=== PATIENT | female | born 1990 | race Caucasian/White ===

== ENCOUNTER 2020-05-10 09:54 | Emergency (ER) | payer SELFPAY ==
[2020-05-10 09:56] VITALS: BP 152/112; PULSE 106; RESP 28; TEMP 36.6; O2SAT 98; BMI 25.0
--- NOTE | 2020-05-10 09:57 | ED.RN ---
hyperventilating in triage. encouraged slow/dep breathing. called for ekg.
[2020-05-10 10:00] VITALS: BP 129/106; PULSE 98; RESP 23; O2SAT 100
--- NOTE | 2020-05-10 10:03 | EKG12_ITS ---
Test Reason : CP Blood Pressure : / mmHG Vent. Rate : 085 BPM Atrial Rate : 085 BPM P-R Int : 122 ms QRS Dur : 088 ms QT Int : 510 ms P-R-T Axes : 047 -25 022 degrees QTc Int : 606 ms Poor data quality, interpretation may be adversely affected Normal sinus rhythm Marked ST abnormality, possible anterior subendocardial injury Prolonged QT Abnormal ECG Confirmed by DARIUSZ TOLEDO, HUGO ([id number]), market editor KIRSTY FOWLER ([id number]) on 05/11/2020 11:16:38 AM Referred By: MR Confirmed By:HUGO ARZOLA MD
--- NOTE | 2020-05-10 10:12 | CT_ITS ---
STUDY: CTA CHEST REASON FOR EXAM: Female, 30 years old. Right sided chest pain today, patient very anxious, hyperventilating and having trouble following breathing directions, best images possible. RADIATION DOSAGE (If Supplied By Facility): CTDIvol = ( 9.62 ) mGy, DLP = ( 351.08 ) mGycm TECHNIQUE: The examination was performed with the intravenous administration of IV 100mL Isovue-370. Post-processing of the angiographic images was performed, with multiplanar reformation and 3D reconstruction. Individualized dose optimization techniques were used for this CT. COMPARISON: None. FINDINGS: Evaluation is nondiagnostic for assessment of pulmonary emboli due to poor contrast bolus timing and motion. There are several hypodensities overlying pulmonary arteries, however these could represent artifact and are indeterminate. Mediastinal structures are within normal limits. The heart and pericardium are unremarkable in appearance. The lungs and pleural spaces are clear. Upper portions of the abdomen visualized are unremarkable in appearance. No aggressive osseous lesions are present. CT/CTA Chest W/WO Contrast IMPRESSION: Nondiagnostic evaluation of the pulmonary arteries due to poor contrast bolus and motion. Pulmonary embolus is not confirmed or excluded. Repeat evaluation is recommended with contrast bolus in the pulmonary arterial phase. Clear lungs. Electronically Signed: Moustapha Tello, at 11:34 EST Tel , Service support ,
--- NOTE | 2020-05-10 10:12 | EKG12_ITS ---
Test Reason : CP Blood Pressure : / mmHG Vent. Rate : 074 BPM Atrial Rate : 074 BPM P-R Int : 102 ms QRS Dur : 094 ms QT Int : 382 ms P-R-T Axes : 046 -08 050 degrees QTc Int : 424 ms Sinus rhythm with short DC Otherwise normal ECG Confirmed by DARIUSZ TOLEDO, HUGO ([id number]), image editor KIRSTY FOWLER ([id number]) on 05/11/2020 11:14:12 AM Referred By: KRISTAL Confirmed By:HUGO ARZOLA MD
--- NOTE | 2020-05-10 10:14 | ED.DCSUM_ITS ---
History of Present Illness Chief Complaint: Chest Pain Narrative: This patient is a 30-year-old female who presents with severe chest pain. This began about 3 or 4 AM today about 6 to 7 hours before presentation. She complains of sharp right-sided chest pain which radiates through to the back between the shoulder blades. She rates it as 8 out of 10. It is pleuritic. No relieving factors. No history of prior similar symptoms. She does complain of shortness of breath. She denies any recent illness otherwise such as fevers cough nausea vomiting diarrhea. No history of DVT or pulmonary embolism. No recent travel or immobilization. No recent hospitalization. No leg swelling. No known coagulopathies. Past Medical History - Allergies and Home Meds Allergies/Adverse Reactions: Allergies No Known Allergies Allergy (Verified 08/03/14 11:30) Primary Care Physician: Care Physician,No Primary [Primary Care Provider] - Past Medical History: - - PCOS Surgical History: no surgical history Smoking Status: Current every day smoker Review of Systems All systems negative except as indicated General: Denies: Fever Eyes: Denies: Visual changes - bilaterally ENT: Denies: Bilateral ear pain Cardiovascular: Reports: Chest pain Respiratory: Reports: Dyspnea. Denies: Cough Gastrointestinal: Denies: Abdominal pain, Nausea, Vomiting, Diarrhea Musculoskeletal: Reports: Back pain. Denies: Myalgias, Arthralgias Skin: Denies: Rash Neurological: Denies: Headache Hematologic: Denies: Easy bruising, Easy bleeding Physical Exam Vital Signs/Narrative: Vital Signs Temp Pulse Resp BP Pulse Ox 05/10/20 10:00 98 23 H 129/106 H 100 05/10/20 09:56 97.9 F 106 H 28 H 152/112 H 98 Inital Vital Signs reviewed: Yes General: Well nourished, Well developed, Acute Distress - Patient appears to be in pain holding her right chest shifting in bed Head: Normocephalic Eyes: EOMI ENT: Moist mucous membranes Neck: Supple Cardiovascular: Regular rhythm, Tachycardia Respiratory: CTA bilaterally, - - Tachypnea but lungs are clear without rales rhonchi or wheezes, there are equal breath sounds bilaterally. Negative for: Rales, Rhonchi, Wheezing Abdomen: Soft, Tender - Patient has mid epigastric abdominal tenderness without guarding without rebound. Negative for: Guarding Extremities: Nontender. Negative for: Edema Skin: Normal color Neurological: Alert Psychological: - - Anxious Diagnostic/Tx/Re-eval Impressions Chest CTA 05/10/20 12:13 IMPRESSION: 1. No evidence of pulmonary embolism or aortic dissection. 2. No infiltrate or pleural effusions are seen. 3. Densities in the kidneys bilaterally which may represent contrast or possibly stones. Electronically Signed: Magdiel Dubon MD at 13:18 EST Tel , Service support , 05/10/20 10:12 CTA Chest W/WO Contrast [CT] Stat 05/10/20 12:13 CTA Chest W/WO Contrast [CT] Stat Laboratory Results 05/10/20 05/10/20 05/10/20 10:07 10:07 10:07 WBC 10.7 RBC 4.85 Hgb 14.4 Hct 44.2 MCV 91.1 MCH 29.7 MCHC 32.6 RDW Std Deviation 44.7 H RDW Coeff of John 13.2 Plt Count 264 MPV 10.5 Immature Gran % (Auto) 0.400 Neut % (Auto) 57.6 Lymph % (Auto) 32.6 [place] % (Auto) 7.1 Eos % (Auto) 1.9 Baso % (Auto) 0.4 Absolute Neuts (auto) 6.2 Absolute Lymphs (auto) 3.47 Nucleated RBC % 0 PT 12.1 INR 0.9 D-Dimer Quant (PE/DVT) Sodium 140 Potassium 3.6 Chloride 112 H Carbon Dioxide 22.0 Anion Gap 6 BUN 13 Creatinine 0.84 Estim Creat Clear Calc 87.32 Est GFR (MDRD) Af Amer 101 Est GFR (MDRD) Non-Af 84 BUN/Creatinine Ratio 15.4 Glucose 94 Calcium 8.9 Total Bilirubin 0.40 Direct Bilirubin 0.15 AST 9 L ALT 20 Alkaline Phosphatase 70 Troponin I < 0.015 Total Protein 7.1 Albumin 3.9 Globulin 3.2 Lipase 138 05/10/20 10:07 WBC RBC Hgb Hct MCV MCH MCHC RDW Std Deviation RDW Coeff of John Plt Count MPV Immature Gran % (Auto) Neut % (Auto) Lymph % (Auto) [place] % (Auto) Eos % (Auto) Baso % (Auto) Absolute Neuts (auto) Absolute Lymphs (auto) Nucleated RBC % PT INR D-Dimer Quant (PE/DVT) <= 0.27 Sodium Potassium Chloride Carbon Dioxide Anion Gap BUN Creatinine Estim Creat Clear Calc Est GFR (MDRD) Af Amer Est GFR (MDRD) Non-Af BUN/Creatinine Ratio Glucose Calcium Total Bilirubin Direct Bilirubin AST ALT Alkaline Phosphatase Troponin I Total Protein Albumin Globulin Lipase - Medical Decision Making Initial EKG shows sinus rhythm at a rate of 85 but is limited due to artifact. A repeat EKG was obtained which shows normal sinus rhythm at a rate of 74 with no acute ischemic changes. Laboratory studies were unremarkable. CT angiogram of the chest was obtained to rule out pulmonary embolism and also aortic dissection was considered given pain radiating through to her back and presenting hypertension. Initial CTA was nondiagnostic due to motion artifact. Patient was given further pain medications and Ativan. She is much more calm and resting comfortably on reevaluation. CT angiogram of the chest is normal. Patient was advised that she does not have any obvious serious or life-th reatening pathology. No pneumothorax, lung infiltrate, aortic dissection, pulmonary embolism, no evidence of myocardial infarction. She was advised on supportive care. She does not have a primary care physician but was given a referral. She was advised to follow-up as an outpatient. She was advised to return for new or worsening symptoms and was instructed on specific signs and symptoms to monitor for. Patient was discharged. ED Disposition - Plan for ED Patient: Disposition: Home or Assisted Living Diagnosis: Chest pain Instructions: ED Chest Pain Atypical Unkn Cause Referrals: Care Physician,No Primary [Primary Care Provider] -
[2020-05-10 10:22] LABS: Absolute Lymphocyte Count 3.47 X10^3/uL (0.83-4.51); Absolute Neutrophil Count 6.2 X10^3/uL (2.0-7.7); Basophil# 0.04 X10^3/uL; Basophil% 0.4 % (0-1); Eosinophils% 1.9 % (0-5); Hematocrit 44.2 % (37-47); Hemoglobin 14.4 g/dL (12.0-15.0); Lymphocyte # 3.47 X10^3/ul (4.0); Lymphocyte % 32.6 % (19-41); Mean Corp Hgb Conc 32.6 g/dL (32-36); Mean Corpuscular Hgb 29.7 pg (27.0-32.0); Mean Corpuscular Volume 91.1 fL (81-99); Mean Platelet Vol. 10.5 fl (6.2-12.0); Monocyte# 0.76 X10^3/uL; Monocyte% 7.1 % (0-10); NRBC Flagged by Analyzer 0 % (0-5); Neutrophil # 6.15 X10^3/uL (2.7-7.7); Neutrophil % 57.6 % (47-70); Platelet Count 264 K/mm3 (150-450); RBC Distribution Width CV 13.2 % (11.6-14.6); RBC Distribution Width SD 44.7 fl (35.1-43.9); Red Blood Count 4.85 M/mm3 (4.2-5.4); White Blood Count 10.7 K/mm3 (4.4-11.0)
[2020-05-10] MEDS: Ondansetron 4 MG/2 ML Vial IV (10:25)
[2020-05-10] MEDS: Morphine 4 MG/ML Syringe IV (10:25)
[2020-05-10 10:28] LABS: International Normalized Ratio 0.9; Prothrombin Time (Protime)PT. 12.1 SECONDS (11.7-14.9)
[2020-05-10 10:29] VITALS: BP 118/82; PULSE 87; RESP 20; O2SAT 100
[2020-05-10 10:40] LABS: AST(SGOT) 9 U/L (15-37); Alanine Aminotransfer ALT/SGPT 20 U/L (13-56); Albumin, Serum 3.9 g/dL (3.2-5.0); Alkaline Phosphatase 70 U/L (45-117); Anion Gap 6 (5-15); BUN 13 mg/dL (7-18); BUN/Creat Ratio 15.4 RATIO (10-20); Bilirubin, Direct 0.15 mg/dL (0.00-0.30); Calcium,Total 8.9 mg/dL (8.5-10.1); Chloride 112 mmol/L (98-107); Creatinine, Serum 0.84 mg/dL (0.55-1.02); EST Glomerular Filtration Rate 84 mL/min (>60); Est Glom Filt Rate - Afr Amer 101 mL/min (>60); Estimated Creatinine Clearance 87.32 ml/min; Globulin 3.2 g/dL (2.2-4.2); Glucose 94 mg/dL (74-106); Lipase 138 U/L (73-393); Potassium 3.6 mmol/L (3.5-5.1); Protein, Total 7.1 g/dL (6.4-8.2); Sodium Level 140 mmol/L (136-145)
[2020-05-10 11:46] VITALS: BP 124/89; PULSE 66; RESP 16; O2SAT 97
--- NOTE | 2020-05-10 12:13 | CT_ITS ---
STUDY: CTA CHEST REASON FOR EXAM: Female, 30 years old. Right sided chest pain and SOB today. Patient has now received Ativan and Dilaudid and is calmer (repeat scan) RADIATION DOSAGE (If Supplied By Facility): CTDIvol = ( 9.96 ) mGy, DLP = ( 401.82 ) mGycm TECHNIQUE: The examination was performed with the intravenous administration of IV 100mL Isovue-370. Post-processing of the angiographic images was performed, with multiplanar reformation and 3D reconstruction. Individualized dose optimization techniques were used for this CT. COMPARISON: None. FINDINGS: Normal enhancement of the main pulmonary artery and right and left pulmonary arteries. Normal enhancement of the bilateral peripheral pulmonary arteries. There is no demonstrated pulmonary embolism. Normal thoracic aorta and visualized great vessels. There is no demonstrated aortic dissection. Normal heart and pericardium. Normal mediastinum. Normal hilar regions. Normal visualized trachea and bronchi. The lungs are well expanded. There are no pulmonary infiltrates. Minimal linear atelectasis or scarring in the right lower lobe. Small bullae in the right middle lobe. There are no pleural effusions. Normal chest wall structures. The visualized portions of the upper abdomen demonstrate densities in the kidneys bilaterally likely presenting contrast. Stones are difficult to exclude. No demonstrated acute osseous changes. CT/CTA Chest W/WO Contrast IMPRESSION: 1. No evidence of pulmonary embolism or aortic dissection. 2. No infiltrate or pleural effusions are seen. 3. Densities in the kidneys bilaterally which may represent contrast or possibly stones. Electronically Signed: Magdiel Dubon MD at 13:18 EST Tel , Service support ,
[2020-05-10] MEDS: LORazepam 2 MG/ML Syringe 1 MG IV (12:17)
[2020-05-10] MEDS: HYDROmorphone 1 MG/ML Syringe IV (12:17)
[2020-05-10] MEDS: 0.9% Normal Saline 1,000 ML 999 ML IV (12:18)
[2020-05-10 12:45] LABS: D-Dimer Quantitative (DVT/PE) <= 0.27 FEU/ug/m (0.27-0.49)
[2020-05-10 13:05] VITALS: BP 133/69; PULSE 87; RESP 15; O2SAT 97
--- NOTE | 2020-05-10 14:01 | ED.RN ---
IV DC'ED, CATHETER INTACT, SMALL GAUZE DRESSING PLACED. DISCHARGE INSTRUCTIONS GIVEN TO AND REVIEWED WITH PATIENT, PATIENT DENIES QUESTIONS OR CONCERNS AND VOICES UNDERSTANDING OF DISCHARGE INSTRUCTIONS. PT AMBULATES OUT OF ROOM WITHOUT DIFFICULTY.
== END 2020-05-10 14:02 | disposition home or self-care (01) ==
PROVIDERS: Emergency Provider Emergency Medicine
DX: R07.9 Chest pain, unspecified (principal); I10 Essential (primary) hypertension; F17.200 Nicotine dependence, unspecified, uncomplicated
CPT/HCPCS: 71275; 80048; 80076; 83690; 84484; 85025; 85379; 85610; 93005; 96361; 96374; 96375; 99283; J7030; Q9967; A4216; J2405

== ENCOUNTER 2020-11-22 06:42 | Emergency (ER) | payer SELFPAY ==
[2020-11-22 06:43] VITALS: BP 125/91; PULSE 74; RESP 17; TEMP 36.6; O2SAT 100; BMI 31.4
--- NOTE | 2020-11-22 07:19 | EKG12_ITS ---
Test Reason : NUMBNESS Blood Pressure : / mmHG Vent. Rate : 076 BPM Atrial Rate : 076 BPM P-R Int : 138 ms QRS Dur : 098 ms QT Int : 400 ms P-R-T Axes : 033 -23 018 degrees QTc Int : 450 ms Normal sinus rhythm Minimal voltage criteria for LVH, may be normal variant Borderline ECG Confirmed by DARIUSZ TOLEDO, HUGO ([id number]), publications editor KIRSTY FOWLER ([id number]) on 11/26/2020 1:48:04 PM Referred By: CALOS/JEFRY Confirmed By:HUGO ARZOLA MD
[2020-11-22] MEDS: 0.9% Normal Saline 1,000 ML 1000 ML IV (07:27)
--- NOTE | 2020-11-22 07:30 | EX.ED.DYSGE1 ---
HPI History of Present Illness Chief Complaint: Numb/Ting Informant: patient Narrative Narrative: Patient is a 30-year-old female denies any past medical history presenting with numbness, tingling and feeling weak. Patient states she woke up feeling weird. She states she had felt better and went to work. Patient then started to feel like her hands were numb and that was radiating up to her shoulders and down to her waist. She states that she was feeling overheated. She states her legs felt shaky. She went to the break room which is in her condition. She sat on the floor and had some of she was in M&Ms thinking her blood sugar might be low. She drank water. She felt she was going to pass out but she did not fall or pass out. Patient was feeling lightheaded and she felt that her cheeks and lips were tingling and her tongue felt swollen. She states she takes an iron in her mouth. She saw some red flashes in her eyes. She then came to emergency room to be evaluated further. She denies any associated chest pain, shortness of breath or swelling of her legs. She has a history of DVT or PE. She has no nausea or vomiting. She denies any diarrhea or constipation. Denies any change in her stools or color. She denies any urinary symptoms. Her last menstrual period was November 15. Patient does smoke cigarettes as well as uses marijuana. She notes she normally drinks 3-4 energy drinks a day but has been cutting back. She is not had 1 today. Finally patient notes that she has been having pain in her bilateral wrist. 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 The pain radiates up to her third and fourth fingers bilaterally. Prior similar symptoms: No PFSH PFSH Home Medications cephalexin 500 mg PO Q12 #6 cap 11/22/20 [Rx Last Taken Unknown] Allergy/AdvReac Type Severity Reaction Status Date / Time No Known Allergies Allergy Verified 11/22/20 06:47 Social History Smoking Status: Current every day smoker tobacco type: cigarettes ROS ROS ED Constitutional Constitutional ED: Reports fatigue and other Details: lightheaded ; Denies chills, fever(s) or malaise Eyes Eyes: Reports seeing flashes; Denies blurry vision or loss of vision ENT ENT ED: Denies rhinorrhea or sore throat Cardiovascular Cardiovascular: Denies chest pain, dizziness or palpitations Respiratory/Chest Respiratory/Chest: Denies cough or dyspnea Gastrointestinal Gastrointestinal: Denies abdominal pain, constipation, diarrhea, nausea or vomiting Genitourinary Genitourinary ED: Reports LMP (females 10-50) Details: Comment: (November 15); Denies dysuria, hematuria or urinary frequency Musculoskeletal Musculoskeletal: Reports other Details: bilateral wrist pain ; Denies arthralgias or myalgias Integumentary Denies rash or wounds Neurologic Neurologic: Denies focal weakness, headache(s) or weakness Psychiatric Psychiatric: Denies anxiety or behavioral changes EXAM Physical Exam Const Vital Signs: 11/22/20 06:43 Temperature 97.8 F Temperature Source Oral Pulse Rate 74 Respiratory Rate 17 Blood Pressure 125/91 H Blood Pressure Mean 102 Pulse Ox 100 Oxygen Delivery Method Room Air Positive well nourished and well developed General Appearance ED: well developed HEENT Reports moist mucous membranes Negative for trauma Eyes PERRL and EOMs intact bilaterally General Eye ED: Negative for pale conjunctiva Neck supple and no JVD Chest Wall inspection of chest normal Resp normal respiratory effort and clear to auscultation bilaterally Cardio regular rate, regular rhythm and no murmurs GI normal to inspection, nondistended, normoactive bowel sounds Back/Spine no CVA tenderness Extremity Extremity Narrative: No deformity. Mild tenderness palpation over the bilateral carpal tunnels with positive Tinel sign General Extremety ED: Negative for edema General Extremity: Negative for edema Neuro oriented x3 Neuro Narrative: No focal deficits Sensorium / Orientation: alert Psych mental status grossly normal Skin no rashes or lesions noted MDM MDM MDM Narrative Medical decision making narrative: Patient evaluated for feeling lightheaded sounds like presyncopal at work as well as having paresthesias throughout her body. She appears nontoxic in no acute distress. She is hemodynamically stable. She does not having acute EKG changes. She is low risk for PE per PE RC criteria and I do not think a D-dimer or CTA is indicated. She does not have a significant electrolyte abnormalities to explain her presentation. Patient is given a liter of IV fluids. She does have a possible physis with UTI with 1+ bacteria 0-5 white blood cells and 25 leukoesterase. Patient notes she has been having some frequency of urination on repeat evaluation as well as urgency so she will be treated with a 3-day course of Keflex. Her wrist symptoms seem to be associated most likely with carpal tunnel. Patient is counseled to follow-up with employee health for further evaluation of this as it seems to be related to her job and repetitive movements. Patient counseled that the exact cause her symptoms not clear today however I think she is safe to follow-up with her PCP. Patient is counseled on signs and symptoms requiring return to the emergency room. Patient verbalizes agreement and understand this plan. Patient discharged home in stable and improved condition. Lab Data Labs: Laboratory Results - last 24 hr 11/22/20 11/22/20 11/22/20 07:20 07:20 08:01 WBC 9.4 RBC 4.76 Hgb 14.4 Hct 43.6 MCV 91.6 MCH 30.3 MCHC 33.0 RDW Std Deviation 45.7 H RDW Coeff of John 13.4 Plt Count 250 MPV 10.5 Immature Gran % (Auto) 0.200 Neut % (Auto) 62.7 Lymph % (Auto) 27.7 [place] % (Auto) 6.6 Eos % (Auto) 2.5 Baso % (Auto) 0.3 Absolute Neuts (auto) 5.9 Absolute Lymphs (auto) 2.59 Nucleated RBC % 0 Sodium 141 Potassium 3.6 Chloride 110 H Carbon Dioxide 26.0 Anion Gap 5 BUN 18 Creatinine 0.78 Estim Creat Clear Calc 97.83 Est GFR (MDRD) Af Amer 110 Est GFR (MDRD) Non-Af 91 BUN/Creatinine Ratio 23.0 H Glucose 112 H Calcium 8.8 Total Bilirubin 0.40 AST 11 L ALT 22 Alkaline Phosphatase 68 Troponin I < 0.015 Total Protein 6.8 Albumin 3.7 Globulin 3.1 Albumin/Globulin Ratio 1.2 Urine Color Yellow Urine Clarity Clear Urine pH 6.0 Ur Specific [place] 1.025 Urine Protein Negative Urine Glucose (UA) Normal Urine Ketones Negative Urine Occult Blood Negative Urine Nitrite Negative Urine Bilirubin Negative Urine Urobilinogen Normal Ur Leukocyte Esterase 25 H Urine RBC 0 SEEN Urine WBC 0-5 SEEN Ur Squamous Epith Cells 0-5 SEEN Urine Bacteria 1+ Urine Mucus 0 SEEN Urine Test Negative Rhythm Strip Rhythm Strip: Sinus Rhythm Rate: 76 Ectopy: None EKG Initial EKG: Interpretation: Sinus Rhythm Comments: Normal sinus rhythm at a rate of 76 VT interval 138 QRS 98 QTc 450 Slight left axis deviation Minimal voltage criteria for LVH Normal ST segments Treatment and Re-Evaluation Comments:: IV fluids Resolution of symptoms on reevaluation. Will be discharged home. Discharge Plan Triage Chief Complaint: Numb/Ting ED Provider: Martita Price Dx/Rx/DC Orders Clinical Impression: UTI (urinary tract infection), Near syncope, Paresthesias, Bilateral carpal tunnel syndrome Instructions: ED Carpal Tunnel Syndrome, ED Near-Fainting, Uncertain Cause, ED Paraesthesias, ED Urinary Tract Infections in Women Prescriptions: New cephalexin 500 mg capsule 500 mg PO Q12 Qty: 6 RF: 0 Primary Care Provider: Care Physician,No Primary Referrals: Karthik Vásquez III, MD [STAFF PHYSICIAN] - Care Physician,No Primary [Primary Care Provider] - Activity Restrictions/Additional Instructions: Drink plenty of fluids. Complete the entire course of antibiotics. If you continue to problems with your wrist, please follow-up with [id number] or your primary care doctor. You have been referred to 1 today if you do not have one. Disposition Disposition: Home, self care
[2020-11-22 07:42] LABS: Absolute Lymphocyte Count 2.59 X10^3/uL (0.83-4.51); Absolute Neutrophil Count 5.9 X10^3/uL (2.0-7.7); Basophil# 0.03 X10^3/uL; Basophil% 0.3 % (0-1); Eosinophil# 0.23 X10^3/uL; Eosinophils% 2.5 % (0-5); Hematocrit 43.6 % (37-47); Hemoglobin 14.4 g/dL (12.0-15.0); Lymphocyte # 2.59 X10^3/ul (0.83-4.51); Lymphocyte % 27.7 % (19-41); Mean Corpuscular Hgb 30.3 pg (27.0-32.0); Mean Corpuscular Volume 91.6 fL (81-99); Mean Platelet Vol. 10.5 fl (6.2-12.0); Monocyte# 0.62 X10^3/uL; Monocyte% 6.6 % (0-10); NRBC Flagged by Analyzer 0 % (0-5); Neutrophil # 5.86 X10^3/uL (2.7-7.7); Neutrophil % 62.7 % (47-70); Platelet Count 250 K/mm3 (150-450); RBC Distribution Width CV 13.4 % (11.6-14.6); RBC Distribution Width SD 45.7 fl (35.1-43.9); Red Blood Count 4.76 M/mm3 (4.2-5.4); White Blood Count 9.4 K/mm3 (4.4-11.0)
[2020-11-22 07:50] LABS: ALB/GLOB Ratio 1.2 RATIO (0.9-2.4); AST(SGOT) 11 U/L (15-37); Alanine Aminotransfer ALT/SGPT 22 U/L (13-56); Albumin, Serum 3.7 g/dL (3.2-5.0); Alkaline Phosphatase 68 U/L (45-117); Anion Gap 5 (5-15); BUN 18 mg/dL (7-18); Calcium,Total 8.8 mg/dL (8.5-10.1); Chloride 110 mmol/L (98-107); Creatinine, Serum 0.78 mg/dL (0.55-1.02); EST Glomerular Filtration Rate 91 mL/min (>60); Est Glom Filt Rate - Afr Amer 110 mL/min (>60); Estimated Creatinine Clearance 97.83 ml/min; Globulin 3.1 g/dL (2.2-4.2); Glucose 112 mg/dL (74-106); Potassium 3.6 mmol/L (3.5-5.1); Protein, Total 6.8 g/dL (6.4-8.2); Sodium Level 141 mmol/L (136-145)
[2020-11-22 08:06] LABS: Mucous, Urine 0 SEEN /hpf (<or=2+); Red Blood Cells-Urine 0 SEEN /hpf (0-5)
[2020-11-22 08:08] LABS: Color, Urine Yellow (Yellow); Glucose, Dipstick Normal (Normal); Ketone-Dipstick Negative (Negative); Leukocyte Esterase-Dipstick 25 /ul (Negative); Nitrite-Dipstick Negative (Negative); Occult Blood-Urine Negative /ul (Negative); Protein-Dipstick Negative (Negative); Specific Gravity, Urine 1.025 (1.002-1.030); Urine Bilirubin Dipstick Negative (Negative); Urine Clarity Clear (Clear); Urine Urobilinogen Normal (Normal)
[2020-11-22 08:18] LABS: Bacteria 1+ /hpf (None Seen); Squamous Epithelial Cells - UA 0-5 SEEN /hpf (5-10); White Blood Cells 0-5 SEEN /hpf (0-5)
[2020-11-22 08:20] LABS: Internal QC Validated? YES +Cl - CLEAR BKGD; Pregnancy, Urine Negative Negative
== END 2020-11-22 09:15 | disposition home or self-care (01) ==
PROVIDERS: Emergency Provider Emergency Medicine
DX: N39.0 Urinary tract infection, site not specified (principal); R55 Syncope and collapse; G56.03 Carpal tunnel syndrome, bilateral upper limbs; F17.210 Nicotine dependence, cigarettes, uncomplicated; Z86.718 Personal history of other venous thrombosis and embolism
CPT/HCPCS: 80053; 81001; 81025; 84484; 85025; 93005; 96360; 99283; J7030; A4216

== ENCOUNTER 2022-01-21 15:57 | Emergency (ER) | payer BC, SELFPAY ==
[2022-01-21 15:57] VITALS: BP 125/82; PULSE 100; RESP 18; TEMP 37.1
[2022-01-21 15:58] VITALS: BP 125/82; PULSE 100; RESP 18; TEMP 37.1; BMI 27.8
--- NOTE | 2022-01-21 17:23 | EX.ED.VIS.HA ---
HPI History of Present Illness Chief Complaint: Headache Narrative Narrative: 32-year-old female presenting with a headache. She has had this since Thursday when she was at [employer]. She states she believes she has a migraine but she has no history of migraines. This was not an acute onset headache. She had no head trauma. Patient does admit to subjective fevers, chills, body aches. She had nausea a couple of times. She is got a mild cough not productive of sputum. No urinary complaints. No chest pain or shortness of breath. No known sick contacts. [facility] Medical History (Updated 01/21/22 @ 17:46 by Hi Gonzales) Anxiety Kidney stones Smoker Substance abuse Home Medications ondansetron 4 mg disintegrating tablet 4 mg PO Q8H PRN nausea and vomiting #14 tabs 01/21/22 [Rx Last Taken Unknown] Allergy/AdvReac Type Severity Reaction Status Date / Time No Known Allergies Allergy Verified 11/22/20 06:47 Social History Smoking Status: Current every day smoker tobacco type: cigarettes EXAM Physical Exam Const Vital Signs: 01/21/22 15:58 01/21/22 15:57 Temperature 98.7 F 98.7 F Temperature Source Temporal Temporal Pulse Rate 100 100 Respiratory Rate 18 18 Blood Pressure 125/82 H 125/82 H Blood Pressure Mean 96 96 Positive well nourished General Appearance ED: NAD; Negative for pallor HEENT Reports normocephalic, TM's clear and moist mucous membranes atraumatic Tympanic Membrane ED: Yes TM's clear Eyes PERRL and EOMs intact bilaterally General Eye ED: Yes pale conjunctiva Resp normal respiratory effort and clear to auscultation bilaterally Auscultation: Negative for rales, rhonchi or wheezes Cardio regular rate and regular rhythm GI non-tender and non-distended Extremity normal to inspection and full ROM General Extremety ED: Negative for edema or tenderness General Extremity: Negative for edema Neuro oriented x3, CN's II-XII intact bilaterally and no sensory deficits noted Sensorium / Orientation: awake and alert Speech: speech normal Gait (Neuro): normal gait Motor Exam: strength 5/5 throughout Psych mental status grossly normal Skin General Skin Exam: Negative for jaundice or pallor MDM MDM MDM Narrative Medical decision making narrative: Patient presenting with headache, viral syndrome. She is treated with IM dose of Toradol 50 mg. She is given Zofran 4 mg. Her physical exam is completely normal. Vital signs are stable and she is afebrile. Patient's COVID testing was positive today. Patient counseled to alternate Tylenol ibuprofen. She is given Zofran for home. She is given a work note. She tested positive today but has been sick since Thursday. I gave her 3-day and was off more. Patient stable for discharge. Impression: 1. headache 2. COVID-19 3. Nausea 4. Vomiting 5. Myalgia Lab Data Attestation: I reviewed the patient's lab results. Discharge Plan Triage Chief Complaint: Headache ED Provider: Kory Goldman Dx/Rx/DC Orders Instructions: Coronavirus Disease 2019 (COVID-19): Caring for Yourself or Others Prescriptions: New ondansetron 4 mg tablet,disintegrating 4 mg PO Q8H PRN (Reason: nausea and vomiting) Qty: 14 0RF Primary Care Provider: Care Physician,No Primary Referrals: [facility] [Outside] - 3-5 Days Care Physician,No Primary [Primary Care Provider] - Disposition Disposition: Home, Self Care
[2022-01-21] MEDS: Ondansetron ODT 4 MG Tablet PO (17:47)
[2022-01-21] MEDS: Ketorolac 15 MG/ML Vial IM (17:48)
[2022-01-21 18:19] VITALS: BP 122/70; PULSE 91; RESP 15; O2SAT 99
== END 2022-01-21 18:20 | disposition home or self-care (01) ==
PROVIDERS: Emergency Provider Student in an Organized Health Care Education/Training Program; Visit Provider Student in an Organized Health Care Education/Training Program
DX: U07.1 COVID-19 (principal); R11.2 Nausea with vomiting, unspecified; M79.10 Myalgia, unspecified site; F17.210 Nicotine dependence, cigarettes, uncomplicated
CPT/HCPCS: 87811; 96372; 99283

== ENCOUNTER 2022-10-02 11:53 | Emergency (ER) | payer BC, SELFPAY ==
[2022-10-02 11:54] VITALS: BP 134/83; PULSE 81; RESP 16; TEMP 36.8; O2SAT 96; BMI 23.5
[2022-10-02] MEDS: Diphth,Pertuss(Acell),Tet Vac 0.5 ML Vial IM (12:20)
[2022-10-02] MEDS: Lidocaine 1% (20 ml mdv) 20 ML Vial INFILT (12:25)
--- NOTE | 2022-10-02 12:52 | EDS_ITS ---
HPI History of Present Illness Chief Complaint: Laceration Informant: patient Narrative Narrative: Patient hit her right elbow on a shelf when she pulled something back. Her elbow hit into the shelf and caused a laceration. She had some tingling in her fingers initially like she hit my funny bone but that has resolved. No other injury. Tetanus is not up-to-date. Patient has no chronic medical conditions or medications. She is not on blood thinners. [facility] Medical History Anxiety Kidney stones Smoker Substance abuse Home Medications ondansetron 4 mg disintegrating tablet 4 mg PO Q8H PRN nausea and vomiting #14 tabs 01/21/22 [Rx Last Taken Unknown] Allergy/AdvReac Type Severity Reaction Status Date / Time No Known Allergies Allergy Verified 10/02/22 11:55 Social History Smoking Status: Current every day smoker tobacco type: cigarettes ROS ROS ED Constitutional Constitutional ED: Denies chills or fever(s) Gastrointestinal Gastrointestinal: Denies nausea or vomiting Musculoskeletal Musculoskeletal: Denies myalgias or neck pain Integumentary Reports other Details: Laceration right elbow Neurologic Neurologic: Reports paresthesias; Denies headache(s) or weakness Psychiatric Psychiatric: Reports anxiety Hematologic/Lymphatic Hematologic/Lymphatic: Denies easy bleeding or easy bruising EXAM Physical Exam Narrative Exam Narrative: Patient awake alert no acute distress laying comfortably in bed. HEENT shows no sign of trauma Cardiorespiratory shows easy breathing unlabored clear. Extremities show a laceration over the right elbow overlying the distal humerus area. Laceration is about 3 cm in length. It is open up about 1 cm. It looks clean. No foreign material seen externally. No active bleeding. Distally she is neurovascularly intact. Although it sounds like she did hit her ulnar nerve she has intact sensation at this time. Const Vital Signs: 10/02/22 11:54 Temperature 98.2 F Temperature Source Temporal Pulse Rate 81 Respiratory Rate 16 Blood Pressure 134/83 H Blood Pressure Mean 100 Pulse Ox 96 Oxygen Delivery Method Room Air PROC Procedures Lacerations Right elbow: Depth: Skin Shape: Linear Prep: Sterile Conditions and Shure-Clens Laceration repair: Irrigated, Lidocaine, Local and Wound explored Irrigated (ml): 100 Number of Sutures/Christin: 5 Suture Information: Ethilon, Simple and 4-0 Comment: The area was anesthetized scrubbed clean. I explored the wound. No sign of foreign material. Wound edges were approximated with good cosmesis hemostasis and patient tolerated the procedure well. MDM MDM MDM Narrative Medical decision making narrative: See procedure note. I do not think the patient needs x-ray. She has excellent range of motion without pain. No indication by exam or history of foreign body. We discussed signs of infection and reasons to return. Sutures out in 10 to 12 days Discharge Plan Triage Chief Complaint: Laceration ED Provider: Lasha Jones Dx/Rx/DC Orders Clinical Impression: Laceration of elbow, right Instructions: ED Laceration Extremity Prescriptions: No Action ondansetron 4 mg tablet,disintegrating 4 mg PO Q8H PRN (Reason: nausea and vomiting) Qty: 14 0RF Primary Care Provider: Care Physician,No Primary Referrals: Markie Pardo MD [Med Staff - Analytical Lab Technician] - 10-14 Days suture removal Care Physician,No Primary [Primary Care Provider] - Activity Restrictions/Additional Instructions: May return here, urgent care, or primary physician for suture removal in 10-14 days. Disposition Disposition: Home, Self Care
--- NOTE | 2022-10-02 12:54 | CM.ED ---
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 Patient was seated on hospital bed and agreeable to speak with SW. SW inquired about patient's insurance and current PCP. Patient verified insurance and reports no current PCP. SW provided patient with a list of local PCPs in network with patient's insurance and accepting new patients. Patient was receptive towards list and voiced no other needs. SW remains available if needs arise. Anyi Blanco MSW, [place]ULIANA
[2022-10-02 12:57] VITALS: RESP 18
== END 2022-10-02 13:00 | disposition home or self-care (01) ==
PROVIDERS: Emergency Provider Emergency Medicine; Visit Provider Emergency Medicine
DX: S51.011A Laceration without foreign body of right elbow, initial encounter (principal); F17.210 Nicotine dependence, cigarettes, uncomplicated; W26.8XXA Contact with other sharp object(s), not elsewhere classified, initial encounter; W22.03XA Walked into furniture, initial encounter
CPT/HCPCS: 12002; 90715; 99283

== ENCOUNTER 2023-09-14 16:32 | Emergency (ER) | payer BC, SELFPAY ==
[2023-09-14 16:34] VITALS: BP 146/83; PULSE 73; RESP 16; TEMP 36.7; O2SAT 100; BMI 20.2
== END 2023-09-14 18:40 | disposition left against medical advice (07) ==
LOC: ED 18:44
DX: M62.838 Other muscle spasm (principal); Z53.21 Procedure and treatment not carried out due to patient leaving prior to being seen by health care provider

== ENCOUNTER 2023-12-27 13:37 | Inpatient (IN) | payer BC, SELFPAY ==
[2023-12-27] VITALS (7 sets, daily range): BP systolic 111–143; BP diastolic 64–99; PULSE 59–87; RESP 10–19; TEMP 36.4–36.8; O2SAT 95–100; BMI 22.1; BMI 20.3
--- NOTE | 2023-12-27 13:51 | CT_ITS ---
EXAM: CT HEAD WITHOUT INTRAVENOUS CONTRAST CLINICAL INDICATION: seizure TECHNIQUE: Multiple axial images were obtained of the head without intravenous contrast. This CT exam was performed using one or more of the following dose reduction techniques: automated exposure control, adjustment of the mA and/or kV according to patient size, and/or use of iterative reconstruction technique. RADIATION DOSE: CTDIvol = 44.99 mGy, DLP = 745.49 mGy-cm COMPARISON: No relevant prior studies available. FINDINGS: BRAIN AND EXTRA-AXIAL SPACES: Unremarkable. No intra- or extra-axial hemorrhage. No evidence of acute infarct. No intracranial mass or mass effect. There is preservation of the mueller/white matter interface. Posterior fossa structures are unremarkable. Ventricles are appropriate for age. No hydrocephalus. Basal cisterns are patent. 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 Consider bruxism. No discrete lytic or blastic abnormalities. SINUSES: Unremarkable as visualized. Clear. MASTOID AIR CELLS: Unremarkable. Clear. ORBITS: Visualized globes, extraocular muscles, optic nerves and retrobulbar fat appear unremarkable. 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 Consider bruxism. No acute intracranial abnormality. Electronically Signed: Bernabe Salomon MD at 14:24 EDT Reading Location ID and State: [facility] / [place] , Service support ,
--- NOTE | 2023-12-27 13:51 | EKG12_ITS ---
Test Reason : Blood Pressure : / mmHG Vent. Rate : 064 BPM Atrial Rate : 064 BPM P-R Int : 144 ms QRS Dur : 094 ms QT Int : 398 ms P-R-T Axes : 047 -07 036 degrees QTc Int : 410 ms Normal sinus rhythm with sinus arrhythmia Normal ECG Confirmed by SHERRY TOLEDO, MICHA ([id number]), television news video editor MAURICE JOHNSON ([id number]) on 12/30/2023 9:47:51 AM Referred By: Confirmed By:RADHA POWELL MD
--- NOTE | 2023-12-27 13:53 | EX.ED.DYSGE1 ---
HPI <LUCILLE Hernandez - Last Filed: 12/27/23 15:52> History of Present Illness Chief Complaint: Seizure Narrative Narrative: Patient is a 33-year-old female with no significant medical history, patient does smoke marijuana daily, who presents to the emergency department for seizure activity, altered mental status. Per the patient spouse, they had a republican at their house last evening, alcohol was consumed, patient also smokes marijuana. She denies any other illicit drugs. Patient then went to bed late at night, woke up at 5 AM then went back to bed. Per the spouse, the patient would wake up, looking confused, making weird sounds with her mouth, moving her hands, and then the patient locked up and had a 30 to 45-second seizure. He then called the ambulance. Patient is still slightly altered however she is alert and oriented. This is never happened to the patient before. She currently does not have any PCP. PFSH <LUCILLE Hernandez - Last Filed: 12/27/23 15:52> [facility], [facility] Medical History Anxiety Kidney stones Smoker Substance abuse Home Medications ?Medication ?Instructions ?Recorded ?Last Taken ?Type NK 12/27/23 Unknown History Allergy/AdvReac Type Severity Reaction Status Date / Time No Known Allergies Allergy Verified 12/27/23 13:38 Social History Smoking Status: Current every day smoker tobacco type: cigarettes ROS <LUCILLE Hernandez - Last Filed: 12/27/23 15:52> ROS ED ROS Narrative Constitutional: Negative for fever, chills, weight loss, weakness Eyes: Negative for vision loss, vision change, double vision ENT: Negative for any sore throat, ear pain, congestion Cardiovascular: Negative for any chest pain, tightness, palpitations Respiratory: Negative for any cough, sputum production, hemoptysis, dyspnea, dyspnea on exertion, orthopnea Gastrointestinal: Negative for any nausea, vomiting, diarrhea, constipation, blood in stool, blood in vomit. Positive for abdominal pain : Negative for any urinary frequency, dysuria, retention, blood in urine Muscle skeletal: Negative for any neck pain, back pain Neurological: Negative for any headache, syncope, dizziness. Positive for seizure-like activity, altered mental status Skin: Negative for any rashes, itching, abrasions, lacerations Psychiatric: Negative for any depression, anxiety, stress, suicidal ideation, homicidal ideation Hematologic: Negative for any excessive bruising, easy bleeding EXAM <LUCILLE Hernandez - Last Filed: 12/27/23 15:52> Physical Exam Narrative Exam Narrative: Vital signs reviewed. Patient is alert and oriented, she is looking around the room, she does answer questions appropriately however when asked to explain, she Cossey looks that her spouse for help. The spouse thinks that she is still not acting 100% herself. HEET: Head normocephalic atraumatic, TMs clear bilaterally. Posterior pharynx is clear, dry mucous membranes. Nares clear bilaterally. Neck: Supple with no lymphadenopathy or tenderness. No signs of meningismus. Cardiac: Regular rate and rhythm no murmurs gallops or rubs, equal peripheral pulses bilaterally. Respiratory: Lungs clear to auscultation bilaterally. No chest tenderness. Abdomen: Soft, nontender, nondistended. No abdominal bruit or pulsatile masses. No hepatosplenomegaly Extremities: No peripheral edema, no signs of gross trauma or deformity. Active full range of motion of all extremities. Neuro: Cranial nerves II through XII intact, no focal neurological deficits. Skin: Clean dry and intact with no rash, purpura, petechiae, vesicles or pustules. Backs/flank: No CVA tenderness, no midline spinal tenderness, no deformity. Psych: Normal mood and affect. No SI, HI or acute psychosis. Const Vital Signs: 12/27/23 13:39 12/27/23 14:37 12/27/23 15:00 Temperature 98 F Temperature Source Oral Pulse Rate 73 59 L 87 Respiratory Rate 16 10 L 19 H Blood Pressure 127/86 H 125/75 H 143/64 H Blood Pressure Mean 99 91 90 Pulse Ox 100 100 95 Oxygen Delivery Method Room Air Room Air Room Air 12/27/23 15:50 Temperature Temperature Source Pulse Rate 80 Respiratory Rate 19 H Blood Pressure 111/80 Blood Pressure Mean 90 Pulse Ox 99 Oxygen Delivery Method Room Air Positive well nourished and well developed General Appearance ED: well developed <Gabino Sanchez MD - Last Filed: 12/27/23 16:03> Physical Exam Const Vital Signs: 12/27/23 13:39 12/27/23 14:37 12/27/23 15:00 Temperature 98 F Temperature Source Oral Pulse Rate 73 59 L 87 Respiratory Rate 16 10 L 19 H Blood Pressure 127/86 H 125/75 H 143/64 H Blood Pressure Mean 99 91 90 Pulse Ox 100 100 95 Oxygen Delivery Method Room Air Room Air Room Air 12/27/23 15:50 Temperature Temperature Source Pulse Rate 80 Respiratory Rate 19 H Blood Pressure 111/80 Blood Pressure Mean 90 Pulse Ox 99 Oxygen Delivery Method Room Air [facility] <LUCILLE Hernandez - Last Filed: 12/27/23 15:52> [facility] Lab Data Labs: Laboratory Results - last 24 hr 12/27/23 12/27/23 12/27/23 13:45 13:46 15:07 WBC 8.6 RBC 4.39 Hgb 13.9 Hct 42.4 MCV 96.6 MCH 31.7 MCHC 32.8 RDW Std Deviation 49.9 H RDW Coeff of John 13.8 Plt Count 235 MPV 9.8 Immature Gran % (Auto) 0.300 Neut % (Auto) 75.1 H Lymph % (Auto) 15.9 L [place] % (Auto) 6.4 Eos % (Auto) 1.7 Baso % (Auto) 0.6 Absolute Neuts (auto) 6.5 Absolute Lymphs (auto) 1.37 Nucleated RBC % 0 Sodium 140 Potassium 4.1 Chloride 110 H Carbon Dioxide 22.0 Anion Gap 8 BUN 18 Creatinine 0.81 Estim Creat Clear Calc 84.51 Est GFR (MDRD) Af Amer 104 Est GFR (MDRD) Non-Af 86 BUN/Creatinine Ratio 22.3 H Glucose 108 H Calcium 8.7 Total Bilirubin 0.40 AST 14 L ALT 22 Alkaline Phosphatase 48 Total Protein 6.4 Albumin 3.5 Globulin 2.9 Albumin/Globulin Ratio 1.2 Lipase 37 Serum , Qual NEGATIVE Urine Color Yellow Urine Clarity Cloudy Urine pH 8.0 Ur Specific [place] 1.015 Urine Protein Negative Urine Glucose (UA) Normal Urine Ketones Negative Urine Occult Blood Negative Urine Nitrite Negative Urine Bilirubin Negative Urine Urobilinogen Normal Ur Leukocyte Esterase Negative Urine RBC 0 SEEN Urine WBC 0 SEEN Ur Squamous Epith Cells 0 SEEN Amorphous Sediment 1+ Urine Bacteria 0 SEEN Urine Mucus 0 SEEN Salicylates 4.0 Acetaminophen < 2.0 L Ur Drug Screen Comment Ethyl Alcohol < 3.0 POC Glucose 112 H Radiography Diagnostic Testing: Clinical Impression(s) from Imaging Studies Brain CT 12/27/23 13:51 IMPRESSION: 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 Consider bruxism. No acute intracranial abnormality. Electronically Signed: Bernabe Salomon MD at 14:24 EDT , Chest X-Ray 12/27/23 14:00 IMPRESSION: No radiographic evidence of acute cardiopulmonary disease. Electronically Signed: Bernabe Salomon MD at 14:20 EDT , EKG Normal sinus rhythm with sinus arrhythmia: Attestation: I personally reviewed and interpreted this EKG as follows: Comments: Normal sinus rhythm, rate 64 bpm, SC interval 144 ms, QRS duration 94 ms, no acute ST elevation, no acute infarct. Treatment and Re-Evaluation :: Differential diagnosis includes however is not limited to: New onset seizures, electrolyte abnormality, illicit drug use, mask effect, Patient appears to be in no obvious respiratory distress vital signs are stable, patient is nontoxic-appearing. Patient is alert however is not back to baseline per the spouse. She does know where she is, what time it is, however she is having difficulty explaining things such as what she does for living. Patient will receive a CT scan of the brain looking for any mass effect, intracranial bleeding. Laboratory values will be completed, as well as urinalysis, urine drug screen. Salicylate and acetaminophen level will be ordered. Chest x-ray will be ordered. IV fluids given, patient will be reevaluated. Chest x-ray showed no radiographic evidence of any acute cardiopulmonary disease. Patient's laboratory values showed a normal CBC, patient's chemistries show chloride of 110, BUN of 22.3, AST of 14, patient is not . Alcohol acetaminophen and salicylate were all negative. Patient CT scan of the brain showed severe degenerative change of the right mandibular condyle, consider bruxism, no acute intracranial abnormality. Currently waiting for urine, urine drug screen. I was called to the room by nursing staff, patient did have another grand mal seizure, this lasted approximately 1 minute to 1 minute 30 seconds. Patient did have a postictal state. Patient was given IV 2 mg Ativan, I will order 1 g IV Keppra. Spoke with [facility] neurology, they do believe the patient can stay here. I reached out to the hospitalist, patient stable for admission. <Gabino Sanchez MD - Last Filed: 12/27/23 16:03> [facility] Narrative Medical decision making narrative: Dr. Sanchez: I have personally performed a face to face assessment of the patient and have reviewed the RANDY Note. I performed a substantive portion of the visit including all aspects of the following. My iverson findings include: History is seizure this morning while lying in bed with boyfriend. No history of seizure. No fever or other symptoms. Admitted to drinking alcohol last night, but rarely drinks according to patient and boyfriend. Seizure only lasted about a minute. Now presents with reported confusion. Exam is afebrile. Vital signs noted. Regular rate and rhythm. Lungs clear to auscultation bilaterally. Abdomen soft nontender with normoactive bowel sounds. Awake, alert. Neurological examination nonfocal and nonlateralizing. Medical Decision Making: Check CT of brain, check urine for drugs of abuse. Check UA. Check test. I reviewed the radiology report of the CT of the brain and is negative for acute process. Urinalysis reviewed and no evidence of infection. Patient afebrile here. During her workup, patient had a seizure, tonic-clonic. She was administered Ativan 2 mg intravenously and loaded with Keppra 1 g intravenously. Patient discussed with the hospitalist, Dr. Urbina, and with neurologist Dr. Middleton with [facility] teleneurology. He recommended no maintenance medications, but EEG and regular workup and can see the patient in consult tomorrow. Disposition is admit in stable condition. Other additions or changes: [None] History & Record Review Discussion w/independent historian: Patient and Significant other Lab Data Attestation: I reviewed the patient's lab results. Labs: Laboratory Results - last 24 hr 12/27/23 12/27/23 12/27/23 13:45 13:46 15:07 WBC 8.6 RBC 4.39 Hgb 13.9 Hct 42.4 MCV 96.6 MCH 31.7 MCHC 32.8 RDW Std Deviation 49.9 H RDW Coeff of John 13.8 Plt Count 235 MPV 9.8 Immature Gran % (Auto) 0.300 Neut % (Auto) 75.1 H Lymph % (Auto) 15.9 L [place] % (Auto) 6.4 Eos % (Auto) 1.7 Baso % (Auto) 0.6 Absolute Neuts (auto) 6.5 Absolute Lymphs (auto) 1.37 Nucleated RBC % 0 Sodium 140 Potassium 4.1 Chloride 110 H Carbon Dioxide 22.0 Anion Gap 8 BUN 18 Creatinine 0.81 Estim Creat Clear Calc 84.51 Est GFR (MDRD) Af Amer 104 Est GFR (MDRD) Non-Af 86 BUN/Creatinine Ratio 22.3 H Glucose 108 H Calcium 8.7 Total Bilirubin 0.40 AST 14 L ALT 22 Alkaline Phosphatase 48 Total Protein 6.4 Albumin 3.5 Globulin 2.9 Albumin/Globulin Ratio 1.2 Lipase 37 Serum , Qual NEGATIVE Urine Color Yellow Urine Clarity Cloudy Urine pH 8.0 Ur Specific [place] 1.015 Urine Protein Negative Urine Glucose (UA) Normal Urine Ketones Negative Urine Occult Blood Negative Urine Nitrite Negative Urine Bilirubin Negative Urine Urobilinogen Normal Ur Leukocyte Esterase Negative Urine RBC 0 SEEN Urine WBC 0 SEEN Ur Squamous Epith Cells 0 SEEN Amorphous Sediment 1+ Urine Bacteria 0 SEEN Urine Mucus 0 SEEN Salicylates 4.0 Acetaminophen < 2.0 L Ur Drug Screen Comment Ethyl Alcohol < 3.0 POC Glucose 112 H Radiography Diagnostic Testing: Clinical Impression(s) from Imaging Studies Brain CT 12/27/23 13:51 IMPRESSION: 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 Consider bruxism. No acute intracranial abnormality. Electronically Signed: Bernabe Salomon MD at 14:24 EDT , Chest X-Ray 12/27/23 14:00 IMPRESSION: No radiographic evidence of acute cardiopulmonary disease. Electronically Signed: Bernabe Salomon MD at 14:20 EDT , Discharge Plan Dx/Rx/DC Orders Clinical Impression: New onset seizure Disposition Disposition: Acute Care Hospital [facility]
[2023-12-27] MEDS: 0.9% Normal Saline (1000mL) 1,000 ML 999 ML IV (13:57)
--- NOTE | 2023-12-27 14:00 | RAD_ITS ---
EXAM: XR CHEST, 1 VIEW CLINICAL INDICATION: cough TECHNIQUE: Frontal view of the chest. COMPARISON: No relevant prior studies available. FINDINGS: LUNGS AND PLEURAL SPACES: Unremarkable. No consolidation or edema. No pneumothorax. No effusion. HEART: Unremarkable. Cardiac silhouette not enlarged. MEDIASTINUM: Central airways and mediastinal contour are unremarkable. BONES/JOINTS: Unremarkable. No acute fracture. SOFT TISSUES: Unremarkable. RAD/Chest 1 View (Portable) IMPRESSION: No radiographic evidence of acute cardiopulmonary disease. Electronically Signed: Bernabe Salomon MD at 14:20 EDT ,
[2023-12-27 14:01] LABS: Absolute Lymphocyte Count 1.37 X10^3/uL (0.83-4.51); Absolute Neutrophil Count 6.5 X10^3/uL (2.0-7.7); Basophil# 0.05 X10^3/uL; Basophil% 0.6 % (0-1); Eosinophil# 0.15 X10^3/uL; Eosinophils% 1.7 % (0-5); Hematocrit 42.4 % (37-47); Hemoglobin 13.9 g/dL (12.0-15.0); Lymphocyte # 1.37 X10^3/ul (0.83-4.51); Lymphocyte % 15.9 % (19-41); Mean Corp Hgb Conc 32.8 g/dL (32-36); Mean Corpuscular Hgb 31.7 pg (27.0-32.0); Mean Corpuscular Volume 96.6 fL (81-99); Mean Platelet Vol. 9.8 fl (6.2-12.0); Monocyte# 0.55 X10^3/uL; Monocyte% 6.4 % (0-10); NRBC Flagged by Analyzer 0 % (0-5); Neutrophil # 6.45 X10^3/uL (2.7-7.7); Neutrophil % 75.1 % (47-70); Platelet Count 235 K/mm3 (150-450); RBC Distribution Width CV 13.8 % (11.6-14.6); RBC Distribution Width SD 49.9 fl (35.1-43.9); Red Blood Count 4.39 M/mm3 (4.2-5.4); White Blood Count 8.6 K/mm3 (4.4-11.0)
[2023-12-27 14:12] LABS: Internal QC Validated? YES +Cl - CLEAR BKGD; Pregnancy, Serum, hCG Quali. NEGATIVE Negative
[2023-12-27 14:15] LABS: Bedside Glucose 112 mg/dL (74-106)
[2023-12-27 14:20] LABS: ALB/GLOB Ratio 1.2 RATIO (0.9-2.4); AST(SGOT) 14 U/L (15-37); Alanine Aminotransfer ALT/SGPT 22 U/L (13-56); Albumin, Serum 3.5 g/dL (3.2-5.0); Alkaline Phosphatase 48 U/L (45-117); Anion Gap 8 (5-15); BUN 18 mg/dL (7-18); BUN/Creat Ratio 22.3 RATIO (10-20); Calcium,Total 8.7 mg/dL (8.5-10.1); Chloride 110 mmol/L (98-107); Creatinine, Serum 0.81 mg/dL (0.55-1.02); EST Glomerular Filtration Rate 86 mL/min (>60); Est Glom Filt Rate - Afr Amer 104 mL/min (>60); Estimated Creatinine Clearance 84.51 ml/min; Globulin 2.9 g/dL (2.2-4.2); Glucose 108 mg/dL (74-106); Lipase 37 U/L (13-75); Potassium 4.1 mmol/L (3.5-5.1); Protein, Total 6.4 g/dL (6.4-8.2); Sodium Level 140 mmol/L (136-145)
[2023-12-27 14:29] LABS: Acetaminophen (Tylenol) Level < 2.0 ug/mL (10.0-30.0)
[2023-12-27 14:30] LABS: Alcohol, Blood (Medical)-Serum < 3.0 mg/dL
[2023-12-27] MEDS: LORazepam 2 MG/ML Syringe IV (14:58)
--- NOTE | 2023-12-27 15:11 | ED.RN ---
AT 1457 THIS RN IN ROOM TO OBTAIN URINE SAMPLE FROM PATIENT. PATIENT GAZE DIVERTED AND NOT RESPONDING. PATIENT STARTS TO CLENCH ARMS AND GRAND MAL SEIZURE ACTIVITY BEGINS. PATIENT ROLLED ON SIDE, SECRETIONS SUCTIONED, DR. MACKENZIE AT BEDSIDE. MEDICATED WITH 2 MG OF ATIVAN. SEIZURE ACTIVITY LASTING FOR APPROX 1 MIN. PATIENT NOW POSTICTAL, RESPONSIVE TO VOICE BUT DISORIENTED. VITALS BP 143/64, BP 87, SPO2 95% ON ROOM AIR, RESP 19.
[2023-12-27 15:19] LABS: Bacteria 0 SEEN /hpf (None Seen); Mucous, Urine 0 SEEN /hpf (<or=2+); Red Blood Cells-Urine 0 SEEN /hpf (0-5); Squamous Epithelial Cells - UA 0 SEEN /hpf (5-10); White Blood Cells 0 SEEN /hpf (0-5)
[2023-12-27] MEDS: levETIRAcetam IV 1,000 MG/100 ML BAG 400 MG IV (15:32)
[2023-12-27 15:39] LABS: Glucose, Dipstick Normal (Normal); Ketone-Dipstick Negative (Negative); Leukocyte Esterase-Dipstick Negative /ul (Negative); Nitrite-Dipstick Negative (Negative); Occult Blood-Urine Negative /ul (Negative); Protein-Dipstick Negative (Negative); Specific Gravity, Urine 1.015 (1.002-1.030); Urine Bilirubin Dipstick Negative (Negative); Urine Urobilinogen Normal (Normal)
--- NOTE | 2023-12-27 15:41 | NURSING ---
CALLED [facility] FOR NEUROLOGY CONSULT
[2023-12-27 15:44] LABS: Color, Urine Yellow (Yellow); Urine Clarity Cloudy (Clear)
[2023-12-27 15:45] LABS: Amorphous Sediment 1+
--- NOTE | 2023-12-27 15:56 | PCM.HP.STD ---
HPI - General General Date of Admission: 12/27/23 Date of Service: 12/27/23 Chief Complaint: Seizure HPI Narrative REBECCA HANNA, is a 33 F who presents with a seizure episode. Patient does not have any significant past medical history. Seizure occurred on the morning of admission. Per patient boyfriend patient was at a green party the night prior with she had marijuana as well as alcohol. She apparently woke up on the morning of her admission confused. She later had clonic tonic seizure. Patient boyfriend did call the squad and patient was brought to the emergency department. Had a second seizure was in the ED did receive Ativan.. [facility] teleneurology was consulted recommended for patient to be admitted for inpatient evaluation [facility] Medical History Substance abuse Anxiety Kidney stones Smoker Home Medications ?Medication ?Instructions ?Recorded ?Last Taken ?Type NK 12/27/23 Unknown History Allergy/AdvReac Type Severity Reaction Status Date / Time No Known Allergies Allergy Verified 12/27/23 13:38 Social History Smoking Status: Current every day smoker tobacco type: cigarettes ROS ROS Narrative Unable to obtain patient significantly lethargic after receiving Ativan Vital Signs Vital Signs Vital Signs: 12/27/23 13:39 12/27/23 14:37 12/27/23 15:00 Temperature 98 F Temperature Source Oral Pulse Rate 73 59 L 87 Respiratory Rate 16 10 L 19 H Blood Pressure 127/86 H 125/75 H 143/64 H Blood Pressure Mean 99 91 90 Pulse Ox 100 100 95 Oxygen Delivery Method Room Air Room Air Room Air 12/27/23 15:50 Temperature Temperature Source Pulse Rate 80 Respiratory Rate 19 H Blood Pressure 111/80 Blood Pressure Mean 90 Pulse Ox 99 Oxygen Delivery Method Room Air Weight Weight: 58.6 kg Body Mass Index (BMI) 22.1 Physical Exam Narrative GENERAL: Significantly lethargic HEENT: Atraumatic; normocephalic EYES; Anicteric, Normal Conjunctiva NECK; supple, normal thyroid, RESPIRATORY: Diminished to auscultation CARDIOVASCULAR: Regular S1 S2, GI: soft, normoactive bowel sounds, : No Renal angle tenderness; EXTREMITIES: No edema, no clubbing, MUSCULOSKELETAL: no muscle wasting NEURO: Lethargic after receiving Ativan but able to move all extremities spontaneously SKIN: Hirsutism Results Lab / Micro Data 12/27/23 13:45 12/27/23 13:45 Labs: Laboratory Results - last 24 hr 12/27/23 13:45: WBC 8.6, RBC 4.39, Hgb 13.9, Hct 42.4, MCV 96.6, MCH 31.7, MCHC 32.8, RDW Std Deviation 49.9 H, RDW Coeff of John 13.8, Plt Count 235, MPV 9.8, Immature Gran % (Auto) 0.300, Neut % (Auto) 75.1 H, Lymph % (Auto) 15.9 L, Woodson % (Auto) 6.4, Eos % (Auto) 1.7, Baso % (Auto) 0.6, Absolute Neuts (auto) 6.5, Absolute Lymphs (auto) 1.37, Nucleated RBC % 0, Sodium 140, Potassium 4.1, Chloride 110 H, Carbon Dioxide 22.0, Anion Gap 8, BUN 18, Creatinine 0.81, Estim Creat Clear Calc 84.51, Est GFR (MDRD) Af Amer 104, Est GFR (MDRD) Non-Af 86, BUN/Creatinine Ratio 22.3 H, Glucose 108 H, Calcium 8.7, Total Bilirubin 0.40, AST 14 L, ALT 22, Alkaline Phosphatase 48, Total Protein 6.4, Albumin 3.5, Globulin 2.9, Albumin/Globulin Ratio 1.2, Lipase 37, Serum , Qual NEGATIVE, Salicylates 4.0, Acetaminophen < 2.0 L, Ethyl Alcohol < 3.0 12/27/23 13:46: POC Glucose 112 H 12/27/23 15:07: Urine Color Yellow, Urine Clarity Cloudy, Urine pH 8.0, Ur Specific [place] 1.015, Urine Protein Negative, Urine Glucose (UA) Normal, Urine Ketones Negative, Urine Occult Blood Negative, Urine Nitrite Negative, Urine Bilirubin Negative, Urine Urobilinogen Normal, Ur Leukocyte Esterase Negative, Urine RBC 0 SEEN, Urine WBC 0 SEEN, Ur Squamous Epith Cells 0 SEEN, Amorphous Sediment 1+, Urine Bacteria 0 SEEN, Urine Mucus 0 SEEN, Ur Drug Screen Comment Imaging Radiology Impression Brain CT 12/27/23 13:51 IMPRESSION: 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 Consider bruxism. No acute intracranial abnormality. Electronically Signed: Bernabe Salomon MD at 14:24 EDT , Chest X-Ray 12/27/23 14:00 IMPRESSION: No radiographic evidence of acute cardiopulmonary disease. Electronically Signed: Bernabe Salomon MD at 14:20 EDT , Assessment & Plan Assessment/Plan (1) New onset seizure: PLAN: Plan Patient is a 33-year-old lady presenting with seizure 1. New onset seizure ? Patient does not have any previous history of seizure disorder. Patient has been admitted to monitored bed seizure precautions initiated. As part of her management ordered EEG MRI of the brain with and without contrast as well as talk screen. Consult was placed to [facility] teleneurology from the ED they recommended against starting any antiseizure medication pending initial investigations 2. Polysubstance dependence ? Patient apparently vapes and uses marijuana plan is to student support counselor on cessation once patient returns to baseline 3. DVT prophylaxis -Low risk Time spent in the patient's overall evaluation,decision-making process, review of diagnostic data, adjustment of management, discussion with other providers, nursing nursing and ancillary staff involved in patient's care documentation, 55 minutes CODE STATUS; full code Charges/Coding Visit Charges Inpatient E&M: 32139 Init Hosp L2
[2023-12-27 16:13] LABS: Amphetamine Urine VISTA NEGATIVE (<1000 ng/mL); Barbiturate Urine VISTA NEGATIVE (< 200 ng/mL); Benzodiazepine Urine VISTA NEGATIVE (< 200 ng/mL); Cocaine Urine VISTA NEGATIVE (< 300 ng/mL); Ecstacy Urine VISTA NEGATIVE (< 500 ng/mL); Methadone Urine VISTA NEGATIVE (< 300 ng/mL); PCP Urine VISTA NEGATIVE (< 25 ng/mL); THC Urine VISTA POSITIVE (< 50 ng/mL); Vista UDS pH Range 7
[2023-12-27] MEDS: Dextrose 5%/0.9% NaCl 1,000 ML 125 ML IV (18:01)
[2023-12-27] MEDS: Ondansetron 4 MG/2 ML Vial IV (18:03)
[2023-12-28] MEDS: Dextrose 5%/0.9% NaCl 1,000 ML 125 ML IV (01:48)
[2023-12-28 04:33] VITALS: BP 109/71; PULSE 55; RESP 12; TEMP 36.2; O2SAT 100
[2023-12-28 06:22] LABS: Absolute Lymphocyte Count 2.24 X10^3/uL (0.83-4.51); Basophil# 0.06 X10^3/uL; Basophil% 0.6 % (0-1); Eosinophil# 0.19 X10^3/uL; Eosinophils% 1.8 % (0-5); Hematocrit 37.4 % (37-47); Hemoglobin 12.3 g/dL (12.0-15.0); Lymphocyte # 2.24 X10^3/ul (0.83-4.51); Lymphocyte % 21.5 % (19-41); Mean Corp Hgb Conc 32.9 g/dL (32-36); Mean Corpuscular Volume 97.4 fL (81-99); Monocyte# 0.85 X10^3/uL; Monocyte% 8.1 % (0-10); NRBC Flagged by Analyzer 0 % (0-5); Neutrophil # 7.04 X10^3/uL (2.7-7.7); Neutrophil % 67.4 % (47-70); Platelet Count 204 K/mm3 (150-450); RBC Distribution Width CV 13.7 % (11.6-14.6); RBC Distribution Width SD 49.8 fl (35.1-43.9); Red Blood Count 3.84 M/mm3 (4.2-5.4); White Blood Count 10.4 K/mm3 (4.4-11.0)
[2023-12-28 07:24] LABS: AST(SGOT) 15 U/L (15-37); Alanine Aminotransfer ALT/SGPT 19 U/L (13-56); Albumin, Serum 2.9 g/dL (3.2-5.0); Alkaline Phosphatase 43 U/L (45-117); Anion Gap 4 (5-15); BUN 13 mg/dL (7-18); BUN/Creat Ratio 19.6 RATIO (10-20); Bilirubin, Direct 0.21 mg/dL (0.00-0.30); Chloride 113 mmol/L (98-107); Creatinine, Serum 0.66 mg/dL (0.55-1.02); EST Glomerular Filtration Rate 108 mL/min (>60); Est Glom Filt Rate - Afr Amer 130 mL/min (>60); Estimated Creatinine Clearance 108.45 ml/min; Globulin 2.3 g/dL (2.2-4.2); Glucose 94 mg/dL (74-106); Magnesium 1.9 mg/dL (1.6-2.6); Phosphorus 3.2 mg/dL (2.5-4.9); Potassium 3.3 mmol/L (3.5-5.1); Protein, Total 5.2 g/dL (6.4-8.2); Sodium Level 140 mmol/L (136-145)
[2023-12-28 08:08] VITALS: O2SAT 100
[2023-12-28] MEDS: Acetaminophen 325 MG Tablet 650 MG PO (08:19)
--- NOTE | 2023-12-28 10:00 | MRI_ITS ---
STUDY: MRI BRAIN WITH AND WITHOUT CONTRAST REASON FOR EXAM: Female, 33 years old. SEIZURE TECHNIQUE: Standardized multiplanar fat and water weighted pulse sequences were obtained. IV 10ml clariscan was administered for the contrast portion of the examination. COMPARISON: Head CT dated December 27, 2023 FINDINGS: Normal size of the ventricles and extra-axial spaces for the patient''s age. Small ovoid demyelinating plaques are present along the margins of the bilateral periventricular white matter extending up into the centrum semiovale, and involving the anterior aspect of the splenium of the corpus callosum. The largest plaque is at the posterior margin of the right corpus callosum splenium/parietal lobe junction measuring 1.13 cm in diameter, see image 14/24 series 6. No midline shift or hydrocephalus is present. No infiltrative or malignant process is seen. No visualized brain abscess. There is no evidence for recent intracranial ischemia or other cause of cytotoxic edema on diffusion weighted imaging (DWI). Normal T2* images of the brain without demonstrated susceptibility artifact. There is no demonstrated hemosiderin stain. Normal bilateral basal ganglia. Normal thalami. There is no extra-axial fluid accumulation. Normal flow voids within the major intracranial circulation suggesting patency by spin echo criteria. Normal venous enhancement. There is no enhancing intra-axial or extra-axial abnormality. Normal sella turcica, pituitary gland, infundibular stalk, optic chiasm and hypothalamus. Normal tectal plate and pineal gland. Normal midbrain, brianna and medulla. Normal cerebellum. Normal basal cisterns. Normal bilateral temporal bones. Normal bilateral internal auditory canals. No demonstrated orbital abnormality, within the constraints of a routine brain study. Normal visualized paranasal sinuses. Normal calvarium and skull base. Normal visualized soft tissue structures. Normal visualized upper cervical spine. MRI/Brain W/WO Contrast IMPRESSION: Findings consistent with mild multiple sclerosis 1. Small ovoid demyelinating plaques are present along the margins of the bilateral periventricular white matter extending up into the centrum semiovale, and involving the anterior aspect of the splenium of the corpus callosum. The largest plaque is at the posterior margin of the right corpus callosum splenium/parietal lobe junction measuring 1.13 cm in diameter, see image 14 series 6. Electronically Signed: Catracho Hsu MD at 12:12 EDT ,
--- NOTE | 2023-12-28 11:03 | CON.PCM.NE_ITS ---
Assessment and Plan: Neuro Assessment/Plan REBECCA FERREIRA is a 33 F with no past medical history who is presenting with first time unprovoked seizure. EEG with no epileptic activity She is pending MRI Discussed the diagnosis and implications of first time seizure with the patient and her boyfriend in depth. No AEDs at this time. Also discussed in depth the precautiosn including no driving, and no heavy machinery at work. Plan: [ ] MRI todd w/wo - Follow up with neurology in 1 month Patient was instructed not to drive, not to use power tools or operate heavy machinery, should not be on ladders and should not swim. The patient should use the shower and not the bath. Likewise, they should refrain from any activity which could result in injury to themselves or others if they had a seizure or lost consciousness. These restrictions should continue for at least 6 months or as instructed by a doctor to do otherwise. The patient was informed that these restrictions would be documented in the medical record. I personally attended this patient and spent a total time of 45 minutes evaluating this patient including clinical assessment, review of chart, medical history imaging, and determining appropriate treatment and workup. HPI Consult Data Date of Consult: 12/28/23 HPI Narrative HPI Narrative: 33 yo woman with no past medical history presenting with first time seizure on 12/26 The night before, she had alcohol and Marijuana, and went to bed late. In the morning, upon waking up she made a weird sound with her mouth, then her whole body locked up and started shaking for about 1 minute. Brought to [facility] and had no Patient has no recollection of the vents Thursday morning, she woke up and ate breakfast, she said she was still tired and went back to sleep. Later on when she woke up she looked confused, she made a weird sound with her mouth, then her whole body locked up and started shaking for about 1 minute. Foaming at the mouth. She remained confused by the time paramedics arrives. She was taken to the ER. At the ER, she had another seizures GTC per description, she was given Ativan and loaded with Keppra 1 gram. In the ER, WBC 8.6 Na 146 CTH with no acute findings No prior episodes concerning for a semiology concerning for seizures. No recent stress out of the ordinary or lack of sleep No fevers chills recent illness No prior history of seizures. 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 [facility] Medical History Substance abuse Anxiety Kidney stones Smoker Home Medications ?Medication ?Instructions ?Recorded ?Last Taken ?Type NK 12/27/23 Unknown History Allergy/AdvReac Type Severity Reaction Status Date / Time No Known Allergies Allergy Verified 12/27/23 13:38 Family History (Updated 12/27/23 @ 17:07 by Mayelin Reis) Mother Diabetes CVA (cerebral vascular accident) Dementia Father Aneurysm Surgical History no surgical history Social History Smoking Status: Unknown if ever smoked Vital Signs Vital Signs Vital Signs: 12/27/23 13:39 12/27/23 14:37 12/27/23 15:00 Temperature 98 F Temperature Source Oral Pulse Rate 73 59 L 87 Respiratory Rate 16 10 L 19 H Blood Pressure 127/86 H 125/75 H 143/64 H Blood Pressure Mean 99 91 90 Blood Pressure Source Blood Pressure Position Blood Pressure Location Pulse Ox 100 100 95 Oxygen Delivery Method Room Air Room Air Room Air 12/27/23 15:50 12/27/23 16:04 12/27/23 16:34 Temperature 97.6 F L 97.6 F L Temperature Source Oral Pulse Rate 80 80 71 Respiratory Rate 19 H 19 H 16 Blood Pressure 111/80 112/80 133/99 H Blood Pressure Mean 90 90 110 Blood Pressure Source Monitor Blood Pressure Position Semi-Fowlers Blood Pressure Location Right Arm Pulse Ox 99 99 98 Oxygen Delivery Method Room Air Room Air 12/27/23 22:29 12/28/23 04:33 12/28/23 08:08 Temperature 98.2 F 97.1 F L Temperature Source Oral Temporal Pulse Rate 81 55 L Respiratory Rate 14 12 Blood Pressure 116/76 109/71 Blood Pressure Mean 89 83 Blood Pressure Source Monitor Monitor Blood Pressure Position Semi-Fowlers Right Lateral Blood Pressure Location Right Arm Left Arm Pulse Ox 99 100 100 Oxygen Delivery Method Room Air Room Air Room Air Weight Weight: 57.2 kg Body Mass Index (BMI) 20.3 EEG Results Procedure Details EEG Procedure Details: SEPTEMBER TANMAY FERREIRA is a 33 year old F with a past medical history of , who presents for evaluation of Electroencephalogram on DATE at TIME Physical Exam Narrative Exam performed with help of the nurse/RANDY present with patient on Tele site NEURO: AAOx3, follows commands, no aphasia/dysarthria. PERRL, EOMI, no gaze preference/nystagmus. Face symmetric, Intact facial sensation. Tongue midline. Head turning intact. Sensation: intact to light touch all over, except reports decreased to? light touch on the R leg (80% feeling compared to L side) Motor: All extremities antigravity Coordination: FTN intact bilaterally Lab / Micro Data 12/28/23 05:49 12/28/23 05:49 Labs: Laboratory Results - last 24 hr 12/27/23 13:45: WBC 8.6, RBC 4.39, Hgb 13.9, Hct 42.4, MCV 96.6, MCH 31.7, MCHC 32.8, RDW Std Deviation 49.9 H, RDW Coeff of John 13.8, Plt Count 235, MPV 9.8, Immature Gran % (Auto) 0.300, Neut % (Auto) 75.1 H, Lymph % (Auto) 15.9 L, Arthur % (Auto) 6.4, Eos % (Auto) 1.7, Baso % (Auto) 0.6, Absolute Neuts (auto) 6.5, Absolute Lymphs (auto) 1.37, Nucleated RBC % 0, Sodium 140, Potassium 4.1, C hloride 110 H, Carbon Dioxide 22.0, Anion Gap 8, BUN 18, Creatinine 0.81, Estim Creat Clear Calc 84.51, Est GFR (MDRD) Af Amer 104, Est GFR (MDRD) Non-Af 86, B UN/Creatinine Ratio 22.3 H, Glucose 108 H, Calcium 8.7, Total Bilirubin 0.40, A ST 14 L, ALT 22, Alkaline Phosphatase 48, Total Protein 6.4, Albumin 3.5, Globulin 2.9, Albumin/Globulin Ratio 1.2, Lipase 37, Serum , Qual NEGATIVE, Salicylates 4.0, Acetaminophen < 2.0 L, Ethyl Alcohol < 3.0 12/27/23 13:46: POC Glucose 112 H 12/27/23 15:07: Urine Color Yellow, Urine Clarity Cloudy, Urine pH 8.0, Ur Specific [place] 1.015, Urine Protein Negative, Urine Glucose (UA) Normal, Urine Ketones Negative, Urine Occult Blood Negative, Urine Nitrite Negative, Urine Bilirubin Negative, Urine Urobilinogen Normal, Ur Leukocyte Esterase Negative, Urine RBC 0 SEEN, Urine WBC 0 SEEN, Ur Squamous Epith Cells 0 SEEN, Amorphous Sediment 1+, Urine Bacteria 0 SEEN, Urine Mucus 0 SEEN, Urine Opiates Screen NEGATIVE, Urine Methadone Screen NEGATIVE, Ur Barbiturates Screen NEGATIVE, Ur Phencyclidine Scrn NEGATIVE, Ur Amphetamines Screen NEGATIVE, MDMA (Ecstasy) Screen NEGATIVE, U Benzodiazepines Scrn NEGATIVE, Urine Cocaine Screen NEGATIVE, U Cannabinoids Screen POSITIVE H, Ur Drug Screen Comment 12/28/23 05:49: WBC 10.4, RBC 3.84 L, Hgb 12.3, Hct 37.4, MCV 97.4, MCH 32.0, MCHC 32.9, RDW Std Deviation 49.8 H, RDW Coeff of John 13.7, Plt Count 204, MPV 10.0, Immature Gran % (Auto) 0.600, Neut % (Auto) 67.4, Lymph % (Auto) 21.5, Arthur % (Auto) 8.1, Eos % (Auto) 1.8, Baso % (Auto) 0.6, Absolute Neuts (auto) 7.0, Absolute Lymphs (auto) 2.24, Nucleated RBC % 0, Sodium 140, Potassium 3.3 L , Chloride 113 H, Carbon Dioxide 23.0, Anion Gap 4 L, BUN 13, Creatinine 0.66, Estim Creat Clear Calc 108.45, Est GFR (MDRD) Af Amer 130, Est GFR (MDRD) Non-Af 108, BUN/Creatinine Ratio 19.6, Glucose 94, Calcium 8.0 L, Phosphorus 3.2, Magnesium 1.9, Total Bilirubin 0.70, Direct Bilirubin 0.21, AST 15, ALT 19, A lkaline Phosphatase 43 L, Total Protein 5.2 L, Albumin 2.9 L, Globulin 2.3 Imaging Radiology Impression Brain CT 12/27/23 13:51 IMPRESSION: 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 Consider bruxism. No acute intracranial abnormality. Electronically Signed: Bernabe Salomon MD at 14:24 EDT Reading Location ID and State: [facility] / [place] , Service support , Chest X-Ray 12/27/23 14:00 IMPRESSION: No radiographic evidence of acute cardiopulmonary disease. Electronically Signed: Bernabe Salomon MD at 14:20 EDT Reading Location ID and State: [facility] / [place] , Service support , Active Medications Active Medications Active Medications: Current Medications Generic Name Dose Route Start Last Admin Trade Name Freq PRN Reason Stop Dose Admin Acetaminophen 650 mg 12/27/23 16:33 12/28/23 08:19 Acetaminophen 325 Mg Tablet PO 650 mg Q6H PRN PRN Administration Pain 1-10 Or Fever>100.7 Al Hydroxide/Mg Hydroxide 30 ml 12/27/23 16:33 Mag Hydrox/Al Hydrox/Simeth 30 Ml Udc PO Q6H PRN PRN Gastric Burning Albuterol Sulfate 2.5 mg 12/27/23 16:33 Albuterol 2.5 Mg/3 Ml Vial.Neb. INHALATION Q2H PRN PRN SOB &/OR WHEEZING Sodium Chloride 250 mls @ 15 mls/hr 12/27/23 17:01 IV .[id number] PRN Additional IVPB Infusion Sodium Chloride 250 mls @ 15 mls/hr 12/27/23 17:01 IV .[id number] PRN Saline Flush Lorazepam 2 mg 12/27/23 16:33 Lorazepam 2 Mg/Ml Syringe IV Q4H PRN PRN SEIZURES Melatonin 3 mg 12/27/23 16:33 Melatonin 3 Mg Tablet PO QHS PRN PRN INSOMNIA Ondansetron HCl 4 mg 12/27/23 16:33 12/27/23 18:03 Ondansetron 4 Mg/2 Ml Vial IV 4 mg Q8H PRN PRN Administration NAUSEA/VOMITING Senna/Docusate Sodium 2 tablet 12/27/23 16:33 Senna/Docusate Sodium 1 Tablet PO BID PRN PRN Constipation Sodium Chloride 10 - 40 ml 12/27/23 17:01 0.9% Saline Lock 10 Ml Syringe IV UD PRN SALINE FLUSH
[2023-12-28 11:58] VITALS: BP 128/81; PULSE 76; RESP 16; TEMP 36.8; O2SAT 99
--- NOTE | 2023-12-28 12:48 | CASEMGMT ---
JEAN CARLOS COOK Assessment Face to Face with patient for initial transition planning/care coordination assessment. JEAN CARLOS COOK introduced self and role at [facility], pt voices understanding. Pt is A&Ox4 and is resting comfortably in bed and is calm. Pt recently returned from MRI. Care providers, pharmacy, and demographics verified. Admitting dx: Seizure PCP: No PCP. Provider list given Specialists: Denies Preferred Pharmacy: [facility] Insurance: ANTHEM Prescription Benefit: Yes LNOK: Yahir Qureshivirgil (SO) Living Arrangements: Pt lives with her SO, SO Son (Age 16), and the pt mother in a 2 story home with two steps to enter ADLs/IADLs: Ind Transportation: Self, SO. Denies concerns DME: Pt states that she wears a CPAP @ HS with no additional oxygen. shower seat if needed HHC/SNF: Denies history or needs ETOH/Illicit Drug use/ Tobacco: Pt states that she rarely drinks ETOH. Pt states that she smokes marijuana every day. Pt states that she vapes nicotine and is trying to quit Pt?s goal: Home Plan: Home no needs. Pt denies the need for HHC or OP therapy. Pt states that she feels safe retuning home with the help and support of her family once she is medically ready. Pt denies any further questions or concerns from CM at this time. Snehal Combs RN, CM
[2023-12-28 15:06] VITALS: BP 121/76; PULSE 77; RESP 16; TEMP 36.8; O2SAT 98
[2023-12-28] MEDS: Potassium Chloride Oral Tablet 20 MEQ PO (15:07)
[2023-12-28] MEDS: 0.9% Saline Lock 10 ML Syringe IV (15:08)
--- NOTE | 2023-12-28 17:09 | PCM.PN.HOSP ---
Reason for Visit Reason for Visit: Diagnoses Unspecified convulsions (12/27/23) Subjective Subjective Patient was seen and examined today, I talked with teleneurology by phone today, they do not recommend the patient be placed on antiseizure medication, her MRI was abnormal showing evidence of plaques in the brain, teleneurologist requested an MRI with contrast of the cervical, thoracic, and lumbar spine. Patient will need a workup for MS-some this workup can be done as an outpatient. Objective Data Objective Data Vital Signs: Vital Signs Temp Pulse Resp BP Pulse Ox O2 Del Method 98.3 F 77 16 121/76 H 98 Room Air 12/28/23 15:06 12/28/23 15:06 12/28/23 15:06 12/28/23 15:06 12/28/23 15:06 12/28/23 15:06 Oxygen Delivery Method Room Air Weight: 57.2 kg Body Mass Index (BMI) 20.3 Intake & Output: Intake and Output for Last 24 Hours 12/26/23 12/27/23 12/28/23 23:59 23:59 23:59 Intake Total 1100 / 1100 2392.92 / 2392.92 Balance 1100 / 1100 2392.92 / 2392.92 Lab / Micro Data 12/28/23 05:49 12/28/23 05:49 Labs: Laboratory Results - last 24 hr 12/28/23 05:49: WBC 10.4, RBC 3.84 L, Hgb 12.3, Hct 37.4, MCV 97.4, MCH 32.0, MCHC 32.9, RDW Std Deviation 49.8 H, RDW Coeff of John 13.7, Plt Count 204, MPV 10.0, Immature Gran % (Auto) 0.600, Neut % (Auto) 67.4, Lymph % (Auto) 21.5, [place] % (Auto) 8.1, Eos % (Auto) 1.8, Baso % (Auto) 0.6, Absolute Neuts (auto) 7.0, Absolute Lymphs (auto) 2.24, Nucleated RBC % 0, Sodium 140, Potassium 3.3 L, Chloride 113 H, Carbon Dioxide 23.0, Anion Gap 4 L, BUN 13, Creatinine 0.66, Estim Creat Clear Calc 108.45, Est GFR (MDRD) Af Amer 130, Est GFR (MDRD) Non-Af 108, BUN/Creatinine Ratio 19.6, Glucose 94, Calcium 8.0 L, Phosphorus 3.2, Magnesium 1.9, Total Bilirubin 0.70, Direct Bilirubin 0.21, AST 15, ALT 19, Alkaline Phosphatase 43 L, Total Protein 5.2 L, Albumin 2.9 L, Globulin 2.3 Radiography Diagnostic Testing: Radiology Impression Brain MRI 12/28/23 10:00 IMPRESSION: Findings consistent with mild multiple sclerosis 1. Small ovoid demyelinating plaques are present along the margins of the bilateral periventricular white matter extending up into the centrum semiovale, and involving the anterior aspect of the splenium of the corpus callosum. The largest plaque is at the posterior margin of the right corpus callosum splenium/parietal lobe junction measuring 1.13 cm in diameter, see image series 6. Electronically Signed: Catracho Hsu MD at 12:12 EDT Reading Location ID and State: [facility] / [place] , Service support , Physical Exam Const alert, oriented x3 and no apparent distress General Appearance: cooperative, well kempt and well developed Orientation / Consciousness: awake, oriented to person, oriented to place and oriented to time HEENT normocephalic, head/scalp atraumatic and moist oral mucous membranes Eyes PERRL, EOMs intact bilaterally and conjunctivae normal Neck supple, no JVD, thyroid normal and no carotid bruits General: trachea midline Resp normal respiratory effort, no retractions, no use of accessory muscles and clear to auscultation bilaterally Auscultation: Negative for rales, rhonchi or wheezes Cardio regular rate, regular rhythm, S1 normal heart sound, S2 normal heart sound, no murmurs, no rub and no gallops GI normal to inspection, nondistended, normoactive bowel sounds, soft to palpation, non-tender and non-distended Extremity no clubbing, cyanosis or edema Skin no rashes or lesions noted General Skin Exam: no breakdown Neuro oriented x3, CN's II-XII intact bilaterally, moves all extremities, no focal motor deficits and no sensory deficits noted Sensorium / Orientation: awake and alert Speech: speech normal Psych affect normal Assessment & Plan Assessment/Plan (1) New onset seizure: PLAN: Plan 1. New onset seizures-again patient will not need to be placed on seizure medication at this time according to teleneurology. #2 abnormal MRI of the brain showing evidence of plaques-suspicious for MS, patient will undergo further imaging studies tomorrow, teleneurology will talk with the patient tomorrow, I discussed the patient's abnormal MRI with her and her today. #3 arm paresthesias-etiology unclear, patient has no evidence of an acute stroke Total clinical time spent by myself addressing the patient's medical issues, reviewing all of her data, and collaborating with patient's care team: 35 minutes Charges/Coding Visit Charges Inpatient E&M: 82594 Subs Hosp L2
[2023-12-28 22:22] VITALS: BP 139/77; PULSE 79; RESP 16; TEMP 36.8; O2SAT 100
--- NOTE | 2023-12-29 | CYSPIN_PTH ---
PATIENT: REBECCA FERREIRA LOC: [facility] U#:[id number] AGE/SX: 33/F ROOM: [facility] RE12/27/[address]: Dr. Garcia Reich DO : 1990 BED: 1 DIS: 12/29/2023 SPEC #: [id number] RECD: 12/29/23 13:33 STATUS: ANGELO REQ #: [id number] KATHY: 12/29/23 00:[address]: Garcia Reich DEPT: CYTOLOGY RECD BY: Mirza Aldrich ENTERED: 12/29/23 13:33 SP TYPE: CYSPIN FL OTHR DR: MD Dr. Juan Cr MD Archana Hinduja, MD Dr. Allison Jordan, DO Dr. Alicia Zha, MD Danielle Becker, MD Dr. Deepak Gulati, MD Dr. David Kittoe, MD Dr. Hera Kamdar, MD Dr. Jan Bittar, MD Dr. James Burke, MD Fam Parks, MS MD Fly Mcnulty MD LEBRON PAIGE, MD Margaret Beigel, MD Dr. Matthew Gusler, MD Dr. Maryam Mian, MD Dr. Mohamed Ridha, MD Dr. Mhd Ezzat Zaghlouleh, MD Nabil Khandker, MD Dr. Peter Robinson, MD Dr. Rami Ibrahim, MD Dr. Sushil Lakhani, MD Sarita Maturu, MD Dr. Vivien Lee, MD Yousef Hannawi, MD No Primary Care Phys Tissues: Cerebrospinal Fluid Procedures: Pap Stain (control) Special Stain Group II Cytospin Fluid Comments: @ Specimen number changed from [id number] to [id number] @ on 12/29/23 at 1346 by DOLLY. HEADER OPERATION: Not noted PRE-OP DIAGNOSIS: Seizure TISSUE SUBMITTED: Cerebrospinal fluid DIAGNOSIS CYTOLOGY Cerebrospinal fluid for cytology (cytospin): Negative for malignant cells. See comment. SJ/mr 12/29/2023 COMMENT The specimen is paucicellular and consists of rare lymphocytes. Correlation with clinical findings and appropriate follow up are necessary. CYTOLOGY STUDY Slides are reviewed. CYTOLOGY GROSS Received is 2.0 ml of clear-colorless fluid labeled with the patient's name and and designated per the requisition as Cerebrospinal fluid. Submitted for cytology preparation including cell block. Mr 12/29/2023 TC:4 CPT: 74528
[2023-12-29 03:41] VITALS: BP 122/83; PULSE 77; RESP 14; TEMP 36.9; O2SAT 100
--- NOTE | 2023-12-29 08:17 | RAD_ITS ---
PROCEDURE: Fluoroscopic guided Lumbar Puncture. DATE: December 29, 2023. CLINICAL INDICATION: Possible multiple sclerosis. PHYSICIAN: Anjel Bolaños M.D. MEDICATIONS: 1% lidocaine administered subcutaneously for local anesthesia. ACCESS SITE: Lower posterior back. NEEDLE: 22-gauge spinal needle. SPECIMEN: Approximately 13 mL clear]CSF fluid. FLUOROSCOPY TIME (if supplied): (0:51) minutes/seconds. 8.9 mGy. COMPLICATIONS: None immediate. The risks, benefits, and alternatives to the procedure were explained to the patient. The specific risks of bleeding, infection, and neurovascular injury were detailed and accepted. Witnessed informed consent was obtained. The patient was placed on the fluoroscopic table in the prone position. The level for needle entry was determined and marked. The overlying skin was cleaned and prepped in the usual sterile fashion. 2% lidocaine was administered subcutaneously for local anesthesia. Under fluoroscopic guidance a 22-gauge spinal needle was advanced. The thecal sac was entered at the L3- L4 vertebral level. The inner stylet was removed. There was spontaneous flow of clear CSF fluid. The patient was placed in a reversed Trendelenburg position. Approximately 13 mL of cerebrospinal fluid was collected using gravity. The specimen was collected and submitted to the laboratory for further evaluation. The needle was withdrawn,. Hemostasis was achieved and a sterile dressing placed. The patient tolerated the procedure well without any immediate complications. The patient was placed supine with head elevated and returned to the floor in stable condition. RAD/Dx Lumbar Puncture w/IMG Guide IMPRESSION: Successful fluoroscopic-guided lumbar puncture. Electronically Signed: Anjel Bolaños MD at 13:22 EDT ,
[2023-12-29 08:52] VITALS: O2SAT 99
[2023-12-29 11:06] VITALS: BP 127/81; PULSE 80; RESP 16; TEMP 36.9; O2SAT 97
[2023-12-29] MEDS: Acetaminophen 325 MG Tablet 650 MG PO (11:11)
--- NOTE | 2023-12-29 11:27 | NEURO.PNOTE ---
Assessment and Plan: Neuro Assessment/Plan REBECCA FERREIRA is a 33 F with no past medical history who is presenting with first time unprovoked seizure. EEG with no epileptic activity She had a MRI brain which showed multiple non-enhancing T2 FLAIR hyperintense lesions in the periventricualr and juxtacortical regions which are concerning for demyelinating disease. I discussed with patient regarding any prior clinical episodes, she denies any. At times she would have transient tinglin in her arms/legs lasting for seconds which she shakes it away, but other gonzalez no episodes concerning for clinical attacks. #First time seizure Discussed the diagnosis and implications of first time seizure with the patient and her boyfriend in depth. No AEDs at this time. Patient with MS do have increased risk for seizure compared to general population, but she doesn't meet the criteria for MS and she has no cortical lesion. I discussed with patient and we decided to hold off on AED for now given first time unprovoked seizure. Also discussed in depth the precautiosn including no driving, and no heavy machinery at work. Patient was instructed not to drive, not to use power tools or operate heavy machinery, should not be on ladders and should not swim. The patient should use the shower and not the bath. Likewise, they should refrain from any activity which could result in injury to themselves or others if they had a seizure or lost consciousness. These restrictions should continue for at least 6 months or as instructed by a doctor to do otherwise. The patient was informed that these restrictions would be documented in the medical record. #RIS (Radiological Isolated Syndrome), Demyelinating disease - Pending MRI spine w/wo - CSF: Cell with diff, biofire, OCB, Cytoloyg, flow, MBP, IgG synthesis rate - Serum NMO/MOG - Serum: CBC with Diff, CMP (with LFT), HBV (Core Ab, Surface Antigen, Surface Ab) HCV screen, VZV IgG, T spot, NASIR virus Antibody with reflex to inhibition assay, B cell phenotyping, Immunoglobulins G, M, A, SHEA. - Send Vitamin D level, and supplement accordingly - Follow up with Dr. Ria Fonseca at [facility] in 3-4 weeks. We will contact the patient to arrange for this appointment. I personally attended this patient and spent a total time of 45 minutes evaluating this patient including clinical assessment, review of chart, medical history imaging, and determining appropriate treatment and workup. Subject: Neurology Subjective No acute events over night. Patient feeling well today EEG Results Procedure Details EEG Procedure Details: REBECCA FERREIRA is a 33 year old F with a past medical history of , who presents for evaluation of Electroencephalogram on DATE at TIME Objective Data Objective Data Vital Signs: Vital Signs Temp Pulse Resp BP Pulse Ox O2 Del Method 98.4 F 80 16 127/81 H 97 Room Air 12/29/23 11:06 12/29/23 11:06 12/29/23 11:06 12/29/23 11:06 12/29/23 11:06 12/29/23 11:06 Oxygen Delivery Method Room Air Weight: 57.2 kg Body Mass Index (BMI) 20.3 Intake & Output: Intake and Output for Last 24 Hours 12/27/23 12/28/23 12/29/23 23:59 23:59 23:59 Intake Total 1100 / 1100 2992.92 / 2992.92 Balance 1100 / 1100 2992.92 / 2992.92 Lab / Micro Data 12/28/23 05:49 12/28/23 05:49 Radiography Diagnostic Testing: Radiology Impression Brain MRI 12/28/23 10:00 IMPRESSION: Findings consistent with mild multiple sclerosis 1. Small ovoid demyelinating plaques are present along the margins of the bilateral periventricular white matter extending up into the centrum semiovale, and involving the anterior aspect of the splenium of the corpus callosum. The largest plaque is at the posterior margin of the right corpus callosum splenium/parietal lobe junction measuring 1.13 cm in diameter, see image series 6. Electronically Signed: Catracho Hsu MD at 12:12 EDT , Physical Exam Narrative Exam stable, resting in bed, following commands, moving all extremities antigravity
[2023-12-29] MEDS: Lidocaine 2% (5ml sdv) 5 ML VIAL.MPF INFILT (12:20)
[2023-12-29 12:51] LABS: Cytology, Body Fluid / CSF SEE PATHOLOGY REPORT
[2023-12-29 13:17] VITALS: BP 129/85; PULSE 62; RESP 16; TEMP 36.7; O2SAT 100
[2023-12-29 13:40] LABS: CSF Color COLORLESS (Colorless); Tested Tube # 1
[2023-12-29 13:41] LABS: Appearance CSF (character) CLEAR (Clear)
--- NOTE | 2023-12-29 13:43 | MRI_ITS ---
STUDY: MRI CERVICAL SPINE WITH AND WITHOUT CONTRAST REASON FOR EXAM: Female, 33 years old. ?MS, F/U TO ABNORMAL BRAIN MRI TECHNIQUE: Standardized fat and water weighted pulse sequences were obtained in the sagittal and axial following administration of IV 5ml clariscan. COMPARISON: None FINDINGS: Normal foramen magnum and brainstem-cervical cord junction. Normal craniovertebral junction. Normal anterior atlantoaxial articulation. Normal odontoid process. There is straightening of the normal cervical lordosis. Normal vertebral bodies and posterior osseous elements. C2-3: Normal endplates. Normal disc height, signal and morphology. Normal central canal and intervertebral neural foramina. C3-4: Normal endplates. Normal disc height, signal and morphology. Normal central canal and intervertebral neural foramina. C4-5: Normal endplates. Normal disc height, signal and morphology. Normal central canal and intervertebral neural foramina. C5-6: Normal endplates. Normal disc height, signal and morphology. Normal central canal and intervertebral neural foramina. C6-7: Moderate bilateral disc osteophyte complex produces moderate spinal stenosis with abutment of the spinal cord and moderate bilateral neural foraminal stenosis. Associated Modic type I endplate changes. C7-T1: Normal endplates. Normal disc height, signal and morphology. Normal central canal and intervertebral neural foramina. Normal cervical cord. There is no demonstrated cervical cord demyelinating process. Normal visualized soft tissue structures. MRI/Spine Cervical W/WO Contrast IMPRESSION: 1. Focal moderate degenerative disc disease at C6-C7 with straightening of the normal lordotic curvature. 2. No MR evidence of demyelinating disease (multiple sclerosis). Electronically Signed: Nick May MD at 11:34 EDT ,
--- NOTE | 2023-12-29 13:43 | MRI_ITS ---
STUDY: MRI THORACIC SPINE WITH AND WITHOUT CONTRAST REASON FOR EXAM: Female, 33 years old. ?MS, F/U TO ABNORMAL BRAIN MRI TECHNIQUE: IV 5ml clariscan was administered for the contrast portion of the examination. COMPARISON: None. FINDINGS: Normal kyphosis of the thoracic spine. There is no substantial scoliosis. T1-2, T2-3, T3-4, T4-5, T5-6, T6-7, T7-8, T8-9, T9-10, T10-11, T11-12: Normal endplates. Normal disc hydration, heights and morphology of the corresponding intervertebral discs. Normal central canal and intervertebral neural foramina at the corresponding levels. Normal visualized thoracic cord. Normal conus medullaris that terminates at the L1.. The soft tissue structures are unremarkable. There is no enhancing abnormality. MRI/Spine Thoracic W/WO Contrast IMPRESSION: Normal unenhanced and enhanced MRI examination of the thoracic spine. Electronically Signed: Nick May MD at 12:03 EDT ,
--- NOTE | 2023-12-29 13:43 | MRI_ITS ---
STUDY: MRI LUMBAR SPINE WITH AND WITHOUT CONTRAST REASON FOR EXAM: Female, 33 years old. ?MS, F/U TO ABNORMAL BRAIN MRI TECHNIQUE: Standardized fat and water weighted pulse sequences were obtained in the sagittal and axial planes. IV 5ml clariscan was administered for the contrast portion of the examination. COMPARISON: None FINDINGS: T12-L1: Normal endplates. Normal disc height, hydration and morphology. Normal bilateral facet joints. Normal central canal and bilateral lateral recesses. Normal bilateral intervertebral neural foramina. Normal lumbar lordosis. There is no substantial scoliosis. Normal conus medullaris that terminates at the L1. L1-2: Normal endplates. Normal disc height, hydration and morphology. Normal bilateral facet joints. Normal central canal and bilateral lateral recesses. Normal bilateral intervertebral neural foramina. L2-3: Normal endplates. Normal disc height, hydration and morphology. Normal bilateral facet joints. Normal central canal and bilateral lateral recesses. Normal bilateral intervertebral neural foramina. L3-4: Normal endplates. Normal disc height, hydration and morphology. Normal bilateral facet joints. Normal central canal and bilateral lateral recesses. Normal bilateral intervertebral neural foramina. L4-5: Normal endplates. Normal disc height, hydration and morphology. Normal bilateral facet joints. Normal central canal and bilateral lateral recesses. Normal bilateral intervertebral neural foramina. L5-S1: Normal endplates. Normal disc height, hydration and morphology. Normal bilateral facet joints. Normal central canal and bilateral lateral recesses. Normal bilateral intervertebral neural foramina. Normal visualized sacral ala. Normal visualized paraspinous soft tissue structures. There is no demonstrated abnormal enhancement. MRI/Spine Lumbar W/WO Contrast IMPRESSION: Normal enhanced and unenhanced MR examination of the lumbar spine. Electronically Signed: Nick May MD at 12:00 EDT ,
[2023-12-29 13:54] LABS: Glucose Spinal Fluid 60 mg/dL (40-75)
[2023-12-29 14:21] LABS: RBC Count, Spinal Fluid 1 /mm-3 (None seen); White Count, CSF 3 /mm-3 (0 - 5)
--- NOTE | 2023-12-29 14:33 | DCINST_ITS ---
Discharge Instructions Diet Discharge Diet: No restrictions Activity Discharge Activity: May Not Drive Weight Bearing Status: Full weight bearing Follow Up Care Test Results: Test results from this visit will be discussed in further detail at your follow- up appointment, if applicable. Discharge Plan Admission Admit Date/Time: 12/27/23 15:48 Primary Reason for Your Visit: seizure Attending Provider: Garcia Reich Primary Care Provider: Care Physician,No Primary Consulting Providers: Yamil Montgomery; Juan Bach; Vanessa Doyle; Ria Fonseca; Mana Chang; Adonay Armstrong; Roselyn Marina; Tomas Myrick; Brayan De Leon; Floyd Shetty; Iqra Christianson; Srinivasan Pearl; Brenda Gastelum; Fina Glynn; Yary Barboza; Lasha Zuleta; Kalpesh Pelaez; Van Brown; Tabitha Crenshaw; Radha Umanzor; Arline Carreon; Fam Parks; Fly Ramirez; TE MONTAÑO; Kin Vargas; Beba Mcgraw; Qasim Gibson Instructions Forms: Work / School Excuse Discharge Orders/Prescriptions Prescriptions: No Action NK Referrals / Follow Up: Ria Fonseca DO [Med Staff - Contracted] - See Referral Note (in 3-4 weeks, office will call to schedule appointment Call them on Thursday of this week if they do not contact you) So Cooper [Non-Staff] - See Referral Note (in two weeks) Care Physician,No Primary [Primary Care Provider] - Disposition Disposition (needs filled in before D/C Order can be placed): Home, Self Care
[2023-12-29 14:40] LABS: Lymphocytes,CSF 50 % (40 - 80); Monocytes,CSF 50 % (15 - 45)
[2023-12-29 14:41] LABS: Body Fluid QC Type(s) BF1Q
--- NOTE | 2023-12-29 14:45 | DS.PCM_ITS ---
Providers Date of Admission: 12/27/23 Date of Discharge: 12/29/23 Primary Care Physician: No Primary Care Phys Consultations 12/27/23 15:19 Teleneurology [Consult: Tele-Neurology] Routine Consulting Provider: [facility] Reason for Consult: new onset seizures EMERGENT Consult: Yes MD Notified: Yes Date Notified: 12/27/23 Time Notified: 15:19 Method of Notification: Verbal Nursing Unit Staff Notify [facility] of Tele-Neurology Consult: Yes 12/27/23 16:33 Tele [Consult: Tele-Neurology] Routine Consulting Provider: [facility] Reason for Consult: SEIZURE EMERGENT Consult: No MD Notified: Yes Date Notified: 12/27/23 Time Notified: 15:51 Method of Notification: ED Physician Initiated Nursing Unit Staff Notify [facility] of Tele-Neurology Consult: Yes Reason For Visit: SEIZURE Diagnosis Discharge Diagnosis (1) New onset seizure: Status: Acute Code(s): R56.9 - Unspecified convulsions Plan 1. New onset seizures-again patient will not need to be placed on seizure medication at this time according to teleneurology. #2 abnormal MRI of the brain showing evidence of plaques-suspicious for MS, patient will undergo further imaging studies tomorrow, teleneurology will talk with the patient tomorrow, I discussed the patient's abnormal MRI with her and her today. 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 Patient had no history of seizures. Workup in the emergency room included brain CT which showed severe degenerative changes of the right mandibular condyle, no acute intracranial abnormality was noted. Lab studies were unremarkable. Patient did have some complaints of altered sensation in her upper arms. Patient was admitted to PCU, she was seen in consultation by teleneurology and underwent an MRI of the brain. MRI of the brain showed evidence of plaques indicative of possible MS, patient then underwent an MRI of the cervical, thoracic, and lumbar spines which showed only degenerative joint disease of the cervical spine. I elected to have the patient undergo a spinal tap to obtain fluid for analysis to rule out MS, teleneurology recommended no antiseizure medications and recommend the patient not drive for 6 months unless released by a neurologist. Arrangements were going to be made for the patient to follow-up with a neurologist in [place] at [facility]-Dr. Ria Fonseca-her office was going to get back with the patient and schedule an appointment. On 12/29/2023, patient was seen and examined: On examination she appeared in good health and spirits, she does not appear to be in any distress. Vital signs as documented. Skin warm and dry and without overt rashes. Neck without JVD, thyroid appears normal, trachea is midline, neck is supple. Lungs clear, normal air movement was noted. Heart exam notable for regular rhythm, normal sounds and absence of murmurs, rubs or gallops. Abdomen unremarkable and without evidence of organomegaly, masses, or abdominal aortic enlargement, bowel sounds are present in all 4 quadrants, no abdominal tenderness was noted. Extremities nonedematous, no cyanosis was noted, no clubbing was noted. Neuro: Cranial nerves II through XII are grossly intact, no focal motor deficits were noted, sensation to light touch and pinprick is intact, motor exam 5/5 throughout. Psych: Patient is alert and oriented x3, she does not appear anxious or depressed, she does not appear agitated. Patient was discharged in stable condition on 12/29/23, she was instructed to follow-up at the [facility] to establish care there with the nurse practitioner or primary care physician. Weight / BMI Weight Weight: 57.2 kg Body Mass Index (BMI) 20.3 ABG / Lab / Microbiology Data 12/28/23 05:49 12/28/23 05:49 Laboratory: Laboratory Results - last 24 hr 12/29/23 12:39: CSF Appearance CLEAR, CSF Color COLORLESS, CSF WBC 3, CSF RBC 1 H, CSF Cell Count Tube # 1, CSF Total Cell Counted TNP, CSF Lymphocytes 50, CSF Monocytes 50 H, CSF Comment May follow, CSF Glucose 60, CSF Total Protein 33.0 Radiography Diagnostic Testing: Radiology Impression Lumbar Puncture Fluoroscopy 12/29/23 08:17 IMPRESSION: Successful fluoroscopic-guided lumbar puncture. Electronically Signed: Anjel Bolaños MD at 13:22 EDT , Cervical Spine MRI 12/29/23 13:43 IMPRESSION: 1. Focal moderate degenerative disc disease at C6-C7 with straightening of the normal lordotic curvature. 2. No MR evidence of demyelinating disease (multiple sclerosis). Electronically Signed: Nick May MD at 11:34 EDT , Lumbar Spine MRI 12/29/23 13:43 IMPRESSION: Normal enhanced and unenhanced MR examination of the lumbar spine. Electronically Signed: Nick May MD at 12:00 EDT , Thoracic Spine MRI 12/29/23 13:43 IMPRESSION: Normal unenhanced and enhanced MRI examination of the thoracic spine. Electronically Signed: Nick May MD at 12:03 EDT , D/C Instructions Discharge Diet: No restrictions Weight Bearing Status: Full weight bearing Meaningful Use Info Meaningful Use Meaningful Use Diagnoses (Choose all that apply): None applicable Ischemic Stroke Statin Dosing Therapy Reference: STATIN DOSE THERAPY REFERENCE: * Patients > 75 years receive moderate or high dose statin therapy. * Patients 75 years or YOUNGER should receive HIGH intensity statin dose unless contraindicated. You will be required to document reason for non-treatment if statin daily dose does not meet guidelines. HIGH DOSE STATIN THERAPY DAILY Atorvastatin > than or = to 40 mg Rosuvastatin > than or = to 20 mg Amlodipine + Atorvastatin > than or = to 2.5/40 mg Ezetimibe + Simvastatin 10/80 mg Simvastatin 80mg Discharge Plan Admission Admit Date/Time: 12/27/23 15:48 Primary Reason for Your Visit: seizure Attending Provider: Garcia Reich Primary Care Provider: Care Physician,No Primary Consulting Providers: Yamil Montgomery; Juan Bach; Vanessa Doyle; Ria Fonseca; Mana Chang; Adonay Armstrong; Roselyn Marina; Tomas Myrick; Brayan De Leon; Floyd Shetty; Iqra Christianson; Srinivasan Pearl; Brenda Gastelum; Fina Glynn; Yary Barboza; Lasha Zuleta; Kalpesh Pelaez; Van Brown; Tabitha Crenshaw; Radha Umanzor; Arline Carreon; Fam Parks; Fly Ramirez; TE MONTAÑO; Kin Vargas; Beba Mcgraw; Qasim Gibson Instructions Forms: Work / School Excuse Discharge Orders/Prescriptions Prescriptions: No Action NK Referrals / Follow Up: Ria Fonseca DO [Med Staff - Contracted] - See Referral Note (in 3-4 weeks, office will call to schedule appointment Call them on Thursday of this week if they do not contact you) So Cooper [Non-Staff] - 01/12/24 2:20 pm () Care Physician,No Primary [Primary Care Provider] - Disposition Disposition (needs filled in before D/C Order can be placed): Home, Self Care Charges/Coding Visit Charges Inpatient E&M: 65555 Disch Hosp >30min
[2023-12-29 15:03] VITALS: BP 131/77; PULSE 65; RESP 16; TEMP 36.8; O2SAT 99
[2023-12-29 15:14] LABS: Hepatitis B Surface Antibody Non-Reactive; Hepatitis B Surface Antigen Non-Reactive (Nonreactive); Hepatitis C Antibody Non-Reactive (Nonreactive); Vitamin D,25 Hydroxy 43.2 ng/mL
--- NOTE | 2023-12-29 15:25 | CASEMGMT ---
Discharge summary noted, RN CM into pt room. Pt denies any home going needs at this time and does not have any questions or concerns.
[2023-12-30 12:52] LABS: Pathologist Review May follow
[2023-12-31 19:07] LABS: Angiotensin Convert Enzyme 46 U/L (14-82); Immunoglobulin A 170 mg/dL (87-352); Immunoglobulin G 645 mg/dL (586-1602); Immunoglobulin M 182 mg/dL (26-217); QNTFERON TB Mitogen Value > 10.00 IU/mL (.); QNTFERON TB Nil Value 0.04 IU/mL (.); QNTFERON TB1+ Ag Value 0.03 IU/mL (.); QNTFERON TB2+ Ag Value 0.04 IU/mL (.); QNTIFERON TB Positive Criteria Negative (Negative)
[2024-01-01 15:09] LABS: Hepatitis B Core Ab Total Negative (Negative)
[2024-01-04 08:07] LABS: Enterovirus By PCR Negative (Negative); HSV 1 By PCR Negative (Negative); HSV 2 By PCR Negative (Negative)
[2024-01-06 15:09] LABS: CSF Albumin 13 mg/dL (7-29); CSF IgG 3.9 mg/dL (0.0-6.7); CSF:Serum Albumin Index 3 (0-8); IgG Serum 630 mg/dL (586-1602); IgG Synthesis Rate, CSF 12.7 mg/day (-9.9 TO +3.3); Myelin Basic Protein, MBP 2.1 ng/mL (0.0-3.7); Serum Albumin 4.2 g/dL (3.9-4.9)
== END 2023-12-29 15:52 | disposition home or self-care (01) | DRG 101 ==
LOC: ED 15:52 → PCU 16:01
PROVIDERS: Nurse Practitioner; Admitting Provider Internal Medicine; Emergency Provider Emergency Medicine; Visit Provider Internal Medicine
DX: R56.9 Unspecified convulsions (principal); G37.9 Demyelinating disease of central nervous system, unspecified; F12.20 Cannabis dependence, uncomplicated; F17.210 Nicotine dependence, cigarettes, uncomplicated; M47.812 Spondylosis without myelopathy or radiculopathy, cervical region; F17.290 Nicotine dependence, other tobacco product, uncomplicated; R20.2 Paresthesia of skin
CPT/HCPCS: 36415; 62328; 70450; 70553; 71045; 72156; 72157; 72158; 80048; 80053; 80076; 80307; 80329; 81001; 82040; 82042; 82077; 82164; 82306; 82784; 82945; 82962; 83690; 83735; 83873; 84100; 84157; 84703; 85025; 86480; 86704; 86706; 86803; 87070; 87205; 87340; 87498; 87529; 87798; 88108; 88313; 89050; 89051; 93005; 95819; 97802; 99285; A9575; J7030; P9612; A4216; G0480; J2405

== ENCOUNTER → 2024-01-12 | Outpatient (CLI) | payer BC, SELFPAY ==
[2024-01-12 17:18] LABS: Anion Gap 5 (5-15); BUN 17 mg/dL (7-18); BUN/Creat Ratio 22.9 RATIO (10-20); Calcium,Total 9.1 mg/dL (8.5-10.1); Chloride 108 mmol/L (98-107); Creatinine, Serum 0.74 mg/dL (0.55-1.02); EST Glomerular Filtration Rate 95 mL/min (>60); Est Glom Filt Rate - Afr Amer 115 mL/min (>60); Glucose 92 mg/dL (74-106); Potassium 4.1 mmol/L (3.5-5.1); Sodium Level 139 mmol/L (136-145)
[2024-01-12 17:22] LABS: Vitamin B12 559 pg/mL (211-911); Vitamin D,25 Hydroxy 35.5 ng/mL
== END | disposition home or self-care (01) ==
LOC: VSLAB 16:08
PROVIDERS: Visit Provider Nurse Practitioner Family
DX: G35 Multiple sclerosis (principal); E56.9 Vitamin deficiency, unspecified
CPT/HCPCS: 36415; 80048; 82306; 82607

== ENCOUNTER 2024-06-03 12:09 | Emergency (ER) | payer BC, SELFPAY ==
[2024-06-03 12:10] VITALS: BP 122/77; PULSE 98; RESP 14; TEMP 36.3; O2SAT 100; BMI 27.5
--- NOTE | 2024-06-03 12:23 | CT_ITS ---
STUDY: CT BRAIN WITHOUT CONTRAST REASON FOR EXAM: Female, 34 years old. Seizure. 25 weeks . The patient was shielded appropriately. RADIATION DOSAGE (If Supplied By Facility): CTDIvol = ( 44.99 ) mGy, DLP = ( 745.49 ) mGycm TECHNIQUE: Transaxial CT imaging of the brain was performed without administration of intravenous contrast material. Individualized dose optimization techniques were used for this CT. COMPARISON: Comparison is made with prior study dated December 27, 2023. FINDINGS: Normal soft tissue structures. Normal calvarium. Normal size ventricles and extra-axial spaces for the patient''s age. Normal white matter tracts of the cerebral hemispheres. Normal basal ganglia and thalami. Normal brainstem. Normal cerebellum. There is no intracranial hemorrhage. There are no findings of an acute ischemic infarction. Normal visualized paranasal sinuses. CT/Brain/Head without Contrast IMPRESSION: Normal unenhanced CT scan of the brain. Electronically Signed: Anjel Bolaños MD at 13:20 [facility] ,
--- NOTE | 2024-06-03 12:23 | EKG12_ITS ---
Test Reason : SEIZURE Blood Pressure : */* mmHG Vent. Rate : 80 BPM Atrial Rate : 80 BPM P-R Int : 152 ms QRS Dur : 84 ms QT Int : 346 ms P-R-T Axes : 37 -2 38 degrees QTcB Int : 399 ms Sinus rhythm with marked sinus arrhythmia Otherwise normal ECG Confirmed by DARIUSZ TOLEDO, HUGO ([id number]), scientific publications editor MAURICE JOHNSON ([id number]) on 06/06/2024 6:36:32 AM Referred By: Confirmed By: HUGO ARZOLA MD
--- NOTE | 2024-06-03 12:40 | EDS_ITS ---
HPI History of Present Illness Chief Complaint: Seizure PFSH PFSH Medical History Multiple sclerosis Substance abuse Anxiety Kidney stones Smoker Home Medications ?Medication ?Instructions ?Recorded ?Last Taken ?Type NK 12/27/23 Unknown History Allergy/AdvReac Type Severity Reaction Status Date / Time No Known Allergies Allergy Verified 06/03/24 12:10 Family History Mother Diabetes CVA (cerebral vascular accident) Dementia Father Aneurysm Social History Smoking Status: Unknown if ever smoked EXAM Physical Exam Const Vital Signs: 06/03/24 12:10 Temperature 97.3 F L Temperature Source Temporal Pulse Rate 98 Respiratory Rate 14 Blood Pressure 122/77 H Blood Pressure Mean 92 Pulse Ox 100 Oxygen Delivery Method Room Air MDM MDM EKG Initial EKG: Attestation: I personally reviewed and interpreted this EKG as follows: Interpretation: Sinus Rhythm (80) and No Acute Injury Pattern Comments: EKG was obtained. On my independent interpretation, it showed a normal sinus rhythm with a rate of 80. [place] interval, QRS interval, and QTc intervals were all normal. [place] was normal. There are no acute ST or T wave changes. Discharge Plan Triage Chief Complaint: Seizure ED Midlevel Provider: Alem Amaya ED Provider: Arron Ivan Dx/Rx/DC Orders Prescriptions: No Action NK Primary Care Provider: Care Physician,No Primary Referrals: Care Physician,No Primary [Primary Care Provider] - Print Language: Upper Sorbian
--- NOTE | 2024-06-03 12:45 | EDS_ITS ---
HPI <PACHECO Dunn - Last Filed: 06/03/24 17:23> History of Present Illness Chief Complaint: Seizure Narrative Narrative: Patient presenting today due to a seizure that occurred around 10 AM this morning. It was witnessed by her mom who reports that she became rigid and had generalized convulsions for about 2 minutes. Patient did have urinary incontinence and did bite the sides of her tongue during this episode. She is currently 25 weeks , she is G1, P0, she follows with [facility] in [place]. She has had a seizure in the past, her last seizure was in December and she was diagnosed with MS at that time, she follows with a neurologist in [place] but is unsure of their name. They were hesitant to start her on antiseizure medication right away and decided to wait to see if she were to have another seizure. She reports that she got the flu shot yesterday. She denies fevers, chills, recent illness, abdominal pain, nausea, and vomiting. She denies any history of preeclampsia. PFSH <PACHECO Dunn - Last Filed: 06/03/24 17:23> PFSH Medical History Multiple sclerosis Substance abuse Anxiety Kidney stones Smoker Home Medications ?Medication ?Instructions ?Recorded ?Last Taken ?Type cyclobenzaprine 10 mg tablet 10 mg PO TID PRN PRN pain 06/03/24 Unknown History folic acid 1 mg tablet 3 mg PO DAILY 06/03/24 Unknown History lurasidone 40 mg tablet 40 mg PO QPM 06/03/24 Unknown History metoprolol succinate 25 mg 25 mg PO DAILY 06/03/24 Unknown History tablet,extended release 24 hr Allergy/AdvReac Type Severity Reaction Status Date / Time No Known Allergies Allergy Verified 06/03/24 12:10 Family History Mother Diabetes CVA (cerebral vascular accident) Dementia Father Aneurysm Social History Smoking Status: Unknown if ever smoked ROS <PACHECO Dunn - Last Filed: 06/03/24 17:23> ROS ED Constitutional Constitutional ED: Denies chills or fever(s) Cardiovascular Cardiovascular: Denies chest pain Respiratory/Chest Respiratory/Chest: Denies cough or dyspnea Gastrointestinal Gastrointestinal: Denies abdominal pain, nausea or vomiting Musculoskeletal Musculoskeletal: Denies arthralgias or myalgias Integumentary Denies rash Neurologic Neurologic: Denies weakness EXAM <PACHECO Dunn - Last Filed: 06/03/24 17:23> Physical Exam Const Vital Signs: 06/03/24 12:10 06/03/24 14:10 Temperature 97.3 F L Temperature Source Temporal Pulse Rate 98 86 Respiratory Rate 14 16 Blood Pressure 122/77 H 120/68 Blood Pressure Mean 92 85 Pulse Ox 100 98 Oxygen Delivery Method Room Air Positive well nourished, well developed and no apparent distress General Appearance ED: well developed HEENT Reports normocephalic and head/scalp atraumatic HEENT Narrative: Superficial lacerations to the right and left side of the tongue with no active bleeding. Mouth ED: Yes moist mucous membranes normal Eyes PERRL and EOMs intact bilaterally Neck full ROM and supple Chest Wall inspection of chest normal Resp normal respiratory effort and clear to auscultation bilaterally Cardio regular rate and regular rhythm GI soft to palpation, non-tender, non-distended and no masses Back/Spine normal ROM and normal to inspection Extremity normal to inspection and full ROM Neuro oriented x3, CN's II-XII intact bilaterally, moves all extremities, no focal motor deficits and no sensory deficits noted Sensorium / Orientation: awake and alert Psych mental status grossly normal and thought process normal Skin no rashes or lesions noted and no wounds <Dr. Arron Ivan, - Last Filed: 06/03/24 22:15> Physical Exam Const Vital Signs: 06/03/24 12:10 06/03/24 14:10 Temperature 97.3 F L Temperature Source Temporal Pulse Rate 98 86 Respiratory Rate 14 16 Blood Pressure 122/77 H 120/68 Blood Pressure Mean 92 85 Pulse Ox 100 98 Oxygen Delivery Method Room Air MDM <PACHECO Dunn - Last Filed: 06/03/24 17:23> [facility] Narrative Medical decision making narrative: Patient presenting today due to a seizure that occurred around 10 AM this morning. She does have a history of a seizure back in December when she was also diagnosed with MS. She is not currently on any antiseizure medication. She has no history of preeclampsia that she is aware of. Her blood pressure here is 122/77. She is back to her baseline. She has superficial lacerations on the right and left side of her tongue with no active bleeding, no laceration that requires repair. Workup will be obtained. I will speak with OB. I spoke with Dr. Carranza who recommended adding on a liver panel and a urine protein to creatinine ratio and as long as this was below 300 there is a low suspicion for eclampsia. She also recommended a obstetrics ultrasound and speaking with the neurologist as patient will require medication to prevent seizures given this is her second seizure in the last 6 months. Ultrasound shows a live intrauterine gestation, the exam could not fully be completed as patient had a seizure while having it.. Head CT negative for any acute findings. I did speak with her neurologist, she sent in a prescription for Keppra twice daily and recommended giving a loading dose here of 1.5 g. She also did recommend that patient have an MRI of the brain without contrast to rule out additional lesions from her MS. Although she does not feel this needs to be done emergently, she did ask if we could obtain it today because it is going to take a few weeks before she will be able to get it as an outpatient. I did speak with MRI, it will be a few hours before they are able to perform the MRI here. I spoke with the patient, she is not wanting to wait here any longer and would rather follow-up as an outpatient to have this done. I recommended she follow-up with her neurologist and OB. She will be discharged home in stable condition. Lab Data Attestation: I reviewed the patient's lab results. Lab results narrative: WBC 13.4, protein/creatinine ratio 155, no transaminitis, UA does appear contaminated with 5-10 squamous cells, she is not having urinary symptoms to indicate UTI. Magnesium 1.9. Labs: Laboratory Results - last 24 hr 06/03/24 06/03/24 06/03/24 12:27 13:25 13:33 WBC 13.4 H RBC 4.00 L Hgb 12.5 Hct 38.2 MCV 95.5 MCH 31.3 MCHC 32.7 RDW Std Deviation 48.1 H RDW Coeff of John 13.6 Plt Count 211 MPV 10.2 Immature Gran % (Auto) 1.300 H Neut % (Auto) 87.2 H Lymph % (Auto) 7.0 L Payne % (Auto) 3.9 Eos % (Auto) 0.4 Baso % (Auto) 0.2 Absolute Neuts (auto) 11.7 H Absolute Lymphs (auto) 0.93 Nucleated RBC % 0 Sodium 137 Potassium 4.0 Chloride 110 H Carbon Dioxide 22.0 Anion Gap 5 BUN 7 Creatinine 0.50 L Estim Creat Clear Calc 159.16 Est GFR (MDRD) Af Amer 180 Est GFR (MDRD) Non-Af 149 BUN/Creatinine Ratio 14.0 Glucose 86 Calcium 8.2 L Magnesium 1.9 Total Bilirubin 0.30 Direct Bilirubin < 0.05 AST 14 L ALT 16 Alkaline Phosphatase 56 Total Protein 6.2 L Albumin 2.7 L Globulin 3.5 Urine Color Yellow Urine Clarity Sl. Cloudy Urine pH 6.0 Ur Specific [place] 1.020 Urine Protein 15 H Urine Glucose (UA) Normal Urine Ketones 50 H Urine Occult Blood Negative Urine Nitrite Negative Urine Bilirubin Negative Urine Urobilinogen Normal Ur Leukocyte Esterase 25 H Urine RBC 0-5 SEEN Urine WBC 0-5 SEEN Ur Squamous Epith Cells 5-10 SEEN Ur Renal Epithelial Cell 0-5 SEEN Urine Bacteria 4+ Urine Mucus 1+ U Random Total Protein 24.3 H Urine Creatinine 157.00 Protein/Creatinin Ratio 155 Radiography Diagnostic Testing: Clinical Impression(s) from Imaging Studies Brain CT 06/03/24 12:23 IMPRESSION: Normal unenhanced CT scan of the brain. Electronically Signed: Anjel Bolaños MD at 13:20 EST , Obstetrics Ultrasound 06/03/24 13:16 IMPRESSION: Live intrauterine gestation. Examination not completed. Patient had a seizure during the study. Electronically Signed: Anjel Bolaños MD at 14:55 EST , EKG Initial EKG: Comments: 80 bpm, sinus rhythm, no ST elevation, interpreted by attending ED physician <Dr. Arron Ivan, DO - Last Filed: 06/03/24 22:15> [facility] Lab Data Labs: Laboratory Results - last 24 hr 06/03/24 06/03/24 06/03/24 12:27 13:25 13:33 WBC 13.4 H RBC 4.00 L Hgb 12.5 Hct 38.2 MCV 95.5 MCH 31.3 MCHC 32.7 RDW Std Deviation 48.1 H RDW Coeff of John 13.6 Plt Count 211 MPV 10.2 Immature Gran % (Auto) 1.300 H Neut % (Auto) 87.2 H Lymph % (Auto) 7.0 L Payne % (Auto) 3.9 Eos % (Auto) 0.4 Baso % (Auto) 0.2 Absolute Neuts (auto) 11.7 H Absolute Lymphs (auto) 0.93 Nucleated RBC % 0 Sodium 137 Potassium 4.0 Chloride 110 H Carbon Dioxide 22.0 Anion Gap 5 BUN 7 Creatinine 0.50 L Estim Creat Clear Calc 159.16 Est GFR (MDRD) Af Amer 180 Est GFR (MDRD) Non-Af 149 BUN/Creatinine Ratio 14.0 Glucose 86 Calcium 8.2 L Magnesium 1.9 Total Bilirubin 0.30 Direct Bilirubin < 0.05 AST 14 L ALT 16 Alkaline Phosphatase 56 Total Protein 6.2 L Albumin 2.7 L Globulin 3.5 Urine Color Yellow Urine Clarity Sl. Cloudy Urine pH 6.0 Ur Specific [place] 1.020 Urine Protein 15 H Urine Glucose (UA) Normal Urine Ketones 50 H Urine Occult Blood Negative Urine Nitrite Negative Urine Bilirubin Negative Urine Urobilinogen Normal Ur Leukocyte Esterase 25 H Urine RBC 0-5 SEEN Urine WBC 0-5 SEEN Ur Squamous Epith Cells 5-10 SEEN Ur Renal Epithelial Cell 0-5 SEEN Urine Bacteria 4+ Urine Mucus 1+ U Random Total Protein 24.3 H Urine Creatinine 157.00 Protein/Creatinin Ratio 155 Radiography Diagnostic Testing: Clinical Impression(s) from Imaging Studies Brain CT 06/03/24 12:23 IMPRESSION: Normal unenhanced CT scan of the brain. Electronically Signed: Anjel Bolaños MD at 13:20 EST , Obstetrics Ultrasound 06/03/24 13:16 IMPRESSION: Live intrauterine gestation. Examination not completed. Patient had a seizure during the study. Electronically Signed: Anjel Bolaños MD at 14:55 EST , Treatment and Re-Evaluation :: I have personally performed a face to face assessment of the patient and have reviewed the RANDY Note. I performed a substantive portion of the visit including all aspects of the following. My iverson findings include: History: Patient presents with a seizure that occurred today. Patient does not remember any of the events around the seizure. Patient states he was sleeping when the seizure occurred. Family reports that patient stiffened up all over and had some mild shaking. Family reports that this only lasted 1 to 2 minutes. Patient admits to some pain across her shoulders bilaterally. Patient states she felt lightheaded when she woke up this morning. Patient admits to some urinary incontinence. Patient also states she bit her tongue. Patient has had 1 prior seizure in December of this year but has not been started on any antiepileptic medication. Patient is approximately 25 weeks . Patient denies any vaginal bleeding or discharge. Patient denies any cramping. Exam: Vital signs are stable. Patient is afebrile. Patient is in no acute distress. Oral mucosa is pink and moist. There is a superficial abrasion over the anterior and right lateral aspect of the tongue. There is no active bleeding noted. Oropharynx is clear. Airway is patent. Neck is supple. Trachea is midline. There is no JVD. Heart was regular rate and rhythm. Lungs are clear and equal bilaterally. Abdomen is soft. Bowel sounds are normal. There is no tenderness. Cranial nerves II through XII are intact. There are no focal motor or sensory deficits noted. Medical Decision Making: Differential diagnosis includes eclampsia, breakthrough seizure, electrolyte abnormality, intracranial bleeding, intracranial mass, hypomagnesemia, and urinary tract infection. CBC will be obtained to assess for leukocytosis and anemia. Basic metabolic profile will be obtained to assess for electrolyte abnormality and renal function. Hepatic profile will be obtained to assess for hepatic function and eclampsia. Urinalysis will be obtained to assess for urinary tract infection and hematuria. Serum magnesium level will be obtained to assess for hypomagnesemia. CT scan of the brain will be obtained to assess for intracranial bleeding. CT scan of the brain was obtained. There is no acute intracranial abnormality. This was interpreted by the radiologist and was also independently reviewed by myself. CBC was reviewed. There is a mild leukocytosis of 13.4. The remainder is within normal limits. Basic metabolic profile was reviewed and was essentially within normal limits. Magnesium was reviewed and was normal at 1.9. Case was discussed with ENVIRONMENTAL MANAGER. She recommended obtaining a hepatic profile, pelvic ultrasound, and urine protein to creatinine ratio. These were ordered. Hepatic profile was reviewed and was essentially within normal limits. Pelvic ultrasound was obtained. There is an intrauterine with a heart rate of 155. Patient had a 30 second seizure while having the ultrasound. Therefore, ultrasound was not completed and patient was brought back to the emergency department. Urine protein to creatinine ratio was reviewed and was normal. Case was discussed with neurology from [facility]. They recommended starting the patient on Keppra. They sent a prescription to her pharmacy. Patient given a dose of Keppra here in the emergency department. Neurology stated they prefer to get an MRI. However, this was unable to be obtained here in the emergency department. Patient was instructed to follow-up to get this scheduled as an outpatient. Patient and family understand and are agreeable with the plan. All questions were answered. Discharge Plan Triage Chief Complaint: Seizure ED Midlevel Provider: Alem Amaya ED Provider: Arron Ivan Dx/Rx/DC Orders Clinical Impression: Seizure disorder, Second trimester Instructions: ED Seizure, Recurrent (Adult) Prescriptions: No Action cyclobenzaprine 10 mg tablet 10 mg PO TID PRN PRN (Reason: pain) folic acid 1 mg tablet 3 mg PO DAILY metoprolol succinate 25 mg tablet extended release 24 hr 25 mg PO DAILY lurasidone 40 mg tablet 40 mg PO QPM Primary Care Provider: Care Physician,No Primary Referrals: Care Physician,No Primary [Primary Care Provider] - Activity Restrictions/Additional Instructions: Take your medication as prescribed, follow-up with your OB and neurologist. Return for any worsening symptoms. Print Language: Citizen Of [place] Disposition Disposition: Home, Self Care Discharge Date/Time: 06/03/24 16:02
[2024-06-03 12:47] LABS: Absolute Lymphocyte Count 0.93 X10^3/uL (0.83-4.51); Absolute Neutrophil Count 11.7 X10^3/uL (2.0-7.7); Basophil# 0.03 X10^3/uL; Basophil% 0.2 % (0-1); Eosinophil# 0.05 X10^3/uL; Eosinophils% 0.4 % (0-5); Hematocrit 38.2 % (37-47); Hemoglobin 12.5 g/dL (12.0-15.0); Lymphocyte # 0.93 X10^3/ul (0.83-4.51); Mean Corp Hgb Conc 32.7 g/dL (32-36); Mean Corpuscular Hgb 31.3 pg (27.0-32.0); Mean Corpuscular Volume 95.5 fL (81-99); Mean Platelet Vol. 10.2 fl (6.2-12.0); Monocyte# 0.52 X10^3/uL; Monocyte% 3.9 % (0-10); NRBC Flagged by Analyzer 0 % (0-5); Neutrophil # 11.67 X10^3/uL (2.7-7.7); Neutrophil % 87.2 % (47-70); Platelet Count 211 K/mm3 (150-450); RBC Distribution Width CV 13.6 % (11.6-14.6); RBC Distribution Width SD 48.1 fl (35.1-43.9); White Blood Count 13.4 K/mm3 (4.4-11.0)
[2024-06-03 12:49] LABS: Anion Gap 5 (5-15); BUN 7 mg/dL (7-18); Calcium,Total 8.2 mg/dL (8.5-10.1); Chloride 110 mmol/L (98-107); EST Glomerular Filtration Rate 149 mL/min (>60); Est Glom Filt Rate - Afr Amer 180 mL/min (>60); Estimated Creatinine Clearance 159.16 ml/min; Glucose 86 mg/dL (74-106); Magnesium 1.9 mg/dL (1.6-2.6); Sodium Level 137 mmol/L (136-145)
--- NOTE | 2024-06-03 13:16 | US_ITS ---
STUDY: SECOND AND THIRD TRIMESTER OBSTETRICAL ULTRASOUND - LIMITED REASON FOR EXAM: Female, 34 years old seizure, LMP: December 11, 2023. PRIOR ULTRASOUND: None. TECHNIQUE: Transabdominal TECHNICAL QUALITY: Adequate. FINDINGS: There is a single intrauterine fetus. The fetus is in a cephalic presentation. There is demonstrated cardiac activity with a heart rate of 155 bpm. There is a normal amniotic fluid volume. The largest amniotic fluid pocket measures 4.5 cm. The amniotic fluid index (BROOK) is within normal limits. The placenta is anterior in location and is not low lying. There are Grade 0 placental changes. BIOMETRY: Age by LMP: 25 weeks, 0 days. JOSE A by LMP: September 16, 2024.. Patient had a seizure during the exam. Gender: US/OB Limited (No Biometrics) IMPRESSION: Live intrauterine gestation. Examination not completed. Patient had a seizure during the study. Electronically Signed: Anjel Bolaños MD at 14:55 EST ,
[2024-06-03 13:45] LABS: AST(SGOT) 14 U/L (15-37); Alanine Aminotransfer ALT/SGPT 16 U/L (13-56); Albumin, Serum 2.7 g/dL (3.2-5.0); Alkaline Phosphatase 56 U/L (45-117); Bilirubin, Direct < 0.05 mg/dL (0.00-0.30); Globulin 3.5 g/dL (2.2-4.2); Protein, Total 6.2 g/dL (6.4-8.2)
[2024-06-03 13:49] LABS: Color, Urine Yellow (Yellow); Glucose, Dipstick Normal (Normal); Ketone-Dipstick 50 mg/dl (Negative); Leukocyte Esterase-Dipstick 25 /ul (Negative); Nitrite-Dipstick Negative (Negative); Occult Blood-Urine Negative /ul (Negative); Protein-Dipstick 15 mg/dl (Negative); Urine Bilirubin Dipstick Negative (Negative); Urine Clarity Sl. Cloudy (Clear); Urine Urobilinogen Normal (Normal)
[2024-06-03 14:04] LABS: Bacteria 4+ /hpf (None Seen); Red Blood Cells-Urine 0-5 SEEN /hpf (0-5); Renal Epithelial Cells 0-5 SEEN /hpf (0-5); White Blood Cells 0-5 SEEN /hpf (0-5)
[2024-06-03 14:05] LABS: Mucous, Urine 1+ /hpf (<or=2+); Squamous Epithelial Cells - UA 5-10 SEEN /hpf (5-10)
[2024-06-03 14:10] VITALS: BP 120/68; PULSE 86; RESP 16; O2SAT 98
[2024-06-03 14:29] LABS: Protein, Urine (Random) 24.3 mg/dL (<11.9); Protein:Creat Ratio 155 mg/g CRE (0-200)
[2024-06-03] MEDS: levETIRAcetam IV 1,500 MG in 0.9% Normal Saline (100mL Bag) 100 ML 460 MG IV (15:33)
== END 2024-06-03 16:02 | disposition home or self-care (01) ==
PROVIDERS: Physician Assistant; Emergency Provider Emergency Medicine; Visit Provider Emergency Medicine
DX: O99.352 Diseases of the nervous system complicating pregnancy, second trimester (principal); G35 Multiple sclerosis; G40.909 Epilepsy, unspecified, not intractable, without status epilepticus; O09.512 Supervision of elderly primigravida, second trimester; Z3A.25 25 weeks gestation of pregnancy
CPT/HCPCS: 70450; 76815; 80048; 80076; 81001; 82570; 83735; 84156; 85025; 93005; 96374; 99282; A4216

== ENCOUNTER 2024-08-25 16:00 | Outpatient (CLI) | payer BC, MEDICAID, SELFPAY ==
[2024-08-25 16:22] VITALS: BMI 30.7
[2024-08-25 16:32] VITALS: BP 130/82; PULSE 80; RESP 16; TEMP 36.7
[2024-08-25 17:12] LABS: ROM Internal Control Test YES-OK TO RESULT pt. (Internal QC); ROM Patient Test Negative (Negative); Record Kit Lot#, ROM+ K2871
--- NOTE | 2024-08-25 17:56 | OB.TRI.NOTE ---
HPI - General General Date of Service: 08/25/24 HPI Narrative REBECCA FERREIRA, is a 34 F who presents for monitoring for non reactive office NST. Maternal Data Information JOSE A Calculator Estimated Delivery Date Method Current WG Current Estimate 09/16/24 Manual 36w 6d PFSH PFS Medical History Multiple sclerosis Substance abuse Anxiety Kidney stones Smoker Home Medications ?Medication ?Instructions ?Recorded ?Last Taken ?Type cyclobenzaprine 10 mg tablet 10 mg PO TID PRN PRN pain 06/03/24 06/15/24 21:00 History 10 mg folic acid 1 mg tablet 3 mg PO DAILY 06/03/24 08/25/24 12:00 History 3 mg lurasidone 40 mg tablet 40 mg PO QPM 06/03/24 08/24/24 21:00 History 40 mg metoprolol succinate 25 mg 25 mg PO DAILY 06/03/24 Unknown History tablet,extended release 24 hr aspirin 81 mg tablet,delayed 81 mg PO DAILY 08/25/24 08/25/24 06:00 History release (Celina Low Dose Aspirin) 81 mg levetiracetam 500 mg tablet 500 mg PO BID 08/25/24 08/25/24 06:00 History (Keppra) 500 mg vit no.95-ferrous 1 tab PO DAILY 08/25/24 08/25/24 06:00 History fumarate 28 mg-folic acid 800 mcg 1 TAB tablet () Allergy/AdvReac Type Severity Reaction Status Date / Time No Known Allergies Allergy Verified 08/25/24 16:24 Family History Mother Diabetes CVA (cerebral vascular accident) Dementia Father Aneurysm Social History Smoking Status: Unknown if ever smoked NST FHR Rate Baby A Baseline: 125 Variability:: Moderate Accelerations:: 15 x 15 Decelerations:: None Uterine Activity:: Irregular Assessment & Plan (1) Non-reactive NST (non-stress test): COMMENT: 36&6 PLAN: Plan Office NST was non reactive but EFM at [facility] reassuring and reactive. ROM + is negative. Patient discharged home.
== END 2024-08-25 17:42 | disposition home or self-care (01) ==
LOC: WPOUT 16:06 → WP 16:07
PROVIDERS: Referring Provider Obstetrics & Gynecology; Visit Provider Obstetrics & Gynecology
DX: O36.8330 Maternal care for abnormalities of the fetal heart rate or rhythm, third trimester, not applicable or unspecified (principal); G35 Multiple sclerosis; O99.353 Diseases of the nervous system complicating pregnancy, third trimester; O09.523 Supervision of elderly multigravida, third trimester; Z3A.36 36 weeks gestation of pregnancy
CPT/HCPCS: 59025; 59050; 84112; 99221; G0378

== ENCOUNTER 2024-09-09 07:09 | Inpatient (IN) | payer BC, MEDICAID, SELFPAY ==
[2024-09-09] VITALS (59 sets, daily range): BP systolic 118–175; BP diastolic 65–102; PULSE 65–95; RESP 15–16; TEMP 36.8–37.4; O2SAT 89–100; BMI 29.9
[2024-09-09] MEDS: Lactated Ringers 1,000 ML 50 ML IV (07:35)
[2024-09-09 08:25] LABS: Absolute Neutrophil Count 9.9 X10^3/uL (2.0-7.7); Basophil# 0.05 X10^3/uL; Basophil% 0.4 % (0-1); Eosinophil# 0.21 X10^3/uL; Eosinophils% 1.6 % (0-5); Hematocrit 34.1 % (37-47); Hemoglobin 11.9 g/dL (12.0-15.0); Lymphocyte % 15.8 % (19-41); Mean Corp Hgb Conc 34.9 g/dL (32-36); Mean Corpuscular Hgb 31.2 pg (27.0-32.0); Mean Corpuscular Volume 89.5 fL (81-99); Mean Platelet Vol. 10.9 fl (6.2-12.0); Monocyte# 0.92 X10^3/uL; Monocyte% 6.9 % (0-10); NRBC Flagged by Analyzer 0 % (0-5); Neutrophil # 9.91 X10^3/uL (2.7-7.7); Neutrophil % 74.3 % (47-70); Platelet Count 247 K/mm3 (150-450); RBC Distribution Width SD 42.9 fl (35.1-43.9); Red Blood Count 3.81 M/mm3 (4.2-5.4); White Blood Count 13.3 K/mm3 (4.4-11.0)
[2024-09-09] MEDS: Oxytocin 15 Units/NS 250ml 15 UNITS/250 ML IV.SOLN 2 UNITS IV (08:35)
--- NOTE | 2024-09-09 08:42 | PCM.HP.OB ---
HPI - General General Date of Admission: 09/09/24 HPI Narrative REBECCA FERREIRA, is a 34 F who presents for elective induction of labor. at 39 weeks. In office for visit and cervix 4cm dilated. Maternal Data Information JOSE A Calculator Estimated Delivery Date Method Current WG Current Estimate 09/16/24 Manual 39w 0d PFSH PFSH Medical History Seizures Cervical incompetence Multiple sclerosis Substance abuse Anxiety Kidney stones Smoker Home Medications ?Medication ?Instructions ?Recorded ?Last Taken ?Type folic acid 1 mg tablet 3 mg PO DAILY 06/03/24 08/25/24 12:00 History 3 mg lurasidone 40 mg tablet 40 mg PO QPM bipolar 06/03/24 08/24/24 21:00 History 40 mg metoprolol succinate 25 mg 25 mg PO DAILY BP 06/03/24 Unknown History tablet,extended release 24 hr Held on 09/09/24. Instructions: Ordered aspirin 81 mg tablet,delayed 81 mg PO DAILY 08/25/24 08/25/24 06:00 History release (Celina Low Dose Aspirin) 81 mg levetiracetam 500 mg tablet 500 mg PO BID seizures 08/25/24 08/25/24 06:00 History (Keppra) 500 mg vit no.95-ferrous 1 tab PO DAILY 08/25/24 08/25/24 06:00 History fumarate 28 mg-folic acid 800 mcg 1 TAB tablet () famotidine 40 mg tablet 40 mg PO BID PRN PRN heartburn 09/09/24 Unknown History Allergy/AdvReac Type Severity Reaction Status Date / Time No Known Allergies Allergy Verified 09/09/24 07:47 Family History Mother Diabetes CVA (cerebral vascular accident) Dementia Father Aneurysm Social History Smoking Status: Light Smoker (<10/day) History Elective abortions Hx Para 0 Spontaneous abortions Hx # Term Pregnancies Ectopic pregnancies Hx # Pregnancies Multiple births # of living children NST FHR Rate Baby A Baseline: 125 Variability:: Moderate Accelerations:: 15 x 15 Decelerations:: None FHR Category:: Category I Uterine Activity:: Irregular ROS Constitutional Constitutional: Reports systems reviewed and no addt'l complaints, except as documented; Denies headache(s) Eyes Eyes: Denies acute decrease in peripheral vision, blurry vision or change in vision ENT HEENT: Reports systems reviewed and no addt'l complaints, except as documented Cardiovascular Cardiovascular: Denies chest pain or dizziness Respiratory/Chest Respiratory/Chest: Denies cough, dyspnea, dyspnea on exertion, shortness of breath at rest or shortness of breath with exertion Gastrointestinal Gastrointestinal: Denies abdominal pain, diarrhea, nausea or vomiting Genitourinary Genitourinary: Denies abdominal discomfort Musculoskeletal Musculoskeletal: Denies limited range of motion Integumentary Integumentary: Reports systems reviewed and no addt'l complaints, except as documented Neurologic Neurologic: Reports systems reviewed and no addt'l complaints, except as documented Psychiatric Psychiatric: Reports systems reviewed and no addt'l complaints, except as documented Endocrine Endocrinology: Reports systems reviewed and no addt'l complaints, except as documented Hematologic/Lymphatic Hematologic/Lymphatic: Reports systems reviewed and no addt'l complaints, except as documented Allergic/Immunologic Allergic/Immunologic: Reports systems reviewed and no addt'l complaints, except as documented Vital Signs Vital Signs Vital Signs: 09/09/24 07:22 09/09/24 07:22 09/09/24 07:22 Temperature Temperature Source Temporal Pulse Rate 80 Respiratory Rate Blood Pressure 130/85 H BP Systolic 130 BP Diastolic 85 09/09/24 07:22 09/09/24 07:22 Temperature 98.2 F Temperature Source Pulse Rate Respiratory Rate 16 Blood Pressure BP Systolic BP Diastolic Weight Weight: 180 lb 1.883 oz Body Mass Index (BMI) 29.9 Physical Exam Const alert and oriented x3 General Appearance: cooperative Orientation / Consciousness: awake, oriented to person, oriented to place and oriented to time Exam Limitations: no limitations HEENT normocephalic Head and Scalp: normal to inspection, normocephalic and atraumatic Face and Sinus: normal facial exam Eyes General Eye: normal appearance of both eyes Neck full ROM Chest Chest: symmetrical chest wall rise Resp normal respiratory effort and normal air movement Auscultation: clear to auscultation bilaterally Cardio regular rate, regular rhythm, S1 normal heart sound, S2 normal heart sound, no murmurs, no rub, no gallops and no clicks GI normal to inspection, nondistended, normoactive bowel sounds and non-tender appearance of the vagina normal Bladder / Kidney Exam: no CVA tenderness Manual OB Exam: estimated gestational size appropriate, presentation cephalic, dilated 4cm, effaced 90, station -1 and other AROM small amount of clear fluid Back/Spine normal ROM Extremity normal to inspection and full ROM Skin no rashes or lesions noted Neuro oriented x3, CN's II-XII intact bilaterally and moves all extremities Sensorium / Orientation: awake, alert and oriented to person Motor Exam: clonus absent Deep Tendon Reflexes: Rt Patellar (L4): 2+ and Lt Patellar (L4): 2+ Labs Labs Labs: Blood Type A POSITIVE Antibody Screen NEGATIVE Hct 34.1 % (37-47) L Hgb 11.9 g/dL (12.0-15.0) L Obstetrics Ultrasound Syphilis Total Ab Nonreactive (Nonreactive) Hep Bs Antigen Non-Reactive (Nonreactive) Hepatitis C Antibody Non-Reactive (Nonreactive) Miscellaneous Test GBS positive RPR negative GC/CT negative Rubella HepC negative HBsAG negative A positive Assessment & Plan (1) Elective induction of labor planned: (2) Anxiety: (3) Smoker: (4) Substance abuse: COMMENT: marijuana (5) Multiple sclerosis: COMMENT: diagnosis in December (6) Seizures: COMMENT: first seizure in December last seizure 06/04/24 (7) Cervical incompetence: COMMENT: cerclage removed on 08/19/24 (8) Current every day nicotine vaping: (9) Bipolar disorder: COMMENT: [place] PLAN: Plan 1) Admit to labor and delivery 2) Routine labs 3) Continuous EFM 4) Pain management upon request 5) collaborative physician and notified of patient status, above assessment, and plan.
[2024-09-09 08:56] LABS: Syphilis Antibodies Nonreactive (Nonreactive)
[2024-09-09] MEDS: Penicillin G Pot 5,000,000 UNITS in 0.9% Normal Saline (100mL MB+) 100 ML 150 UNITS IV (09:03)
[2024-09-09] MEDS: Lactated Ringers 1,000 ML 999 ML IV (09:45)
[2024-09-09] MEDS: fentaNYL-bupivacaine (epidural) 100 ML BAG EPIDURAL (10:19)
[2024-09-09] MEDS: Ondansetron 4 MG/2 ML Vial IV (10:40)
[2024-09-09 10:50] LABS: Amphetamine Urine NEGATIVE (<1000 ng/mL); Barbiturate Urine NEGATIVE (< 200 ng/mL); Benzodiazepine Urine NEGATIVE (< 200 ng/mL); Buprenorphine Urine NEGATIVE (< 200 ng/mL); Cocaine Urine NEGATIVE (< 300 ng/mL); Fentanyl, Urine NEGATIVE; Methadone Urine NEGATIVE (< 300 ng/mL); Opiates Urine NEGATIVE (< 300 ng/mL); Oxycodone, Urine NEGATIVE (< 100 ng/mL); PCP Urine NEGATIVE (< 25 ng/mL); THC Urine PRESUMPTIVE POSITIVE (< 50 ng/mL)
[2024-09-09] MEDS: Lactated Ringers 1,000 ML 200 ML IV (11:36)
[2024-09-09] MEDS: Methylergonovine 0.2 MG/ML Ampul IM (13:15)
--- NOTE | 2024-09-09 13:18 | OB.VAGDELI_ITS ---
Assessment & Plan (1) Vaginal delivery: (2) Second degree perineal laceration: (3) Uterine atony: COMMENT: Methergine given, EBL 600ml Maternal Data Information JOSE A Calculator Estimated Delivery Date Method Current WG Current Estimate 09/16/24 Manual 39w 0d Vaginal Delivery Maternal Presentation Maternal Presentation: Elective Induction Type of Induction: Pitocin and Amniotomy Vaginal Delivery Information Procedure Performed: Spontaneous Vaginal Delivery Surgeon/Practitioner: Leilani Calixto Date of Procedure: 09/09/24 Pre-Procedure Diagnosis: Elective IOL Post-Procedure Diagnosis: , second degree perineal laceration Type of anesthesia: Epidural Estimated Blood Loss: 600ml Time of Delivery: 12:47 Findings Description of procedure: Progressed to complete with urge to push. Epidural for pain management but not effective. of viable female over second degree perineal laceration. APGARS 8,9 respectively. head delivered with body immediately forthcoming. Placed on maternal abdomen, strong cry. Mouth and nares wiped for secretions. Pitocin started for active 3rd stage management. Cord doubly clamped and cut by family after pulsations ceased, delayed cord clamping. Placenta delivered intact via mtz, 3 vessel cord intact. Perineum inspected and revealed second degree perineal laceration. Repaired with 3.0 vicryl rapide and lidocaine/epidural. Fundus firm and hemostasis achieved. Vaginal sweep completed by me, sponge and instrument count correct. Uterus boggy and started slow stream of bleeding, Methergine for uterine atony. EBL 600ml. Mom and baby stable. Family bonding well. Dr. Schmidt notified of delivery. Presentation: Vertex and MIKE Amniotic Membrane Rupture Type: Artificial Amniotic Fluid Description: Clear Placenta Disposition: [facility] Specimen collected: No Cord Vessel Description: 3 Vessels Cord Entanglement: None A Gender: Female (1 minute): 8 (5 minute): 9 Delayed Cord Clamping: Yes Digital Marketing Assistant automatic edger: No Post Vaginal Deli Medications given after delivery: IV Pitocin Episiotomy Description: None Laceration: Perineal Extension/lac and 2nd degree Complication Complications: No
[2024-09-09] MEDS: Oxytocin 15 Units/NS 250ml 15 UNITS/250 ML IV.SOLN 83 UNITS IV (13:21)
[2024-09-09] MEDS: Oxytocin 15 Units/NS 250ml 15 UNITS/250 ML IV.SOLN 334 UNITS IV (13:21)
[2024-09-09] MEDS: Lidocaine 1% (20 ml mdv) 20 ML Vial INFILT (13:47)
[2024-09-09] MEDS: Folic Acid 1 MG Tablet PO (18:28)
[2024-09-09] MEDS: LURASIDONE HCL 40 MG TABLET PO (18:29)
[2024-09-09] MEDS: levETIRAcetam 500 MG Tablet PO (18:29)
[2024-09-09] MEDS: Acetaminophen 500 MG Tablet 1000 MG PO (20:29)
[2024-09-10] VITALS (13 sets, daily range): BP systolic 121–141; BP diastolic 67–86; PULSE 68–96; RESP 16–18; TEMP 36.5–37.1; O2SAT 16–99
--- NOTE | 2024-09-10 04:43 | PN.OBGYN_ITS ---
Subjective Subjective Doing well per patient and nursing staff. Ambulating and taking PO without difficulty. Voiding and passing flatus. Pain controlled. , services for assistance. Denies headache, visual changes, chest pain, shortness of breath, leg pain or increased bleeding. Lochia normal. Objective Data Objective Data Vital Signs: Vital Signs Temp Pulse Resp BP Pulse Ox O2 Del Method 98.4 F 77 16 121/86 H 16 Room Air 09/10/24 00:03 09/10/24 00:03 09/10/24 00:03 09/10/24 00:03 09/10/24 00:03 09/10/24 00:03 Oxygen Delivery Method Room Air Weight: 180 lb 1.883 oz Body Mass Index (BMI) 29.9 Intake & Output: Intake and Output for Last 24 Hours 09/08/24 09/09/24 09/10/24 23:59 23:59 23:59 Intake Total 1874.77 / 1874.77 Output Total 600 / 600 Balance 1274.77 / 1274.77 Lab / Micro Data 09/09/24 07:35 Labs: Laboratory Results - last 24 hr 09/09/24 07:35: WBC 13.3 H, RBC 3.81 L, Hgb 11.9 L, Hct 34.1 L, MCV 89.5, MCH 31.2, MCHC 34.9, RDW Std Deviation 42.9, RDW Coeff of John 13.0, Plt Count 247, MPV 10.9, Immature Gran % (Auto) 1.000 H, Neut % (Auto) 74.3 H, Lymph % (Auto) 15.8 L, [place] % (Auto) 6.9, Eos % (Auto) 1.6, Baso % (Auto) 0.4, Absolute Neuts (auto) 9.9 H, Absolute Lymphs (auto) 2.10, Nucleated RBC % 0, Syphilis Total Ab Nonreactive, Blood Type A POSITIVE, Antibody Screen NEGATIVE 09/09/24 09:00: Urine Opiates Screen Cancelled 09/09/24 09:00: Urine Opiates Screen NEGATIVE, U Buprenorphine Qual NEGATIVE, Ur Oxycodone Screen NEGATIVE, Urine Methadone Screen Cancelled 09/09/24 09:00: Urine Methadone Screen NEGATIVE, Urine Fentanyl Screen NEGATIVE, Ur Barbiturates Screen Cancelled 09/09/24 09:00: Ur Barbiturates Screen NEGATIVE, Ur Phencyclidine Scrn Cancelled 09/09/24 09:00: Ur Phencyclidine Scrn NEGATIVE, Ur Amphetamines Screen Cancelled 09/09/24 09:00: Ur Amphetamines Screen NEGATIVE, MDMA (Ecstasy) Screen Cancelled, U Benzodiazepines Scrn Cancelled 09/09/24 09:00: U Benzodiazepines Scrn NEGATIVE, Urine Cocaine Screen Cancelled 09/09/24 09:00: Urine Cocaine Screen NEGATIVE, U Cannabinoids Screen Cancelled 09/09/24 09:00: U Cannabinoids Screen PRESUMPTIVE POSITIVE, Ur Drug Screen Comment Cancelled ROS Constitutional Constitutional: Reports systems reviewed and no addt'l complaints, except as documented; Denies headache(s) Eyes Eyes: Denies acute decrease in peripheral vision, blurry vision or change in vision ENT HEENT: Reports systems reviewed and no addt'l complaints, except as documented Cardiovascular Cardiovascular: Denies chest pain or dizziness Respiratory/Chest Respiratory/Chest: Denies cough, dyspnea, dyspnea on exertion, shortness of breath at rest or shortness of breath with exertion Gastrointestinal Gastrointestinal: Denies abdominal pain, diarrhea, nausea or vomiting Genitourinary Genitourinary: Denies abdominal discomfort Musculoskeletal Musculoskeletal: Denies limited range of motion Integumentary Integumentary: Reports systems reviewed and no addt'l complaints, except as documented Neurologic Neurologic: Reports systems reviewed and no addt'l complaints, except as documented Psychiatric Psychiatric: Reports systems reviewed and no addt'l complaints, except as documented Endocrine Endocrinology: Reports systems reviewed and no addt'l complaints, except as documented Hematologic/Lymphatic Hematologic/Lymphatic: Reports systems reviewed and no addt'l complaints, except as documented Allergic/Immunologic Allergic/Immunologic: Reports systems reviewed and no addt'l complaints, except as documented Physical Exam Const alert and oriented x3 General Appearance: cooperative Orientation / Consciousness: awake, oriented to person, oriented to place and oriented to time Exam Limitations: no limitations HEENT normocephalic Head and Scalp: normal to inspection, normocephalic and atraumatic Face and Sinus: normal facial exam Eyes General Eye: normal appearance of both eyes Neck full ROM Chest Chest: symmetrical chest wall rise Resp normal respiratory effort and normal air movement Auscultation: clear to auscultation bilaterally Cardio regular rate, regular rhythm, S1 normal heart sound, S2 normal heart sound, no murmurs, no rub, no gallops and no clicks GI normal to inspection, nondistended, normoactive bowel sounds and non-tender GI Narrative: fundus firm 2 below U appearance of the vagina normal Bladder / Kidney Exam: no CVA tenderness Back/Spine normal ROM Extremity normal to inspection and full ROM Skin no rashes or lesions noted Neuro oriented x3, CN's II-XII intact bilaterally and moves all extremities Sensorium / Orientation: awake, alert and oriented to person Motor Exam: clonus absent Deep Tendon Reflexes: Rt Patellar (L4): 2+ and Lt Patellar (L4): 2+ Assessment & Plan (1) Vaginal delivery: (2) Second degree perineal laceration: (3) Bipolar disorder: COMMENT: [place] PLAN: Plan 1) Routine PPD#1 2) Vitals stable 3) I&O 4) Pain management 5) services PRN 6) Planning D/C home tomorrow
[2024-09-10 05:20] LABS: Absolute Lymphocyte Count 2.47 X10^3/uL (0.83-4.51); Absolute Neutrophil Count 12.8 X10^3/uL (2.0-7.7); Basophil# 0.07 X10^3/uL; Basophil% 0.4 % (0-1); Eosinophil# 0.14 X10^3/uL; Eosinophils% 0.8 % (0-5); Hematocrit 29.8 % (37-47); Hemoglobin 10.1 g/dL (12.0-15.0); Lymphocyte # 2.47 X10^3/ul (0.83-4.51); Lymphocyte % 14.5 % (19-41); Mean Corp Hgb Conc 33.9 g/dL (32-36); Mean Corpuscular Hgb 30.7 pg (27.0-32.0); Mean Corpuscular Volume 90.6 fL (81-99); Mean Platelet Vol. 10.9 fl (6.2-12.0); Monocyte% 8.2 % (0-10); NRBC Flagged by Analyzer 0 % (0-5); Neutrophil % 74.9 % (47-70); Platelet Count 257 K/mm3 (150-450); RBC Distribution Width SD 42.5 fl (35.1-43.9); Red Blood Count 3.29 M/mm3 (4.2-5.4); White Blood Count 17.1 K/mm3 (4.4-11.0)
[2024-09-10] MEDS: levETIRAcetam 500 MG Tablet PO ×2 (06:08→18:19)
[2024-09-10] MEDS: Prenatal Vits Tablet 1 TABLET PO (06:09)
[2024-09-10] MEDS: Folic Acid 1 MG Tablet PO ×3 (06:09→18:19)
[2024-09-10] MEDS: Benzocaine/Lanolin/Aloe Vera 85 GM Spray 1 SPRAY TOPICAL (07:53)
[2024-09-10] MEDS: Acetaminophen 500 MG Tablet 1000 MG PO (10:55)
--- NOTE | 2024-09-10 17:13 | NURSING ---
at 1658 pt was moving her arm around during BP. Retook BP due to pt movement and talking during BP
[2024-09-10] MEDS: LURASIDONE HCL 40 MG TABLET PO (18:19)
[2024-09-10] MEDS: MEASLES,MUMPS,RUBELLA VACC/PF 0.5 ML SC (18:20)
[2024-09-11 01:28] VITALS: BP 122/68; PULSE 76
[2024-09-11 01:35] VITALS: BP 122/68; PULSE 83; RESP 15; TEMP 36.8; O2SAT 99
[2024-09-11] MEDS: levETIRAcetam 500 MG Tablet PO (06:00)
[2024-09-11] MEDS: Folic Acid 1 MG Tablet PO (06:00)
[2024-09-11] MEDS: Prenatal Vits Tablet 1 TABLET PO (07:09)
[2024-09-11 07:26] VITALS: BP 124/82; PULSE 72
[2024-09-11 07:36] VITALS: BP 124/82; PULSE 72; RESP 18; TEMP 36.7; O2SAT 100
--- NOTE | 2024-09-11 10:39 | PCM.PN.OB ---
Subjective Subjective Denies complaints Objective Data Objective Data Vital Signs: Vital Signs Temp Pulse Resp BP Pulse Ox O2 Del Method 98.0 F 72 18 124/82 H 100 Room Air 09/11/24 07:36 09/11/24 07:36 09/11/24 07:36 09/11/24 07:36 09/11/24 07:36 09/11/24 07:36 Oxygen Delivery Method Room Air Weight: 180 lb 1.883 oz Body Mass Index (BMI) 29.9 Intake & Output: Intake and Output for Last 24 Hours 09/09/24 09/10/24 09/11/24 23:59 23:59 23:59 Intake Total 1874.77 / 1874.77 Output Total 600 / 600 Balance 1274.77 / 1274.77 Lab / Micro Data 09/10/24 04:50 Physical Exam Const alert, oriented x3 and no apparent distress HEENT normocephalic GI soft to palpation, non-tender and non-distended GI Narrative: fundus firm, mid & below umbilicus Extremity normal to inspection and no calf tenderness Assessment & Plan (1) Vaginal delivery: PLAN: Plan D/c home
--- NOTE | 2024-09-11 10:46 | PCM.DC.SUM ---
Providers Date of Admission: 09/09/24 Primary Care Physician: No Primary Care Phys Reason For Visit: VAGINAL DELIVERY Diagnosis Discharge Diagnosis (1) Vaginal delivery: Status: Acute Code(s): O80 - Encounter for full-term uncomplicated delivery Plan D/c home Medications at Discharge Home Medications folic acid 1 mg tablet 3 mg PO DAILY 06/03/24 lurasidone 40 mg tablet 40 mg PO QPM bipolar 06/03/24 metoprolol succinate 25 mg tablet,extended release 24 hr 25 mg PO DAILY BP 06/03/24 levetiracetam 500 mg tablet (Keppra) 500 mg PO BID seizures 08/25/24 vit no.95-ferrous fumarate 28 mg-folic acid 800 mcg tablet () 1 tab PO DAILY 08/25/24 famotidine 40 mg tablet 40 mg PO BID PRN PRN heartburn 09/09/24 acetaminophen 500 mg tablet 1,000 mg (2 x 500 mg) PO Q6H PRN PRN Pain 1-10 Or Fever #0 tabs 09/11/24 ibuprofen 600 mg tablet 600 mg PO Q6H PRN PRN Pain Score 1-10 #0 tabs 09/11/24 Weight / BMI Weight Weight: 180 lb 1.883 oz Body Mass Index (BMI) 29.9 ABG / Lab / Microbiology Data 09/10/24 04:50 D/C Instructions Discharge Diet: No restrictions Discharge Activity: May Shower May resume sexual activity in: 6 weeks Weight Bearing Status: Weight bearing as tolerated Call your doctor if you observe: Fever of 101 or Higher, Coldness, Increased Pain, Change in Color, Inability to urinate, Inability to have a bowel movement, Using more than 1 pad per hour, Shortness of breath, Dizziness, Fainting spells, Chest pain, Increased palpitations (irregular heartbeat), Calf discomfort and Uncontrolled pain DC O2, CPAP, BIPAP Needs Home O2 Discharge instructions: No Please Follow Up With: Leilani Calixto CNM When: Follow up in 2 and 6 weeks for visits. Meaningful Use Info Meaningful Use Meaningful Use Diagnoses (Choose all that apply): None applicable Ischemic Stroke Statin Dosing Therapy Reference: STATIN DOSE THERAPY REFERENCE: * Patients > 75 years receive moderate or high dose statin therapy. * Patients 75 years or YOUNGER should receive HIGH intensity statin dose unless contraindicated. You will be required to document reason for non-treatment if statin daily dose does not meet guidelines. HIGH DOSE STATIN THERAPY DAILY Atorvastatin > than or = to 40 mg Rosuvastatin > than or = to 20 mg Amlodipine + Atorvastatin > than or = to 2.5/40 mg Ezetimibe + Simvastatin 10/80 mg Simvastatin 80mg Discharge Plan Admission Admit Date/Time: 09/09/24 07:09 Primary Reason for Your Visit: Vaginal delivery Attending Provider: Leilani Calixto Primary Care Provider: Care Physician,Anamaria Primary Discharge Orders/Prescriptions Prescriptions: New acetaminophen 500 mg Tablet 1,000 mg PO Q6H PRN PRN (Reason: Pain 1-10 Or Fever) Qty: 0 0RF ibuprofen 600 mg Tablet 600 mg PO Q6H PRN PRN (Reason: Pain Score 1-10) Qty: 0 0RF Continued folic acid 1 mg tablet 3 mg PO DAILY metoprolol succinate 25 mg tablet extended release 24 hr 25 mg PO DAILY lurasidone 40 mg tablet 40 mg PO QPM levetiracetam [Keppra] 500 mg tablet 500 mg PO BID PNV cmb#95-ferrous fumarate-FA [] 28 mg iron- 800 mcg tablet 1 tab PO DAILY famotidine 40 mg tablet 40 mg PO BID PRN PRN (Reason: heartburn ) Discontinued aspirin [Celina Low Dose Aspirin] 81 mg tablet,delayed release (DR/EC) 81 mg PO DAILY Referrals / Follow Up: Care Physician,No Primary [Primary Care Provider] - Disposition Disposition (needs filled in before D/C Order can be placed): Home, Self Care
--- NOTE | 2024-09-11 11:35 | CASEMGMT ---
Social Work Assessment Labor and Delivery Unit Patient Address: [address] [place] [address] Phone number: [phone] Date of Referral: 09/09/2024 Time of Referral: 08:26 Referred By: Leilani Calixto Date of Intervention: ?09/11/2024 Time of Intervention: 11:36 Reason for Referral: THC and Bipolar History obtained from: Medical records, mother of baby (MOB) and father of baby (FOB).? Household composition: MOB, FOB (Yahir Amezquita, age 37), their daughter Bri Amezquita, born 09/09/24, FOB?s 17 year-old son, Alberto, from a previous relationship and ?s maternal grandmother (MGM), Nay.? The FOB has a 7 year old son, Boogie who lives with his mother however FOB has regular scheduled visitation with Boogie consisting of every other week-end and ?every other day? during the week. Patient's parent/guardian status: MOB and FOB have been together for 6 years and are not . ??Both are actively involved and will be providing care for baby. MOB denied any concerns with domestic violence and described a positive and supportive relationship with the FOB. Medical History: ?: 1, Para, now 1. MOB received PNC through [facility] [place] beginning at 10 weeks and 3 days.? Visits were observed to be regular. Apgars: 8 and 9. Weight: 3060 g. Inspector Final Assembly Electrical: Not yet established.? MOB reported she is going to go through [facility] [place] and will be calling first thing in the morning to get established and appointment scheduled. Educational Status: MOB and FOB denied any issues or concerns with reading or writing. MOB reported she attended 2 years of college and the FOB reported he is a High School graduate. Financial Status: MOB and FOB reported their income is sufficient to meet the needs of their family at this time. MOB is in the process of trying to secure long-term disability and is going to be a [id number] mom (SAHM). FOB is working full-time at a local [employer]. Infant Supplies: MOB and FOB reported they have all the supplies they need for baby at this time including but not limited to: Car Seat, bassinet, pack-n-play, crib, diapers, bottles, breast pump and clothing. Childcare/Caregiver(s):? OLIVER reported she will be the primary caregiver as a SAHM however also stated her mother will be able to help as needed as well as the FOB during times when he is not working. ? Transportation: RASHAUN reported he is a licensed ?tanker driver and has a reliable vehicle to take baby to and from all medical appointments. No transportation issues identified. OLIVER is not able to drive due to history of seizures with the most recent being in May of 2024. Programs/Agencies Involved: Medicaid, [email or web address] and food stamps. Children Services/Legal Issues:? Denied. Behavioral Health Issues: ??Mental Health History: ?MOB has a history of Anxiety and Bi-polar. ??MOB reported symptoms are effectively managed with medication. ?FOB uncertain; stated at one point he was told he was Bipolar.? ??Substance Use History:? OLIVER actively uses marijuana and used marijuana throughout the duration of her with the last reported use being a week prior to delivery. MOB reported she smokes 1-2 times daily which has been cut back a lot since she found out she was . FOB denied any drug or alcohol use and/or abuse. MOB, FOB and MGM all smoke cigarettes.? oyster bed worker provided education regarding smoking around baby as well as verbal and written education about marijuana use while as well as issues related to supervision/childcare if under the influence which MOB and FOB both verbalized they understood. ?Family History: MOB denied any history of mental health issues on her side of the family as well as any drug or alcohol abuse. ?FOSnehal reported his brother has been diagnosed with Bipolar as well as Schizophrenia. FOB reported his brother used to do ?every drug out there? , however has been sober for the past few years. FOB also reported ?s paternal grandmother used to be an alcoholic and ?a crack head? however has been sober for over 20 years. FOB also reported ?s paternal grandfather is an alcoholic however is not expected to be involved because the FOB doesn?t know him that well. ??Drug Screens: MOB: ?presumptive positive for cannabinoids on 09/09/24. [place]: Meconium results: Pending Family/Social Stressors: ?MOB and FOB denied any current family or social stressors. Support Systems: Ample.? MOB identified her biggest supports as the FOB, as well as ?s MGM and PGM. Depression/Shaken Baby/Safe Sleeping: oyster bed worker provided verbal and written education on PPD, Safe Sleeping, marijuana use and and Shaken Baby.? Parents verbalized an understanding. ??? ASSESSMENT:? MOB and FOB provided consent to social work visit. Upon arrival, MOB was in a chair holding and the FOB was close-by on a couch.? MOB and FOB were both very verbally engaged and cooperative. Thread Winder observed positive interaction between the MOB and FOB as well as towards .? MOB appeared to be very attentive to ?s needs, was gentle and appeared to be attached and bonded to . At the end of the assessment high school social science teacher requested to talk with the MOB alone, which both MOB and FOB were agreeable to. MOB reported feeling safe at home, denied any previous or current DV, unmanaged mental health issues and/or additional drug or alcohol abuse issues. Safe Plan of Care for related to substance use: MOB did not express intent to stop smoking marijuana.? oyster bed worker provided verbal and written education about marijuana use and caring for as well as . MOB reported it is not her plan to be under the influence of marijuana while providing direct care and/or supervision of . oyster bed worker to make a report with [facility]. ? PLAN:? Baby to be discharged home when ready.? oyster bed worker also provided written information on depression, depression resources and Help Me Grow as additional resources offered by high school social science teacher which MOB and FOB accepted. No other services requested or indicated. Kenya Mcbride, BROADCAST JOURNALIST, TERRITORY ACCOUNT MANAGER
--- NOTE | 2024-09-11 22:20 | CASEMGMT ---
Social Work: reinforcing steel worker wire mesh made phone contact with [facility] and spoke with Madhavi. reinforcing steel worker wire mesh made referral due to MOB smoking marijuana while . Kenya Mcbride, TEXTILE FINISHER, MANAGER PMO
--- NOTE | 2024-10-01 11:11 | CASEMGMT ---
Social Work: Ramp Boss notified by [facility] that referral was accepted. Kenya Mcbride, FORMULA WEIGHER, RETAIL WAREHOUSE SUPERVISOR
== END 2024-09-11 12:10 | disposition home or self-care (01) | DRG 806 ==
PROVIDERS: Registered Nurse Critical Care Medicine; Admitting Provider Advanced Practice Midwife; Referring Provider Advanced Practice Midwife; Visit Provider Advanced Practice Midwife
DX: O99.344 Other mental disorders complicating childbirth (principal); Z37.0 Single live birth; O99.354 Diseases of the nervous system complicating childbirth; O72.1 Other immediate postpartum hemorrhage; O99.324 Drug use complicating childbirth; F31.9 Bipolar disorder, unspecified; G35 Multiple sclerosis; F41.9 Anxiety disorder, unspecified; F12.10 Cannabis abuse, uncomplicated; F17.290 Nicotine dependence, other tobacco product, uncomplicated; O70.1 Second degree perineal laceration during delivery; O99.334 Smoking (tobacco) complicating childbirth; Z3A.39 39 weeks gestation of pregnancy; Z79.82 Long term (current) use of aspirin; Z79.899 Other long term (current) drug therapy
CPT/HCPCS: 59025; 59050; 80307; 85025; 86780; 86850; 86900; 86901; 99221; G0378; J2405

== ENCOUNTER 2024-10-20 05:43 | Day surgery (SDC) | payer BC, MEDICAID, SELFPAY ==
--- NOTE | 2024-10-14 16:09 | PAT.ANE_ITS ---
Pre-Assessment Diagnosis/Proposed Procedure Planned Operative Procedure(s): Laparoscopic, bilateral Salpingectomy Anesthesia History Anesthesia History - therapeutic massage technician: Anesthesia History - therapeutic massage technician Hx Hospitalization Yes: CHILD 08/2027, 10/14/24 15:21 SEIZURE 12/27/23 AND 06/03/24 Any Problems With Anesthesia No 10/14/24 15:21 Cholinesterase deficiency No 10/14/24 15:21 You/Your Family Experience No 10/14/24 15:21 fever (hyperthermia) with Relationship Recent Exposure to Contagious Disease Does patient have nerve No 10/14/24 15:21 stimulator Patient instructed to have device shut off --Does patient have Pacemaker or ICD? When Was Last Pacemaker Check QUESTION #4 FULL TEXT: You/Your Family Experience fever (hyperthermia) with Anesthesia Last Oral Intake Last Oral intake: Last Oral Intake NPO since Meds taken in AM with sips of water? Meds patient instructed to take am of surgery PONV PONV - therapeutic massage technician: PONV - therapeutic massage technician Female Yes 10/14/24 15:21 HX of Motion Sickness No 10/14/24 15:21 HX of N/V After Surgery No 10/14/24 15:21 Non-Smoker No 10/14/24 15:21 Duration of Surgery greater No 10/14/24 15:21 than 60 minutes Number of Risk Factors 1 10/14/24 15:21 PONV Score Low Risk 10/14/24 15:21 Height & Weight Height & Weight: Anesthesia: Height & Weight Height 5 ft 5 in 09/09/24 07:52 Respiratory Assessment Respiratory Assessment - therapeutic massage technician: Respiratory Tract Infection Hx - therapeutic massage technician Hx Respiratory Tract Infection No 10/14/24 15:21 STOP Sleep Apnea STOP Sleep Apnea - therapeutic massage technician: STOP Sleep Apnea - therapeutic massage technician Hx Hypertension No 10/14/24 15:21 Hx Sleep Apnea No 10/14/24 15:21 CPAP BIPAP Do you snore loudly (louder No 10/14/24 15:21 than talking or can be heard Do you often feel tired/ No 10/14/24 15:21 fatigued/ sleepy during daytime? Has anyone observed you stop No 10/14/24 15:21 breathing during sleep? STOP Results Negative 10/14/24 15:21 QUESTION #5 FULL TEXT : Do you snore loudly (louder than talking or can be heard through closed doors)? 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 Specify any problems Hx of Preganancy in last 3 No 10/14/24 15:21 Months Nurse Filling Out Transfusion [facility] 10/14/24 15:21 & Questions: Date: 10/14/24 10/14/24 15:21 Time: 15:23 10/14/24 15:21 Patient unable to answer at this time (ie. confused, unrespo /Reproduction History /Reproductive History - therapeutic massage technician: /Reproductive Hx- therapeutic massage technician Hx Now No 10/14/24 15:21 Gestational Age (in weeks): EDC: Hx Hx Para Hx Section SAB Yes 10/14/24 15:21 PFSH Medical History Wears glasses Seizures Heartburn Gastric reflux Smoker Leg cramps Bipolar disorder Seizures Cervical incompetence Multiple sclerosis Substance abuse Anxiety Kidney stones Smoker Home Medications ?Medication ?Instructions ?Recorded ?Last Taken ?Type folic acid 1 mg tablet 3 mg PO DAILY 05/1608/25/24 12:00 History 3 mg lurasidone 40 mg tablet 40 mg PO QPM bipolar 4 08/24/24 21:00 History 40 mg metoprolol succinate 25 mg 25 mg PO DAILY BP 06/03/24 Unknown History tablet,extended release 24 hr levetiracetam 500 mg tablet 500 mg PO BID seizures 08/25/24 06:00 History (Keppra) 500 mg vit no.95-ferrous 1 tab PO DAILY 08/25/24 06:00 History fumarate 28 mg-folic acid 800 mcg 1 TA B tablet () famotidine 40 mg tablet 40 mg PO BID PRN PRN heartbu rn 09/09/24 Unknown History acetaminophen 500 mg tablet 1,000 mg (2 x 500 mg) PO Q 6H PRN 09/11/24 Unknown Rx PRN Pain 1-10 Or Fever #0 tabs Allergy/AdvReac Type Severity Reaction Status Date / Time No Known Allergies Allergy Verified 10/14/24 15:19 Family History Mother Diabetes CVA (cerebral vascular accident) Dementia Father Aneurysm Surgical History (Updated 10/14/24 @ 15:29 by Rosalie Griffin) History of cervical cerclage Social History Smoking Status: Light Smoker (<10/day) Audit: Pertinent Findings Pertinent Findings EKG Perinent findings: 06/03/2024. Sinus rhythm with marked sinus arrhythmia. 80 bpm. Additional pertinent findings: 10/12/2024. Follow[facility] from [facility] [place]. For seizure disorder. States cleared to proceed with surgery under general anesthesia. From an epilepsy perspective. Suggestions to avoid Demerol Dilaudid tramadol Benadryl and medications that contain pseudoephedrine or phenylephrine. If possible. Patient also has history of multiple sclerosis. Polycystic ovary syndrome. Recommendation Anesthesia Recommendation Anesthesia recommendation: OPTIMIZED for anesthesia
[2024-10-18 17:40] LABS: Absolute Lymphocyte Count 2.25 X10^3/uL (0.83-4.51); Absolute Neutrophil Count 5.7 X10^3/uL (2.0-7.7); Basophil# 0.04 X10^3/uL; Basophil% 0.4 % (0-1); Eosinophil# 0.35 X10^3/uL; Eosinophils% 3.9 % (0-5); Hematocrit 41.4 % (37-47); Hemoglobin 13.5 g/dL (12.0-15.0); Lymphocyte # 2.25 X10^3/ul (0.83-4.51); Lymphocyte % 25.2 % (19-41); Mean Corp Hgb Conc 32.6 g/dL (32-36); Mean Corpuscular Hgb 29.7 pg (27.0-32.0); Mean Corpuscular Volume 91.2 fL (81-99); Mean Platelet Vol. 10.9 fl (6.2-12.0); Monocyte# 0.58 X10^3/uL; Monocyte% 6.5 % (0-10); NRBC Flagged by Analyzer 0 % (0-5); Neutrophil # 5.66 X10^3/uL (2.7-7.7); Neutrophil % 63.6 % (47-70); Platelet Count 275 K/mm3 (150-450); RBC Distribution Width CV 12.8 % (11.6-14.6); RBC Distribution Width SD 42.3 fl (35.1-43.9); Red Blood Count 4.54 M/mm3 (4.2-5.4); White Blood Count 8.9 K/mm3 (4.4-11.0)
[2024-10-18 17:57] LABS: Anion Gap 11 (5-15); BUN 19 mg/dL (4-19); BUN/Creat Ratio 24.2 RATIO (10-20); Calcium,Total 9.2 mg/dL (7.6-11.0); Carbon Dioxide 23.3 mmol/L (21.0-32.0); Chloride 105 mmol/L (98-108); EST Glomerular Filtration Rate 99 (>60); Glucose 91 mg/dL (70-99); Potassium 4.4 mmol/L (3.3-5.1); Sodium Level 140 mmol/L (133-145)
[2024-10-18 18:21] LABS: Partial Thromboplast Time 25.5 Seconds (24.1-36.2)
[2024-10-20] VITALS (13 sets, daily range): BP systolic 88–119; BP diastolic 54–78; PULSE 57–83; RESP 12–20; TEMP 36.6–36.9; O2SAT 97–100; BMI 25.6
[2024-10-20 06:23] LABS: Internal QC Validated? YES +Cl - CLEAR BKGD; Pregnancy, Urine Negative Negative; Record Kit Lot#,Urine Preg OOOO929381
[2024-10-20] MEDS: Lactated Ringers 1,000 ML 15 ML IV (06:29)
--- NOTE | 2024-10-20 06:39 | PCM.PRE.AN2 ---
ASA Classification* ASA Classification ASA Classification: 2 Assessment & Plan Anesthesia* Anesthesia Assessment Anesthesia Assessment: Discussed sedation and/or anesthesia options, risks, benefits, and alternatives with patient/parents/legal guardian/POA. Questions invited. The patient/parents/legal guardian/POA seems to understand and agrees to proceed with anesthesia plan. Reviewed the physical assessment, medical history, allergy history and patient home medications list prior to surgery/procedure/anesthetic and documented any changes. Performed airway and anesthesia risk assessments. Anesthesia Type Anesthesia Type: General History Source History Obtained from:: Patient and Chart Anesthesia Focused Assessment* Temperature: 97.8 F Pulse Rate: 61 Blood Pressure: 93/54 Respiratory Rate: 20 Pulse Ox: 100 Oxygen Delivery Method: Room Air Airway Assessment Mouth opens: >3 cm Mallampati Score: III Teeth Condition: Missing (Patient has a missing right upper molar. Rest are tight.) Neck Range of motion (ROM): Full ROM (Patient has stiff neck.) Focused Labs Anesthesia Preop lab: CBC WBC 8.9 K/mm3 (4.4-11.0) 10/18/24 16:05 10/18/24 RBC 4.54 M/mm3 (4.2-5.4) 10/18/24 16:05 10/18/24 Hgb 13.5 g/dL (12.0-15.0) 10/18/24 16:05 10/18/24 Hct 41.4 % (37-47) 10/18/24 16:05 10/18/24 Plt Count 275 K/mm3 (150-450) 10/18/24 16:05 10/18/24 CHEMISTRY Potassium 4.4 mmol/L (3.3-5.1) 10/18/24 16:05 10/18/24 Sodium 140 mmol/L (133-145) 10/18/24 16:05 10/18/24 Magnesium 1.9 mg/dL (1.6-2.6) 06/03/24 12:27 06/03/24 Phosphorus 3.2 mg/dL (2.5-4.9) 12/28/23 05:49 12/28/23 BUN 19 mg/dL (4-19) 10/18/24 16:05 10/18/24 Creatinine 0.80 mg/dL (0.70-1.20) 10/18/24 16:05 10/18/24 Glucose 91 mg/dL (70-99) 10/18/24 16:05 10/18/24 POC Glucose 112 mg/dL (74-106) H 12/27/23 13:46 12/27/23 COAG PT 12.1 SECONDS (11.7-14.9) 05/10/20 10:07 05/10/20 Urine Test Negative Negative 10/20/24 06:10 10/20/24 Pre-Assessment Diagnosis/Proposed Procedure Planned Operative Procedure(s): Laparoscopic, bilateral Salpingectomy Anesthesia History Anesthesia History - trench pipe layer: Anesthesia History - trench pipe layer Hx Hospitalization Yes: CHILD 09/09/24, 10/14/24 15:21 SEIZURE 12/27/23 AND 06/03/24 Any Problems With Anesthesia No 10/14/24 15:21 Cholinesterase deficiency No 10/14/24 15:21 You/Your Family Experience No 10/14/24 15:21 fever (hyperthermia) with Relationship Recent Exposure to Contagious No 10/20/24 06:25 Disease Does patient have nerve No 10/14/24 15:21 stimulator Patient instructed to have device shut off --Does patient have Pacemaker No 10/20/24 06:25 or ICD? When Was Last Pacemaker Check QUESTION #4 FULL TEXT: You/Your Family Experience fever (hyperthermia) with Anesthesia Last Oral Intake Last Oral intake: Last Oral Intake NPO since 20:00 10/20/24 06:25 Meds taken in AM with sips of No 10/20/24 06:25 water? Meds patient instructed to take am of surgery Any additional information?: Yes Meds taken in AM with sips of water?: Yes Meds patient instructed to take am of surgery: Keppra, folic acid, Pepcid PONV PONV - trench pipe layer: PONV - trench pipe layer Female Yes 10/14/24 15:21 HX of Motion Sickness No 10/14/24 15:21 HX of N/V After Surgery No 10/14/24 15:21 Non-Smoker No 10/14/24 15:21 Duration of Surgery greater No 10/14/24 15:21 than 60 minutes Number of Risk Factors 1 10/14/24 15:21 PONV Score Low Risk 10/14/24 15:21 Height & Weight Height & Weight: Anesthesia: Height & Weight Height 5 ft 5 in 10/20/24 06:25 Weight: 69.9 kg 10/20/24 06:25 Body Mass Index (BMI) 25.6 10/20/24 06:25 Respiratory Assessment Respiratory Assessment - trench pipe layer: Respiratory Tract Infection Hx - trench pipe layer Hx Respiratory Tract Infection No 10/14/24 15:21 STOP Sleep Apnea STOP Sleep Apnea - trench pipe layer: STOP Sleep Apnea - trench pipe layer Hx Hypertension No 10/14/24 15:21 Hx Sleep Apnea No 10/14/24 15:21 CPAP BIPAP Do you snore loudly (louder No 10/14/24 15:21 than talking or can be heard Do you often feel tired/ No 10/14/24 15:21 fatigued/ sleepy during daytime? Has anyone observed you stop No 10/14/24 15:21 breathing during sleep? STOP Results Negative 10/14/24 15:21 QUESTION #5 FULL TEXT : Do you snore loudly (louder than talking or can be heard through closed doors)? 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 Specify any problems Hx of Preganancy in last 3 No 10/14/24 15:21 Months Nurse Filling Out Transfusion [facility] 10/14/24 15:21 & Questions: Date: 10/14/24 10/14/24 15:21 Time: 10/14/24 15:21 Patient unable to answer at this time (ie. confused, unrespo /Reproduction History /Reproductive History - trench pipe layer: /Reproductive Hx- trench pipe layer Hx Now No 10/14/24 15:21 Gestational Age (in weeks): EDC: Hx Hx Para Hx Section SAB Yes 10/14/24 15:21 Active Medications Active Medications: Current Medications Generic Name Dose Route Start Last Admin Trade Name Freq PRN Reason Stop Dose Admin Lactated Ringer's 1,000 mls @ 15 mls/hr 10/20/24 06:15 IV .Q48H ROLA PFSH Medical History Wears glasses Seizures Heartburn Gastric reflux Smoker Leg cramps Bipolar disorder Seizures Cervical incompetence Multiple sclerosis Substance abuse Anxiety Kidney stones Smoker Home Medications ?Medication ?Instructions ?Recorded ?Last Taken ?Type folic acid 1 mg tablet 3 mg PO DAILY 06/03/24 10/20/24 History lurasidone 40 mg tablet 40 mg PO QPM bipolar 06/03/24 08/24/24 21:00 History 40 mg metoprolol succinate 25 mg 25 mg PO DAILY BP 06/03/24 Unknown History tablet,extended release 24 hr levetiracetam 500 mg tablet 500 mg PO BID seizures 08/25/24 10/20/24 History (Keppra) vit no.95-ferrous 1 tab PO DAILY 08/25/24 08/25/24 06:00 History fumarate 28 mg-folic acid 800 mcg 1 TAB tablet () famotidine 40 mg tablet 40 mg PO BID PRN PRN heartburn 09/09/24 10/20/24 History acetaminophen 500 mg tablet 1,000 mg (2 x 500 mg) PO Q6H PRN 09/11/24 Unknown Rx PRN Pain 1-10 Or Fever #0 tabs Allergy/AdvReac Type Severity Reaction Status Date / Time No Known Allergies Allergy Verified 10/14/24 15:19 Family History Mother Diabetes CVA (cerebral vascular accident) Dementia Father Aneurysm Surgical History History of cervical cerclage Social History Smoking Status: Light Smoker (<10/day) Review of Systems (Anesthesia) ROS Narrative System reviewed and no additional complaints, except as documented.
[2024-10-20] MEDS: Bupivacaine 0.5% PF 10 ML VIAL (07:00)
--- NOTE | 2024-10-20 07:17 | HP.PCM.OB_ITS ---
History and Physical Date of Admission: 10/20/24 H&P??? Signed? Encounter Date:?10/12/2024 Expand All?Collapse AllExpand All by DefaultPre-Op History and Physical?HPI: The patient is a 34 year old female presenting for pre-operative visit.She is luis manuel eduled for laparoscopic Bilateral salpingectomy, for desires sterilization on 10/20/24. Procedure discussed along with risks, benefits and complications. Otheralternatives discussed for management. Consent form signed? Yes. ??PAST MEDICAL HISTORYPAST MEDICAL HISTORYDiagnosisDate?History of seizures??Marijuana use??Multiple sclerosis (HCC)??2023?PCOS (polycystic ovarian syndrome)??Tobacco use disorder? ??PAST SURGICAL HISTORYPAST SURGICAL HISTORY ProcedureLateralityDate?TOOTH EXTRACTION?CURRENT MEDICATIONSCurrent Outpatient MedicationsMedicationSigDispenseRefill?famotidine (PEPCID) 40 mg tabletTake 1 tablet by mouth two times a day as needed.60 tablet0?levETIRAcetam (KEPPRA) 500 mg tabletTake 1 tablet by mouth two times a day.???midazolam (NAYZILAM) 5 mg/spray (0.1 mL) nasal sprayAdminister one spray (5 mg dose) into one nostril for a seizure that lasts for 5 minutes. One additional spray (5 mg dose) into the opposite nostril if the seizure continues for an additional 5 minutes.???lurasidone (LATUDA) 40 mg tablettake 1 tablet by mouth every evening with a full meal (atleast 400 calories)???cyclobenzaprine (FLEXERIL) 10 mg tabletTake 1 tablet by mouth three times a day as needed.10 tablet0?simethicone, chewable (MYLICON) 80 mg chewable tabletTake 1 tablet by mouth four times a day as needed.20 tablet0?folic acid 1 mg tabletTake 3 tablets by mouth once daily.90 tablet4? vit no.124/iron/folic ( VITAMIN ORAL)Take by mouth once daily. 2 Gummies???acetaminophen (TYLENOL EXTRA STRENGTH) 500 mg tabletTake 500 mg by mouth every 8 hours as needed for pain.???No current facility-administered medications for this visit.??ALLERGIES: Patient has no known allergies.?PERSONAL HISTORY: SOCIAL HISTORYSocial History?Tobacco Use?Smoking status:Former??Current packs/day:0.50??Average packs/day:0.5 packs/day for 2.0 years (1.0 ttl pk- yrs)??Types:Cigarettes?Smokeless tobacco:NeverVaping Use?Vaping status:Never UsedSubstance Use Topics?Alcohol use:Not Currently?Drug use:Yes??Frequency:7.0 times per week??Types:Marijuana??Comment: 2-3 times daily ?FAMILY HISTORY: FAMILY HISTORYFAMILY HISTORY ProblemRelationAge of Onset?HeadacheMother?? migraine?DiabetesFather??HypertensionFather??No Known ProblemsBrother??No Known ProblemsBrother??EmphysemaMaternal Grandmother??CancerMaternal Grandfather?? unknown?EmphysemaMaternal Grandfather??CancerPaternal Grandmother?? unknown ?HeartPaternal Grandmother?? [place]?No Known ProblemsPaternal Grandfather??Ischemic Heart DiseasePaternal Aunt?? [place] x 3?DiabetesPaternal Aunt??DiabetesPaternal Aunt??DiabetesPaternal Uncle???REVIEW OF SYMPTOMS:negative except as noted above PHYSICAL EXAMINATION:?VITALS: Blood pressure 112/64, weight 70.8 kg (156 lb), last menstrual period 10/30/2023, currently .?GENERAL: The patient is well nourished, well hydrated in no acute distress. , The patient is oriented to time, place, and person.NECK: Supple. No lynphadenopathy, normal thyroid, no thyromegalyGENITALIA: Normal external genitalia, Urethral meatus normal, Bladder nontender, normal vagina and normal vaginal tone, normal cervix, normal uterus, size and consistency, normal adnexa without masses or tenderness, and perineum WNLWET PREP: Not indicated?IMPRESSION: 34yo desires sterilization ?PLAN: laparoscopic bilateral salpingectomy ?Pt has been counseled on risks/benefits and alternatives of surgery including but not limited to anesthesia, bleeding, infection, injury to pelvic structures including bowel, bladder, ureters and vessels. Pt wishes to proceed with surgery at this time. ?Discussed again with patient needs neuro clearance- takes Keppra- last seizure in May. Takes nothing for MS at current time but seeing them in October for follow up. Pt will have them fax recommendations for pre op/ post op to office ?Pre and post op in structions reviewed?I have reviewed and updated past medical and surgical history, medications and allergies Soraya Carranza MD ?3:10 PM
--- NOTE | 2024-10-20 07:30 | FALS_PTH ---
PATIENT: HANNASEPTEMBER TANMAY [place] [facility] [id number] AGE/SX: 34/F ROOM: RE10/20/[address]: Dr. Soraya Pate, MDDOB: 1990 BED: DIS: 10/20/2024 SPEC #: [id number] RECD: 10/20/24 10:14 STATUS: ANGELO CHLOÉ #: [id number] KATHY: 10/20/24 07:[address]: Soraya Pate DEPT: SURGICAL PATHOLOGY RECD BY: Reece Gates ENTERED: 10/20/24 11:42 SP TYPE: FALL TUBES OTHR DR: No Primary Care Phys Tissues: A - Fallopian tube Procedures: Surgery Specimen Level II HEADER OPERATION: Laparoscopic bilateral salpingectomy PRE-OP DIAGNOSIS: Patient desires sterilization TISSUE SUBMITTED: A- Bilateral fallopian tubes MICROSCOPIC DIAGNOSIS A. Bilateral fallopian tubes, sterilization, salpingectomy: * No specific pathologic change with complete luminal cross-section confirmed x2. MICROSCOPIC DESCRIPTION Slides are reviewed. GROSS DESCRIPTION A. Received in formalin in a container labeled with the patient's name, date of , and bilateral fallopian tubes are 2 unoriented and fimbriated fallopian tube segments each measuring 4.5 cm in length by 0.8 cm in diameter. Each displays pabon-pink, smooth and glistening serosa with unremarkable fimbriated ends. Sectioning of each reveals a pinpoint lumen. Inspector Screen Printing sections:A1. First fallopian tubeA2. Second fallopian tube [facility] 10-20-2024 CPT:94567
--- NOTE | 2024-10-20 08:16 | PCM.DC ---
Discharge Instructions Diet Discharge Diet: No restrictions DC O2, CPAP, BIPAP needs Home O2 Discharge instructions: No Dressing / Incision May resume sexual activity in: 2 weeks Lifting Restrictions: 20-25 lbs Dressing / Incision Call your doctor if your incision/area has: Continuous Slow Oozing, Sudden Increased Bleeding, Increased Pain/ Swelling, Increased Redness, Foul Smelling Discharge and Swelling at the incision site Call your doctor if you observe: Fever of 101 or Higher, Inability to urinate, Inability to have a bowel movement, Using more than 1 pad per hour and Uncontrolled pain Additional Dressing/Incision Instructions:: You have skin glue over your incision sites, do not pick off. You may shower and let the soap and water run over the incision sites and dab dry. Follow Up Care Please Follow Up With: Soraya Pate MD When: if you need an appointment please call [phone]- i will call with your pathology Test Results: Test results from this visit will be discussed in further detail at your follow-up appointment, if applicable. Discharge Plan Admission Attending Provider: Soraya Pate Primary Care Provider: Care PhysicianAnamaria Primary Instructions Print Language: [place] Discharge Orders/Prescriptions Prescriptions: No Action folic acid 1 mg tablet 3 mg PO DAILY metoprolol succinate 25 mg tablet extended release 24 hr 25 mg PO DAILY lurasidone 40 mg tablet 40 mg PO QPM levetiracetam [Keppra] 500 mg tablet 500 mg PO BID PNV cmb#95-ferrous fumarate-FA [] 28 mg iron- 800 mcg tablet 1 tab PO DAILY famotidine 40 mg tablet 40 mg PO BID PRN PRN (Reason: heartburn ) acetaminophen 500 mg Tablet 1,000 mg PO Q6H PRN PRN (Reason: Pain 1-10 Or Fever) Qty: 0 0RF Referrals / Follow Up: Care Physician,No Primary [Primary Care Provider] - Disposition Disposition (needs filled in before D/C Order can be placed): Home, Self Care
--- NOTE | 2024-10-20 08:22 | OP.PCM_ITS ---
Operative Report (Standard) Operative Information Date of Procedure: 10/20/24 Pre-Operative Diagnosis: desires sterilization Post-Operative Diagnosis: same Surgery/Procedure Performed: laparoscopic bilateral salpingectomy central service tech: Yes Privacy Director: michael nicolas MS3 Tasks completed by nurse first aid: Closing, Insert Trochanter and Retracting Type of Anesthesia: General RN Documented Start/Stop Times: Operation Date: 10/20/24 07:30 Case Time Into Pre-Op 10/20/24 06:00 Out of Pre-Op 10/20/24 07:27 Anesthesia Start 10/20/24 07:37 Into Room 10/20/24 07:37 Procedure Start 10/20/24 07:58 Procedure Start Time: 07:58 Procedure Stop Time: 08:16 Select all DRAINS/GRAFTS/IMPLANTS that apply: None Estimated Blood Loss: 25 Fluids Replaced: 900 Specimen collected: Yes Description of specimen(s) removed: bilateral fallopian tubes Description of surgery: After informed consent was obtained patient was taken to the operating room she was placed in supine position she was given anesthesia. She was then placed in the [facility] and she was prepped and draped in normal sterile fashion. Bladder was drained prior to the start of procedure. At this time attention was turned to the vaginal portion where weighted speculum placed at posterior fornix vagina single-tooth tenaculum was used to gently grasp the internal the cervix. uterus was gently sounded to approximately 8cm. Uterine manipulator was placed without difficulty. Legs then placed in parallel with the abdomen the tenaculum and the weighted speculum were removed. 2 towel clamps were placed at level of umbilicus. Marcaine was injected infraumbilical and a small incision was made. The 5 mm trocar was placed under direct v isualization. CO2 gas was used to insufflate the intra-abdominal cavity. Upon inspection no gross abnormalities appreciated- the uterus tubes and ovaries appeared to be normal. At this time then the LLQ and RLQ ports were placed First Marcaine was injected and small incision was made a knife and the 5 mm trocars were placed. At this time then tubes were traced back to the fimbriated ends. Enseal was used to coagulate and ligate along mesosalpinx bilaterally until tubes removed completely. Good hemostasis was appreciated. At this time procedure was deemed complete successful. The gas was desufflated on from the intra-abdominal cavity. The trochars were removed. Skin was closed using 4-0 Monocryl in a subcutaneous fashion. Dermabond glue was placed. Instrument lap and needle counts were correct ?2. The uterine manipulator was removed. Brisk bleeding noted from vagina- this was evaulated and no cervical lesions- No active bleeding from os- noted. Vaginal sweep was performed it was negative. There were no complications anticipated normal postoperative course for this patient. Surgical Findings: normal tubes and ovaries Complications Complications: No Admit VTE Documentation VTE Present on Admission: Yes VTE Mechan Device Prophylaxis: SCD's VTE Pharm Prophylaxis ordered?: No
--- NOTE | 2024-10-20 08:34 | PCM.POST.ANE ---
Anesthesia: Postop Eval I Current Vital Signs Temperature: 98.2 F Pulse Rate: 83 Blood Pressure: 109/66 Respiratory Rate: 16 Pulse Ox: 100 Oxygen Delivery Method: Room Air Assessment Airway patent: Yes Spontaneous unlabored respirations: Yes Mental status: Awake and Calm nausea: No Vomiting: No Anesthesia Complication: No Fluid Hydration Crystalloid volume administer (ml): 900 Total IV fluid infused: 900 Progress Note Anesthesia document: Postop Eval 1 completed: Yes
--- NOTE | 2024-10-20 11:04 | POSTOPAN2_ITS ---
Anesthesia Postop Eval I Sum Postop Eval Completion status Anesthesia document: Postop Eval 1 completed: Yes Anesthesia Postop Eval I Summary Anesthesia Postop Eval I Summary: Anesthesia Postop Eval I: Assessment Summary Airway patent Yes 10/20/24 08:35 [email or web address] [email or web address] Spontaneous unlabored Yes 10/20/24 08:35 [email or web address] [email or web address] respirations Mental status Awake,Calm 10/20/24 08:35 [email or web address] [email or web address] nausea No 10/20/24 08:35 [email or web address] [email or web address] Vomiting No 10/20/24 08:35 [email or web address] [email or web address] Anesthesia Postop Eval I: Fluid Summary Crystalloid volume administer 900 10/20/24 08:35 [email or web address] [email or web address] (ml) Colloids volume administered ( ml) Blood Product volume administered (ml) Total IV fluid infused 900 10/20/24 08:35 [email or web address] [email or web address] Anesthesia Postop Eval I: Summary Notes Anesthesia Complication No 10/20/24 08:35 [email or web address] Anesthesia Complication Comment: Post-operative progress note Anesthesia: Postop Eval II Evaluation Mental status: Awake Pain Level: 2 nausea: No Vomiting: No
--- NOTE | 2024-10-20 11:04 | PCM.POSTANE2 ---
Anesthesia Postop Eval I Sum Postop Eval Completion status Anesthesia document: Postop Eval 1 completed: Yes Anesthesia Postop Eval I Summary Anesthesia Postop Eval I Summary: Anesthesia Postop Eval I: Assessment Summary Airway patent Yes 10/20/24 08:35 CORRECTION [email or web address] Spontaneous unlabored Yes 10/20/24 08:35 CORRECTION [email or web address] respirations Mental status Awake,Calm 10/20/24 08:35 CORRECTION [email or web address] nausea No 10/20/24 08:35 CORRECTION [email or web address] [email or web address] Vomiting No 10/20/24 08:35 CORRECTION [email or web address] Anesthesia Postop Eval I: Fluid Summary Crystalloid volume administer 900 10/20/24 08:35 CORRECTION [email or web address] (ml) Colloids volume administered ( ml) Blood Product volume administered (ml) Total IV fluid infused 900 10/20/24 08:35 CORRECTION [email or web address] Anesthesia Postop Eval I: Summary Notes Anesthesia Complication No 10/20/24 08:35 CORRECTION [email or web address] [email or web address] Anesthesia Complication Comment: Post-operative progress note Anesthesia: Postop Eval II Evaluation Mental status: Awake Pain Level: 2 nausea: No Vomiting: No
== END 2024-10-20 11:02 | disposition home or self-care (01) ==
LOC: SDC 05:44 → AC 05:45
PROVIDERS: Anesthesiology; Referring Provider Obstetrics & Gynecology; Visit Provider Obstetrics & Gynecology
PROC: (CPT 58661; principal; 2024-10-20 07:15)
DX: Z30.2 Encounter for sterilization (principal); G35 Multiple sclerosis; R56.9 Unspecified convulsions; F17.290 Nicotine dependence, other tobacco product, uncomplicated; K21.9 Gastro-esophageal reflux disease without esophagitis; Z79.899 Other long term (current) drug therapy
CPT/HCPCS: 58661; 00840; 36415; 80048; 81025; 85025; 85730; 88302; J2405

== ENCOUNTER → 2025-02-02 | Outpatient (CLI) | payer BC, MEDICAID, SELFPAY ==
--- NOTE | 2025-02-02 06:47 | MRI_ITS ---
PROCEDURE: SPINE THORACIC W/WO CONTRAST 02/02/2025 REASON FOR EXAM: RT SIDE WEAKNESS TECHNIQUE: Thoracic spine MRI without and with intravenous gadolinium-based contrast. Multiplanar and multisequence images were obtained. CONTRAST: Clariscan VOLUME: 15 mLGauge IV COMPARISON: 12-29-2023 FINDINGS: Preserved thoracic curve. No obvious enhancing masses. Stable T5 vertebral body old mild ventral wedging. Stable multilevel subchondral Schmorl's nodes of the examined vertebral end plates The rest of the vertebral body heights and marrow signal are normal with normal alignment. No vertebral dislocation or fractures visualized. No obvious marrow degenerative changes. Modic 0. Preserved height and bright T2 signal of the examined discs. T1-T2: No significant disc herniation, lateral recesses or neural foraminal narrowing. Transiting and exiting nerve roots are unremarkable. Facet joints and ligamentum flavum show normal configuration. T2-T3: No significant disc herniation, lateral recesses or neural foraminal narrowing. Transiting and exiting nerve roots are unremarkable. Facet joints and ligamentum flavum show normal configuration. T3-T4: No significant disc herniation, lateral recesses or neural foraminal narrowing. Transiting and exiting nerve roots are unremarkable. Facet joints and ligamentum flavum show normal configuration. T4-T5: No significant disc herniation, lateral recesses or neural foraminal narrowing. Transiting and exiting nerve roots are unremarkable. Facet joints and ligamentum flavum show normal configuration. T5-T6: No significant disc herniation, lateral recesses or neural foraminal narrowing. Transiting and exiting nerve roots are unremarkable. Facet joints and ligamentum flavum show normal configuration. T6-T7: a 2 cm right paracentral focal posterior disc protrusion indenting the cord. No significant neural foraminal narrowing. T7-T8: No significant disc herniation, lateral recesses or neural foraminal narrowing. Transiting and exiting nerve roots are unremarkable. Facet joints and ligamentum flavum show normal configuration. T8-T9: No significant disc herniation, lateral recesses or neural foraminal narrowing. Transiting and exiting nerve roots are unremarkable. Facet joints and ligamentum flavum show normal configuration. T9-T10: No significant disc herniation, lateral recesses or neural foraminal narrowing. Transiting and exiting nerve roots are unremarkable. Facet joints and ligamentum flavum show normal configuration. T10-11: No significant disc herniation, lateral recesses or neural foraminal narrowing. Transiting and exiting nerve roots are unremarkable. Facet joints and ligamentum flavum show normal configuration. T11-12: No significant disc herniation, lateral recesses or neural foraminal narrowing. Transiting and exiting nerve roots are unremarkable. Facet joints and ligamentum flavum show normal configuration. T12-L1: No significant disc herniation, lateral recesses or neural foraminal narrowing. Transiting and exiting nerve roots are unremarkable. Facet joints and ligamentum flavum show normal configuration. The signal and caliber of the spinal cord is within normal limits. No marrow infiltrative lesions No paraspinal soft tissue abnormalities. MRI/Spine Thoracic W/WO Contrast IMPRESSION: Stable T5 vertebral body old mild ventral wedging. Stable multilevel subchondral Schmorl's nodes of the examined vertebral end marya aleshia T6-T7: a 2 cm right paracentral focal posterior disc protrusion. No significant neural foraminal narrowing. Reading Location: [facility]
--- NOTE | 2025-02-02 06:47 | MRI_ITS ---
PROCEDURE: SPINE CERVICAL W/WO CONTRAST 02/02/2025 REASON FOR EXAM: RT SIDE WEAKNESS TECHNIQUE: SPINE CERVICAL W/WO CONTRAST Multiplanar and multisequence images were obtained with intravenous gadolinium-based contrast administration. CONTRAST: Clariscan VOLUME: 15 mL COMPARISON: 12-29-2023 FINDINGS: Straightening of cervical curve denoting myospasm. No vertebral fracture/acute dislocation noted. The vertebral body heights are normal. The examined vertebral bodies and posterior neural elements appear intact with no fractures. Normal craniometric measures of the craniovertebral junction Multilevel small anterior marginal lipping of the examined vertebral end plates. Regression of the subchondral degenerative marrow edema changes of C6-C7 vertebral end plates and bodies with currently noted related enhacement and more evident marginal lipping and reduced disc height. Variable degrees of reduced bright T2 signal of the intervertebral discs denoting their desiccation. C1-C2: Atlantodens interval is preserved. Odontoid process and atlantoaxial joint appear normal. C2-C3: There is no significant disc pathology. Normal morphology of the ligamentum flava. No arthropathy of the uncovertebral and zygapophyseal joints. No significant spinal canal stenosis noted. C3-C4: There is no significant disc pathology. Normal morphology of the ligamentum flava. No arthropathy of the uncovertebral and zygapophyseal joints. No significant spinal canal stenosis noted. C4-C5: There is no significant disc pathology. Normal morphology of the ligamentum flava. No arthropathy of the uncovertebral and zygapophyseal joints. No significant spinal canal stenosis noted. C5-C6: a 1.3 mm central focal posterior disc protrusion indenting the theca with no neuroforaminal stenosis. C6-C7: a diffuse disc bulge with a 4.6 mm left foraminal protrusion along with bilateral uncovertebral arthropathy seen indenting the cord encroaching upon the related neural exit foramina inducing moderate right and marked left exiting nerve roots compression. C7-T1: There is no significant disc pathology. Normal morphology of the ligamentum flava. No arthropathy of the uncovertebral and zygapophyseal joints. No significant spinal canal stenosis noted. Normal appearance of the examined cervical cord and cranio-cervical junction. No marrow infiltrative lesions. No paraspinal soft tissue masses. MRI/Spine Cervical W/WO Contrast IMPRESSION: Straightening of cervical curve denoting myospasm. No fractures/acute dislocation noted. Regression of the subchondral degenerative marrow edema changes of C6-C7 verteb ral end plates and bodies with currently noted more evident marginal lipping and reduced disc height, possibly Modic I changes rather than inflammatory/spondylodiscitis. Advise clinical correlation. C5-C6: a 1.3 mm central focal posterior disc protrusion with no neuroforaminal stenosis. C6-C7: a diffuse disc bulge with a 4.6 mm left foraminal protrusion along with bilateral uncovertebral arthropathy inducing moderate right and marked left exiting nerve roots compression. Reading [facility]
--- NOTE | 2025-02-02 06:47 | MRI_ITS ---
PROCEDURE: BRAIN W/WO CONTRAST 02/02/2025 REASON FOR EXAM: RT SIDE WEAKNESS TECHNIQUE: BRAIN W/WO CONTRAST Multiplanar and multisequence images were obtained. CONTRAST: Clariscan VOLUME: 15 mL intravenous. COMPARISON: Brain MRI 12/28/2023 FINDINGS: Brain: Again seen are numerous bilateral cerebral white matter lesions, many radially oriented, and again consistent with demyelinating disease. Compared with the study of 12/28/2023, no interval worsening is identified. Following intravenous contrast administration, no apparent postcontrast enhancement is seen. The corpus callosum shows no enhancement. No extra-axial fluid collection is noted. No orbital pathology is noted. Diffusion: Diffusion-weighted images demonstrate no area of restricted diffusion. Ventricles: Normal. Sinuses: Clear. Mastoids: Essentially clear. Other: No new abnormality is noted. MRI/Brain W/WO Contrast IMPRESSION: Bilateral cerebral white matter disease, many with radial orientation, not sign ificantly changed since the prior study of 12/28/2019. No area of significant abnormal postcontrast enhancement is seen. Findings are again consistent with demyelinating disease. Reading Location: [place] [id number]
--- OUTSIDE RECORDS SUMMARY | 2025-02-02 06:59 | XMS RPT_ITS | CCD ---
Author Organization [facility] Care Team Providers Care Radarman Name Role Phone Unavailable Primary Care Provider Unavailabl e Juana, So Cooper Primary Care Provider Unavailable Primary Care Provider Unavailabl e AHMED, AHMED Admitting Unavailable AHMED, AHMED Attending Unavailable DOUG FINCH Admitting Unavailable JUDE RAMIREZ Attending Unavailable Care Physician, No Primary Primary Care Provider Unavailable Dr. Arron Ivan DO Attending Provider Dr. Arron Ivan DO Emergency Provider Gonzalo TOLEDO, Dr. Fierro Attending Provider Dr. Melba Sánchez MD Referring Provider Durga CNM, Leilani Admit Provider [phone] Calixto CNM, Leilani Attending Provider Durga CNM, Leilani Referring Provider Care Physician, No Primary Primary Care Provider Unavailable Herlinda TOLEDO, Dr. Lira Attending Provid er Dr. Soraya Pate MD Referring Provid er MELBA SÁNCHEZ Attending Unavailable MELBA SÁNCHEZ Attending Unavailable SORAYA PRADO Referring Unavail able PLOTGEO, KEARA Attending Unavailable PLOTTS, KEARA Referring Unavailable MELBA SÁNCHEZ Referring Unavailable LEILANI CALIXTO Referring Unavailable ZOEY HINSON Attending Unavailab MELBA López Attending Unavailable PLOTTS, KEARA Referring Unavailable PLOTTS, KEARA Referring Unavailable HOLA DUEÑAS Attending Unavailable PLOTTS, KEARA Referring Unavailable LEILANI CALIXTO Attending Unavailable DURGA LEILANI Referring Unavailable SORAYA PRADO Referring Unavail able MELBA SÁNCHEZ Attending Unavailable SORAYA PRADO Attending Unavail able LEILANI CALIXTO Referring Unavailable NESORAYA BAKER Attending Unavail able WISHOLA JOHNSON Attending Unavailable WISWELL, HOLA Referring Unavailable WISWELL, HOLA Referring Unavailable ALEXANDER GALLOWAY Attending Unavailable WISWELL, HOLA Referring Unavailable MELBA SÁNCHEZ Attending Unavailable PLOTGEO, KEARA Referring Unavailable WISWELL, HOLA Referring Unavailable WISWELL, HOLA Referring Unavailable LAVERNE, ALEXANDER Shahid Attending Unavailable KENYA PHILIP Attending Unavailable PLOTTS, KEARA Referring Unavailable PLOTTS, KEARA Attending Unavailable SELF Referring Unavailable GONZALO, KARMON Referring Unavailable NESORAYA BAKER Attending Unavail able SORAYA PRADO Attending Unavail able [facility], [facility] Primary Care Provider RIA FONSECA Attending Unavailable SELF, SELF Referring Unavailable [facility], [facility] Care Unavaila ble PARTHA OLIVEROS Referring Unavailable RIA FONSECA Attending Unavailable [facility], [facility] Care Unavaila BEBA Bledsoe Attending Unavailable RAYMUNDO, RIA L Referring Unavailable [facility], [facility] Care Unavaila ble SELF, SELF Referring Unavailable RAYMUNDORIA Attending Unavailable [facility]IN[facility], [facility] Primary Care Unavaila ble [facility] Referring Unavail able [facility], [facility] Primary Care Unavaila ble BEBA FOSTER Attending Unavailable RIA FONSECA Attending Unavailable RIA FONSECA L Referring Unavailable CLINIC, [facility] Unavaila ble SELF, SELF Referring Unavailable [facility], [facility] Care Unavaila BEAB Bledsoe Attending Unavailable Ria Fonseca Attending Unavailable Raymundo, Ria Referring Unavailable Leilani Rivera Primary Care Unavailabl e Care Physician, No Primary Primary Care Unava ilable Melba Sánchez Attending Unavailable Melba Sánchez Referring Unavailable Arron Ivan Attending Unavailable Care Physician, No Primary Primary Care Unava ilable Elena-Soraya Novak Attending Unavail able Iva Patere Referring Unavail able Care Physician, No Primary Primary Care Unava ilable Leilani Calixto Admitting Unavailable Leilani Calixto Attending Unavailable Leilani Calixto Referring Unavailable Care Physician, No Primary Primary Care Unava ilable Medications Current Medications Medication Drug Class(es) Dates Sig (Normalized) Sig (Original) acetaminophen 500 mg oral tablet (20 sources) Start: 09-11-2024 take 1-10 tablets by mouth every six hours as needed for pain Acetaminophen 500 mg Tablet Active 1000 mg PO EVERY 6 HOURS NEEDED as needed for Pain 1-10 Or Fever 0 September 11, 2024 12:00am take 1 tablet by jesi th every eight hours as needed acetaminophen (TYLENOL EXTRA STRENGTH) 5 00 mg tablet Take 500 mg by mouth every 8 hours as needed for pain. Active amoxicillin 875 mg oral tablet (1 source) Penicillin-class Antibacterial Start: 02-25-2023 End: 03-04-2023 take 1 tablet by mouth twice daily amoxicillin (AMOXIL) 875 mg tablet Indications: Dental infection Take 1 tablet by mouth twice daily for 7 days. 14 tablet 0 02/25/2023 03/04/2023 Active Comment on above: Take 1 tablet by jesi th twice daily for 7 days. amoxicillin 875 mg / clavulanate 125 mg oral tablet (1 source) Penicillin-class Antibacterial Start: 07-24-2023 End: 08-03-2023 take 1 tablet by mouth twice daily amoxicillin-clavula luke potassium (AUGMENTIN) 875-125 mg per tablet Indications: Dental infection Take 1 tablet by mouth two times a day for 10 days. 20 tablet 0 07/24/2023 08/03/2023 Active Comment on above: Take 1 tablet by jeis th two times a day for 10 days. aspirin 81 mg delayed release oral tablet (20 sources) Platelet Aggregation Inhibitor, Nonsteroidal Anti-inflammatory Drug Start: 02-22-2024 End: 09-14-2024 take 1 tablet by mouth once daily Aspirin [address] tablet Take 1 tablet by mouth daily. 02/22/2024 Active cyclobenzaprine hydrochloride 10 mg oral tablet (20 sources) Muscle Relaxant Start: 05-31-2024 End: 09-09-2024 take 1 tablet by mouth every eight hours as needed cyclobenzaprine (FLEXERIL) 10 mg tablet Take 1 tablet by mouth three times a day as needed. 10 tablet 05/31/2024 Active famotidine 40 mg oral tablet (15 sources) Histamine-2 Receptor Antagonist Start: 08-18-2024 take 1 tablet by mouth every twelve hours as needed famotidine (PEPCID) 40 mg tablet Take 1 tablet by mouth two times a day as needed. 60 tablet 08/18/2024 Active folic acid 1 mg oral tablet (20 sources) Start: 03-21-2024 take 3 tablets by mouth once daily folic acid 1 mg tablet Take 3 tablets by mouth once daily. 90 tablet 4 03/21/2024 Active hydrOXYzine hydrochloride 25 mg oral tablet (1 source) Antihistamine Start: 11-30-2024 take 1 tablet by mouth three times daily as needed for anxiety hydrOXYzine HCl 25 MG tablet Take 1 tablet by mouth 3 times daily as needed for Anxiety. 11/30/2024 Active indomethacin 25 mg oral capsule (1 source) Nonsteroidal Anti-inflammatory Drug Start: 05-03-2024 End: 05-04-2024 take 1 capsule by mouth three times daily at mealtime indomethacin (INDOCIN) 25 mg capsule Take 1 capsule by mouth three times a day with meals for 1 day. 3 capsule 05/03/2024 05/04/2024 Active levETIRAcetam 500 mg oral tablet (20 sources) Start: 11-21-2024 take 1 tablet by mouth twice daily levETIRAcetam (Keppra) 500 MG tablet Indications: Other epilepsy without status epilepticus, not intractable Take 1 tablet by mouth 2 times daily. 60 tablet 11 11/21/2024 Active Start: 06-03-2024 take 1 tablet by jesi th twice daily levETIRAcetam (KEPPRA) 500 mg tablet Take 1 tablet by mouth two times a day. 06/03/2024 Active lurasidone hydrochloride 40 mg oral tablet (20 sources) Atypical Antipsychotic Start: 05-09-2024 take 1 tablet by mouth once daily in the evening lurasidone (LATUDA) 40 mg tablet take 1 tablet by mouth every evening with a full meal (atleast 400 calories) 05/09/2024 Active Start: 03-29-2024 End: 06-02-2024 take 1 tablet by mouth once daily in the evening lurasidone (LATUDA) 20 mg tablet Take 1 tablet by mouth every evening with a full meal (atleast 400 calories) 03/29/2024 06/02/2024 Discontinued (Other) 24 hr metoprolol succinate 25 mg extended release oral tablet (5 sources) beta-Adrenergic Brooke Start: 06-03-2024 take 1 tablet by mouth once daily Metoprolol Succinate 25 mg tablet extended release 24 hr Active 25 mg PO DAILY June 03, 2024 1:00am Start: 05-23-2024 End: 06-30-2024 take 1 tablet by mouth every hour metoprolol succinate ER (TOPROL XL) 25 mg 24 hr tablet Take 1 tablet by mouth every afternoon. 05/23/2024 06/30/2024 Discontinued (Discontinued by Patient) midazolam 50 mg/ml nasal spray (20 sources) Benzodiazepine Start: 06-29-2024 Midazolam (Nay zilam) 5 MG/0.1ML Solution Indications: Local-rel idio epi w seiz of loc onset, ntrct, w/o stat epi Administer one spray (5 mg dose) into one nostril for a seizure that lasts for 5 minutes. One additional spray (5 mg dose) into the opposite nostril if the seizure continues for an additional 5 minutes. 2 Each 08/29/2024 Active Pnv Cmb#95-Ferrous Fumarate-Fa () 28 mg iron- 800 mcg tablet (3 sources) Start: 08-25-2024 Pnv Cmb#95-Randolph elsy Fumarate-Fa () 28 mg iron- 800 mcg tablet Active 1 {tbl} PO DAILY August 25, 2024 12:00am MV-Min-Fe Fum-FA-DHA ( 1 PO) (2 sources) MV-Min- Fe Fum-FA-DHA ( 1 PO) Take by mouth daily. Active vit no.124/iron/folic ( VITAMIN ORAL) (20 sources) vit no.124/iron/folic ( VITAMIN ORAL) Take by mouth once daily. 2 Gummies Suspended vit no. 124/iron/folic ( VITAMIN ORAL) Take by mouth once daily. 2 Gummies Active simethicone 80 mg chewable tablet (20 sources) Start: 05-31-2024 take 1 tablet by mouth every six hours as needed simethicone, chewable (MYLICON) 80 mg chewable tablet Take 1 tablet by mouth four times a day as needed. 20 tablet 05/31/2024 Active Completed/Discontinued Medications Medication Drug Class(es) Dates Sig (Normalized) Sig (Original) Desogestrel / Ethinyl Estradiol (8 sources) Progestin, Estrogen Start: 07-02-2009 End: 03-21-2024 desog-et estra/ethin estra(MIRCETTE 0.15 MG-0.02 MG X21/0.01 MGX5 TAB) Indications: Oligomenorrhea Take one(1) tablet daily. 28 3 07/02/2009 03/21/2024 Discontinued (Course of therapy completed) Start: 07-02-2009 desog-et estra /ethin estra(MIRCETTE 0.15 MG-0.02 MG X21/0.01 MGX5 TAB) Indications: Oligomenorrhea Take one(1) tablet daily. 28 07/02/2009 Active Comment on above: Take one(1) tablet d aily. ibuprofen 600 mg oral tablet (2 sources) Nonsteroidal Anti-inflammatory Drug Start: 09-12-19 End: 10-15-19 take 1 tablet by mouth every six hours as needed for pain Ibuprofen 600 mg Tablet Discontinued 600 mg PO EVERY 6 HOURS NEEDED as needed for Pain Score 1-10 0 September 11, 2024 12:00am October 14, 2024 3:20pm ondansetron 4 mg disintegrating oral tablet (5 sources) Serotonin-3 Receptor Antagonist Start: 01-22-20 End: 12-27-19 take 1 tablet by mouth every eight hours as needed for nausea and vomiting Ondansetron 4 mg tablet,disintegrati ng Discontinued 4 mg PO Q8H as needed for nausea and vomiting January 21, 2022 12:00am December 27, 2023 1:47pm Problems Active Problems Problem Classification Problem Date Documented Date Episodic/Chronic Anxiety disorders (4 sources) Anxiety; Translations: [Anxiety disorder, unspecified] 09-09-2024 Chronic Disorders of teeth and jaw (2 sources) Infection of tooth; Translations: [Periapical abscess without sinus] 02-25-2023 Episodic Epilepsy; convulsions (7 sources) Intractable idiopathic partial epilepsy; Translations: [Localization-related (focal) (partial) idiopathic epilepsy and epileptic syndromes with seizures of localized onset, intractable, without status epilepticus] Onset: 07-14-2024 07-19-2024 Chronic Epilepsy; convulsions (8 sources) Seizure; Translations: [Unspecified convulsions] 01-21-2024 Episodic Comment on above: first seizure in [place] y last seizure 06/04/24 distress and abnormal forces of labor (4 sources) Atony of uterus; Translations: [Other uterine inertia] 09-09-2024 Episodic Comment on above: Methergine given, EB L 600ml Immunizations and screening for infectious disease (11 sources) Patient encounter status; Translations: [Encounter for screening for human papillomavirus (HPV)] 02-22-2024 Episodic Inflammation; infection of eye (except that caused by tuberculosis or sexually transmitteddisease) (1 source) Disorder of optic nerve; 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] 01-21-2024 Chronic Malaise and fatigue (1 source) Right hemiparesis; Translations: [Weakness] 12-21-2024 Episodic Mood disorders (20 sources) Bipolar I disorder; Translations: [Bipolar disorder, unspecified] Onset: 02-22-2024 02-22-2024 Chronic Comment on above: Latuda Multiple sclerosis (20 sources) Multiple sclerosis; Translations: [Multiple sclerosis] Onset: 03-15-2024 01-21-2024 Chronic Comment on above: diagnosis in December Nonspecific chest pain (5 sources) Chest pain; Translations: [Chest pain, unspecified] 05-11-2020 Episodic OB-related trauma to perineum and vulva (4 sources) Second degree perineal laceration; Translations: [Second degree perineal laceration during delivery] 09-09-2024 Episodic Open wounds of extremities (4 sources) Laceration of right elbow; Translations: [Laceration without foreign body of right elbow, initial encounter] 10-10-2022 Episodic Other complications of (7 sources) Elderly primigravida; Translations: [Supervision of elderly primigravida, second trimester] 04-05-2024 Episodic Other complications of (4 sources) Abnormal findings on screening of mother; Translations: [Other abnormal findings on screening of mother] 08-25-2024 Episodic Comment on above: 36&6 Other complications of (2 sources) Supervision of high risk , unspecified, third trimester; Translations: [Supervision of high risk in third trimester] Onset: 08-18-2024 Episodic Other complications of (1 source) Maternal care for cervical incompetence, third trimester; Translations: [Cervical cerclage suture present in third trimester] Onset: 08-18-2024 Episodic Other female genital disorders (4 sources) Cervical incompetence; Translations: [Incompetence of cervix uteri] 09-09-2024 Episodic Comment on above: cerclage removed on 08/19/24 Other nervous system disorders (5 sources) Carpal tunnel syndrome; Translations: [Carpal tunnel syndrome, bilateral upper limbs] 11-22-2020 Chronic Other nervous system disorders (5 sources) Paresthesia; Translations: [Paresthesia of skin] 11-22-2020 Episodic Other and delivery including normal (12 sources) First trimester ; Translations: [Encounter for supervision of normal first , first trimester] Onset: 03-15-2024 02-22-2024 Episodic Other skin disorders (1 source) Facial swelling ; Translations: [Localized swelling, mass and lump, head] 07-24-2023 Episodic Other upper respiratory infections (1 source) Viral sinusitis; Translations: [Chronic sinusitis, unspecified] 07-24-2023 Chronic Paralysis (1 source) Right hemiparesis 12-22-2024 Chronic Residual codes; unclassified (1 source) Altered mental status; Translations: [Altered mental status, unspecified] 09-14-2023 Episodic Residual codes; unclassified (1 source) Gestation period, 10 weeks; Translations: [10 weeks gestation of ] 02-22-2024 Episodic Residual codes; unclassified (1 source) Gestation period, 13 weeks; Translations: [13 weeks gestation of ] 03-15-2024 Episodic Residual codes; unclassified (2 sources) Gestation period, 16 weeks; Translations: [16 weeks gestation of ] 04-06-2024 Episodic Residual codes; unclassified (3 sources) Gestation period, 20 weeks; Translations: [20 weeks gestation of ] 05-02-2024 Episodic Residual codes; unclassified (4 sources) Gestation period, 28 weeks; Translations: [28 weeks gestation of ] 06-30-2024 Episodic Residual codes; unclassified (1 source) Gestation period, 30 weeks; Translations: [30 weeks gestation of ] 07-14-2024 Episodic Residual codes; unclassified (3 sources) Gestation period, 32 weeks; Translations: [32 weeks gestation of ] 07-28-2024 Episodic Residual codes; unclassified (2 sources) Tobacco user 07-28-2024 Episodic Residual codes; unclassified (2 sources) Gestation period, 35 weeks; Translations: [35 weeks gestation of ] 08-18-2024 Episodic Residual codes; unclassified (1 source) Gestation period, 36 weeks; Translations: [36 weeks gestation of ] 08-25-2024 Episodic Residual codes; unclassified (1 source) Gestation period, 37 weeks; Translations: [37 weeks gestation of ] 08-31-2024 Episodic Residual codes; unclassified (1 source) Gestation period, 38 weeks; Translations: [38 weeks gestation of ] 09-08-2024 Episodic Residual codes; unclassified (1 source) 32 weeks gestation of ; Translations: [32 weeks gestation of ] Onset: 08-25-2024 Episodic Residual codes; unclassified (1 source) 35 weeks gestation of ; Translations: [35 weeks gestation of ] Onset: 08-18-2024 Episodic Substance-related disorders (20 sources) Tobacco user; Translations: [Nicotine dependence, unspecified, uncomplicated] Onset: 09-10-2009 09-10-2009 Chronic Comment on above: marijuana Syncope (5 sources) Near syncope; Translations: [Syncope and collapse] 11-22-2020 Episodic Unclassified (1 source) Initial OB Visit Onset: 02-22-2024 Unclassified (2 sources) Establish Care; Translations: [Establish Care] Onset: 06-29-2024 Unclassified (1 source) Other specified diseases and conditions complicating ; Translations: [Other specified diseases and conditions complicating ] Onset: 06-25-2024 Urinary tract infections (5 sources) Urinary tract infectious disease; Translations: [Urinary tract infection, site not specified] 11-22-2020 Episodic Past or Other Problems Problem Classification Problem Date Documented Date Episodic/Chronic Contraceptive and procreative management (3 sources) Sterilization requested; Translations: [Encounter for sterilization] Onset: 10-12-2024 10-12-2024 Episodic Menstrual disorders (20 sources) Irregular periods; Translations: [Irregular menstruation, unspecified] Onset: 09-10-2009 Resolved: 06-02-2024 09-10-2009 Chronic Other complications of (20 sources) High risk ; Translations: [Supervision of high risk , unspecified, first trimester] Onset: 02-22-2024 Resolved: 10-12-2024 02-22-2024 Episodic Other complications of (20 sources) Multiple sclerosis; Translations: [Diseases of the nervous system complicating , unspecified trimester] Onset: 03-15-2024 04-09-2024 Episodic Other complications of (20 sources) Short cervical length in ; Translations: [Cervical shortening, unspecified trimester] Onset: 05-02-2024 Resolved: 10-12-2024 05-02-2024 Episodic Other complications of (19 sources) Multigravida of advanced maternal age; Translations: [Supervision of elderly multigravida, second trimester] Onset: 08-31-2024 Resolved: 10-12-2024 05-02-2024 Episodic Other complications of (20 sources) Abdominal pain in ; Translations: [Other specified related conditions, unspecified trimester] Onset: 06-01-2024 Resolved: 10-12-2024 06-01-2024 Episodic Other complications of (20 sources) Cervical cerclage suture present; Translations: [Maternal care for cervical incompetence, second trimester] Onset: 06-01-2024 Resolved: 10-12-2024 06-01-2024 Episodic Other complications of (2 sources) Cervical shortening, second trimester; Translations: [Short cervix during in second trimester] Onset: 05-02-2024 Episodic Other complications of (2 sources) Supervision of elderly multigravida, third trimester; Translations: [AMA (advanced maternal age) multigravida 35+, third trimester] Onset: 06-30-2024 Episodic Other complications of (1 source) Supervision of high risk , unspecified, second trimester; Translations: [Encounter for supervision of high risk in second trimester, antepartum] Onset: 06-30-2024 Episodic Other complications of (1 source) Cervical shortening, unspecified trimester; Translations: [Short cervix affecting ] Onset: 05-02-2024 Episodic Other complications of (1 source) Supervision of elderly multigravida, second trimester; Translations: [AMA (advanced maternal age) multigravida 35+, second trimester] Onset: 06-30-2024 Episodic Other complications of (1 source) Diseases of the nervous system complicating , unspecified trimester; Translations: [Multiple sclerosis affecting , antepartum (HCC)] Onset: 05-02-2024 Episodic Other complications of (1 source) Supervision of elderly primigravida, second trimester; Translations: [Primigravida of advanced maternal age in second trimester] Onset: 06-02-2024 Episodic Other complications of (1 source) Supervision of high risk , unspecified, first trimester; Translations: [Encounter for supervision of high risk in first trimester, antepartum] Onset: 02-22-2024 Episodic Other complications of (1 source) Supervision of elderly primigravida, third trimester; Translations: [Supervision of elderly primigravida, third trimester] Onset: 09-14-2024 Episodic Other complications of (1 source) Maternal care for abnormalities of the heart rate or rhythm, third trimester, not applicable or unspecified; Translations: [Maternal care for abnormalities of the heart rate or rhythm, third trimester, not applicable or unspecified] Onset: 09-04-2024 Episodic Other nutritional; endocrine; and metabolic disorders (20 sources) Obesity; Translations: [Obesity, unspecified] Onset: 09-10-2009 Resolved: 04-05-2024 09-10-2009 Chronic Other screening for suspected conditions (not mental disorders or infectious disease) (5 sources) Cancer cervix screening status; Translations: [Encounter for screening for malignant neoplasm of cervix] Onset: 04-05-2024 02-22-2024 Episodic Other skin disorders (20 sources) Acanthosis nigricans; Translations: [Acanthosis nigricans] Onset: 09-10-2009 09-10-2009 Episodic Residual codes; unclassified (20 sources) Nicotine-filled electronic cigarette user; Translations: [Tobacco use] Onset: 02-22-2024 Resolved: 10-12-2024 02-22-2024 Episodic Residual codes; unclassified (20 sources) Personal history of other specified conditions; Translations: [Personal history of other specified diseases] Onset: 03-15-2024 03-15-2024 Episodic Residual codes; unclassified (20 sources) Gestation period, 24 weeks; Translations: [24 weeks gestation of ] Onset: 06-01-2024 Resolved: 10-12-2024 05-31-2024 Episodic Residual codes; unclassified (1 source) 28 weeks gestation of ; Translations: [28 weeks gestation of ] Onset: 07-28-2024 Episodic Residual codes; unclassified (1 source) 24 weeks gestation of ; Translations: [24 weeks gestation of ] Onset: 06-01-2024 Episodic Residual codes; unclassified (1 source) 20 weeks gestation of ; Translations: [20 weeks gestation of ] Onset: 05-02-2024 Episodic Residual codes; unclassified (1 source) 16 weeks gestation of ; Translations: [16 weeks gestation of ] Onset: 04-05-2024 Episodic Substance-related disorders (20 sources) Marijuana user; Translations: [Drug use complicating , unspecified trimester] Onset: 02-22-2024 Resolved: 10-12-2024 02-22-2024 Episodic Unclassified (4 sources) Planned procedure 09-09-2024 Results Test Name Value Interpretation Reference Range Facil ity CNCOon 11-01-2024 CNCO Letter Text Normal [facility] CNPNon 10-25-2024 CNPN Telephone (OBGYWM) SARIKA FERREIRA ([id number]) 1990 F Date Time Provider Department 10/25/24 SORAYA PRADO OBGYWM During your visit today, we recorded the following information about you: Soraya Prado MD 10/25/2024 12:11 PM Signed Please notify patient of benign Fallopian tubes on pathology. How is she feeling? If no concerns she does not need a post op. Kenya Reese, JEAN CARLOS 10/25/2024 12:26 PM Signed Left message with the male who answered the phone for patient to call office. JEAN CARLOS Aleman Jennifer, JEAN CARLOS 11/01/2024 12:07 PM Signed Unable to reach patient. Letter mailed to call the office. JEAN CARLOS Aleman Tara, RN 11/11/2024 12:20 PM Signed Pt returned call as she had received letter. States feeling okay-denies pain/Intermittent spotting. Denies questions/concerns. Rodrick Hernandez RN Allergies As of Date: 10/25/2024 (No Known Allergies) Date Reviewed: 10/12/2024 Reviewed by: Kassie Craft MA - Fully Assessed Reason for Visit: Results [95] Prescriptions as of 11/11/2024 - famotidine (PEPCID) 40 mg tablet Take 1 tablet by mouth two times a day as needed. - levETIRAcetam (KEPPRA) 500 mg tablet Take 1 tablet by mouth two times a day. - midazolam (NAYZILAM) 5 mg/spray (0.1 mL) nasal spray Administer one spray (5 mg dose) into one nostril for a seizure that lasts for 5 minutes. One additional spray (5 mg dose) into the opposite nostril if the seizure continues for an additional 5 minutes. - lurasidone (LATUDA) 40 mg tablet take 1 tablet by mouth every evening with a full meal (atleast 400 calories) - cyclobenzaprine (FLEXERIL) 10 mg tablet Take 1 tablet by mouth three times a day as needed. - simethicone, chewable (MYLICON) 80 mg chewable tablet Take 1 tablet by mouth four times a day as needed. - folic acid 1 mg tablet Take 3 tablets by mouth once daily. - vit no.124/iron/folic ( VITAMIN ORAL) Take by mouth once daily. 2 Gummies - acetaminophen (TYLENOL EXTRA STRENGTH) 500 mg tablet Take 500 mg by mouth every 8 hours as needed for pain. Problem List As Of Date 10/25/2024 Noted Resolved Acanthosis Nigricans [L83] 09/10/2009 Obesity [E66.9] 09/10/2009 04/05/2024 Irregular menses [N92.6] 09/10/2009 06/02/2024 Vapes nicotine containing substance [Z72.0] 02/22/2024 10/12/2024 Marijuana use during (HCC) [O99.320, *02/22/2024 10/12/2024 Bipolar 1 disorder (HCC) [F31.9] 02/22/2024 History of seizures [Z87.898] 03/15/2024 Multiple sclerosis affecting , antepar*03/15/2024 Short cervix affecting (HCC) [O26.879]05/02/2024 10/12/2024 Short cervix during in second trimest*05/02/2024 10/12/2024 Abdominal pain affecting (HCC) [O26.8*06/01/2024 10/12/2024 Cervical cerclage suture present in second trim*06/01/2024 10/12/2024 24 weeks gestation of (HCC) [Z3A.24] 06/01/2024 10/12/2024 Advanced maternal age in multigravida, third tr*08/31/2024 10/12/2024 Supervision of high risk in third tri*08/31/2024 10/12/2024 Encounter Status:Closed by KENYA REESE on 11/01/24 [facility] Discharge Instructionon 05-0 Discharge Instruction [facility] Medical Records Department [address] [place] [address] Instructions for Home/Discharge Instructions 10/20/24 0816 MR#: [id number] Acct: [id number] Name: SARIKA FERREIRA Rep #: [id number] : 1990 34 From: Soraya Pate MD PCP: Care Physician,No Primary Status:[facility] Discharge Instructions Diet Discharge Diet: No restrictions DC O2, CPAP, BIPAP needs Home O2 Discharge instructions: No Dressing / Incision May resume sexual activity in: 2 weeks Lifting Restrictions: 20-25 lbs Dressing / Incision Call your doctor if your incision/area has: Continuous Slow Oozing, Sudden Increased Bleeding, Increased Pain/ Swelling, Increased Redness, Foul Smelling Discharge and Swelling at the incision site Call your doctor if you observe: Fever of 101 or Higher, Inability to urinate, Inability to have a bowel movement, Using more than 1 pad per hour and Uncontrolled pain Additional Dressing/Incision Instructions:: You have skin glue over your incision sites, do not pick off. You may shower and let the soap and water run over the incision sites and dab dry. Follow Up Care Please Follow Up With: Iva Pate MD When: if you need an appointment please call [phone]- i will call with your pathology Test Results: Test results from this visit will be discussed in further detail at your follow-up appointment, if applicable. Discharge Plan Admission Attending Provider: Iva Pate Primary Care Provider: Care Physician,No Primary Instructions Print Language: Macedonian Discharge Orders/Prescriptions Prescriptions: No Action folic acid 1 mg tablet 3 mg PO DAILY metoprolol succinate 25 mg tablet extended release 24 hr 25 mg PO DAILY lurasidone 40 mg tablet 40 mg PO QPM levetiracetam [Keppra] 500 mg tablet 500 mg PO BID PNV cmb#95-ferrous fumarate-FA [] 28 mg iron- 800 mcg tablet 1 tab PO DAILY famotidine 40 mg tablet 40 mg PO BID PRN PRN (Reason: heartburn ) acetaminophen 500 mg Tablet 1,000 mg PO Q6H PRN PRN (Reason: Pain 1-10 Or Fever) Qty: 0 0RF Referrals / Follow Up: Care Physician,No Primary [Primary Care Provider] - Disposition Disposition (needs filled in before D/C Order can be placed): Home, Self Care 10/20/24 0817 Soraya Pate MD CC: No Primary Care Physician Signed [facility] H AND P Exam - OB/GYNon 05-0 H&P Exam - MANAGER SOCIAL [facility] Medical Records Department [address] [place] [address] H P Exam - MANAGER SOCIAL 10/20/24 0717 MR#: [id number] Acct: [id number] Name: SARIKA FERREIRA Rep #: [id number] : 1990 34 From: Soraya Pate MD PCP: Care Physician,No Primary Status:REG [facility] Location: [address] History and Physical Date of Admission: 10/20/24 H P? Signed??? Encounter Date:???10/12/2024 Expand All???Collapse AllExpand All by DefaultPre-Op History and Physical???HPI: The patient is a 34 year old female presenting for pre-operative visit.She is scheduled for laparoscopic Bilateral salpingectomy, for desires sterilization on 10/20/24. Procedure discussed along with risks, benefits and complications. Otheralternatives discussed for management. Consent form signed? Yes. ?PAST MEDICAL HISTORYPAST MEDICAL HISTORYDiagnosisDate? ??History of seizures?Marijua na use?Multiple sclerosis (HCC)?2023???PCO S (polycystic ovarian syndrome)?Tobacc o use disorder?PAST SURGICAL HISTORYPAST SURGICAL HISTORYProcedureLater alityDate???TOOTH EXTRACTION?CURRENT MEDICATIONSCurrent Outpatient MedicationsMedication SigDispenseRefill???f amotidine (PEPCID) 40 mg tabletTake 1 tablet by mouth two times a day as needed.60 tablet0???levETIRAcet am (KEPPRA) 500 mg tabletTake 1 tablet by mouth two times a day.?midazola m (NAYZILAM) 5 mg/spray (0.1 mL) nasal sprayAdminister one spray (5 mg dose) into one nostril for a seizure that lasts for 5 minutes. One additional spray (5 mg dose) into the opposite nostril if the seizure continues for an additional 5 minutes.?sage sidone (LATUDA) 40 mg tablettake 1 tablet by mouth every evening with a full meal (atleast 400 calories)?cyc lobenzaprine (FLEXERIL) 10 mg tabletTake 1 tablet by mouth three times a day as needed.10 tablet0???simethicone , chewable (MYLICON) 80 mg chewable tabletTake 1 tablet by mouth four times a day as needed.20 tablet0???folic acid 1 mg tabletTake 3 tablets by mouth once daily.90 tablet4??? vit no.124/iron/folic ( VITAMIN ORAL)Take by mouth once daily. 2 Gummies?aceta minophen (TYLENOL EXTRA STRENGTH) 500 mg tabletTake 500 mg by mouth every 8 hours as needed for pain.?No current facility-administered medications for this visit.?ALLERGIES : Patient has no known allergies.???PERSONAL HISTORY: SOCIAL HISTORYSocial History???Tobacco Use???Smoking status:Former?Cu rrent packs/day:0.50?A verage packs/day:0.5 packs/day for 2.0 years (1.0 ttl pk- yrs)?Types:Cigar ettes???Smokeless tobacco:NeverVaping Use???Vaping status:Never UsedSubstance Use Topics???Alcohol use:Not Currently???Drug use:Yes?Frequenc y:7.0 times per week?Types:Marij uana? Comment: 2-3 times daily ???FAMILY HISTORY: FAMILY HISTORYFAMILY HISTORY ProblemRelationAge of Onset ???HeadacheMother? migraine???DiabetesFa ther?Hypertensio nFather?No Known ProblemsBrother? No Known ProblemsBrother? EmphysemaMaternal Grandmother?Canc erMaternal Grandfather? unknown ???EmphysemaMaternal Grandfather?Canc erPaternal Grandmother? unknown???HeartPatern al Grandmother? [place]???No Known ProblemsPaternal Grandfather?Isch emic Heart DiseasePaternal Aunt? [place] x 3 ???DiabetesPaternal Aunt?DiabetesPat ernal Aunt?DiabetesPat ernal Uncle?REVIEW OF SYMPTOMS:negative except as noted above PHYSICAL EXAMINATION:???VITALS : Blood pressure 112/64, weight 70.8 kg (156 lb), last menstrual period 10/30/2023, currently .???GENE RAL: The patient is well nourished, well hydrated in no acute distress. , The patient is oriented to time, place, and person.NECK: Supple. No lynphadenopathy, normal thyroid, no thyromegalyGENITALIA: Normal external genitalia, Urethral meatus normal, Bladder nontender, normal vagina and normal vaginal tone, normal cervix, normal uterus, size and consistency, normal adnexa without masses or tenderness, and perineum WNLWET PREP: Not indicated???IMPRESSIO N: 34yo desires sterilization ???PLAN: laparoscopic bilateral salpingectomy ???Pt has been counseled on risks/benefits and alternatives of surgery including but not limited to anesthesia, bleeding, infection, injury to pelvic structures including bowel, bladder, ureters and vessels. Pt wishes to proceed with surgery at this time. ???Discussed again with patient needs neuro clearance- takes Keppra- last seizure in May. Takes nothing for MS at current time but seeing them in October for follow up. Pt will have them fax recommendations for pre op/ post op to office ???Pre and post op instructions reviewed???I have reviewed and updated past medical and surgical history, medications and allergies Soraya Novak MD ???3:10 PM 10/20/24 0717 (more content not included)... [facility] MR/POSTOP.ANEon 10-20-2024 MR/POSTOP.[facility] Medical Records Department [address] [place] [address] Anesthesia Postop Eval I 10/20/24 0834 MR#: [id number] Acct: [id number] Name: SARIKA FERREIRA Rep #: [id number] : 1990 34 From: Prabha Munson PCP: Care Physician,No Primary Status:REG [facility] Y Race: C Location: [place] [address]- Anesthesia: Postop Eval I Current Vital Signs Temperature: 98.2 F Pulse Rate: 83 Blood Pressure: 109/66 Respiratory Rate: 16 Pulse Ox: 100 Oxygen Delivery Method: Room Air Assessment Airway patent: Yes Spontaneous unlabored respirations: Yes Mental status: Awake and Calm nausea: No Vomiting: No Anesthesia Complication: No Fluid Hydration Crystalloid volume administer (ml): 900 Total IV fluid infused: 900 Progress Note Anesthesia document: Postop Eval 1 completed: Yes 10/20/2435 Date Prabha Purvisigner Signature: Date CC: Signed [facility] MR/[id number] 10-20-2024 [facility] Medical Records Department [address] [place] [id number] Anesthesia Postop Eval II 10/20/24 1104 MR#: [id number] Acct: [id number] Name: SARIKA FERREIRA Rep #: [id number] : 1990 34 From: Shanika Allan PCP: Care Physician,No Primary Status:[facility] Y Race: C Location: [facility] Anesthesia Postop Eval I Sum Postop Eval Completion status Anesthesia document: Postop Eval 1 completed: Yes Anesthesia Postop Eval I Summary Anesthesia Postop Eval I Summary: Anesthesia Postop Eval I: Assessment Summary Airway patent Yes 10/20/24 08:35 [email or web address]GDOTT Spontaneous unlabored Yes 10/20/24 08:35 [employer] respirations Mental status Awake,Calm 10/20/24 08:35 [employer] nausea No 10/20/24 08:35 [employer] Vomiting No 10/20/24 08:35 [employer] Anesthesia Postop Eval I: Fluid Summary Crystalloid volume administer 900 10/20/24 08:35 [employer]GDOTT (ml) Colloids volume administered ( ml) Blood Product volume administered (ml) Total IV fluid infused 900 10/20/24 08:35 [employer] Anesthesia Postop Eval I: Summary Notes Anesthesia Complication No 10/20/24 08:35 [employer]GDOTT Anesthesia Complication Comment: Post-operative progress note Anesthesia: Postop Eval II Evaluation Mental status: Awake Pain Level: 2 nausea: No Vomiting: No 10/20/24 1104 Date Shanika Mills Signature: Date CC: Signed [facility] Operative Reporton 5 Operative Report [facility] Medical Records Department [address] [place] [address] Operative Report 10/20/24821 MR#: [id number] Acct: [id number] Name: SARIKA FERREIRA Rep #: [id number] : 1990 34 From: Soraya Pate MD PCP: Care Physician,No Primary Status:[facility] Location: [place] [address] Operative Report (Standard) Operative Information Date of Procedure: 10/20/24 Pre-Operative Diagnosis: desires sterilization Post-Operative Diagnosis: same Surgery/Procedure Performed: laparoscopic bilateral salpingectomy tack welder: Yes Director Of Accreditation: michael nicolas MS3 Tasks completed by rn first assist: Closing, Insert Trochanter and Retracting Type of Anesthesia: General RN Documented Start/Stop Times: Operation Date: 10/20/24 07:30 Case Time Into Pre-Op 10/20/24 06:00 Out of Pre-Op 10/20/24 07:27 Anesthesia Start 10/20/24 07:37 Into Room 10/20/24 07:37 Procedure Start 10/20/24 07:58 Procedure Start Time: 07:58 Procedure Stop Time: 08:16 Select all DRAINS/GRAFTS/IMPLANT S that apply: None Estimated Blood Loss: 25 Fluids Replaced: 900 Specimen collected: Yes Description of specimen(s) removed: bilateral fallopian tubes Description of surgery: After informed consent was obtained patient was taken to the operating room she was placed in supine position she was given anesthesia. She was then placed in the [facility] stirrups and she was prepped and draped in normal sterile fashion. Bladder was drained prior to the start of procedure. At this time attention was turned to the vaginal portion where weighted speculum placed at posterior fornix vagina single-tooth tenaculum was used to gently grasp the internal the cervix. uterus was gently sounded to approximately 8cm. Uterine manipulator was placed without difficulty. Legs then placed in parallel with the abdomen the tenaculum and the weighted speculum were removed. 2 towel clamps were placed at level of umbilicus. Marcaine was injected infraumbilical and a small incision was made. The 5 mm trocar was placed under direct visualization. CO2 gas was used to insufflate the intra-abdominal cavity. Upon inspection no gross abnormalities appreciated- the uterus tubes and ovaries appeared to be normal. At this time then the LLQ and RLQ ports were placed First Marcaine was injected and small incision was made a knife and the 5 mm trocars were placed. At this time then tubes were traced back to the fimbriated ends. Enseal was used to coagulate and ligate along mesosalpinx bilaterally until tubes removed completely. Good hemostasis was appreciated. At this time procedure was deemed complete successful. The gas was desufflated on from the intra-abdominal cavity. The trochars were removed. Skin was closed using 4-0 Monocryl in a subcutaneous fashion. Dermabond glue was placed. Instrument lap and needle counts were correct ???2. The uterine manipulator was removed. Brisk bleeding noted from vagina- this was evaulated and no cervical lesions- No active bleeding from os- noted. Vaginal sweep was performed it was negative. There were no complications anticipated normal postoperative course for this patient. Surgical Findings: normal tubes and ovaries Complications Complications: No Admit VTE Documentation VTE Present on Admission: Yes VTE Mechan Device Prophylaxis: SCD's VTE Pharm Prophylaxis ordered?: No 10/20/24 5244 Cosigner Signature (if applicable): CC: Dr Soraya Pate MD; No Primary Care Physician Signed [facility] ,Urineon 10-20-2024 Beta HCG ( test) Ql (U) Negative [facility] Comment on above: Result Comment: Very dilute urine specimens, as indicated by a low specific gravity, may not contain appeals representative levels of hCG. If is still suspected, a first morning urine specimen should be collected 48 hours later and tested. Performed By: #### L 400.7600 #### [facility] [address] [place], [place], [address] Surgery Specimen Level IIon 10-20-2024 Surgery Specimen Level II -------- Patient Age/Sex Location Account Attending Physician -------- SARIKA FERREIRA 34/ [facility] [id number] Dr Soraya Pate, -------- Specimen: [id number] Received: 10/20/24 Status: ANGELO Noyola Num: [id number] Spec Type: FALL TUBES Subm Dr: Dr Soraya Pate MD HEADER OPERATION: Laparoscopic bilateral salpingectomy PRE-OP DIAGNOSIS: Patient desires sterilization TISSUE SUBMITTED: A- Bilateral fallopian tubes -------- MICROSCOPIC DIAGNOSIS A. Bilateral fallopian tubes, sterilization, salpingectomy: * No specific pathologic change with complete luminal cross-section confirmed x2. MICROSCOPIC DESCRIPTION Slides are reviewed. GROSS DESCRIPTION A. Received in formalin in a container labeled with the patient's name, date of , and bilateral fallopian tubes are 2 unoriented and fimbriated fallopian tube segments each measuring 4.5 cm in length by 0.8 cm in diameter. Each displays pabon-pink, smooth and glistening serosa with unremarkable fimbriated ends. Sectioning of each reveals a pinpoint lumen. Electromedical Equipment Repairer sections:A1. First fallopian tubeA2. Second fallopian tube [facility] 10-20-2024 CPT:65490 -------- Patient Age/Sex Location Account Attending Physician -------- SARIKA FERREIRA/ [facility] [id number] Dr Soraya Parker-Dillon, -------- Signed (signature on file) Dr. Kortney Thompson MD 10/24/24 1517 -------- [facility] Comment on above: Performed By: #### L 500.2500, L100.0100, L501.5200, L505.5000 #### [facility] [address] [place], [address] Urine testOrdered By: Soraya Pate on 10-20-2024 HCG ( test) Ql (U) Negative [facility] Comment on above: Very dilute urine sp ecimens, as indicated by a low specificgravity, may not contain appeals representative levels of hCG. If is still suspected, a first morning urinespecimen should be collected 48 hours later and tested. Absolute lymphocyte countOrd ered By: Soraya Pate on 10-18-2024 Lymphocytes Auto (Unsp spec) [#/Vol] 2.25 10*3/uL 0.83-4.51 [facility] Absolute neutrophil countOrd ered By: Soraya Pate on 10-18-2024 Neutrophils (Bld) [#/Vol] 5.7 10*3/uL 2.0-7.7 [facility] Activated partial thrombopla stin time (aPTT) in platelet poor plasma by coagulation aOrdered By: Attila Coats on 10-18-2024 aPTT Coag (PPP) [Time] 25.5 s 24.1-36.2 [facility] Anion gap in Serum or Plasma Ordered By: Soraya Pate on 10-18-2024 Anion gap [Moles/Vol] 11 mmol/L 5-15 [facility] Automated lymphocyte count a s percentage of total leukocytesOrdered By: Soraya Pate on 10-18-2024 Lymphocytes/100 WBC Auto (Unsp spec) 25.2 % - [facility] BUN/creatinine ratioOrdered By: Soraya Pate on 10-18-2024 Urea nitrogen/Creatinine [Mass ratio] 24.2 mg/mg High 04-03 [facility] Basic Metabolic Profile (BMP )on 10-18-2024 BUN/CRE 24.2 RATIO High - [facility] Comment on above: Performed By: #### L 100.0100, L500.2500 #### [facility] [address] [place], [address] Calcium [Mass/Vol] 9.2 mg/dL Normal 7.6-11.0 [facility] Comment on above: Performed By: #### L 100.0100, L500.2500 #### [facility] [address] [place], [address] Chloride [Moles/Vol] 105 mmol/L Normal 98-108 [facility] Comment on above: Performed By: #### L 100.0100, L500.2500 #### [facility] [address] [place], [address] CO2 [Moles/Vol] 23.3 mmol/L Normal 21.0-32.0 [facility] Comment on above: Performed By: #### L 100.0100, L500.2500 #### [facility] [address] [place], [address] Creatinine [Mass/Vol] 0.80 mg/dL Normal 0.70-1.20 [facility] Comment on above: Performed By: #### L 100.0100, L500.2500 #### [facility] [address] [place], [address] GAP 11 Normal -15 [facility] Comment on above: Performed By: #### L 100.0100, L500.2500 #### [facility] [address] [place], [address] GFR/1.73 sq M.predicted among non-blacks MDRD (S/P/Bld) [Vol rate/Area] 99 mL/min/{1.73_m2} Normal >60 [facility] Comment on above: Result Comment: mL/m in/1.73m2 CKD-EPI Creatinine Equation (2020) Performed By: #### L 100.0100, L500.2500 #### [facility] [address] [place], [address] Glucose [Mass/Vol] 91 mg/dL Normal 70-99 [facility] Comment on above: Performed By: #### L 100.0100, L500.2500 #### [facility] [address] [place], [address] Potassium [Moles/Vol] 4.4 mmol/L Normal 3.3-5.1 [facility] Comment on above: Performed By: #### L 100.0100, L500.2500 #### [facility] [address] [place], [address] Sodium [Moles/Vol] 140 mmol/L Normal 133-145 [facility] Comment on above: Performed By: #### L 100.0100, L500.2500 #### [facility] [address] [place], [address] Urea nitrogen [Mass/Vol] 19 mg/dL Normal 4-19 [facility] Comment on above: Performed By: #### L 100.0100, L500.2500 #### [facility] [address] [place], [address] Basophil percentageOrdered B y: Soraya Pate on 10-18-2024 Basophils/100 WBC (Bld) 0.4 % 0-1 [facility] CBC W/Diff, Automatedon 05-0 6-2024 Absolute Lymph 2.25 X10 3/uL Normal 0.83-4.51 [facility] Comment on above: Performed By: #### L 100.0100, L500.2500 #### [facility] [address] [place], [address] Absolute Neut 5.7 X10 3/uL Normal 2.0-7.7 [facility] Comment on above: Performed By: #### L 100.0100, L500.2500 #### [facility] [address] [place], [address] Basophils/100 WBC (Bld) 0.4 % Normal 0-1 [facility] Comment on above: Performed By: #### L 100.0100, L500.2500 #### [facility] [address] [place], [address] Eosinophils/100 WBC (Bld) 3.9 % Normal 0-5 [facility] Comment on above: Performed By: #### L 100.0100, L500.2500 #### [facility] [address] [place], [address] Erythrocyte distribution width (RBC) [Ratio] 12.8 % Normal 11.6-14.6 [facility] Comment on above: Performed By: #### L 100.0100, L500.2500 #### [facility] [address] [place], [address] Hematocrit (Bld) [Volume fraction] 41.4 % Normal 37-47 [facility] Comment on above: Performed By: #### L 100.0100, L500.2500 #### [facility] [address] [place], [address] Hemoglobin (Bld) [Mass/Vol] 13.5 g/dL Normal 12.0-15.0 [facility] Comment on above: Performed By: #### L 100.0100, L500.2500 #### [facility] [address] [place], [address] IG% 0.400 Normal 0.0-0.9 [facility] Comment on above: Result Comment: IG% - Immature Granulocytes (promyelocytes, myelocytes and metamyelocytes) > 1% indicates that a LEFT SHIFT is Present. Performed By: #### L 100.0100, L500.2500 #### [facility] [address] [place], [address] Lymphocytes/100 WBC (Bld) 25.2 % Normal 19-41 [facility] Comment on above: Performed By: #### L 100.0100, L500.2500 #### [facility] [address] [place], [address] MCH (RBC) [Entitic mass] 29.7 pg Normal 27.0-32.0 [facility] Comment on above: Performed By: #### L 100.0100, L500.2500 #### [facility] [address] [place], [address] MCHC (RBC) [Mass/Vol] 32.6 g/dL Normal 32-36 [facility] Comment on above: Performed By: #### L 100.0100, L500.2500 #### [facility] [address] [place], [address] MCV (RBC) [Entitic vol] 91.2 fL Normal 81-99 [facility] Comment on above: Performed By: #### L 100.0100, L500.2500 #### [facility] [address] [place], [address] Monocytes/100 WBC (Bld) 6.5 % Normal 0-10 [facility] Comment on above: Performed By: #### L 100.0100, L500.2500 #### [facility] [address] [place], [address] Neutrophils/100 WBC (Bld) 63.6 % Normal 47-70 [facility] Comment on above: Performed By: #### L 100.0100, L500.2500 #### [facility] [address] [place], [address] Nucleated RBC (Bld) [#/Vol] 0 10*3/uL Normal 0-5 [facility] Comment on above: Performed By: #### L 100.0100, L500.2500 #### [facility] [address] [place], [address] Platelet mean volume (Bld) [Entitic vol] 10.9 fL Normal 6.2-12.0 [facility] Comment on above: Performed By: #### L 100.0100, L500.2500 #### [facility] [address] [place], [address] Platelets (Bld) [#/Vol] 275 10*3/uL Normal 150-450 [facility] Comment on above: Performed By: #### L 100.0100, L500.2500 #### [facility] [address] [place], [address] RBC (Bld) [#/Vol] 4.54 10*6/uL Normal 4.2-5.4 [facility] Comment on above: Performed By: #### L 100.0100, L500.2500 #### [facility] [address] [place], [address] RDW SD 42.3 fl Normal 35.1-43.9 [facility] Comment on above: Performed By: #### L 100.0100, L500.2500 #### [facility] [address] [place], [address] WBC (Bld) [#/Vol] 8.9 10*3/uL Normal 4.4-11.0 [facility] Comment on above: Performed By: #### L 100.0100, L500.2500 #### [facility] [address] [place], [address] Carbon dioxide, total [Moles /volume] in Central venous bloodOrdered By: Soraya Pate on 10-18-2024 CO2 [Moles/Vol] 23.3 mmol/L 21.0-32.0 [facility] Chloride assayOrdered By: Schmidt on 10-18-2024 Chloride [Moles/Vol] 105 mmol/L 98-108 [facility] Eosinophil percentageOrdered By: Soraya Pate on 10-18-2024 Eosinophils/100 WBC (Bld) 3.9 % 0-5 [facility] Erythrocyte distribution wid th ratioOrdered By: Soraya Pate on 10-18-2024 Erythrocyte distribution width (RBC) [Ratio] 12.8 % 11.6-14.6 [facility] Erythrocyte distribution wid th standard deviationOrdered By: Soraya Novak on 10-18-2024 Erythrocyte distribution width (RBC) [Ratio] 42.3 fl 35.1-43.9 [facility] Glomerular filtration rate ( GFR) estimation/1.73 sq m using serum, plasma, or whole bOrdered By: Soraya Pate on 10-18-2024 GFR/1.73 sq M.predicted among non-blacks MDRD (S/P/Bld) [Vol rate/Area] 99 mL/min/{1.73_m2} >60 [facility] Comment on above: mL/min/1.73m2 CKD-EP I Creatinine Equation (2020) Hematocrit Auto (Bld) [Volum e fraction]Ordered By: Soraya Pate on 10-18-2024 Hematocrit (Bld) [Volume fraction] 41.4 % 37-47 [facility] Hemoglobin measurementOrdere d By: Soraya Pate on 10-18-2024 Hemoglobin (Bld) [Mass/Vol] 13.5 g/dL 12.0-15.0 [facility] Immature granulocytes/100 WB C Auto (Bld)Ordered By: Soraya Pate on 10-18-2024 Immature granulocytes/100 WBC (Bld) 0.400 % 0.0-0.9 [facility] Comment on above: IG% - Immature Granu locytes (promyelocytes, myelocytes and metamyelocytes) > 1% indicates that a LEFT SHIFT is Present. MCV (mean corpuscular volume ) determinationOrdered By: Soraya Pate on 10-18-2024 MCV (RBC) [Entitic vol] 91.2 fL 81-99 [facility] Mean corpuscular hemoglobin (MCH) determinationOrdered By: Soraya Novak on 10-18-2024 MCH (RBC) [Entitic mass] 29.7 pg 27.0-32.0 [facility] Mean corpuscular hemoglobin concentration (MCHC) determinationOrdered By: Soraya Pate on 10-18-2024 MCHC (RBC) [Mass/Vol] 32.6 g/dL 32-36 [facility] Mean platelet volume determi nationOrdered By: Soraya Pate on 10-18-2024 Platelet mean volume (Bld) [Entitic vol] 10.9 fL 6.2-12.0 [facility] Monocyte percentageOrdered B y: Soraya Pate on 10-18-2024 Monocytes/100 WBC (Bld) 6.5 % 0-10 [facility] Neutrophil percentageOrdered By: Soraya Pate on 10-18-2024 Neutrophils/100 WBC (Bld) 63.6 % 47-70 [facility] Nucleated red blood cell per centageOrdered By: Soraya Pate on 10-18-2024 Nucleated RBC/100 WBC (Bld) [Ratio] 0 % 0-5 [facility] Partial Thromboplast Timeon 10-18-2024 aPTT Coag (Bld) [Time] 25.5 s Normal 24.1-36.2 [facility] Comment on above: Performed By: #### L 891.7892 #### [facility] [address] [place], [address] Platelet countOrdered By: Schmidt on 10-18-2024 Platelets (Bld) [#/Vol] 275 10*3/uL 150-450 [facility] Potassium measurement (mass/ volume)Ordered By: Soraya Pate on 10-18-2024 Potassium (Unsp spec) [Mass/Vol] 4.4 mmol/L 3.3-5.1 [facility] RBC Auto (Bld) [#/Vol]Ordere d By: Soraya Pate on 10-18-2024 RBC (Bld) [#/Vol] 4.54 10*6/uL 4.2-5.4 [facility] Serum creatinine measurement (mass/volume)Ordered By: Soraya Pate on 10-18-2024 Creatinine [Mass/Vol] 0.80 mg/dL 0.70-1.20 [facility] Serum glucose measurement (m ass/volume)Ordered By: Soraya Pate on 10-18-2024 Glucose [Mass/Vol] 91 mg/dL 70-99 [facility] Serum or plasma calcium alessandra urement (mass/volume)Ordered By: Soraya Novak on 10-18-2024 Calcium [Mass/Vol] 9.2 mg/dL 7.6-11.0 [facility] Serum or plasma urea nitroge n measurement (mass/volume)Ordered By: Soraya Pate on 10-18-2024 Urea nitrogen [Mass/Vol] 19 mg/dL 4-19 [facility] Sodium levelOrdered By: Iva Pate on 10-18-2024 Sodium [Moles/Vol] 140 mmol/L 133-145 [facility] White blood cell (WBC) count Ordered By: Soraya Pate on 10-18-2024 WBC (Bld) [#/Vol] 8.9 10*3/uL 4.4-11.0 [facility] MR/PATFannie 10-14-2024 MR/PAT.EDVIN [facility] Medical Records Department [address] [place] [address] PAT - Anesthesia 10/14/24 1609 MR#: [id number] Acct: [id number] Name: SARIKA FERREIRA Rep #: [id number] : 1990 34 From: Attila Coats MD PCP: Care Physician,No Primary Status:PRE [facility] Y Race: C Location: [facility] Pre-Assessment Diagnosis/Proposed Procedure Planned Operative Procedure(s): Laparoscopic, bilateral Salpingectomy Anesthesia History Anesthesia History - msws: Anesthesia History - msws Hx Hospitalization Yes: CHILD 08/2027, 10/14/24 15:21 SEIZURE 12/27/23 AND 06/03/24 Any Problems With Anesthesia No 10/14/24 15:21 Cholinesterase deficiency No 10/14/24 15:21 You/Your Family Experience No 10/14/24 15:21 fever (hyperthermia) with Relationship Recent Exposure to Contagious Disease Does patient have nerve No 10/14/24 15:21 stimulator Patient instructed to have device shut off --Does patient have Pacemaker or ICD? When Was Last Pacemaker Check QUESTION #4 FULL TEXT: You/Your Family Experience fever (hyperthermia) with Anesthesia Last Oral Intake Last Oral intake: Last Oral Intake NPO since Meds taken in AM with sips of water? Meds patient instructed to take am of surgery PONV PONV - msws: PONV - msws Female Yes 10/14/24 15:21 HX of Motion Sickness No 10/14/24 15:21 HX of N/V After Surgery No 10/14/24 15:21 Non-Smoker No 10/14/24 15:21 Duration of Surgery greater No 10/14/24 15:21 than 60 minutes Number of Risk Factors 1 10/14/24 15:21 PONV Score Low Risk 10/14/24 15:21 Height Weight Height Weight: Anesthesia: Height Weight Height 5 ft 5 in 09/09/24 07:52 Respiratory Assessment Respiratory Assessment - msws: Respiratory Tract Infection Hx - msws Hx Respiratory Tract Infection No 10/14/24 15:21 STOP Sleep Apnea STOP Sleep Apnea - msws: STOP Sleep Apnea - msws Hx Hypertension No 10/14/24 15:21 Hx Sleep Apnea No 10/14/24 15:21 CPAP BIPAP Do you snore loudly (louder No 10/14/24 15:21 than talking or can be heard Do you often feel tired/ No 10/14/24 15:21 fatigued/ sleepy during daytime? Has anyone observed you stop No 10/14/24 15:21 breathing during sleep? STOP Results Negative 10/14/24 15:21 QUESTION #5 FULL TEXT : Do you snore loudly (louder than talking or can be heard through closed doors)? 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 Specify any problems Hx of Preganancy in last 3 No 10/14/24 15:21 Months Nurse Filling Out Transfusion [facility] 10/14/24 15:21 Questions: Date: 10/14/24 10/14/24 15:21 Time: 15:23 10/14/24 15:21 Patient unable to answer at this time (ie. confused, unrespo /Reproductio n History /Reproductiv e History - msws: /Reproductiv e Hx- msws Hx Now No 10/14/24 15:21 Gestational Age (in weeks): EDC: Hx Hx Para Hx Section SAB Yes 10/14/24 15:21 PFSH Medical History Wears glasses Seizures Heartburn Gastric reflux Smoker Leg cramps Bipolar disorder Seizures Cervical incompetence Multiple sclerosis Substance abuse Anxiety Kidney stones Smoker Home Medications ???Medication ???Instructions ???Recorded ???Last Taken ???Type folic acid 1 mg tablet 3 mg PO DAILY 06/03/24 0 08/25/24 12:00 History 3 mg lurasidone 40 mg tablet 40 mg PO QPM bipolar 06/03/2408/13 21:00 History 40 mg metoprolol succinate 25 mg 25 mg PO DAILY BP 06/03/24 Unknown History tablet,extended release 24 hr levetiracetam 500 mg tablet 500 mg PO BID seizures 08/25/24 06:00 History (Keppra) 500 mg vit no.95-ferrous 1 tab PO DAILY 08/25/24 08/25/24 06:00 History fumarate 28 mg-folic acid 800 mcg 1 TAB tablet () famotidine 40 mg tablet 40 mg PO BID PRN [place] (more content not included)... Normal [facility] HISTORY PHYSICALon HISTORY PHYSICAL HNO ID: [id number] Author: SORAYA PRADO MD Service: ? Author Type: Physician Type: H&P Filed: 10/12/2024 15:10 Note Text: Pre-Op History and Physical HPI: The patient is a 34 year old female presenting for pre-operative visit. She is scheduled for laparoscopic Bilateral salpingectomy, for desires sterilization on 10/20/24. Procedure discussed along with risks, benefits and complications. Other alternatives discussed for management. Consent form signed? Yes. PAST MEDICAL HISTORY Diagnosis Date History of seizures Marijuana use Multiple sclerosis (HCC) 2023 PCOS (polycystic ovarian syndrome) Tobacco use disorder PAST SURGICAL HISTORY Procedure Laterality Date TOOTH EXTRACTION Current Outpatient Medications Medication Sig Dispense Refill famotidine (PEPCID) 40 mg tablet Take 1 tablet by mouth two times a day as needed. 60 tablet 0 levETIRAcetam (KEPPRA) 500 mg tablet Take 1 tablet by mouth two times a day. midazolam (NAYZILAM) 5 mg/spray (0.1 mL) nasal spray Administer one spray (5 mg dose) into one nostril for a seizure that lasts for 5 minutes. One additional spray (5 mg dose) into the opposite nostril if the seizure continues for an additional 5 minutes. lurasidone (LATUDA) 40 mg tablet take 1 tablet by mouth every evening with a full meal (atleast 400 calories) cyclobenzaprine (FLEXERIL) 10 mg tablet Take 1 tablet by mouth three times a day as needed. 10 tablet 0 simethicone, chewable (MYLICON) 80 mg chewable tablet Take 1 tablet by mouth four times a day as needed. 20 tablet 0 folic acid 1 mg tablet Take 3 tablets by mouth once daily. 90 tablet 4 vit no.124/iron/folic ( VITAMIN ORAL) Take by mouth once daily. 2 Gummies acetaminophen (TYLENOL EXTRA STRENGTH) 500 mg tablet Take 500 mg by mouth every 8 hours as needed for pain. No current facility-administered medications for this visit. ALLERGIES: Patient has no known allergies. PERSONAL HISTORY: Social History Tobacco Use Smoking status: Former Current packs/day: 0.50 Average packs/day: 0.5 packs/day for 2.0 years (1.0 ttl pk-yrs) Types: Cigarettes Smokeless tobacco: Never Vaping Use Vaping status: Never Used Substance Use Topics Alcohol use: Not Currently Drug use: Yes Frequency: 7.0 times per week Types: Marijuana Comment: 2-3 times daily FAMILY HISTORY: FAMILY HISTORY Problem Relation Age of Onset Headache Mother migraine Diabetes Father Hypertension Father No Known Problems Brother No Known Problems Brother Emphysema Maternal Grandmother Cancer Maternal Grandfather unknown Emphysema Maternal Grandfather Cancer Paternal Grandmother unknown Heart Paternal Grandmother [place] No Known Problems Paternal Grandfather Ischemic Heart Disease Paternal Aunt [place] x 3 Diabetes Paternal Aunt Diabetes Paternal Aunt Diabetes Paternal Uncle REVIEW OF SYMPTOMS: negative except as noted above PHYSICAL EXAMINATION: VITALS: Blood pressure 112/64, weight 70.8 kg (156 lb), last menstrual period 10/30/2023, currently . GENERAL: The patient is well nourished, well hydrated in no acute distress. , The patient is oriented to time, place, and person. NECK: Supple. No lynphadenopathy, normal thyroid, no thyromegaly GENITALIA: Normal external genitalia, Urethral meatus normal, Bladder nontender, normal vagina and normal vaginal tone, normal cervix, normal uterus, size and consistency, normal adnexa without masses or tenderness, and perineum WNL WET PREP: Not indicated IMPRESSION: 34yo desires sterilization PLAN: laparoscopic bilateral salpingectomy Pt has been counseled on risks/benefits and alternatives of surgery including but not limited to anesthesia, bleeding, infection, injury to pelvic structures including bowel, bladder, ureters and vessels. Pt wishes to proceed with surgery at this time. Discussed again with patient needs neuro clearance- takes Keppra- last seizure in May. Takes nothing for MS at current time but seeing them in October for follow up. Pt will have them fax recommendations for pre op/ post op to office Pre and post op instructions reviewed I have reviewed and updated past medical and surgical history, medications and allergies Soraya Novak MD Normal [facility] Absolute lymphocyte countOrd ered By: Leilani Calixto on 09-10-2024 Lymphocytes Auto (Unsp spec) [#/Vol] 2.47 10*3/uL 0.83-4.51 [facility] Absolute neutrophil countOrd ered By: Leilani Calixto on 09-10-2024 Neutrophils (Bld) [#/Vol] 12.8 10*3/uL High 2.0-7.7 [facility] Automated lymphocyte count a s percentage of total leukocytesOrdered By: Leilani Calixto on 09-10-2024 Lymphocytes/100 WBC Auto (Unsp spec) 14.5 % Low 19-41 [facility] Basophil percentageOrdered B y: Leilani Calixto on 09-10-2024 Basophils/100 WBC (Bld) 0.4 % 0-1 [facility] CBC W/Diff, Automatedon 08-14 Absolute Lymph 2.47 X10 3/uL Normal 0.83-4.51 [facility] Comment on above: Order Comment: Comme nts: First day Performed By: #### L 100.0100 #### [facility] [address] [place], [address] Absolute Neut 12.8 X10 3/uL High 2.0-7.7 [facility] Comment on above: Order Comment: Comme nts: First day Performed By: #### L 100.0100 #### [facility] [address] [place], [address] Basophils/100 WBC (Bld) 0.4 % Normal 0-1 [facility] Comment on above: Order Comment: Comme nts: First day Performed By: #### L 100.0100 #### [facility] [address] [place], [address] Eosinophils/100 WBC (Bld) 0.8 % Normal 0-5 [facility] Comment on above: Order Comment: Comme nts: First day Performed By: #### L 100.0100 #### [facility] [address] [place], [address] Erythrocyte distribution width (RBC) [Ratio] 13.0 % Normal 11.6-14.6 [facility] Comment on above: Order Comment: Comme nts: First day Performed By: #### L 100.0100 #### [facility] [address] [place], [address] Hematocrit (Bld) [Volume fraction] 29.8 % Low 37-47 [facility] Comment on above: Order Comment: Comme nts: First day Performed By: #### L 100.0100 #### [facility] [address] [place], [address] Hemoglobin (Bld) [Mass/Vol] 10.1 g/dL Low 12.0-15.0 [facility] Comment on above: Order Comment: Comme nts: First day Performed By: #### L 100.0100 #### [facility] [address] [place], [address] IG% 1.200 High 0.0-0.9 [facility] Comment on above: Order Comment: Comme nts: First day Result Comment: IG% - Immature Granulocytes (promyelocytes, myelocytes and metamyelocytes) > 1% indicates that a LEFT SHIFT is Present. Performed By: #### L 100.0100 #### [facility] [address] [place], [address] Lymphocytes/100 WBC (Bld) 14.5 % Low 19-41 [facility] Comment on above: Order Comment: Comme nts: First day Performed By: #### L 100.0100 #### [facility] [address] [place], [address] MCH (RBC) [Entitic mass] 30.7 pg Normal 27.0-32.0 [facility] Comment on above: Order Comment: Comme nts: First day Performed By: #### L 100.0100 #### [facility] [address] [place], [address] MCHC (RBC) [Mass/Vol] 33.9 g/dL Normal 32-36 [facility] Comment on above: Order Comment: Comme nts: First day Performed By: #### L 100.0100 #### [facility] [address] [place], [address] MCV (RBC) [Entitic vol] 90.6 fL Normal 81-99 [facility] Comment on above: Order Comment: Comme nts: First day Performed By: #### L 100.0100 #### [facility] [address] [place], [address] Monocytes/100 WBC (Bld) 8.2 % Normal 0-10 [facility] Comment on above: Order Comment: Comme nts: First day Performed By: #### L 100.0100 #### [facility] [address] [place], [address] Neutrophils/100 WBC (Bld) 74.9 % High 47-70 [facility] Comment on above: Order Comment: Comme nts: First day Performed By: #### L 100.0100 #### [facility] [address] [place], [address] Nucleated RBC (Bld) [#/Vol] 0 10*3/uL Normal 0-5 [facility] Comment on above: Order Comment: Comme nts: First day Performed By: #### L 100.0100 #### [facility] [address] [place], [address] Platelet mean volume (Bld) [Entitic vol] 10.9 fL Normal 6.2-12.0 [facility] Comment on above: Order Comment: Comme nts: First day Performed By: #### L 100.0100 #### [facility] [address] [place], [address] Platelets (Bld) [#/Vol] 257 10*3/uL Normal 150-450 [facility] Comment on above: Order Comment: Comme nts: First day Performed By: #### L 100.0100 #### [facility] [address] [place], [address] RBC (Bld) [#/Vol] 3.29 10*6/uL Low 4.2-5.4 [facility] Comment on above: Order Comment: Comme nts: First day Performed By: #### L 100.0100 #### [facility] [address] [place], [address] RDW SD 42.5 fl Normal 35.1-43.9 [facility] Comment on above: Order Comment: Comme nts: First day Performed By: #### L 100.0100 #### [facility] [address] [place], [address] WBC (Bld) [#/Vol] 17.1 10*3/uL High 4.4-11.0 [facility] Comment on above: Order Comment: Comme nts: First day Performed By: #### L 100.0100 #### [facility] [address] [place], [address] Eosinophil percentageOrdered By: Leilani Calixto on 09-10-2024 Eosinophils/100 WBC (Bld) 0.8 % 0-5 [facility] Erythrocyte distribution wid th ratioOrdered By: Leilani Calixto on 09-10-2024 Erythrocyte distribution width (RBC) [Ratio] 13.0 % 11.6-14.6 [facility] Erythrocyte distribution wid th standard deviationOrdered By: Leilani Calixto on 09-10-2024 Erythrocyte distribution width (RBC) [Entitic vol] 42.5 fL 35.1-43.9 [facility] Erythrocyte distribution width (RBC) [Ratio] 42.5 fl 35.1-43.9 [facility] Hematocrit Auto (Bld) [Volum e fraction]Ordered By: Leilani Calixto on 09-10-2024 Hematocrit (Bld) [Volume fraction] 29.8 % Low 37-47 [facility] Hemoglobin measurementOrdere d By: Leilani Calixto on 09-10-2024 Hemoglobin (Bld) [Mass/Vol] 10.1 g/dL Low 12.0-15.0 [facility] Immature granulocytes/100 WB C Auto (Bld)Ordered By: Leilani Calixto on 09-10-2024 Immature granulocytes/100 WBC (Bld) 1.200 % High 0.0-0.9 [facility] Comment on above: IG% - Immature Granu locytes (promyelocytes, myelocytes and metamyelocytes) > 1% indicates that a LEFT SHIFT is Present. Lymphocytes Auto (Unsp spec) [#/Vol]Ordered By: Leilani Calixto on 09-10-2024 Lymphocytes (Bld) [#/Vol] 2.47 10*3/uL 0.83-4.51 [facility] Lymphocytes/100 WBC Auto (Un sp spec)Ordered By: Leilani Calixto on 09-10-2024 Lymphocytes/100 WBC (Bld) 14.5 % Low 19-41 [facility] MCV (mean corpuscular volume ) determinationOrdered By: Leilani Calixto on 09-10-2024 MCV (RBC) [Entitic vol] 90.6 fL 81-99 [facility] Mean corpuscular hemoglobin (MCH) determinationOrdered By: Leilani Calixto on 09-10-2024 MCH (RBC) [Entitic mass] 30.7 pg 27.0-32.0 [facility] Mean corpuscular hemoglobin concentration (MCHC) determinationOrdered By: Leilani Calixto on 09-10-2024 MCHC (RBC) [Mass/Vol] 33.9 g/dL 32-36 [facility] Mean platelet volume determi nationOrdered By: Leilani Calixto on 09-10-2024 Platelet mean volume (Bld) [Entitic vol] 10.9 fL 6.2-12.0 [facility] Monocyte percentageOrdered B y: Leilani Calixto on 09-10-2024 Monocytes/100 WBC (Bld) 8.2 % 0-10 [facility] Neutrophil percentageOrdered By: Leilani Calixto on 09-10-2024 Neutrophils/100 WBC (Bld) 74.9 % High 47-70 [facility] Nucleated red blood cell per centageOrdered By: Leilani Calixto on 09-10-2024 Nucleated RBC/100 WBC (Bld) [Ratio] 0 % 0-5 [facility] Platelet countOrdered By: Pee Calixto on 09-10-2024 Platelets (Bld) [#/Vol] 257 10*3/uL 150-450 [facility] RBC Auto (Bld) [#/Vol]Ordere d By: Leilani Calixto on 09-10-2024 RBC (Bld) [#/Vol] 3.29 10*6/uL Low 4.2-5.4 [facility] White blood cell (WBC) count Ordered By: Leilani Calixto on 09-10-2024 WBC (Bld) [#/Vol] 17.1 10*3/uL High 4.4-11.0 [facility] Amphetamine detection with 1 000 ng/mL as cutoffOrdered By: Fernando Spear on 09-09-2024 Amphetamines Screen method >1000 ng/mL Ql (U) Negative < 200 ng/mL [facility] Amphetamines Screen method > 1000 ng/mL Ql (U)Ordered By: Fernando Spear on 09-09-2024 Amphetamines Ql (U) Negative <1000 ng/mL [facility] Urine Barbiturates Screen Negative < 200 ng/mL [facility] CBC W/Diff, Automatedon 08-14 Absolute Lymph 2.10 X10 3/uL Normal 0.83-4.51 [facility] Comment on above: Performed By: #### L 500.2500, L100.0100, L501.5200, L505.5000 #### [facility] [address] [place], [address] Absolute Neut 9.9 X10 3/uL High 2.0-7.7 [facility] Comment on above: Performed By: #### L 500.2500, L100.0100, L501.5200, L505.5000 #### [facility] [address] [place], [address] Basophils/100 WBC (Bld) 0.4 % Normal 0-1 [facility] Comment on above: Performed By: #### L 500.2500, L100.0100, L501.5200, L505.5000 #### [facility] [address] [place], [address] Eosinophils/100 WBC (Bld) 1.6 % Normal 0-5 [facility] Comment on above: Performed By: #### L 500.2500, L100.0100, L501.5200, L505.5000 #### [facility] [address] [place], [address] Erythrocyte distribution width (RBC) [Ratio] 13.0 % Normal 11.6-14.6 [facility] Comment on above: Performed By: #### L 500.2500, L100.0100, L501.5200, L505.5000 #### [facility] [address] [place], [address] Hematocrit (Bld) [Volume fraction] 34.1 % Low 37-47 [facility] Comment on above: Performed By: #### L 500.2500, L100.0100, L501.5200, L505.5000 #### [facility] [address] [place], [address] Hemoglobin (Bld) [Mass/Vol] 11.9 g/dL Low 12.0-15.0 [facility] Comment on above: Performed By: #### L 500.2500, L100.0100, L501.5200, L505.5000 #### [facility] [address] [place], [address] IG% 1.000 High 0.0-0.9 [facility] Comment on above: Result Comment: IG% - Immature Granulocytes (promyelocytes, myelocytes and metamyelocytes) > 1% indicates that a LEFT SHIFT is Present. Performed By: #### L 500.2500, L100.0100, L501.5200, L505.5000 #### [facility] [address] [place], [address] Lymphocytes/100 WBC (Bld) 15.8 % Low 19-41 [facility] Comment on above: Performed By: #### L 500.2500, L100.0100, L501.5200, L505.5000 #### [facility] [address] [place], [address] MCH (RBC) [Entitic mass] 31.2 pg Normal 27.0-32.0 [facility] Comment on above: Performed By: #### L 500.2500, L100.0100, L501.5200, L505.5000 #### [facility] [address] [place], [address] MCHC (RBC) [Mass/Vol] 34.9 g/dL Normal 32-36 [facility] Comment on above: Performed By: #### L 500.2500, L100.0100, L501.5200, L505.5000 #### [facility] [address] [place], [address] MCV (RBC) [Entitic vol] 89.5 fL Normal 81-99 [facility] Comment on above: Performed By: #### L 500.2500, L100.0100, L501.5200, L505.5000 #### [facility] [address] [place], [address] Monocytes/100 WBC (Bld) 6.9 % Normal 0-10 [facility] Comment on above: Performed By: #### L 500.2500, L100.0100, L501.5200, L505.5000 #### [facility] [address] [place], [address] Neutrophils/100 WBC (Bld) 74.3 % High 47-70 [facility] Comment on above: Performed By: #### L 500.2500, L100.0100, L501.5200, L505.5000 #### [facility] [address] [place], [address] Nucleated RBC (Bld) [#/Vol] 0 10*3/uL Normal 0-5 [facility] Comment on above: Performed By: #### L 500.2500, L100.0100, L501.5200, L505.5000 #### [facility] [address] [place], [address] Platelet mean volume (Bld) [Entitic vol] 10.9 fL Normal 6.2-12.0 [facility] Comment on above: Performed By: #### L 500.2500, L100.0100, L501.5200, L505.5000 #### [facility] [address] [place], [address] Platelets (Bld) [#/Vol] 247 10*3/uL Normal 150-450 [facility] Comment on above: Performed By: #### L 500.2500, L100.0100, L501.5200, L505.5000 #### [facility] [address] [place], [address] RBC (Bld) [#/Vol] 3.81 10*6/uL Low 4.2-5.4 [facility] Comment on above: Performed By: #### L 500.2500, L100.0100, L501.5200, L505.5000 #### [facility] [address] [place], [address] RDW SD 42.9 fl Normal 35.1-43.9 [facility] Comment on above: Performed By: #### L 500.2500, L100.0100, L501.5200, L505.5000 #### [facility] [address] [place], [address] WBC (Bld) [#/Vol] 13.3 10*3/uL High 4.4-11.0 [facility] Comment on above: Performed By: #### L 500.2500, L100.0100, L501.5200, L505.5000 #### [facility] [address] [place], [address] H AND P Exam - OB/GYNon 03- H&P Exam - MANAGER SOCIAL [facility] Medical Records Department [address] [place] [address] H P Exam - MANAGER SOCIAL 09/09/24 0842 MR#: [id number] Acct: [id number] Name: SARIKA FERREIRA Rep #: [id number] : 1990 34 From: Leilani Calixto CNM PCP: Care Physician,No Primary Status:ADM IN Location: [id number] HPI - General General Date of Admission: 09/09/24 HPI Narrative SARIKA FERREIRA, is a 34 F who presents for elective induction of labor. at 39 weeks. In office for visit and cervix 4cm dilated. Maternal Data Information JOSE A Calculator Estimated Delivery Date Method Current WG Current Estimate 09/16/24 Manual 39w 0d PFSH PFSH Medical History Seizures Cervical incompetence Multiple sclerosis Substance abuse Anxiety Kidney stones Smoker Home Medications ???Medication ???Instructions ???Recorded ???Last Taken ???Type folic acid 1 mg tablet 3 mg PO DAILY 06/03/24 0 08/25/24 12:00 History 3 mg lurasidone 40 mg tablet 40 mg PO QPM bipolar 06/03/2408/13 21:00 History 40 mg metoprolol succinate 25 mg 25 mg PO DAILY BP 06/03/24 Unknown History tablet,extended release 24 hr Held on 09/09/24. Instructions: MD Ordered aspirin 81 mg tablet,delayed 81 mg PO DAILY 08/25/24 08/25/24 06:00 History release (Celina Low Dose Aspirin) 81 mg levetiracetam 500 mg tablet 500 mg PO BID seizures 08/25/24 06:00 History (Keppra) 500 mg vit no.95-ferrous 1 tab PO DAILY 08/25/24 08/25/24 06:00 History fumarate 28 mg-folic acid 800 mcg 1 TAB tablet () famotidine 40 mg tablet 40 mg PO BID PRN PRN heartburn Unknown History Allergy/AdvReac Type Severity Reaction Status Date / Time No Known Allergies Allergy Verified 09/09/24 07:47 Family History Mother Diabetes CVA (cerebral vascular accident) Dementia Father Aneurysm Social History Smoking Status: Light Smoker (<10/day) History Elective abortions Hx Para 0 Spontaneous abortions Hx # Term Pregnancies Ectopic pregnancies Hx # Pregnancies Multiple births # of living children NST FHR Rate Baby A Baseline: 125 Variability:: Moderate Accelerations:: 15 x 15 Decelerations:: None FHR Category:: Category I Uterine Activity:: Irregular ROS Constitutional Constitutional: Reports systems reviewed and no addt'l complaints, except as documented; Denies headache(s) Eyes Eyes: Denies acute decrease in peripheral vision, blurry vision or change in vision ENT HEENT: Reports systems reviewed and no addt'l complaints, except as documented Cardiovascular Cardiovascular: Denies chest pain or dizziness Respiratory/Chest Respiratory/Chest: Denies cough, dyspnea, dyspnea on exertion, shortness of breath at rest or shortness of breath with exertion Gastrointestinal Gastrointestinal: Denies abdominal pain, diarrhea, nausea or vomiting Genitourinary Genitourinary: Denies abdominal discomfort Musculoskeletal Musculoskeletal: Denies limited range of motion Integumentary Integumentary: Reports systems reviewed and no addt'l complaints, except as documented Neurologic Neurologic: Reports systems reviewed and no addt'l complaints, except as documented Psychiatric Psychiatric: Reports systems reviewed and no addt'l complaints, except as documented Endocrine Endocrinology: Reports systems reviewed and no addt'l complaints, except as documented Hematologic/Lymphatic Hematologic/Lymphatic : Reports systems reviewed and no addt'l complaints, except as documented Allergic/Immunologic Allergic/Immunologic: Reports systems reviewed and no addt'l complaints, except as documented Vital Signs Vital Signs Vital Signs: 09/09/24 07:22 09/09/24 07:22 09/09/24 07:22 Temperature Temperature Source Temporal Pulse Rate 80 Respiratory Rate Blood Pressure 130/85 H BP Systolic 130 BP Diastolic 85 09/09/24 07:22 09/09/24 07:22 Temperature 98.2 F Temperature Source Pulse Rate Respiratory Rate 16 Blood Pressure BP Systolic BP Diastolic Weight Weight: 180 lb 1.883 oz Body Mass Index (BMI) 29.9 Physical Exam Const alert and oriented x3 General Appearance: cooperative Orientation / Consciousness: awake, oriented to person, oriented to place and oriented to time Exam Limitations: no limitations HEENT normocephalic Head and Scalp: normal to inspection, normocephalic and atraumatic Face and Sinus: normal facial exam Eyes General Eye: normal appearance of both eyes Neck full ROM Chest Chest: symmetrical chest wall rise Resp normal respiratory effo (more content not included)... Normal [facility] L509.8002on 09-09-2024 Syphilis Abs Non-Reactive Normal Nonreactive [facility] Comment on above: Performed By: #### L 500.2500, L100.0100, L501.5200, L505.5000 #### [facility] [address] [facility] [place], [address] MR/OB.VAGDELIon 09-09-2024 [facility] Medical Records Department [address] [facility] [place] [address] OB Vaginal Delivery 09/09/24 1318 MR#: [id number] Acct: [id number] Name: SARIKA FERREIRA TANMAY Rep #: [id number] : 1990 34 From: Leilani Calixto CNM PCP: Care Physician,No Primary Status:ADM IN Location: [id number] Assessment Plan (1) Vaginal delivery: (2) Second degree perineal laceration: (3) Uterine atony: COMMENT: Methergine given, EBL 600ml Maternal Data Information JOSE A Calculator Estimated Delivery Date Method Current WG Current Estimate 09/16/24 Manual 39w 0d Vaginal Delivery Maternal Presentation Maternal Presentation: Elective Induction Type of Induction: Pitocin and Amniotomy Vaginal Delivery Information Procedure Performed: Spontaneous Vaginal Delivery Surgeon/Practitioner: Leilani Calixto Date of Procedure: 09/09/24 Pre-Procedure Diagnosis: Elective IOL Post-Procedure Diagnosis: , second degree perineal laceration Type of anesthesia: Epidural Estimated Blood Loss: 600ml Time of Delivery: 12:47 Findings Description of procedure: Progressed to complete with urge to push. Epidural for pain management but not effective. of viable female over second degree perineal laceration. APGARS 8,9 respectively. Infant head delivered with body immediately forthcoming. Placed on maternal abdomen, strong cry. Mouth and nares wiped for secretions. Pitocin started for active 3rd stage management. Cord doubly clamped and cut by family after pulsations ceased, delayed cord clamping. Placenta delivered intact via mtz, 3 vessel cord intact. Perineum inspected and revealed second degree perineal laceration. Repaired with 3.0 vicryl rapide and lidocaine/epidural. Fundus firm and hemostasis achieved. Vaginal sweep completed by me, sponge and instrument count correct. Uterus boggy and started slow stream of bleeding, Methergine for uterine atony. EBL 600ml. Mom and baby stable. Family bonding well. Dr. Sánchez notified of delivery. Presentation: Vertex and MIKE Amniotic Membrane Rupture Type: Artificial Amniotic Fluid Description: Clear Placenta Disposition: [facility] Specimen collected: No Cord Vessel Description: 3 Vessels Cord Entanglement: None Infant A Gender: Female (1 minute): 8 (5 minute): 9 Delayed Cord Clamping: Yes Interior Design Consultant tack welder: No Post Vaginal Deli Medications given after delivery: IV Pitocin Episiotomy Description: None Laceration: Perineal Extension/lac and 2nd degree Complication Complications: No 09/09/24 1323 Cosigner Signature (if applicable): CC: DEWAYNE Calixto; No Primary Care Physician Signed Normal [facility] Methadone, urineOrdered By: Fernando Spear on 09-09-2024 Urine Methadone Screen Negative < 300 ng/mL [facility] No Panel InformationOrdered By: Fernando Spear on 09-09-2024 Urine Buprenorphine Qualitative Negative < 200 ng/mL [facility] Urine Oxycodone Screen Negative < 100 ng/mL [facility] Quantitative urine opiates m easurementOrdered By: Fernando Spear on 09-09-2024 Opiates Ql (U) Negative < 300 ng/mL [facility] Screening urine fentanyl tricia surementOrdered By: Fernando Spear on 09-09-2024 fentaNYL Screen Ql (U) Negative [facility] T. pallidum abOrdered By: Pee Calixto on 09-09-2024 Syphilis Total Antibody Non-Reactive Nonreactiv e [facility] Type AND Screenon 09-09-2024 ABO and Rh group Nom (Bld) Blood group A Rh(D) positive Normal [facility] Comment on above: Order Comment: Labor Performed By: #### L 500.2500, L100.0100, L501.5200, L505.5000 #### [facility] [address] [place], [place], [address] Ur Drg Scn w/Rflx AMPH Confi rmon 09-09-2024 DRUG CONFIRM Normal [facility] Comment on above: Result Comment: [facility] ORDER CONFIRMATORY TESTING FOR ALL POSITIVE URINE DRUG SCREEN RESULTS WILL ONLY BE SENT OUT UPON PHYSICIAN ORDER. VISTA Urine Drug Screen methods provide only preliminary analytical test results. A more specific alternate chemical method must be used in order to obtain a confirmed analytical result. Gas chromatography/mass spectrometery (GC/MS) is the preferred confirmatory method. Clinical consideration and professional judgement should be applied to any drug of abuse test result, particularly when preliminary positive results are used. URINE TCA TESTING MUST BE ORDERED SEPARATELY. USE TEST MNEMONIC: UTCA Performed By: #### L 505.5002 #### [facility] [address] [place], [address] Amphetamines Ql (U) Normal <1000 ng/mL [facility] Comment on above: Result Comment: WRON G ORDER Performed By: #### L 505.5002 #### [facility] [address] [place] [address] BARBITIURATES Normal < 200 ng/mL [facility] Comment on above: Result Comment: WRON G ORDER Performed By: #### L 505.5002 #### [facility] [address] [place] [address] BENZODIAZIPINE Normal < 200 ng/mL [facility] Comment on above: Result Comment: WRON G ORDER Performed By: #### L 505.5002 #### [facility] [address] [place] [address] Cocaine Ql (U) Normal < 300 ng/mL [facility] Comment on above: Result Comment: WRON G ORDER Performed By: #### L 505.5002 #### [facility] [address] [place] [address] ECSTACY Normal < 500 ng/mL [facility] Comment on above: Result Comment: WRON G ORDER Performed By: #### L 505.5002 #### [facility] [address] [place] [address] Methadone Ql (U) Normal < 300 ng/mL [facility] Comment on above: Result Comment: WRON G ORDER Performed By: #### L 505.5002 #### [facility] [address] [place] [address] Opiates Ql (U) Normal < 300 ng/mL [facility] Comment on above: Result Comment: WRON G ORDER Performed By: #### L 505.5002 #### [facility] [address] [place] [address] PCP Normal < 25 ng/mL [facility] Comment on above: Result Comment: WRON G ORDER Performed By: #### L 505.5002 #### [facility] [address] [place], [address] THC Normal < 50 ng/mL [facility] Comment on above: Result Comment: SUPAJORDAN Horvath ORDER Performed By: #### L 505.5002 #### [facility] [address] [place], [address] VISTA UDS PH Normal [facility] Comment on above: Result Comment: SUPAJORDAN G ORDER Performed By: #### L 505.5002 #### [facility] [address] [place], [address] Urine Drug Screen (VISTA)on 09-09-2024 AMPHETAMINES Negative Normal <1000 ng/mL [facility] Comment on above: Performed By: #### L 500.2500, L100.0100, L501.5200, L505.5000 #### [facility] [address] [place], [address] BARBITIURATES Negative Normal < 200 ng/mL [facility] Comment on above: Performed By: #### L 500.2500, L100.0100, L501.5200, L505.5000 #### [facility] [address] [place], [address] BENZODIAZIPINE Negative Normal < 200 ng/mL [facility] Comment on above: Performed By: #### L 500.2500, L100.0100, L501.5200, L505.5000 #### [facility] [address] [place], [address] BUP Ur Drug Scr Negative Normal < 200 ng/mL [facility] Comment on above: Performed By: #### L 500.2500, L100.0100, L501.5200, L505.5000 #### [facility] [address] [place], [address] COCAINE Negative Normal < 300 ng/mL [facility] Comment on above: Performed By: #### L 500.2500, L100.0100, L501.5200, L505.5000 #### [facility] [address] [place], [address] Fentanyl Negative Normal [facility] Comment on above: Performed By: #### L 500.2500, L100.0100, L501.5200, L505.5000 #### [facility] [address] [place], [facility] METHADONE Negative Normal < 300 ng/mL [facility] Comment on above: Performed By: #### L 500.2500, L100.0100, L501.5200, L505.5000 #### [facility] [address] [place], [facility] OPIATES Negative Normal < 300 ng/mL [facility] Comment on above: Performed By: #### L 500.2500, L100.0100, L501.5200, L505.5000 #### [facility] [address] [place], [address] OXYCODONE Negative Normal < 100 ng/mL [facility] Comment on above: Performed By: #### L 500.2500, L100.0100, L501.5200, L505.5000 #### [facility] [address] [place], [facility] PCP Negative Normal < 25 ng/mL [facility] Comment on above: Performed By: #### L 500.2500, L100.0100, L501.5200, L505.5000 #### [facility] [address] [place], [address] THC Positive Normal < 50 ng/mL [facility] Comment on above: Result Comment: If c onfirmation testing is needed, a separate order will be required to send out testing to the reference laboratory. Performed By: #### L 500.2500, L100.0100, L501.5200, L505.5000 #### [facility] [address] [place], [address] Urine benzodiazepine levelOr dered By: Fernando Spear on 09-09-2024 Benzodiazepines Ql (U) Negative < 200 ng/mL [facility] Urine cocaine levelOrdered B y: Fernando Spear on 09-09-2024 Cocaine Ql (U) Negative < 300 ng/mL [facility] Urine vyzab-4-dnzhbfaksbwqml abinol (THC) measurementOrdered By: Fernando Spear on 09-09-2024 Cannabinoids Screen Ql (U) Positive < 50 ng/mL [facility] Comment on above: If confirmation test ing is needed, a separate order will be required to send out testing to the reference laboratory. Urine phencyclidine (PCP) de tectionOrdered By: Fernando Spear on 09-09-2024 Phencyclidine Ql (U) Negative < 25 ng/mL [facility] fentaNYL Screen Ql (U)Ordere d By: Fernando Spear on 09-09-2024 Urine Fentanyl Screen Negative [facility] URINE OB DIP B/Oon 5 Glucose Ql (U) Negative Neg mg/dL [facility] Interpretation and review of laboratory results Normal [facility] Protein.monoclonal (U) [Mass/Vol] Negative Neg mg/dL [facility] URINE OB DIP B/Oon 5 Glucose Ql (U) Negative Neg mg/dL [facility] Interpretation and review of laboratory results Normal [facility] Protein.monoclonal (U) [Mass/Vol] race Neg mg/dL [facility] (ROM) Rupture Of Membraneson 08-25-2024 ROM Negative Normal Negative [facility] Comment on above: Result Comment: Amni otic fluid not present indicates No Rupture of Membranes at time of specimen collection. Performed By: #### L 500.2500, L100.0100, L501.5200, L505.5000 #### [facility] [address] [place], [address] OB Triage Physician Noteon 0 08-25-2024 OB Triage Physician Note [facility] Medical Records Department [address] [place] [address] OB Triage Physician Note 08/25/24 1756 MR#: [id number] Acct: [id number] Name: SARIKA FERREIRA Rep #: [id number] : 1990 34 From: Melba Sánchez MD PCP: Care Physician,No Primary Status:DEP CLI Y Location: [facility] HPI - General General Date of Service: 08/25/24 HPI Narrative SARIKA FERREIRA, is a 34 F who presents for monitoring for non reactive office NST. Maternal Data Information JOSE A Calculator Estimated Delivery Date Method Current WG Current Estimate 09/16/24 Manual 36w 6d PFSH PFSH Medical History Multiple sclerosis Substance abuse Anxiety Kidney stones Smoker Home Medications ???Medication ???Instructions ???Recorded ???Last Taken ???Type cyclobenzaprine 10 mg tablet 10 mg PO TID PRN PRN pain 06/03/24 06/15/24 21:00 History 10 mg folic acid 1 mg tablet 3 mg PO DAILY 06/03/24 08/25/24 12 :00 History 3 mg lurasidone 40 mg tablet 40 mg PO QPM 06/03/24 08/24/24 21: 00 History 40 mg metoprolol succinate 25 mg 25 mg PO DAILY 06/03/24 Unknown Hi story tablet,extended release 24 hr aspirin 81 mg tablet,delayed 81 mg PO DAILY 08/25/24 08/25/24 0 6:00 History release (Celina Low Dose Aspirin) 81 mg levetiracetam 500 mg tablet 500 mg PO BID 08/25/24 08/25/24 06 :00 History (Keppra) 500 mg vit no.95-ferrous 1 tab PO DAILY 08/25/24 08/25/24 0 6:00 History fumarate 28 mg-folic acid 800 mcg 1 TAB tablet () Allergy/AdvReac Type Severity Reaction Status Date / Time No Known Allergies Allergy Verified 08/25/24 16:24 Family History Mother Diabetes CVA (cerebral vascular accident) Dementia Father Aneurysm Social History Smoking Status: Unknown if ever smoked NST FHR Rate Baby A Baseline: 125 Variability:: Moderate Accelerations:: 15 x 15 Decelerations:: None Uterine Activity:: Irregular Assessment Plan (1) Non-reactive NST (non-stress test): COMMENT: 36 6 PLAN: Plan Office NST was non reactive but E[facility] at [facility] reassuring and reactive. ROM + is negative. Patient discharged home. 08/25/241801 Date Melba Sánchez MD Cosigner Signature (if applicable): Date CC: Dr. Melba Sánchez MD; No Primary Care Physician Signed Normal [facility] Testing for ruptured membran esOrdered By: Melba Sánchez on 08-25-2024 Vaginal Amniotic Fluid Detection Negative Negative [facility] Comment on above: Amniotic fluid not p resent indicates No Rupture of FetalMembranes at time of specimen collection. URINE OB DIP B/Oon Glucose Ql (U) Negative Neg mg/dL [facility] Protein.monoclonal (U) [Mass/Vol] 30 mg/dL Neg [facility] CNPNon 08-23-2024 CNPN Telephone (SAVANNAH) HANNASEPTEMBER LAMAR ([id number]) 1990 F Date Time Provider Department 08/23/24 KENYA PHILIP During your visit today, we recorded the following information about you: Rodrick Hernandez, RN 08/23/2024 12:08 PM Signed 36w4d Pt calling because she feels she lost her mucous plug. Pad was brownish/red streaks. Denies vaginal bleeding/Denies LOF. Pt states she has pain 4/10 in upper abdomen intermittently and describes as tightening. Advised to rest and continue to stay hydrated. Pt advised to continue to monitor at this time and to call the office when: Contractions q10 minutes or more , LOF, decreased movement AND advised Pt to go to ER if she develops severe abdominal pain/vaginal bleeding. Pt voiced understanding and denies additional questions/concerns. Next OB appt 08/25/24. Rodrick Hernandez RN Allergies As of Date: 08/23/2024 (No Known Allergies) Date Reviewed: 08/18/2024 Reviewed by: Chad Sanabria MA - Fully Assessed Prescriptions as of 08/30/2024 - famotidine (PEPCID) 40 mg tablet Take 1 tablet by mouth two times a day as needed. - levETIRAcetam (KEPPRA) 500 mg tablet Take 1 tablet by mouth two times a day. - midazolam (NAYZILAM) 5 mg/spray (0.1 mL) nasal spray Administer one spray (5 mg dose) into one nostril for a seizure that lasts for 5 minutes. One additional spray (5 mg dose) into the opposite nostril if the seizure continues for an additional 5 minutes. - lurasidone (LATUDA) 40 mg tablet take 1 tablet by mouth every evening with a full meal (atleast 400 calories) - cyclobenzaprine (FLEXERIL) 10 mg tablet Take 1 tablet by mouth three times a day as needed. - simethicone, chewable (MYLICON) 80 mg chewable tablet Take 1 tablet by mouth four times a day as needed. - folic acid 1 mg tablet Take 3 tablets by mouth once daily. - aspirin, enteric coated (ECOTRIN LOW STRENGTH) 81 mg EC tablet Take 1 tablet by mouth once daily. - vit no.124/iron/folic ( VITAMIN ORAL) Take by mouth once daily. 2 Gummies - acetaminophen (TYLENOL EXTRA STRENGTH) 500 mg tablet Take 500 mg by mouth every 8 hours as needed for pain. Problem List As Of Date 08/23/2024 Noted Resolved Acanthosis Nigricans [L83] 09/10/2009 Obesity [E66.9] 09/10/2009 04/05/2024 Irregular menses [N92.6] 09/10/2009 06/02/2024 Vapes nicotine containing substance [Z72.0] 02/22/2024 Marijuana use during [O99.320, F12.90]02/22/2024 Bipolar 1 disorder (HCC) [F31.9] 02/22/2024 History of seizures [Z87.898] 03/15/2024 Multiple sclerosis affecting , antepar*03/15/2024 Short cervix affecting [O26.879] 05/02/2024 Short cervix during in second trimest*05/02/2024 Abdominal pain affecting [O26.899, R1*06/01/2024 Cervical cerclage suture present in second trim*06/01/2024 24 weeks gestation of [Z3A.24] 06/01/2024 Encounter Status:Closed by RODRICK HERNANDEZ on 08/30/24 Normal [facility] Examination level ultrasound on 08-18-2024 [facility] Radiology Study observation (narrative) [facility] GROUP B STREPTOCOCCUS BY PCR , ROUTINE SCREENINGon 08-18-2024 GROUP B STREPTOCOCCUS BY PCR, ROUTINE SCREENING GROUP B STREP PCR: Positive for Group B Streptococcus by PCR. Abnormal [facility] Comment on above: Performed By: #### G BPCR ####[facility] [id number] [place] [address] [place] URINE OB DIP B/Oon Glucose Ql (U) Negative Neg mg/dL [facility] Interpretation and review of laboratory results Normal [facility] Protein.monoclonal (U) [Mass/Vol] 30 mg/dL Neg [facility] Examination level ultrasound on 07-28-2024 [facility] Radiology Study observation (narrative) [facility] levETIRAcetam SerPl-mCncon 0 07-14-2024 levETIRAcetam [Mass/Vol] 4.8 ug/mL Low 12.0-46.0 [facility] Comment on above: Order Comment: Speci men Type: BLOOD SPECIMEN Ordering Facility: [facility] Address: [address] [place] [address] Result Comment: This test is not suitable for patients receiving treatment with the drug brivaracetam (Briviact). The drug causes an interference that may lead to falsely elevated levetiracetam results. Reference ranges and high/low indicator flags are provided as general guidelines only. The treating physician must determine appropriate target levels/dosing based on the specific clinical situation. This test was developed, and its performance characteristics determined by the [facility] Department of Pathology and Laboratory Medicine. It has not been cleared or approved by the FDA. The [facility] Department of Pathology and Laboratory Medicine is regulated under CLIA as qualified to perform high-complexity testing. This test is used for clinical purposes. It should not be regarded as investigational or for research. Performed By: #### 1 6128-1 #### [facility] [id number] [address] [place] [address] [place] CBC W Auto Differential pane l (Bld)on 06-30-2024 Basophils (Bld) [#/Vol] 0.04 10*3/uL Normal <0.11 [facility] Comment on above: Order Comment: Speci men Type: BLOOD SPECIMEN Ordering Facility: [facility] Address: [address] [place] [address] Performed By: #### 1 6128-1 #### [facility] [id number] [address] [place] [address] [place] Basophils/100 WBC (Bld) 0.3 % Normal [facility] Comment on above: Order Comment: Speci men Type: BLOOD SPECIMEN Ordering Facility: [facility] Address: [address] [place] [address] Performed By: #### 1 6128-1 #### [facility] [id number] [address] [place] [address] [place] Differential cell count method Nom (Bld) Auto Normal [facility] Comment on above: Order Comment: Speci men Type: BLOOD SPECIMEN Ordering Facility: [facility] Address: [address] [place] [address] Performed By: #### 1 6128-1 #### [facility] [id number] [address] [place] [address] [place] Eosinophils (Bld) [#/Vol] 0.16 10*3/uL Normal <0.46 [facility] Comment on above: Order Comment: Speci men Type: BLOOD SPECIMEN Ordering Facility: [facility] Address: [address] [place] [address] Performed By: #### 1 6128-1 #### [facility] [id number] [address] [place] [address] [place] Eosinophils/100 WBC (Bld) 1.3 % Normal [facility] Comment on above: Order Comment: Speci men Type: BLOOD SPECIMEN Ordering Facility: [facility] Address: [address] [place] [address] Performed By: #### 1 6128-1 #### [facility] [id number] [address] [place] [address] [place] Erythrocyte distribution width (RBC) [Ratio] 13.3 % Normal 11.5-15.0 [facility] Comment on above: Order Comment: Speci men Type: BLOOD SPECIMEN Ordering Facility: [facility] Address: [address] [place] [address] Performed By: #### 1 6128-1 #### [facility] [id number] [address] [place] [address] [place] Hematocrit (Bld) [Volume fraction] 33.2 % Low 36.0-46.0 [facility] Comment on above: Order Comment: Speci men Type: BLOOD SPECIMEN Ordering Facility: [facility] Address: [address] [place] [address] Performed By: #### 1 6128-1 #### [facility] [id number] [address] [place] [address] [place] Hemoglobin (Bld) [Mass/Vol] 11.4 g/dL Low 11.5-15.5 [facility] Comment on above: Order Comment: Speci men Type: BLOOD SPECIMEN Ordering Facility: [facility] Address: [address] [place] [address] Performed By: #### 1 6128-1 #### [facility] [id number] [address] [place] [address] [place] Immature granulocytes (Bld) [#/Vol] 0.13 10*3/uL High <0.10 [facility] Comment on above: Order Comment: Speci men Type: BLOOD SPECIMEN Ordering Facility: [facility] Address: [address] [place] [address] Performed By: #### 1 6128-1 #### [facility] [id number] [address] [place] [address] [place] Immature granulocytes/100 WBC (Bld) 1.1 % Normal [facility] Comment on above: Order Comment: Speci men Type: BLOOD SPECIMEN Ordering Facility: [facility] Address: [address] [place] [address] Performed By: #### 1 6128-1 #### [facility] [id number] [address] [place] [address] [place] Lymphocytes (Bld) [#/Vol] 1.73 10*3/uL Normal 1.00-4.00 [facility] Comment on above: Order Comment: Speci men Type: BLOOD SPECIMEN Ordering Facility: [facility] Address: [address] [place] [address] Performed By: #### 1 6128-1 #### [facility] [id number] [address] [place] [address] [place] Lymphocytes/100 WBC (Bld) 14.0 % Normal [facility] Comment on above: Order Comment: Speci men Type: BLOOD SPECIMEN Ordering Facility: [facility] Address: [address] [place] [address] Performed By: #### 1 6128-1 #### [facility] [id number] [address] [place] [address] [place] MCH (RBC) [Entitic mass] 31.9 pg Normal 26.0-34.0 [facility] Comment on above: Order Comment: Speci men Type: BLOOD SPECIMEN Ordering Facility: [facility] Address: [address] [place] [address] Performed By: #### 1 6128-1 #### [facility] [id number] [address] [place] [address] [place] MCHC (RBC) [Mass/Vol] 34.3 g/dL Normal 30.5-36.0 [facility] Comment on above: Order Comment: Speci men Type: BLOOD SPECIMEN Ordering Facility: [facility] Address: [address] [place] [address] Performed By: #### 1 6128-1 #### [facility] [id number] [address] [place] [address] [place] MCV (RBC) [Entitic vol] 93.0 fL Normal 80.0-100.0 [facility] Comment on above: Order Comment: Speci men Type: BLOOD SPECIMEN Ordering Facility: [facility] Address: [address] [place] [address] Performed By: #### 1 6128-1 #### [facility] [id number] [address] [place] [address] [place] Monocytes (Bld) [#/Vol] 0.88 10*3/uL High <0.87 [facility] Comment on above: Order Comment: Speci men Type: BLOOD SPECIMEN Ordering Facility: [facility] Address: [address] [place] [address] Performed By: #### 1 6128-1 #### [facility] [id number] [address] [place] [address] [place] Monocytes/100 WBC (Bld) 7.1 % Normal [facility] Comment on above: Order Comment: Speci men Type: BLOOD SPECIMEN Ordering Facility: [facility] Address: [address] [place] [address] Performed By: #### 1 6128-1 #### [facility] [id number] [address] [place] [address] [place] Neutrophils (Bld) [#/Vol] 9.43 10*3/uL High 1.45-7.50 [facility] Comment on above: Order Comment: Speci men Type: BLOOD SPECIMEN Ordering Facility: [facility] Address: [address] [place] [address] Performed By: #### 1 6128-1 #### [facility] [id number] [address] [place] [address] [place] Neutrophils/100 WBC (Bld) 76.2 % Normal [facility] Comment on above: Order Comment: Speci men Type: BLOOD SPECIMEN Ordering Facility: [facility] Address: [address] [place] [address] Performed By: #### 1 6128-1 #### [facility] [id number] [address] [place] [address] [place] Nucleated RBC (Bld) [#/Vol] 10*3/uL Normal <0.01 [facility] Comment on above: Order Comment: Speci men Type: BLOOD SPECIMEN Ordering Facility: [facility] Address: [address] [place] [address] Performed By: #### 1 6128-1 #### [facility] [id number] [address] [place] [address] [place] Nucleated RBC/100 WBC (Bld) [Ratio] 0.0 /100 WBC Normal [facility] Comment on above: Order Comment: Speci men Type: BLOOD SPECIMEN Ordering Facility: [facility] Address: [address] [place] [address] Performed By: #### 1 6128-1 #### [facility] [id number] [address] [place] [address] [place] Platelet mean volume (Bld) [Entitic vol] 9.8 fL Normal 9.0-12.7 [facility] Comment on above: Order Comment: Speci men Type: BLOOD SPECIMEN Ordering Facility: [facility] Address: [address] [place] [address] Performed By: #### 1 6128-1 #### [facility] [id number] [address] [place] [address] [place] Platelets (Bld) [#/Vol] 195 10*3/uL Normal 150-400 [facility] Comment on above: Order Comment: Speci men Type: BLOOD SPECIMEN Ordering Facility: [facility] Address: [address] [place] [address] Performed By: #### 1 6128-1 #### [facility] [id number] [address] [place] [address] [place] RBC (Bld) [#/Vol] 3.57 10*6/uL Low 3.90-5.20 [facility] Comment on above: Order Comment: Speci men Type: BLOOD SPECIMEN Ordering Facility: [facility] Address: [address] [place] [address] Performed By: #### 1 6128-1 #### [facility]IA [id number] [address] [place], [place] [address] [place] WBC (Bld) [#/Vol] 12.37 10*3/uL High 3.70-11.00 [facility] Comment on above: Order Comment: Speci men Type: BLOOD SPECIMEN Ordering Facility: [facility] Address: [address] [place] [address] Performed By: #### 1 6128-1 #### [facility]IA [id number] [address] [place], [place] [address] [place] [facility] CNPNon 06-30-2024 CNPN Telephone (OBGYWM) SARIKA FERREIRA ([id number]) 1990 F Date Time Provider Department 06/30/24 KEARA BELLE During your visit today, we recorded the following information about you: Mariela Merlos RN 06/30/2024 4:34 PM Signed ----- Message from Keara Belle APRN.CNM sent at 06/30/2024 4:25 PM EST ----- Growth US reviewed. EFW 18%, AC 27%, BROOK 19. Follow up growth in 4 weeks. TRE Brooks Trisha, RN 06/30/2024 4:36 PM Signed Please file order so patient can schedule next u/s appt. JEAN CARLOS Mei Trisha, RN 06/30/2024 4:45 PM Signed u/s scheduled. Mariela Merlos RN Allergies As of Date: 06/30/2024 (No Known Allergies) Date Reviewed: 06/02/2024 Reviewed by: Melba Sánchez MD - Fully Assessed Reason for Visit: Results [95] Primary Visit Diagnosis:Supervision of high risk in third trimester [O09.93] Other Visit Diagnoses:28 weeks gestation of [Z3A.28] Short cervix affecting [O26.879] Cervical cerclage suture present in third trimester [O34.33] Multiple sclerosis (HCC) [G35] AMA (advanced maternal age) multigravida 35+, third trimester [O09.523] Order(s):OBSTETRIC ULTRASOUND [facility] [[id number]] Order #: [id number]: 1 FUTURE Prescriptions as of 06/30/2024 - levETIRAcetam (KEPPRA) 500 mg tablet Take 1 tablet by mouth two times a day. - midazolam (NAYZILAM) 5 mg/spray (0.1 mL) nasal spray Administer one spray (5 mg dose) into one nostril for a seizure that lasts for 5 minutes. One additional spray (5 mg dose) into the opposite nostril if the seizure continues for an additional 5 minutes. - lurasidone (LATUDA) 40 mg tablet take 1 tablet by mouth every evening with a full meal (atleast 400 calories) - cyclobenzaprine (FLEXERIL) 10 mg tablet Take 1 tablet by mouth three times a day as needed. - simethicone, chewable (MYLICON) 80 mg chewable tablet Take 1 tablet by mouth four times a day as needed. - folic acid 1 mg tablet Take 3 tablets by mouth once daily. - aspirin, enteric coated (ECOTRIN LOW STRENGTH) 81 mg EC tablet Take 1 tablet by mouth once daily. - vit no.124/iron/folic ( VITAMIN ORAL) Take by mouth once daily. 2 Gummies - acetaminophen (TYLENOL EXTRA STRENGTH) 500 mg tablet Take 500 mg by mouth every 8 hours as needed for pain. Problem List As Of Date 06/30/2024 Noted Resolved Acanthosis Nigricans [L83] 09/10/2009 Obesity [E66.9] 09/10/2009 04/05/2024 Irregular menses [N92.6] 09/10/2009 06/02/2024 Vapes nicotine containing substance [Z72.0] 02/22/2024 Marijuana use during [O99.320, F12.90]02/22/2024 Bipolar 1 disorder (HCC) [F31.9] 02/22/2024 Encounter for supervision of high risk pregnanc*02/22/2024 History of seizures [Z87.898] 03/15/2024 Multiple sclerosis affecting , antepar*03/15/2024 Short cervix affecting [O26.879] 05/02/2024 Short cervix during in second trimest*05/02/2024 Abdominal pain affecting [O26.899, R1*06/01/2024 Cervical cerclage suture present in second trim*06/01/2024 24 weeks gestation of [Z3A.24] 06/01/2024 Encounter Status:Closed by KEARA BELLE on 06/30/24 Normal [facility] Examination level ultrasound on 06-30-2024 [facility] Radiology Study observation (narrative) [facility] GESTATIONAL GLUCOSE SCREEN, 1-HOUR, 50 GRAM, NON-FASTINGon 06-30-2024 Glucose [Mass/Vol] 121 mg/dL Normal 74-134 [facility] Comment on above: Order Comment: Speci men Type: BLOOD SPECIMEN Ordering Facility: [facility] Address: [address] [place] [address] Result Comment: [facility] Congress of Obstetricians and Gynecologists (Aziza/Nikki) guidelines state a gestational diabetes mellitus positive screen is made, in women not previously diagnosed with overt diabetes, when the 1 hr plasma glucose level is equal to or above 140 mg/dL. The [facility] Space [employer] Officer and [facility] [place] recommends a 135 mg/dL cutoff. Performed By: #### 1 6128-1 #### [facility] [id number] [address] [place] [address] [place] Reagin and Treponema pallidu m IgG and IgM [Interp]on 06-30-2024 T. pallidum IgG+IgM IA Ql (S) Non-Reactive Normal Nonreactive [facility] Comment on above: Order Comment: Speci men Type: BLOOD SPECIMEN Ordering Facility: [facility] Address: [address] [place] [address] Performed By: #### 1 6128-1 #### [facility] CLIA [id number] [address] [place] [address] [place] Reagin+T pallidum IgG+IgM Se rPl-Impon 06-30-2024 Reagin and Treponema pallidum IgG and IgM [Interp] Cannot exclude recent Treponemal infection if specimen collected within 7-10 days after appearance of suspect lesions or 2-3 weeks after an exposure. Clinical correlation is required. Normal [facility] Comment on above: Order Comment: Speci men Type: BLOOD SPECIMEN Ordering Facility: [facility] Address: [address] [place] [address] Performed By: #### 1 6128-1 #### [facility] CLIA [id number] [address] [facility] [address] [address] [place] 12 Lead EKGon 06-03-2024 12 Lead EKG [facility] [address] [place] [address] 12 Lead EKG 06/03/24 1232 MR#: [id number] Acct: [id number] Name: SARIKA FERREIRA Rep #: [id number] : 1990 34 From: Hubert Pereyra MD Attending Dr: Status: DEP ER Ordering Dr: Alem Amaya Date: 06/03/24 Location: ED Sex: F C Admitted: Test Reason : SEIZURE Blood Pressure : */* mmHG Vent. Rate : 80 BPM Atrial Rate : 80 BPM P-R Int : 152 ms QRS Dur : 84 ms QT Int : 346 ms P-R-T Axes : 37 -2 38 degrees QTcB Int : 399 ms Sinus rhythm with marked sinus arrhythmia Otherwise normal ECG Confirmed by DARIUSZ TOLEDO, HUBERT ([id number]), photograph editor MAURICE JOHNSON ([id number]) on 06/06/2024 6:36:32 AM Referred By: Confirmed By: HUBERT PEREYRA MD 06/06/24 0636 Date Hubert Pereyra MD CC: Dr. Arron Ivan, ; PACHECO Dunn; No Primary Care Physician Signed Normal [facility] Absolute neutrophil countOrd ered By: Alem Amaya on 06-03-2024 Neutrophils (Bld) [#/Vol] 11.7 10*3/uL High 2.0-7.7 [facility] Basic Metabolic Profile (BMP )on 06-03-2024 BUN/CRE 14.0 RATIO Normal 04-03 [facility] Comment on above: Performed By: #### L 500.2500, L100.0100, L501.5200, L505.5000 #### [facility] [address] [place], [address] CA,Total 8.2 mg/dL Low 8.5-10.1 [facility] Comment on above: Performed By: #### L 500.2500, L100.0100, L501.5200, L505.5000 #### [facility] [address] [place], [address] Chloride [Moles/Vol] 110 mmol/L High 98-107 [facility] Comment on above: Performed By: #### L 500.2500, L100.0100, L501.5200, L505.5000 #### [facility] [address] [place], [address] CO2 [Moles/Vol] 22.0 mmol/L Normal 21.0-32.0 [facility] Comment on above: Performed By: #### L 500.2500, L100.0100, L501.5200, L505.5000 #### [facility] [address] [place], [address] Creatinine [Mass/Vol] 0.50 mg/dL Low 0.55-1.02 [facility] Comment on above: Result Comment: The validity of the calculated GFR GFRAA in patients over 70 years has not been determined. Clinical correlation is essential. Performed By: #### L 500.2500, L100.0100, L501.5200, L505.5000 #### [facility] [address] [place], [address] ECRCL 159.16 ml/min Normal [facility] Comment on above: Performed By: #### L 500.2500, L100.0100, L501.5200, L505.5000 #### [facility] [address] [place], [address] EST GFR - AA 180 mL/min Normal >60 [facility] Comment on above: Result Comment: Afri can Tristanian GFR Calc Performed By: #### L 500.2500, L100.0100, L501.5200, L505.5000 #### [facility] [address] [place], [address] GAP 5 Normal 5-15 [facility] Comment on above: Performed By: #### L 500.2500, L100.0100, L501.5200, L505.5000 #### [facility] [address] [place], [address] GFR/1.73 sq M.predicted among non-blacks MDRD (S/P/Bld) [Vol rate/Area] 149 mL/min/{1.73_m2} Normal >60 [facility] Comment on above: Result Comment: Non- GFR Calc Performed By: #### L 500.2500, L100.0100, L501.5200, L505.5000 #### [facility] [address] [place], [address] Glucose [Mass/Vol] 86 mg/dL Normal 74-106 [facility] Comment on above: Performed By: #### L 500.2500, L100.0100, L501.5200, L505.5000 #### [facility] [address] [place], [address] Potassium [Moles/Vol] 4.0 mmol/L Normal 3.5-5.1 [facility] Comment on above: Performed By: #### L 500.2500, L100.0100, L501.5200, L505.5000 #### [facility] [address] [place], [address] Sodium [Moles/Vol] 137 mmol/L Normal 136-145 [facility] Comment on above: Performed By: #### L 500.2500, L100.0100, L501.5200, L505.5000 #### [facility] [address] [place], [address] Urea nitrogen [Mass/Vol] 7 mg/dL Normal 7-18 [facility] Comment on above: Performed By: #### L 500.2500, L100.0100, L501.5200, L505.5000 #### [facility] [address] [place], [address] Basophil percentageOrdered B y: Alem Amaya on 06-03-2024 Basophils/100 WBC (Bld) 0.2 % 0-1 [facility] Bilirubin Test strip Ql (U)O rdered By: Alem Amaya on 06-03-2024 Bilirubin Ql (U) Negative Negative [facility] Bilirubin, totalOrdered By: Alem Amaya on 06-03-2024 Bilirubin [Mass/Vol] 0.30 mg/dL 0.20-1.00 [facility] Comment on above: For patients on eltr ombopag therapy, use of Dimension [place] TBIL is not recommended. Bilirubin.direct [Mass/Vol]O rdered By: Alem Amaya on 06-03-2024 Direct Bilirubin < 0.05 mg/dL 0.00-0.30 [facility] Blood urea nitrogen (BUN)/cr eatinine ratioOrdered By: Alem Amaya on 06-03-2024 Urea nitrogen/Creatinine [Mass ratio] 14.0 mg/mg - [facility] Brain/Head without Contrasto n 06-03-2024 Brain/Head without Contrast [facility] Imaging Services [address] [place], [place] [address] Brain/Head without Contrast MR#: [id number] Acct: [id number] Name: SARIKA FERREIRA Rep #: [id number] : 1990 F 34 From: Anjel oneil MD PCP: Care Physician,No Primary Status: REG ER Study: Brain/Head without Contrast Date of Exam: 05/16 Exam# [id number] Ordering Dr: Alem Amaya [id number] STUDY: CT BRAIN WITHOUT CONTRAST REASON FOR EXAM: Female, 34 years old. Seizure. 25 weeks . The patient was shielded appropriately. RADIATION DOSAGE (If Supplied By Facility): CTDIvol = ( 44.99 ) mGy, DLP = ( 745.49 ) mGycm TECHNIQUE: Transaxial CT imaging of the brain was performed without administration of intravenous contrast material. Individualized dose optimization techniques were used for this CT. COMPARISON: Comparison is made with prior study dated December 27, 2023. FINDINGS: Normal soft tissue structures. Normal calvarium. Normal size ventricles and extra-axial spaces for the patient''s age. Normal white matter tracts of the cerebral hemispheres. Normal basal ganglia and thalami. Normal brainstem. Normal cerebellum. There is no intracranial hemorrhage. There are no findings of an acute ischemic infarction. Normal visualized paranasal sinuses. CT/Brain/Head without Contrast IMPRESSION: Normal unenhanced CT scan of the brain. Electronically Signed: Anjel Bolaños MD at 13:20 EST Reading Location ID and State: [address] [place] [address] , Service support , CC: PACHECO Dunn; No Primary Care Physician Hardware Trainer: Signed Normal [facility] CBC W/Diff, Automatedon 12-2 0 Absolute Lymph 0.93 X10 3/uL Normal 0.83-4.51 [facility] Comment on above: Performed By: #### L 500.2500, L100.0100, L501.5200, L505.5000 #### [facility] [address] [place], [place], [address] Absolute Neut 11.7 X10 3/uL High 2.0-7.7 [facility] Comment on above: Performed By: #### L 500.2500, L100.0100, L501.5200, L505.5000 #### [facility] [address] [place], [address] Basophils/100 WBC (Bld) 0.2 % Normal 0-1 [facility] Comment on above: Performed By: #### L 500.2500, L100.0100, L501.5200, L505.5000 #### [facility] [address] [place], [address] Eosinophils/100 WBC (Bld) 0.4 % Normal 0-5 [facility] Comment on above: Performed By: #### L 500.2500, L100.0100, L501.5200, L505.5000 #### [facility] [address] [place], [address] Erythrocyte distribution width (RBC) [Ratio] 13.6 % Normal 11.6-14.6 [facility] Comment on above: Performed By: #### L 500.2500, L100.0100, L501.5200, L505.5000 #### [facility] [address] [place], [address] Hematocrit (Bld) [Volume fraction] 38.2 % Normal 37-47 [facility] Comment on above: Performed By: #### L 500.2500, L100.0100, L501.5200, L505.5000 #### [facility] [address] [place], [address] Hemoglobin (Bld) [Mass/Vol] 12.5 g/dL Normal 12.0-15.0 [facility] Comment on above: Performed By: #### L 500.2500, L100.0100, L501.5200, L505.5000 #### [facility] [address] [place], [address] IG% 1.300 High 0.0-0.9 [facility] Comment on above: Result Comment: IG% - Immature Granulocytes (promyelocytes, myelocytes and metamyelocytes) > 1% indicates that a LEFT SHIFT is Present. Performed By: #### L 500.2500, L100.0100, L501.5200, L505.5000 #### [facility] [address] [place], [address] Lymphocytes/100 WBC (Bld) 7.0 % Low 19-41 [facility] Comment on above: Performed By: #### L 500.2500, L100.0100, L501.5200, L505.5000 #### [facility] [address] [place], [address] MCH (RBC) [Entitic mass] 31.3 pg Normal 27.0-32.0 [facility] Comment on above: Performed By: #### L 500.2500, L100.0100, L501.5200, L505.5000 #### [facility] [address] [place], [address] MCHC (RBC) [Mass/Vol] 32.7 g/dL Normal 32-36 [facility] Comment on above: Performed By: #### L 500.2500, L100.0100, L501.5200, L505.5000 #### [facility] [address] [place], [address] MCV (RBC) [Entitic vol] 95.5 fL Normal 81-99 [facility] Comment on above: Performed By: #### L 500.2500, L100.0100, L501.5200, L505.5000 #### [facility] [address] [place], [address] Monocytes/100 WBC (Bld) 3.9 % Normal 0-10 [facility] Comment on above: Performed By: #### L 500.2500, L100.0100, L501.5200, L505.5000 #### [facility] [address] [place], [address] Neutrophils/100 WBC (Bld) 87.2 % High 47-70 [facility] Comment on above: Performed By: #### L 500.2500, L100.0100, L501.5200, L505.5000 #### [facility] [address] [place], [address] Nucleated RBC (Bld) [#/Vol] 0 10*3/uL Normal 0-5 [facility] Comment on above: Performed By: #### L 500.2500, L100.0100, L501.5200, L505.5000 #### [facility] [address] [place], [address] Platelet mean volume (Bld) [Entitic vol] 10.2 fL Normal 6.2-12.0 [facility] Comment on above: Performed By: #### L 500.2500, L100.0100, L501.5200, L505.5000 #### [facility] [address] [place], [address] Platelets (Bld) [#/Vol] 211 10*3/uL Normal 150-450 [facility] Comment on above: Performed By: #### L 500.2500, L100.0100, L501.5200, L505.5000 #### [facility] [address] [place], [address] RBC (Bld) [#/Vol] 4.00 10*6/uL Low 4.2-5.4 [facility] Comment on above: Performed By: #### L 500.2500, L100.0100, L501.5200, L505.5000 #### [facility] [address] [place], [address] RDW SD 48.1 fl High 35.1-43.9 [facility] Comment on above: Performed By: #### L 500.2500, L100.0100, L501.5200, L505.5000 #### [facility] [address] [place], [address] WBC (Bld) [#/Vol] 13.4 10*3/uL High 4.4-11.0 [facility] Comment on above: Performed By: #### L 500.2500, L100.0100, L501.5200, L505.5000 #### [facility] [address] [place], [address] Carbon dioxide measurementOr dered By: Alem Amaya on 06-03-2024 CO2 [Moles/Vol] 22.0 mmol/L 21.0-32.0 [facility] Chloride measurementOrdered By: Alem Amaya on 06-03-2024 Chloride [Moles/Vol] 110 mmol/L High 98-107 [facility] Emergency Department Summary on 06-03-2024 Emergency Department Summary [facility] Medical Records Department [address] [facility] [place] [address] Emergency Department Summary 06/03/24 MR#: [id number] Acct: [id number] Name: SARIKA FERREIRA Rep #: [id number] : 1990 34 From: Alem BERGMAN PCP: Care Physician,No Primary Status:DEP ER Location: ED HPI History of Present Illness Chief Complaint: Seizure Narrative Narrative: Patient presenting today due to a seizure that occurred around 10 AM this morning. It was witnessed by her mom who reports that she became rigid and had generalized convulsions for about 2 minutes. Patient did have urinary incontinence and did bite the sides of her tongue during this episode. She is currently 25 weeks , she is G1, P0, she follows with [facility] in [place]. She has had a seizure in the past, her last seizure was in December and she was diagnosed with MS at that time, she follows with a neurologist in [place] but is unsure of their name. They were hesitant to start her on antiseizure medication right away and decided to wait to see if she were to have another seizure. She reports that she got the flu shot yesterday. She denies fevers, chills, recent illness, abdominal pain, nausea, and vomiting. She denies any history of preeclampsia. [facility] Medical History Multiple sclerosis Substance abuse Anxiety Kidney stones Smoker Home Medications ???Medication ???Instructions ???Recorded ???Last Taken ???Type cyclobenzaprine 10 mg tablet 10 mg PO TID PRN PRN pain 06/03/24 Unknown History folic acid 1 mg tablet 3 mg PO DAILY 06/03/24 Unknown History lurasidone 40 mg tablet 40 mg PO QPM 06/03/24 Unknown History metoprolol succinate 25 mg 25 mg PO DAILY 06/03/24 Unknown History tablet,extended release 24 hr Allergy/AdvReac Type Severity Reaction Status Date / Time No Known Allergies Allergy Verified 06/03/24 12:10 Family History Mother Diabetes CVA (cerebral vascular accident) Dementia Father Aneurysm Social History Smoking Status: Unknown if ever smoked ROS ROS ED Constitutional Constitutional ED: Denies chills or fever(s) Cardiovascular Cardiovascular: Denies chest pain Respiratory/Chest Respiratory/Chest: Denies cough or dyspnea Gastrointestinal Gastrointestinal: Denies abdominal pain, nausea or vomiting Musculoskeletal Musculoskeletal: Denies arthralgias or myalgias Integumentary Denies rash Neurologic Neurologic: Denies weakness EXAM Physical Exam Const Vital Signs: 06/03/24 12:10 06/03/24 14:10 Temperature 97.3 F L Temperature Source Temporal Pulse Rate 98 86 Respiratory Rate 14 16 Blood Pressure 122/77 H 120/68 Blood Pressure Mean 92 85 Pulse Ox 100 98 Oxygen Delivery Method Room Air Positive well nourished, well developed and no apparent distress General Appearance ED: well developed HEENT Reports normocephalic and head/scalp atraumatic HEENT Narrative: Superficial lacerations to the right and left side of the tongue with no active bleeding. Mouth ED: Yes moist mucous membranes normal Eyes PERRL and EOMs intact bilaterally Neck full ROM and supple Chest Wall inspection of chest normal Resp normal respiratory effort and clear to auscultation bilaterally Cardio regular rate and regular rhythm GI soft to palpation, non-tender, non-distended and no masses Back/Spine normal ROM and normal to inspection Extremity normal to inspection and full ROM Neuro oriented x3, CN's II-XII intact bilaterally, moves all extremities, no focal motor deficits and no sensory deficits noted Sensorium / Orientation: awake and alert Psych mental status grossly normal and thought process normal Skin no rashes or lesions noted and no wounds Physical Exam Const Vital Signs: 06/03/24 12:10 06/03/24 14:10 Temperature 97.3 F L Temperature Source Temporal Pulse Rate 98 86 Respiratory Rate 14 16 Blood Pressure 122/77 H 120/68 Blood Pressure Mean 92 85 Pulse Ox 100 98 Oxygen Delivery Method Room Air MDM MDM MDM Narrative Medical decision making narrative: Patient presenting today due to a seizure that occurred around 10 AM this morning. She does have a history of a seizure back in December when she was also diagnosed with MS. She is not currently on any antiseizure medication. She has no history of preeclampsia that she is aware of. Her blood pressure here is 122/77. She is back to her baseline. She has superficial lacerations on the right and left side of her tongue with no active bleeding, no laceration that requires repair. Workup will be obtained. I will speak with OB. I spoke with Dr. Alcazar (more content not included)... Normal [facility] Eosinophil percentageOrdered By: Alem Amaya on 06-03-2024 Eosinophils/100 WBC (Bld) 0.4 % 0-5 [facility] Epithelial cells.renal LM.HP F (Urine sed) [#/Area]Ordered By: Alem Amaya on 06-03-2024 Urine Renal Epithelial Cells 0-5 SEEN /hpf 0-5 [facility] Epithelial cells.squamous LM Ql (Urine sed)Ordered By: Alem Amaya on 06-03-2024 Epithelial cells.squamous LM.HPF (Urine sed) [#/Area] 5 /[HPF] 5-10 [facility] Erythrocyte distribution wid th ratioOrdered By: Alem Amaya on 06-03-2024 Erythrocyte distribution width (RBC) [Ratio] 13.6 % 11.6-14.6 [facility] Erythrocyte distribution wid th standard deviationOrdered By: Alem Amaya on 06-03-2024 Erythrocyte distribution width (RBC) [Entitic vol] 48.1 fL High 35.1-43.9 [facility] Estimated glomerular filtrat ion rate (GFR) AmericanOrdered By: Alem Amaya on 06-03-2024 Estimated GFR (MDRD) Amer 180 mL/min >60 [facility] Comment on above: GFR Calc Estimation of creatinine aren aranceOrdered By: Alem Amaya on 06-03-2024 Estimated Creatinine Clearance Calc 159.16 ml/min [facility] Glomerular filtration rate ( GFR) estimationOrdered By: Alem Amaya on 06-03-2024 Estimated GFR (MDRD) Non-Af Amer 149 mL/min >60 [facility] Comment on above: Non- GFR Calc Glucose Ql (U)Ordered By: Anuja Amaya on 06-03-2024 Urine Glucose (UA) Normal mg/dl Normal [facility] Glucose measurementOrdered B y: Alem Amaya on 06-03-2024 Glucose [Mass/Vol] 86 mg/dL 74-106 [facility] Hematocrit Auto (Bld) [Volum e fraction]Ordered By: Alem Amaya on 06-03-2024 Hematocrit (Bld) [Volume fraction] 38.2 % 37-47 [facility] Hemoglobin measurementOrdere d By: Alem Amaya on 06-03-2024 Hemoglobin (Bld) [Mass/Vol] 12.5 g/dL 12.0-15.0 [facility] Immature granulocytes/100 WB C Auto (Bld)Ordered By: Alem Amaya on 06-03-2024 Immature granulocytes/100 WBC (Bld) 1.300 % High 0.0-0.9 [facility] Comment on above: IG% - Immature Granu locytes (promyelocytes, myelocytes and metamyelocytes) > 1% indicates that a LEFT SHIFT is Present. Ketones Test strip Ql (U)Ord ered By: Alem Amaya on 06-03-2024 Ketones Ql (U) 50 mg/dl High Negative [facility] - Chemistry and C hemistry - challengeOrdered By: Alem Amaya on 06-03-2024 AST [Catalytic activity/Vol] 14 U/L Low 15-37 [facility] Liver Profileon 06-03-2024 Albumin [Mass/Vol] 2.7 g/dL Low 3.2-5.0 [facility] Comment on above: Performed By: #### L 500.2500, L100.0100, L501.5200, L505.5000 #### [facility] [address] [place], [address] ALK P 56 U/L Normal 45-117 [facility] Comment on above: Performed By: #### L 500.2500, L100.0100, L501.5200, L505.5000 #### [facility] [address] [place], [address] ALT [Catalytic activity/Vol] 16 U/L Normal 13-56 [facility] Comment on above: Performed By: #### L 500.2500, L100.0100, L501.5200, L505.5000 #### [facility] [address] [place], [address] AST [Catalytic activity/Vol] 14 U/L Low 15-37 [facility] Comment on above: Performed By: #### L 500.2500, L100.0100, L501.5200, L505.5000 #### [facility] [address] [place], [address] Bilirubin [Mass/Vol] 0.30 mg/dL Normal 0.20-1.00 [facility] Comment on above: Result Comment: For patients on eltrombopag therapy, use of Dimension [place] TBIL is not recommended. Performed By: #### L 500.2500, L100.0100, L501.5200, L505.5000 #### [facility] [address] [place], [address] D BILI < 0.05 Normal 0.00-0.30 [facility] Comment on above: Performed By: #### L 500.2500, L100.0100, L501.5200, L505.5000 #### [facility] [address] [place], [address] Globulin (S) [Mass/Vol] 3.5 g/dL Normal 2.2-4.2 [facility] Comment on above: Performed By: #### L 500.2500, L100.0100, L501.5200, L505.5000 #### [facility] [address] [place], [address] T PROT 6.2 g/dL Low 6.4-8.2 [facility] Comment on above: Performed By: #### L 500.2500, L100.0100, L501.5200, L505.5000 #### [facility] [address] [place], [address] Lymphocytes Auto (Unsp spec) [#/Vol]Ordered By: Alem Amaya on 06-03-2024 Lymphocytes (Bld) [#/Vol] 0.93 10*3/uL 0.83-4.51 [facility] Lymphocytes/100 WBC Auto (Un sp spec)Ordered By: Alem Amaya on 06-03-2024 Lymphocytes/100 WBC (Bld) 7.0 % Low 19-41 [facility] MCV (mean corpuscular volume ) determinationOrdered By: Alem Amaya on 06-03-2024 MCV (RBC) [Entitic vol] 95.5 fL 81-99 [facility] Magnesiumon 06-03-2024 Magnesium [Mass/Vol] 1.9 mg/dL Normal 1.6-2.6 [facility] Comment on above: Performed By: #### L 500.2500, L100.0100, L501.5200, L505.5000 #### [facility] [address] [place], [address] Magnesium measurementOrdered By: Alem Amaya on 06-03-2024 Magnesium [Mass/Vol] 1.9 mg/dL 1.6-2.6 [facility] Mean corpuscular hemoglobin (MCH) determinationOrdered By: Alem Amaya on 06-03-2024 MCH (RBC) [Entitic mass] 31.3 pg 27.0-32.0 [facility] Mean corpuscular hemoglobin concentration (MCHC) determinationOrdered By: Alem Amaya on 06-03-2024 MCHC (RBC) [Mass/Vol] 32.7 g/dL 32-36 [facility] Mean platelet volume determi nationOrdered By: Alem Amaya on 06-03-2024 Platelet mean volume (Bld) [Entitic vol] 10.2 fL 6.2-12.0 [facility] Microscopic analysis of urin e for red blood cells (RBC)Ordered By: Alem Amaya on 06-03-2024 Urine RBC 0-5 SEEN /hpf 0-5 [facility] Monocyte percentageOrdered B y: Alem Amaya on 06-03-2024 Monocytes/100 WBC (Bld) 3.9 % 0-10 [facility] Mucus LM Ql (Urine sed)Order ed By: Alem Amaya on 06-03-2024 Mucus Ql (Urine sed) 1+ /hpf [facility] Neutrophil percentageOrdered By: Alem Amaya on 06-03-2024 Neutrophils/100 WBC (Bld) 87.2 % High 47-70 [facility] Nitrite Test strip Ql (U)Ord ered By: Alem Amaya on 06-03-2024 Nitrite Ql (U) Negative Negative [facility] Nucleated red blood cell per centageOrdered By: Alem Amaya on 06-03-2024 Nucleated RBC/100 WBC (Bld) [Ratio] 0 % 0-5 [facility] OB Limited (No Biometrics)on 06-03-2024 OB Limited (No Biometrics) [facility] Imaging Services [address] [place] [address] OB Limited (No Biometrics) MR#: [id number] Acct: [id number] Name: SARIKA FERREIRA Rep #: [id number] : 1990 F 34 From: Anjel oneil MD PCP: Care Physician,No Primary Status: REG ER Study: OB Limited (No Biometrics) Date of Exam: 06/03 Exam# [id number] Ordering Dr: Alem Amaya [place] [id number] STUDY: SECOND AND THIRD TRIMESTER OBSTETRICAL ULTRASOUND - LIMITED REASON FOR EXAM: Female, 34 years old seizure, LMP: December 11, 2023. PRIOR ULTRASOUND: None. TECHNIQUE: Transabdominal TECHNICAL QUALITY: Adequate. FINDINGS: There is a single intrauterine fetus. The fetus is in a cephalic presentation. There is demonstrated cardiac activity with a heart rate of 155 bpm. There is a normal amniotic fluid volume. The largest amniotic fluid pocket measures 4.5 cm. The amniotic fluid index (BROOK) is within normal limits. The placenta is anterior in location and is not low lying. There are Grade 0 placental changes. BIOMETRY: Age by LMP: 25 weeks, 0 days. JOSE A by LMP: September 16, 2024.. Patient had a seizure during the exam. Gender: US/OB Limited (No Biometrics) IMPRESSION: Live intrauterine gestation. Examination not completed. Patient had a seizure during the study. Electronically Signed: Anjel Bolaños MD at 14:55 EST , CC: PACHECO Dunn; No Primary Care Physician Hardware Trainer: Signed Normal [facility] Platelet countOrdered By: Anuja Amaya on 06-03-2024 Platelets (Bld) [#/Vol] 211 10*3/uL 150-450 [facility] Potassium measurementOrdered By: Alem Amaya on 06-03-2024 Potassium [Moles/Vol] 4.0 mmol/L 3.5-5.1 [facility] Protein Test strip Ql (U)Ord ered By: Alem Amaya on 06-03-2024 Protein Ql (U) 15 mg/dl High Negative [facility] Protein+Creatinine Ratio,Uri neon 06-03-2024 PROT:CRE RATIO 155 mg/g CRE Normal 0-200 [facility] Comment on above: Performed By: #### L 500.2500, L100.0100, L501.5200, L505.5000 #### [facility] [address] [place], [address] Protein (U) [Mass/Vol] 24.3 mg/dL High <11.9 [facility] Comment on above: Performed By: #### L 500.2500, L100.0100, L501.5200, L505.5000 #### [facility] [address] [place], [address] UR CREAT 157.00 mg/dL Normal NO RANGE EST. [facility] Comment on above: Performed By: #### L 500.2500, L100.0100, L501.5200, L505.5000 #### [facility] [address] [place], [address] Protein/Creatinine (U) [Mass ratio]Ordered By: Alem Amaya on 06-03-2024 Urine Protein/Creatinine Ratio 155 mg/g CRE 0-200 [facility] RBC Auto (Bld) [#/Vol]Ordere d By: Alem Amaya on 06-03-2024 RBC (Bld) [#/Vol] 4.00 10*6/uL Low 4.2-5.4 [facility] Random urine protein measure mentOrdered By: Alem Amaya on 06-03-2024 Protein (U) [Mass/Vol] 24.3 mg/dL High 0.0-11.8 [facility] Serum anion gap measurementO rdered By: Alem Amaya on 06-03-2024 Anion gap [Moles/Vol] 5 mmol/L 5-15 [facility] Serum globulin measurementOr dered By: Alem Amaya on 06-03-2024 Globulin (S) [Mass/Vol] 3.5 g/dL 2.2-4.2 [facility] Serum or plasma alanine marques otransferase (ALT) measurementOrdered By: Alem Amaya on 06-03-2024 ALT [Catalytic activity/Vol] 16 U/L 13-56 [facility] Serum or plasma albumin alessandra urement (mass/volume)Ordered By: Alem Amaya on 06-03-2024 Albumin [Mass/Vol] 2.7 g/dL Low 3.2-5.0 [facility] Serum or plasma alkaline steven sphatase measurementOrdered By: Alem Amaya on 06-03-2024 ALP [Catalytic activity/Vol] 56 U/L 45-117 [facility] Serum or plasma calcium alessandra urement (mass/volume)Ordered By: Alem Amaya on 06-03-2024 Calcium [Mass/Vol] 8.2 mg/dL Low 8.5-10.1 [facility] Serum or plasma creatinine m easurement (mass/volume)Ordered By: Alem Amaya on 06-03-2024 Creatinine [Mass/Vol] 0.50 mg/dL Low 0.55-1.02 [facility] Comment on above: The validity of the calculated GFR & GFRAA in patients over 70 years has not been determined. Clinical correlation is essential. Serum or plasma urea nitroge n measurement (mass/volume)Ordered By: Alem Amaya on 06-03-2024 Urea nitrogen [Mass/Vol] 7 mg/dL 7-18 [facility] Sodium levelOrdered By: Alberto Amaya on 06-03-2024 Sodium [Moles/Vol] 137 mmol/L 136-145 [facility] Total proteinOrdered By: Reggie Amaya on 06-03-2024 Protein [Mass/Vol] 6.2 g/dL Low 6.4-8.2 [facility] Urinalysis, Completeon 06-03 EPI,SQUAMOUS 5-10 SEEN Normal 5-10 [facility] Comment on above: Order Comment: COLLE CTOR TO SPECIFY Performed By: #### L 500.2500, L100.0100, L501.5200, L505.5000 #### [facility] [address] [place], [address] Mucus Ql (Urine sed) 1+ /hpf Normal [facility] Comment on above: Order Comment: COLLE CTOR TO SPECIFY Performed By: #### L 500.2500, L100.0100, L501.5200, L505.5000 #### [facility] [address] [place], [address] BACTERIA 4+ /hpf Normal None Seen [facility] Comment on above: Order Comment: COLLE CTOR TO SPECIFY Performed By: #### L 500.2500, L100.0100, L501.5200, L505.5000 #### [facility] [address] [place], [address] EPI,RENAL 0-5 SEEN Normal 0-5 [facility] Comment on above: Order Comment: [facility] CTOR TO SPECIFY Performed By: #### L 500.2500, L100.0100, L501.5200, L505.5000 #### [facility] [address] [place], [address] RBC 0-5 SEEN Normal 0-5 [facility] Comment on above: Order Comment: [facility] CTOR TO SPECIFY Performed By: #### L 500.2500, L100.0100, L501.5200, L505.5000 #### [facility] [address] [place], [address] WBC 0-5 SEEN Normal 0-5 [facility] Comment on above: Order Comment: [facility] CTOR TO SPECIFY Performed By: #### L 500.2500, L100.0100, L501.5200, L505.5000 #### [facility] [address] [place], [address] Urine Drug Screen (VISTA)on 06-03-2024 AMPHETAMINES Normal <1000 ng/mL [facility] Comment on above: Result Comment: Will bailey via OM: Ordered Performed By: #### L 500.2500, L100.0100, L501.5200, L505.5000 #### [facility] [address] [place], [address] BARBITIURATES Normal < 200 ng/mL [facility] Comment on above: Result Comment: Canc elled via OM: MD Ordered Performed By: #### L 500.2500, L100.0100, L501.5200, L505.5000 #### [facility] [address] [place], [address] BENZODIAZIPINE Normal < 200 ng/mL [facility] Comment on above: Result Comment: Canc elled via OM: MD Ordered Performed By: #### L 500.2500, L100.0100, L501.5200, L505.5000 #### [facility] [address] [place], [address] COCAINE Normal < 300 ng/mL [facility] Comment on above: Result Comment: Canc elled via OM: MD Ordered Performed By: #### L 500.2500, L100.0100, L501.5200, L505.5000 #### [facility] [address] [place], [address] DRUG CONFIRM Normal [facility] Comment on above: Result Comment: Canc elled via OM: MD Ordered Performed By: #### L 500.2500, L100.0100, L501.5200, L505.5000 #### [facility] [address] [place], [address] ECSTACY Normal < 500 ng/mL [facility] Comment on above: Result Comment: Canc elled via OM: MD Ordered Performed By: #### L 500.2500, L100.0100, L501.5200, L505.5000 #### [facility] [address] [place], [address] METHADONE Normal < 300 ng/mL [facility] Comment on above: Result Comment: Canc elled via OM: MD Ordered Performed By: #### L 500.2500, L100.0100, L501.5200, L505.5000 #### [facility] [address] [place], [address] OPIATES Normal < 300 ng/mL [facility] Comment on above: Result Comment: Canc elled via OM: MD Ordered Performed By: #### L 500.2500, L100.0100, L501.5200, L505.5000 #### [facility] [address] [place], [address] PCP Normal < 25 ng/mL [facility] Comment on above: Result Comment: Canc elled via OM: MD Ordered Performed By: #### L 500.2500, L100.0100, L501.5200, L505.5000 #### [facility] [address] [place], [address] THC Normal < 50 ng/mL [facility] Comment on above: Result Comment: Canc elled via OM: MD Ordered Performed By: #### L 500.2500, L100.0100, L501.5200, L505.5000 #### [facility] [address] [place], [address] VISTA UDS PH Normal [facility] Comment on above: Result Comment: Canc elled via OM: MD Ordered Performed By: #### L 500.2500, L100.0100, L501.5200, L505.5000 #### [facility] [address] [place], [address] Urine blood detectionOrdered By: Alem Amaya on 06-03-2024 Urine Occult Blood Negative Negative [facility] Urine clarityOrdered By: Reggie Amaya on 06-03-2024 Clarity (U) Sl. Cloudy Clear [facility] Urine color determinationOrd ered By: Alem Amaya on 06-03-2024 Color (U) Yellow Yellow [facility] Urine creatinine measurement (mass/volume)Ordered By: Alem Amaya on 06-03-2024 Creatinine (U) [Mass/Vol] 157.00 mg/dL NO RANGE EST. [facility] Urine leukocyte esterase det ection by dipstickOrdered By: Alem Amaya on 06-03-2024 Leukocyte esterase Test strip Ql (U) 25 /ul High Negative [facility] Urine pHOrdered By: Jg Amaya on 06-03-2024 pH (U) 6.0 [pH] 5.0 - 8.0 [facility] Urine sediment bacteria coun t by microscopy (number/high power field)Ordered By: Alem Amaay on 06-03-2024 Bacteria LM.HPF (Urine sed) [#/Area] 4 /[HPF] None Seen [facility] Urine specific gravity measu rementOrdered By: Alem Amaya on 06-03-2024 Specific gravity (U) [Rel density] 1.020 1.002-1.030 [facility] Urobilinogen Ql (U)Ordered B y: Alem Amaya on 06-03-2024 Urine Urobilinogen Normal mg/dl Normal [facility] White blood cell (WBC) count Ordered By: Alem Amaya on 06-03-2024 WBC (Bld) [#/Vol] 13.4 10*3/uL High 4.4-11.0 [facility] White blood cell countOrdere d By: Alem Amaya on 06-03-2024 Urine WBC 0-5 SEEN /hpf 0-5 [facility] Examination level ultrasound on 06-02-2024 [facility] Radiology [facility]narrative[facility] HNO ID: [id number] Author: LYUDMILA MENDEZ RDMS Service: Radiology Author Type: Milanese Knitting Machine Operator Type: Allied Health Filed: 05/31/2024 21:47 Note Text: Radiology Service Progress Note PATIENT NAME: Sarika Ferreira DATE OF SERVICE: May 31, 2024 TIME: 9:46 PM PATIENT IDENTITY VERIFICATION COMPLETED USING TWO (2) IDENTIFIERS: Name and Date of confirmed by patient verbally and Name and Date of confirmed by identification band. FALL SCREENING: Has the patient had 2 falls in the last year or 1 fall with injury or currently using an Ambulatory Assistive Device (Walker, Cane, Wheelchair, Crutches, etc.)? Inpatient: Screened on floor PATIENT GENDER DATA: Female. status: : Yes. Urinalysis hCG results are as follows: Positive status: N/A PATIENT RELEVANT IMPLANT DATA REVIEWED: Not Applicable PATIENT PRESENTS WITH AN IMPLANTABLE OR ATTACHED SENIOR PHP SOFTWARE DEVELOPER: No RADIOLOGY DEPARTMENT: Ultrasound PERIPHERAL IV DATA: Not applicable SIGNED BY: Lyudmila Mendez RDMS May 31, 2024 9:46 PM Normal [facility] Amylase SerPl-cCncon 024 Amylase [Catalytic activity/Vol] 63 U/L Normal 30-104 [facility] Comment on above: Order Comment: Speci men Type: BLOOD SPECIMENOrdering Facility: [facility] Address: [address] [place] [address] Performed By: #### 1 798-8, 93329-5, 3040-3 ####[facility]ORATORYCLIA [id number] [place] [address] [place] BACTERIAL VAGINOSIS NAATon 1 08-01-2023 Lactobacillus crispatus+gasseri+jense alessandra + Gardnerella vaginalis + Atopobium vaginae rRNA OJ+probe Ql (Vag fld) Not detected Normal Not detected [facility] Comment on above: Order Comment: Speci men Type: SWABOrdering Facility: [facility] Address: [address] [place] [address] Performed By: #### B VAMP, CVTV ####[facility] [id number] [place] [address] [place] HAYES/TRICHOMONAS NAATon 1 08-01-2023 C. glabrata RNA JO+probe Ql (Vag fld) Not detected Normal Not detected [facility] Comment on above: Order Comment: Speci men Type: SWABOrdering Facility: [facility] Address: [address] [place] [address] Performed By: #### B VAMP, CVTV ####[facility]CL[facility] [id number] [place] [address] [place] Hayes sp DNA JO+probe Ql (Vag fld) Not detected Normal Not detected [facility] Comment on above: Order Comment: Speci men Type: SWABOrdering Facility: [facility] Address: [address] [place] [address] Result Comment: The Hayes species group target includes C. albicans, C. tropicalis, C. parapsilosis, and C. dubliniensis. Performed By: #### B VAMP, CVTV ####[facility] [id number] [address] T. vaginalis DNA JO+probe Ql (Unsp spec) Not detected Normal Not detected [facility] Comment on above: Order Comment: Speci men Type: SWABOrdering Facility: [facility] Address: [address] [place] [address] Performed By: #### B VAMP, CVTV ####[facility] [id number] [address] [place] CBC panel Auto (Bld)on 05-31 Erythrocyte distribution width (RBC) [Ratio] 13.6 % Normal 11.5-15.0 [facility] Comment on above: Order Comment: Speci men Type: BLOOD SPECIMENOrdering Facility: [facility] Address: [address] [place] [address] Performed By: #### 5 8410-2 ####[facility]ORATORYCLIA [id number] [place] [address] [place] Hematocrit (Bld) [Volume fraction] 34.1 % Low 36.0-46.0 [facility] Comment on above: Order Comment: Speci men Type: BLOOD SPECIMENOrdering Facility: [facility] Address: [address] [place] [address] Performed By: #### 5 8410-2 ####[facility] LABORATORYCLIA [id number] [place] [address] [place] Hemoglobin (Bld) [Mass/Vol] 11.1 g/dL Low 11.5-15.5 [facility] Comment on above: Order Comment: Speci men Type: BLOOD SPECIMENOrdering Facility: [facility] Address: [address] [place] [address] Performed By: #### 5 8410-2 ####[facility] LABORATORYCLIA [id number] [address] STATES [facility] MCH (RBC) [Entitic mass] 31.3 pg Normal 26.0-34.0 [facility] Comment on above: Order Comment: Speci men Type: BLOOD SPECIMENOrdering Facility: [facility] Address: [address] [place] [address] Performed By: #### 5 8410-2 ####[facility]ORATORYCLIA [id number] [address] [place] MCHC (RBC) [Mass/Vol] 32.6 g/dL Normal 30.5-36.0 [facility] Comment on above: Order Comment: Speci men Type: BLOOD SPECIMENOrdering Facility: [facility] Address: [address] [place] [address] Performed By: #### 5 8410-2 ####[facility]ORATORYCLIA [id number] [address] [place] MCV (RBC) [Entitic vol] 96.1 fL Normal 80.0-100.0 [facility] Comment on above: Order Comment: Speci men Type: BLOOD SPECIMENOrdering Facility: [facility] Address: [address] [place] [address] Performed By: #### 5 8410-2 ####[facility]ORATORYCLIA [id number] [address] [place] Nucleated RBC (Bld) [#/Vol] 10*3/uL Normal <0.01 [facility] Comment on above: Order Comment: Speci men Type: BLOOD SPECIMENOrdering Facility: [facility] Address: [address] [place] [address] Performed By: #### 5 8410-2 ####[facility] LABORATORYCLIA [id number] [place] [address] [place] Platelet mean volume (Bld) [Entitic vol] 10.3 fL Normal 9.0-12.7 [facility] Comment on above: Order Comment: Speci men Type: BLOOD SPECIMENOrdering Facility: [facility] Address: [address] [place] [address] Performed By: #### 5 8410-2 ####[facility]ORATORYCLIA [id number] [place] [id number] [place] Platelets (Bld) [#/Vol] 217 10*3/uL Normal 150-400 [facility] Comment on above: Order Comment: Speci men Type: BLOOD SPECIMENOrdering Facility: [facility] Address: [address] [place] [address] Performed By: #### 5 8410-2 ####[facility]ORATORYCLIA [id number] [place] [address] [place] RBC (Bld) [#/Vol] 3.55 10*6/uL Low 3.90-5.20 [facility] Comment on above: Order Comment: Speci men Type: BLOOD SPECIMENOrdering Facility: [facility] Address: [address] [place] [address] Performed By: #### 5 8410-2 ####[facility]ORATORYCLIA [id number] [place] [id number] [place] WBC (Bld) [#/Vol] 11.52 10*3/uL High 3.70-11.00 [facility] Comment on above: Order Comment: Speci men Type: BLOOD SPECIMENOrdering Facility: [facility] Address: [address] [place] [address] Performed By: #### 5 8410-2 ####[facility]ORATORYCLIA [id number] [place] [id number] [place] Comprehensive metabolic 2000 panelon 05-31-2024 Albumin [Mass/Vol] 3.3 g/dL Low 3.9-4.9 [facility] Comment on above: Order Comment: Speci men Type: BLOOD SPECIMENOrdering Facility: [facility] Address: [address] [place] [address] Performed By: #### 1 798-8, 23029-2, 3040-3 ####[facility] LABORATORYCLIA [id number] [place] [id number] [place] ALP [Catalytic activity/Vol] 53 U/L Normal 34-123 [facility] Comment on above: Order Comment: Speci men Type: BLOOD SPECIMENOrdering Facility: [facility] Address: [address] [place] [address] Performed By: #### 1 798-8, 79958-2, 0-3 ####[facility] LABORATORYCLIA [id number] [place] [id number] [place] ALT [Catalytic activity/Vol] 10 U/L Normal 7-38 [facility] Comment on above: Order Comment: Speci men Type: BLOOD SPECIMENOrdering Facility: [facility] Address: [address] [place] [address] Performed By: #### 1 798-8, 08802-1, 0-3 ####[facility] LABORATORYCLIA [id number] [place] [id number] [place] Anion gap [Moles/Vol] 11 mmol/L Normal 8-15 [facility] Comment on above: Order Comment: Speci men Type: BLOOD SPECIMENOrdering Facility: [facility] Address: [address] [place] [address] Performed By: #### 1 798-8, 75789-3, 3040-3 ####[facility] LABORATORYCLIA [id number] [place] [id number] [place] AST [Catalytic activity/Vol] 14 U/L Normal 13-35 [facility] Comment on above: Order Comment: Speci men Type: BLOOD SPECIMENOrdering Facility: [facility] Address: [address] [place] [address] Performed By: #### 1 798-8, 89838-3, 3040-3 ####[facility] LABORATORYCLIA [id number] [place] [id number] [place] Bilirubin [Mass/Vol] mg/dL Low 0.2-1.3 [facility] Comment on above: Order Comment: Speci men Type: BLOOD SPECIMENOrdering Facility: [facility] Address: [address] [facility] [place] [address] Performed By: #### 1 798-8, 96761-1, 3040-3 ####[facility] LABORATORYCLIA [id number] [place] [address] [place] Calcium [Mass/Vol] 8.7 mg/dL Normal 8.5-10.2 [facility] Comment on above: Order Comment: Speci men Type: BLOOD SPECIMENOrdering Facility: [facility] Address: [address] [place] [address] Performed By: #### 1 798-8, 10563-6, 0-3 ####[facility] LABORATORYCLIA [id number] [place] [address] [place] Chloride [Moles/Vol] 105 mmol/L Normal 98-107 [facility] Comment on above: Order Comment: Speci men Type: BLOOD SPECIMENOrdering Facility: [facility] Address: [address] [place] [address] Performed By: #### 1 798-8, 76005-4, 0-3 ####[facility] LABORATORYCLIA [id number] [place] [id number] [place] CO2 [Moles/Vol] 21 mmol/L Low 22-30 [facility] Comment on above: Order Comment: Speci men Type: BLOOD SPECIMENOrdering Facility: [facility] Address: [address] [place] [address] Performed By: #### 1 798-8, 67134-4, 3040-3 ####[facility] LABORATORYCLIA [id number] [place] [id number] [place] Creatinine [Mass/Vol] 0.53 mg/dL Low 0.58-0.96 [facility] Comment on above: Order Comment: Speci men Type: BLOOD SPECIMENOrdering Facility: [facility] Address: [address] [place] [address] Performed By: #### 1 798-8, 77260-2, 3040-3 ####[facility]ORATORYCLIA [id number] [place] [id number] [place] Creatinine and Glomerular filtration rate.predicted panel (S/P/Bld) 124 mL/min/1.73m??? Normal >=60 [facility] Comment on above: Order Comment: Crista rosario Type: BLOOD SPECIMENOrdering Facility: [facility] Address: [address] [place] [address] Result Comment: Neli mated Glomerular Filtration Rate (eGFR) is calculated using the 2020 CKD-EPI creatinine equation. This equation utilizes serum creatinine, sex, and age as parameters. The creatinine assay has traceable calibration to isotope dilution-mass spectrometry. Refer to KDIGO guidelines for clinical interpretation. In patients with unstable renal function, e.g. those with acute kidney injury, the eGFR may not accurately reflect actual GFR. Performed By: #### 1 798-8, 85824-8, 3040-3 ####[facility]ORATORYCLIA [id number] [place] [id number] [place] Glucose [Mass/Vol] 101 mg/dL High 74-99 [facility] Comment on above: Order Comment: Crista rosario Type: BLOOD SPECIMENOrdering Facility: [facility] Address: [address] [place] [address] Result Comment: The [place] Diabetes Association (ADA) provides guidance for cutoff values for fasting glucose and random glucose. The ADA defines fasting as no caloric intake for at least 8 hours. Fasting plasma glucose results between 100 to 125 mg/dL indicate increased risk for diabetes (prediabetes). Fasting plasma glucose results greater than or equal to 126 mg/dL meet the criteria for diagnosis of diabetes. In the absence of unequivocal hyperglycemia, results should be confirmed by repeat testing. In a patient with classic symptoms of hyperglycemia or hyperglycemic crisis, random plasma glucose results greater than or equal to 200 mg/dL meet the criteria for diagnosis of diabetes. Reference: Standards of Medical Care in Diabetes 2016, [place] Diabetes Association. Diabetes Care. 2016.39(Suppl 1). Performed By: #### 1 798-8, 66368-4, 3040-3 ####[facility]ORATORYCLIA [id number] [place] [id number] [place] Potassium [Moles/Vol] 3.7 mmol/L Normal 3.7-5.1 [facility] Comment on above: Order Comment: Speci men Type: BLOOD SPECIMENOrdering Facility: [facility] Address: [address] [place] [address] Performed By: #### 1 798-8, 70812-6, 3040-3 ####[facility]ORATORYCLIA [id number] [place] [id number] [place] Protein [Mass/Vol] 5.5 g/dL Low 6.3-8.0 [facility] Comment on above: Order Comment: Speci men Type: BLOOD SPECIMENOrdering Facility: [facility] Address: [address] [place] [address] Performed By: #### 1 798-8, 56067-2, 3040-3 ####[facility]ORATORYCLIA [id number] [place] [id number] [place] Sodium [Moles/Vol] 137 mmol/L Normal 136-144 [facility] Comment on above: Order Comment: Speci men Type: BLOOD SPECIMENOrdering Facility: [facility] Address: [address] [place] [address] Performed By: #### 1 798-8, 57011-4, 3040-3 ####[facility]ORATORYCLIA [id number] [place] [id number] [place] Urea nitrogen [Mass/Vol] 11 mg/dL Normal 7-21 [facility] Comment on above: Order Comment: Speci men Type: BLOOD SPECIMENOrdering Facility: [facility] Address: [address] [place] [address] Performed By: #### 1 798-8, 33403-6, 3040-3 ####[facility]ORATORYCLIA [id number] [place] [id number] [place] HISTORY PHYSICALon 4 HISTORY PHYSICAL HNO ID: [id number] Author: RUFINA ROMERO MD Service: Obstetrics Author Type: Physician Type: H&P Filed: 06/01/2024 04:48 Note Text: OBSTETRICS HISTORY AND PHYSICAL SERVICE DATE: May 31, 2024 SERVICE TIME: 10:06 PM Subjective Patient's stated reason for arrival: abd pain CHIEF COMPLAINT: abdominal pain HISTORY OF THE PRESENT ILLNESS: The patient is a 34 year old female, , who is at 24w4d with an JOSE A of 09/16/2024, by Ultrasound dating method. Patient is here reporting left sided abdominal pain., States pain started this morning, is colicky and worsens with movement. Denies fevers, chills, nausea, vomiting, diarrhea, constipation. Last BM yesterday. Reports good PO intake and appetite. Denies dysuria, urgency frequency. Good movement. Denies vaginal bleeding., Denies contractions., Denies leaking of fluid. POST DELIVERY CONTRACEPTION: Discussed post-delivery contraception options. Patient received written information about post-delivery contraception options. Post delivery contraception not applicable for this patient. HISTORY REVIEW PAST MEDICAL HISTORY Diagnosis Date Marijuana use Multiple sclerosis (HCC) 2023 PCOS (polycystic ovarian syndrome) Tobacco use disorder PAST SURGICAL HISTORY Procedure Laterality Date TOOTH EXTRACTION FAMILY HISTORY Problem Relation Age of Onset Headache Mother migraine Diabetes Father Hypertension Father No Known Problems Brother No Known Problems Brother Emphysema Maternal Grandmother Cancer Maternal Grandfather unknown Emphysema Maternal Grandfather Cancer Paternal Grandmother unknown Heart Paternal Grandmother [place] No Known Problems Paternal Grandfather Ischemic Heart Disease Paternal Aunt [place] x 3 Diabetes Paternal Aunt Diabetes Paternal Aunt Diabetes Paternal Uncle Social History Tobacco Use Smoking status: Former Current packs/day: 0.50 Average packs/day: 0.5 packs/day for 2.0 years (1.0 ttl pk-yrs) Types: Cigarettes Smokeless tobacco: Never Vaping Use Vaping status: Never Used Substance Use Topics Alcohol use: Not Currently Drug use: Yes Frequency: 7.0 times per week Types: Marijuana Comment: 2-3 times daily Obstetric History T0 L0 SAB0 IAB0 Ectopic0 Multiple0 Live Births0 Name of Baby 1: Not recorded Date: Not recorded GA: Not recorded Type: Not recorded Apgar1: Not recorded Apgar5: Not recorded Living: Not recorded Active Non-Hospital Problems Diagnosis Date Noted Short cervix affecting 05/02/2024 Overview Note: 05/02/24 Pt to [facility] for possible cerclage per M. SW Short cervix during in second trimester 05/02/2024 History of seizures 03/15/2024 Overview Note: History of first seizure 01/05. Seeing Roopa Fonseca with neurology at [facility]. Appointment in July. Leilani Calixto APRN.CNM Multiple sclerosis affecting , antepartum (HCC) 03/15/2024 Vapes nicotine containing substance 02/22/2024 Overview Note: 02/22/24- Cessation encouraged. Patient decreasing nicotine levels. Keara Belle APRN.CNM Marijuana use during 02/22/2024 Overview Note: 02/22/24- Daily use. Cessation encouraged. Keara Belle APRN.CNM Bipolar 1 disorder ([facility]) 02/22/2024 Overview Note: 02/22/24- Patient starting counseling at [facility]. Initially was supposed to start taking mood stabilizer but declines medications at this time because of . She reports mood as stable today. No history of SI/HI or hospitalizations. Keara Belle APRN.CNM Encounter for supervision of high risk in first trimester, antepartum 02/22/2024 Overview Note: Care Checklist Vaccines: [] Flu vaccine [] declined [] RSV vaccine 32 0/7 - 36 6/7 (Feb - Jul) [] declined [] COVID vaccine [] declined [] TDaP 27-36 [] declined First trimester: [] Dating US [] 1st tri labs [] Pap smear [] Carrier screening [] declined [] NIPT screening [] declined [] First trimester anatomy scan [] declined [] universal ASA ordered (start 12w-16w) [] declined [] M Power Consult [] not indicated [] declined Second trimester: [] AFP [] declined [] Anatomy scan [] Mode of Delivery - [] Feeding - [] Pump ordered [] Diabetes screen [] CBC, RPR Third trimester (28-30 weeks): [] Consent [] Contraception - [] Transportation Manager Third trimester (36-40 weeks): [] GBS [] Presentation - [] Scheduled [] yes - Hibiclens, pre-op instructions, CBC, TANDS ordered [] no [] HANDP Acanthosis nigricans 09/10/2009 Irregular menses 09/10/2009 ALLERGIES No Known Allergies Prior to Admission Medications Prescriptions Last Dose Informant Patient Reported? Taking? acetaminophen (TYLENOL EXTRA STRENGTH) 500 mg tablet 05/31/2024 at 1600 Yes Yes Sig: Take 500 mg by mouth every 8 hours as needed for pain. aspirin, enteric coated (ECOTRIN LOW STRENGTH) 81 mg EC tablet (more content not included)... Normal [facility] Lipase SerPl-cCncon 05-31-20 24 Lipase [Catalytic activity/Vol] 31 U/L Normal 16-61 [facility] Comment on above: Order Comment: Speci men Type: BLOOD SPECIMENOrdering Facility: [facility] Address: [address] [place] [address] Performed By: #### 1 798-8, 42693-0, 3040-3 ####[facility] LABORATORYCLIA [id number] [address] [place] URINALYSIS, REFLEX MICROSCOP ICon 05-31-2024 Bilirubin Ql (U) Negative Normal Negative [facility] Comment on above: Order Comment: Speci men Type: URINE SPECIMENOrdering Facility: [facility] Address: [address] [place] [address] Performed By: #### L [id number] ####[facility]ORATORYCLIA [id number] [address] [place] Clarity (Unsp spec) Clear Normal Clear [facility] Comment on above: Order Comment: Speci men Type: URINE SPECIMENOrdering Facility: [facility] Address: [address] [place] [address] Performed By: #### L [id number] ####[facility]ORATORYCLIA [id number] [address] [place] Color (U) Light Yellow Normal Yellow [facility] Comment on above: Order Comment: Speci men Type: URINE SPECIMENOrdering Facility: [facility] Address: [address] [place] [address] Performed By: #### L [id number] ####[facility]ORATORYCLIA [id number] [address] [place] Epithelial cells LM.HPF (Urine sed) [#/Area] Few Normal [facility] Comment on above: Order Comment: Speci men Type: URINE SPECIMENOrdering Facility: [facility] Address: [address] [place] [address] Performed By: #### L [id number] ####[facility] LABORATORYCLIA [id number] [address] [place] Glucose Test strip (U) [Mass/Vol] Negative Normal Trace, Negative [facility] Comment on above: Order Comment: Speci men Type: URINE SPECIMENOrdering Facility: [facility] Address: [address] [place] [address] Performed By: #### L [id number] ####[facility] LABORATORYCLIA [id number] [place] [address] [place] Hemoglobin Ql (U) Negative Normal Negative, Trace [facility] Comment on above: Order Comment: Speci men Type: URINE SPECIMENOrdering Facility: [facility] Address: [address] [place] [address] Performed By: #### L [id number] ####[facility] LABORATORYCLIA [id number] [place] [address] [place] Ketones Ql (U) Negative Normal Negative, Trace [facility] Comment on above: Order Comment: Speci men Type: URINE SPECIMENOrdering Facility: [facility] Address: [address] [place] [address] Performed By: #### L [id number] ####[facility] LABORATORYCLIA [id number] [place] [address] [place] Leukocyte esterase Test strip Ql (U) Negative Normal Negative, 25 Eliezer/uL [facility] Comment on above: Order Comment: Speci men Type: URINE SPECIMENOrdering Facility: [facility] Address: [address] [place] [address] Performed By: #### L [id number] ####[facility]ORATORYCLIA [id number] [place] [address] [place] Nitrite Ql (U) Negative Normal Negative [facility] Comment on above: Order Comment: Speci men Type: URINE SPECIMENOrdering Facility: [facility] Address: [address] [place] [address] Performed By: #### L [id number] ####[facility]ORATORYCLIA [id number] [place] [id number] [place] pH (U) 6.0 [pH] Normal 5.0-8.0 [facility] Comment on above: Order Comment: Speci men Type: URINE SPECIMENOrdering Facility: [facility] Address: [address] [place] [address] Performed By: #### L [id number] ####[facility]ORATORYCLIA [id number] [place] [address] [place] Protein (U) [Mass/Vol] Trace Normal Trace, Negati ve [facility] Comment on above: Order Comment: Speci men Type: URINE SPECIMENOrdering Facility: [facility] Address: [address] [place] [address] Performed By: #### L [id number] ####[facility] CAMBRIDGECLIA [id number] [place] [address] [place] RBC LM.HPF (Urine sed) [#/Area] 0-3 /HPF Normal 0-3 /HPF [facility] Comment on above: Order Comment: Speci men Type: URINE SPECIMENOrdering Facility: [facility] Address: [address] [place] [address] Performed By: #### L [id number] ####[facility] HOSPITALIA [id number] [place] [id number] [place] Specific gravity (U) [Rel density] 1.026 Normal 1.005-1.030 [facility] Comment on above: Order Comment: Speci men Type: URINE SPECIMENOrdering Facility: [facility] Address: [address] [place] [address] Performed By: #### L [id number] ####[facility]ORY[facility]IA [id number] [place] [id number] [place] Urobilinogen Ql (U) Normal Normal Normal [facility] Comment on above: Order Comment: Speci men Type: URINE SPECIMENOrdering Facility: [facility] Address: [address] [place] [address] Performed By: #### L [id number] ####[facility]ATORYCLIA [id number] [address] WBC LM.HPF (Urine sed) [#/Area] 0-5 /HPF Normal 0-5 /HPF [facility] Comment on above: Order Comment: Speci men Type: URINE SPECIMENOrdering Facility: [facility] Address: [address] [place] [address] Performed By: #### L [id number] ####[facility]ATORYCLIA [id number] [place] [id number] [facility] US ABD APPENDIXon 05-31-2024 US ABD APPENDIX * * *Final Report* * * DATE OF EXAM: May 31 2024 9:59PM [facility] 1038 - US ABD APPENDIX / PROCEDURE REASON: Abdominal pain, acute * * * * Physician Interpretation * * * * EXAMINATION: US ABD APPENDIX CLINICAL HISTORY: Abdominal pain, acute Technique: US ABD APPENDIX Comparison: None. RESULT: The appendix is not visualized. Appendicitis cannot be excluded sonographically. Both ovaries are visualized and within normal limits. IMPRESSION: See result. Hardware Trainer: PSCSnehal Transcribe Date/Time: Jun 01 2024 12:06A Dictated by : CORI ROBLEDO MD This examination was interpreted and the report reviewed and electronically signed by: CORI ROBLEDO MD on Jun 01 2024 12:11AM EST [id number] Normal [facility] ANES POSTPROC EVALon 024 ANES POSTPROC EVAL HNO ID: [id number] Author: SCOTTY VILLANUEVA MD Service: Anesthesiology Author Type: Anesthesiologist Type: Anesthesia Postprocedure Evaluation Filed: 05/03/2024 15:02 Note Text: POST ANESTHESIA EVALUATION NOTE : 1990 Procedure Summary Date: 05/03/24 Room / Location: OR17 / OB Anesthesia Start: 1040 Anesthesia Stop: 1134 Procedure: CERCLAGE CERVIX DURING VAGINAL (Pelvis) Diagnosis: Cervical insufficiency during in second trimester, antepartum (Cervical insufficiency during in second trimester, antepartum [O34.32]) Surgeons: Jude Ramirez MD Responsible Provider: Scotty Villanueva MD Anesthesia Type: epidural ASA Status: 3 Anesthesia Type: epidural Last Vitals Vitals Value Taken Time BP 123/66 05/03/24 1335 Temp 36.6 ?C (97.9 ?F) 05/03/24 1330 Pulse 74 05/03/24 1335 Resp 18 05/03/24 1330 SpO2 100 % 05/03/24 1330 Vitals shown include unfiled device data. Post Anesthesia Patient Status Patient Evaluation: PACU. PACU/ICU Patient Condition: stable. Neurological Status: aware and responsive. Pulmonary Status: breathing comfortably on room air Airway Control: returned to baseline unsupported. Cardiovascular Status: stable. Pain Management: clinically adequate Postoperative Hydration: acceptable. Intraoperative Events: no significant anesthesia events Post Operative Nausea/Vomiting Status: no significant post operative nausea or vomiting Recommendation: continue current plan of care. Anesthesia Observations No Documentation SIGNATURE: Scotty Villanueva MD PATIENT NAME: Sarika Ferreira DATE: May 03, 2024 TIME: 3:02 PM CSN: [id number] [facility] ANES PRE-OPon 05-03-2024 ANES PRE-OP HNO ID: [id number] Author: DALLIN STARR DO Service: Anesthesiology Author Type: Resident Type: Anesthesia Preprocedure Evaluation Filed: 05/03/2024 10:04 Note Text: OB ANESTHESIA PRE-PROCEDURE ASSESSMENT PATIENT NAME: Sarika Ferreira : 1990 [facility] ANES MANAGER SOCIAL: Previous OB anesthetic: none no hypertensive disorder of no HELLP syndrome no blood thinner use no thrombocytopenia GERD: GERD well controlled with no positional symptoms Relevant Problems NEURO-PSYCH (+) History of seizures -Patient agreeable with plan of epidural after discussion regarding RIS diagnosis. -Does report some nausea since being NPO I - PHYSICAL EVALUATION AIRWAY Patient intubated: No. Tracheostomy tube not present Mallampati: I. TM distance: >3 FB. Neck ROM: full ROM without neurological symptoms. Mouth opening: adequate. Short neck: no. Thick neck: no DENTAL Dental findings: teeth intact. II - ANESTHESIA PLAN ASA Score: 3 Anesthetic Plan: epidural The patient is a current smoker. NPO Status: adequate Beta Brooke Monitoring Plan Monitoring plan: standard ASA. Post Procedure Analgesic Plan Postoperative analgesic plan: epidural. Informed Consent Anesthetic risks, benefits, alternatives, personnel and consent discussed: yes. Patient / Responsible Green Party agrees to proceed: yes Patient / Surrogate agrees to blood products: Yes [facility] CHART REVIEW: ACTIVE PROBLEM LIST Acanthosis Nigricans Irregular Menses Vapes Nicotine Containing Substance Marijuana Use During Bipolar 1 Disorder (Hcc) Encounter for Supervision of High Risk in First Trimester, Antepartum History of Seizures Multiple Sclerosis Affecting , Antepartum (Hcc) Short Cervix Affecting Short Cervix During in Second Trimester PAST MEDICAL HISTORY Diagnosis Date Marijuana use Multiple sclerosis (HCC) 2023 PCOS (polycystic ovarian syndrome) Tobacco use disorder PAST SURGICAL HISTORY Procedure Laterality Date TOOTH EXTRACTION FAMILY HISTORY Problem Relation Age of Onset Headache Mother migraine Diabetes Father Hypertension Father No Known Problems Brother No Known Problems Brother Emphysema Maternal Grandmother Cancer Maternal Grandfather unknown Emphysema Maternal Grandfather Cancer Paternal Grandmother unknown Heart Paternal Grandmother [place] No Known Problems Paternal Grandfather Ischemic Heart Disease Paternal Aunt OH x 3 Diabetes Paternal Aunt Diabetes Paternal Aunt Diabetes Paternal Uncle Social History Tobacco Use Smoking status: Former Current packs/day: 0.50 Average packs/day: 0.5 packs/day for 2.0 years (1.0 ttl pk-yrs) Types: Cigarettes Smokeless tobacco: Never Vaping Use Vaping status: Never Used Substance Use Topics Alcohol use: Not Currently Drug use: Yes Frequency: 7.0 times per week Types: Marijuana Comment: 2-3 times daily folic acid 1 mg tablet, Take 3 tablets by mouth once daily., Disp: 90 tablet, Rfl: 4, 05/02/2024 at 1100 aspirin, enteric coated (ECOTRIN LOW STRENGTH) 81 mg EC tablet, Take 1 tablet by mouth once daily., Disp: 90 tablet, Rfl: 3, 05/02/2024 at 0600 vit no.124/iron/folic ( VITAMIN ORAL), Take by mouth once daily. 2 Gummies, Disp: , Rfl: , 05/01/2024 at 0600 lurasidone (LATUDA) 20 mg tablet, Take 1 tablet by mouth every evening with a full meal (atleast 400 calories), Disp: , Rfl: , 04/29/2024 acetaminophen (TYLENOL EXTRA STRENGTH) 500 mg tablet, Take 500 mg by mouth every 8 hours as needed for pain., Disp: , Rfl: , Unknown Inpatient medications reviewed in EPIC I have interviewed and examined the patient. I have reviewed the medical record and/or the pre-anesthesia evaluation, pertinent labs, and test results. This contains updated information obtained within 48 hours of Surgery/Procedure. SIGNATURE: Dallin Starr DO PATIENT NAME: Sarika Ferreira DATE: May 03, 2024 TIME: 10:01 AM : 1990 [facility] CONSULTon 05-03-2024 CONSULT HNO ID: [id number] Author: JUDE RAMIREZ MD Service: Obstetrics Author Type: Resident Type: Consults Filed: 05/03/2024 09:39 Note Text: Attestation with edits by Jude Ramirez MD at 05/03/2024 9:39 AM MFM Attending Addendum: I have seen, evaluated and counseled the above patient with Dr. Valles and the antepartum team. I reviewed the documentation and agree with the clinical assessment and medical decision making as noted above with the following addendum/modification s: 34 year old at 20w4d admitted to antepartum for further evaluation and management of CI. At anatomic survey yesterday, the TVCL was noted to have funneling with functional cervical length of 3-4 mm; otherwise no malformations were visualized. On admission her cervix was visually closed and she did not have e/o PTL. Her course has otherwise been uncomplicated with risk-reducing NIPS. Her medical history of recently diagnosed MS (radiographic isolated syndrome/pre-MS state) for which she is s/p consult at [facility], and she is not on disease modifying therapy. Her medical history is also notable for nicotine use, bipolar disorder (stable on latuda), and history of seizure (off AED therapy). Patient recently had outpatient MFM consult and note from Dr. Hinson reviewed. Remainder of history as per EPIC/admission notes. At time of rounds this morning she reported feeling FM. Denied LOF, VB, vaginal discharge, abdominal pain, or contractions, and ROS otherwise negative. BP 113/63 Pulse 76 Temp 37 ?C (98.6 ?F) (Oral) Resp 16 Ht 162.6 cm (5' 4) Wt 70.8 kg (156 lb) LMP 10/30/2023 (Within Weeks) SpO2 99% BMI 26.78 kg/m? Systolic (24hrs), Av , Min:92 , Max:113 Diastolic (24hrs), Av, Min:52, Max:66 Mucous membranes moist, sclerae anicteric. Abdomen soft, non-distended, uterus/abdomen non-tender, no rebound. Extremities non-tender, no edema. Admission data/labs - reviewed in EMR - CBC without leukocytosis and Hgb stable - GC/CT/cervicitis evaluation negative Impression: Sparks gestation at 20w4d CI - for cerclage Radiographic diagnosis of MS - stable off therapy Bipolar disorder - stable on latuda Plan: and maternal status stable without clinical e/o PTL, PPROM, intrauterine infection or abruption. We reviewed that her clinical/sonographic findings are consistent with a diagnosis of cervical insufficiency. The natural history of CI was reviewed and I recommended proceeding with cervical cerclage placement. The procedure was reviewed in detail along with surgical risks including risks of bleeding, infection, injury to adjacent organs, transfusion as well as PPROM leading to loss of . The potential for pre- or periviable delivery was discussed along with an overview of the gestational age related risks of prematurity. We reviewed that cerclage improves the likelihood of, but does not guarantee, a successful outcome. After discussion, she would like to proceed with cerclage placement, which we are coordianting for this morning. Maintain NPO status. Discussed that I would anticipate discharge home later today after cerclage placement, with short-interval follow-up locally in [place] with her primary OB provider. Lastly, we also reviewed that cerclage placement at 13-14 weeks would be indicated in future pregnancies. Postoperative instructions/precauti ons were reviewed. OB precautions and PTB precautions were reviewed. To OR when anesthesia/nursing teams and OR available. The plan of care was reviewed and discussed with the patient and the provider/nursing teams. All questions answered. Ms. Ferreira expressed understanding and agreement with the plan of care. Jude Ramirez MD OBSTETRICS ANTEPARTUM / MFM CONSULT NOTE SERVICE DATE: 05/03/2024 SERVICE TIME: 6:11 AM 34 year old EGA:20w3d sent in from office with cervical shortening and funneling, admitted for possible cerclage. Assessment AND Plan Short cervix during in second trimester - Cervix 3-4 mm with funneling on US 05/02 - SSE: cervix visually closed, no e/o ROM on exam - GCCT, vaginitis swabs collected - FWB: doppled to 149 bpm, plan daily dopplers while admitted - patient not c/o ctx, will place on toco overnight - MFM consult for consideration of cerclage - NPO @ NM for possible cerclage Vapes nicotine containing substance - patient working on decreasing use - offered nicotine patch, patient declined Marijuana use during - reports current use, urine tox deferred Bipolar 1 disorder (HCC) - home latuda ordered History of seizures - First seizure 12/2023 - Follows with neurology at [facility], next appointment in July - no antiepileptics - recomm (more content not included)... Normal [facility] OPERATIVE NOon 05-03-2024 OPERATIVE NO HNO ID: [id number] Author: JUDE RAMIREZ MD Service: Obstetrics Author Type: Resident Type: Operative Report Filed: 05/03/2024 14:57 Note Text: Attestation with edits by Jude Ramirez MD at 05/03/2024 2:57 PM I was present, scrubbed, and operating throughout this uncomplicated cervical cerclage placement as detailed above. To recovery in stable condition. The operative findings/course were reviewed with the patient and all questions were addressed. Jude Ramirez MD OB OPERATIVE/PROCEDURE REPORT LOG ID: [id number] Surgery/Procedure Date: 05/03/2024 Incision/Procedure Start Time: 11:10 AM Incision Close/Procedure End Time: 11:17 AM Surgeon(s)/Procedural ist(s) and Fish Icer(s): Surgeons and Role: * Jude Ramirez MD - Primary * Carl Crenshaw DO - Resident - Assisting No Additional Staff Informed Consent: Informed Consent obtained and on the chart Procedure: Cervical cerclage Pre-Op/Pre-Procedure Diagnosis: Intrauterine sparks gestation at 20w4d Cervical insufficiency Post-Op/Post-Procedur e Diagnosis: Same as pre-op diagnosis Antibiotic: 2g ancef Procedure Details: Patient was taken to the operating room where the sign-in and time out were completed. Spinal anesthesia was induced and found to be adequate. She was placed in the dorsal lithotomy position with Yellowfin stirrups with careful attention not to hyperflex or hyperextend the knees or hips. SCDs were placed and turned on for DVT prophylaxis. Perioperative antibiotic prophylaxis was administered. The patient was prepped and draped in the normal sterile manner for this procedure. Hand held retractors were used to visualize the cervix, which was noted to be closed/2cm/high. The cervix was grasped with Ring forceps at the anterior and posterior lips. A cervical cerclage was placed using a #2 proline suture and Saavedra technique beginning at the 12:00 position and proceeding counter clockwise in 4 bites. The ring forceps were removed from the cervix. The cervical canal was palpated and no suture material was present. The cerclage suture was then tensioned and tied at the 12:00 position. Exam after the procedure was closed/2cm/high. Hemostasis was confirmed. All instruments were removed from the cervix and vagina. Sign-out was completed. The patient tolerated the procedure well. Sponge, lap, and needle counts were correct x 2. The patient was transported to recovery in stable condition. Dr. Ramirez was present, scrubbed, and operating throughout. IV Fluids: 1200 mL Urine Output: none Estimated Blood Loss: < 10 mL A digital sweep of the vaginal canal was performed by the Resident and it was ascertained that no instruments or other foreign bodies are retained within the cavity. Sponge, lap, and needle counts were correct times two and the patient was taken to the recovery room with stable vital signs after tolerating the procedure well. Plan of care discussed with: Provider, RN, Patient. The attending was present for critical and iverson portions of the procedure or immediately available to provide assistance. SIGNATURE: Carl Crenshaw DO PATIENT NAME: Sarika Lamar Ferreira DATE: May 03, 2024 TIME: 11:58 AM Normal [facility] BACTERIAL VAGINOSIS NAATon 1 07-02-2023 Lactobacillus crispatus+gasseri+jense alessandra + Gardnerella vaginalis + Atopobium vaginae rRNA JO+probe Ql (Vag fld) Negative Normal Negative for bacterial vaginosis [facility] Comment on above: Order Comment: Speci men Type: SWABOrdering Facility: [facility] Address: [address] [place] [address] Performed By: #### B VAMP, [id number] ####[facility] [id number] [place] [address] [place] C. trachomatis+N. gonorrhoea e DNA JO+probe Ql (Unsp spec)on 05-02-2024 C. trachomatis rRNA JO+probe Ql (Unsp spec) Negative Normal Negative for Chlamydia trachomatis by amplificaton [facility] Comment on above: Order Comment: Speci men Type: SWABOrdering Facility: [facility] Address: [address] [place] [address] Performed By: #### B VAMP, [id number] ####[facility] [id number] [place] [address] [place] N. gonorrhoeae rRNA JO+probe Ql (Unsp spec) Negative Normal Negative for Neisseria gonorrhoeae by amplification [facility] Comment on above: Order Comment: Speci men Type: SWABOrdering Facility: [facility] Address: [address] [place] [address] Performed By: #### B VAMP, [id number] ####[facility] [id number] [place] [address] [place] HAYES/TRICHOMONAS NAATon 1 07-02-2023 C. glabrata RNA JO+probe Ql (Vag fld) Negative Normal Negative for Hayes glabrata [facility] Comment on above: Order Comment: Speci men Type: SWABOrdering Facility: [facility] Address: [address] [place] [address] Performed By: #### C VTV ####[facility] [id number] [place] [address] [place] Hayes sp DNA JO+probe Ql (Vag fld) Negative Normal Negative for Hayes species [facility] Comment on above: Order Comment: Speci men Type: SWABOrdering Facility: [facility] Address: [address] [place] [address] Performed By: #### C VTV ####[facility] [id number] [place] [address] [place] T. vaginalis DNA JO+probe Ql (Unsp spec) Negative Normal Negative for Trichomonas vaginalis by amplification [facility] Comment on above: Order Comment: Speci men Type: SWABOrdering Facility: [facility] Address: [address] [place] [address] Performed By: #### C VTV ####[facility] [id number] [place] [address] [place] CBC panel Auto (Bld)on 05-02 Erythrocyte distribution width (RBC) [Ratio] 13.2 % Normal 11.5-15.0 [facility] Comment on above: Order Comment: Speci men Type: BLOOD SPECIMENOrdering Facility: [facility] Address: [address] [place] [address] Performed By: #### 5 8410-2 ####[facility]ORATORYCLIA [id number] [address] Hematocrit (Bld) [Volume fraction] 35.0 % Low 36.0-46.0 [facility] Comment on above: Order Comment: Speci men Type: BLOOD SPECIMENOrdering Facility: [facility] Address: [address] [place] [address] Performed By: #### 5 8410-2 ####[facility]ATORYCLIA [id number] [address] [place] Hemoglobin (Bld) [Mass/Vol] 11.9 g/dL Normal 11.5-15.5 [facility] Comment on above: Order Comment: Speci men Type: BLOOD SPECIMENOrdering Facility: [facility] Address: [address] [place] [address] Performed By: #### 5 8410-2 ####[facility]ATORYCLIA [id number] [address] [place] MCH (RBC) [Entitic mass] 31.6 pg Normal 26.0-34.0 [facility] Comment on above: Order Comment: Speci men Type: BLOOD SPECIMENOrdering Facility: [facility] Address: [address] [place] [address] Performed By: #### 5 8410-2 ####[facility]ORYCLIA [id number] [address] [place] MCHC (RBC) [Mass/Vol] 34.0 g/dL Normal 30.5-36.0 [facility] Comment on above: Order Comment: Speci men Type: BLOOD SPECIMENOrdering Facility: [facility] Address: [address] [place] [address] Performed By: #### 5 8410-2 ####[facility] LABORATORYCLIA [id number] [address] [place] MCV (RBC) [Entitic vol] 93.1 fL Normal 80.0-100.0 [facility] Comment on above: Order Comment: Speci men Type: BLOOD SPECIMENOrdering Facility: [facility] Address: [address] [place] [address] Performed By: #### 5 8410-2 ####[facility] LABORATORYCLIA [id number] [place] [id number] [place] Nucleated RBC (Bld) [#/Vol] 10*3/uL Normal <0.01 [facility] Comment on above: Order Comment: Speci men Type: BLOOD SPECIMENOrdering Facility: [facility] Address: [address] [place] [address] Performed By: #### 5 8410-2 ####[facility] LABORATORYCLIA [id number] [place] [address] [place] Platelet mean volume (Bld) [Entitic vol] 10.3 fL Normal 9.0-12.7 [facility] Comment on above: Order Comment: Speci men Type: BLOOD SPECIMENOrdering Facility: [facility] Address: [address] [place] [address] Performed By: #### 5 8410-2 ####[facility] LABORATORYCLIA [id number] [place] [address] [place] Platelets (Bld) [#/Vol] 212 10*3/uL Normal 150-400 [facility] Comment on above: Order Comment: Speci men Type: BLOOD SPECIMENOrdering Facility: [facility] Address: [address] [place] [address] Performed By: #### 5 8410-2 ####[facility] LABORATORYCLIA [id number] [place] [id number] [place] RBC (Bld) [#/Vol] 3.76 10*6/uL Low 3.90-5.20 [facility] Comment on above: Order Comment: Speci men Type: BLOOD SPECIMENOrdering Facility: [facility] Address: [address] [place] [address] Performed By: #### 5 8410-2 ####[facility]ORYCLIA [id number] [place] [address] [place] WBC (Bld) [#/Vol] 10.84 10*3/uL Normal 3.70-11.00 [facility] Comment on above: Order Comment: Speci men Type: BLOOD SPECIMENOrdering Facility: [facility] Address: [facility] [place] [place] [address] Performed By: #### 5 8410-2 ####[facility]ORYCLIA [id number] [place] [id number] [facility] Examination level ultrasound on 05-02-2024 Indication Detailed anatomic survey Advanced maternal age, h/o multiple sclerosis Impression REMOTE READ The patient is referred for a detailed anatomic survey. - Single, live, intrauterine . - biometry is consistent with the established gestational age. - No malformations were visualized on a complete detailed anatomic survey. - The amniotic fluid volume is normal amount. - The placenta is anterior, fundal. - The Transvaginal cervical length is shortened at 3.9 mm with funnel. - Not all structural malformations can be detected by ultrasound examination. Recommendations Results discussed with patient, will present to [facility] for evaluation Maternal Assessment Height 163 cm Height (ft) 5 ft Height (in) 4 in Physical Exam Initial weight (lb) 138 lb Initial BMI 23.69 kg/m Maternal assessment other: 1 Para 0 Method Transabdominal and transvaginal ultrasound examination. View: Adequate visualization Sparks . Number of fetuses: 1 Dating GA by prior assessment 20 w + 3 d JOSE A by prior assessment: 09/16/2024 Ultrasound examination on: 05/02/2024 GA by U/S based upon: AC, BPD, Femur, HC GA by U/S 20 w + 4 d JOSE A by U/S: 09/15/2024 Assigned: based on stated JOSE A, selected on 04/05/2024 Assigned GA 20 w + 3 d Assigned JOSE A: 09/16/2024 General Evaluation Cardiac activity present. FHR 147 bpm. movements: present. Presentation: cephalic Placenta: Placental site: anterior, fundal Umbilical cord: Cord vessels: 3 vessel cord Amniotic fluid: Amount of AF: normal amount. MVP 4.6 cm Growth Overview Exam date GA BPD (mm) HC (mm) AC (mm) FL (mm) HL (mm) EFW (g) 04/05/2024 16w 4d 35.8 68% 133.6 52% 112 66% 20.9 39% 21.9 61% 163 45% 05/02/2024 20w 3d 49.2 68% 184.3 61% 150.5 39% 32.8 57% 30.7 40% 347 39% Biometry Standard BPD 49.2 mm 20w 6d 68% Hadlock OFD 64.9 mm 20w 4d 81% Nicolaides HC 184.3 mm 20w 5d 61% Anum Cerebellum tr 21.6 mm 20w 3d 69% Hill Nuchal fold 3.6 mm AC 150.5 mm 20w 2d 39% Hadlock Femur 32.8 mm 20w 3d 57% Anum Humerus 30.7 mm 20w 1d 40% Anum EFW 347 g 20w 2d 39% Hadlock EFW (lb) 0 lb EFW (oz) 12 oz EFW by: Hadlock (HC-AC-FL) Extended Mold Burner 8.9 mm CM 5.5 mm 62% Nicolaides Extremities / Bony Struc FL / HC 0.18 19% Hadlock Other Structures FHR 147 bpm Anatomy Cranium: normal Lateral ventricles: normal Choroid plexus: normal Midline falx: normal Cavum septi pellucidi: normal Cerebellum: normal Cisterna magna: normal Head / Neck Vermis: normal Neck: normal Nuchal fold: normal Lips: normal Profile: normal Nose: normal Face Maxilla: normal Mandible: normal Orbits: normal Lens: normal 4-chamber view: normal RVOT view: normal LVOT view: normal 3-vessel view: normal 3-ylkuyu-xtulyap view: normal Heart / Thorax Situs: situs solitus (normal) Aortic arch view: normal SVC: normal IVC: normal Cardiac axis: normal Rt lung: normal Lt lung: normal Diaphragm: normal Cord insertion: normal Stomach: normal Kidneys: normal Bladder: normal Genitals: normal Abdomen Abdom. wall: normal Cervical spine: normal Thoracic spine: normal Lumbar spine: normal Sacral spine: normal Arms: normal Legs: normal Rt upper arm: normal Rt forearm: normal Rt hand: normal Rt fingers: normal Lt upper arm: normal Lt forearm: normal Lt hand: normal Lt fingers: normal Rt upper leg: normal Rt lower leg: normal Rt foot: normal Lt upper leg: normal Lt lower leg: normal Lt foot: normal sex: female Wants to know sex: yes Maternal Structures Uterus / Cervix Uterus: Visualized Cervix: Visualized Approach: Transvaginal Cervical length 3.9 mm Funneling: Funneling present Ovaries / Tubes / Adnexa Rt ovary: Visualized Lt ovary: Not visualized Performed By: Hillary Sinha, NERY, RVT Read By: Trish Brooks M.D. MATERNAL MEDICINE [facility] Radiology Study observation (narrative) Orlin herman [facility] HISTORY PHYSICALon HISTORY PHYSICAL HNO ID: [id number] Author: DOUG FINCH MD Service: Obstetrics Author Type: Physician Type: H&P Filed: 05/03/2024 01:19 Note Text: OBSTETRICS HISTORY AND PHYSICAL SERVICE DATE: May 02, 2024 SERVICE TIME: 8:42 PM Subjective Patient's stated reason for arrival: Um, cause the doctor said I need to get stitches for my cervix. CHIEF COMPLAINT: Sent from office for short cervix on US HISTORY OF THE PRESENT ILLNESS: The patient is a 34 year old female, , who is at 20w3d with an JOSE A of 09/16/2024, by Ultrasound dating method. Patient is here sent from office for short cervix (3-4mm) with funneling identified on anatomy ultrasound today. Good movement. Denies vaginal bleeding., Denies contractions., Denies leaking of fluid. . POST DELIVERY CONTRACEPTION: Discussed post-delivery contraception options. Patient received written information about post-delivery contraception options. Post delivery contraception not applicable for this patient. HISTORY REVIEW PAST MEDICAL HISTORY Diagnosis Date Marijuana use Multiple sclerosis (HCC) 2023 PCOS (polycystic ovarian syndrome) Tobacco use disorder PAST SURGICAL HISTORY Procedure Laterality Date TOOTH EXTRACTION FAMILY HISTORY Problem Relation Age of Onset Headache Mother migraine Diabetes Father Hypertension Father No Known Problems Brother No Known Problems Brother Emphysema Maternal Grandmother Cancer Maternal Grandfather unknown Emphysema Maternal Grandfather Cancer Paternal Grandmother unknown Heart Paternal Grandmother OH No Known Problems Paternal Grandfather Ischemic Heart Disease Paternal Aunt OH x 3 Diabetes Paternal Aunt Diabetes Paternal Aunt Diabetes Paternal Uncle Social History Tobacco Use Smoking status: Former Current packs/day: 0.50 Average packs/day: 0.5 packs/day for 2.0 years (1.0 ttl pk-yrs) Types: Cigarettes Smokeless tobacco: Never Vaping Use Vaping status: Never Used Substance Use Topics Alcohol use: Not Currently Drug use: Yes Frequency: 7.0 times per week Types: Marijuana Comment: 2-3 times daily Obstetric History T0 L0 SAB0 IAB0 Ectopic0 Multiple0 Live Births0 Name of Baby 1: Not recorded Date: Not recorded GA: Not recorded Type: Not recorded Apgar1: Not recorded Apgar5: Not recorded Living: Not recorded Active Non-Hospital Problems Diagnosis Date Noted Short cervix affecting 05/02/2024 Overview Note: 05/02/24 Pt to [place] for possible cerclage per [facility]. History of seizures 03/15/2024 Overview Note: History of first seizure 01/05. Seeing Roopa Fonseca with neurology at [facility]. Appointment in July. Leilani Calixto APRN.CNM Multiple sclerosis affecting , antepartum ([facility]) 03/15/2024 Vapes nicotine containing substance 02/22/2024 Overview Note: 02/22/24- Cessation encouraged. Patient decreasing nicotine levels. Keara Belle APRN.CNM Marijuana use during 02/22/2024 Overview Note: 02/22/24- Daily use. Cessation encouraged. Keara Belle APRN.CNM Bipolar 1 disorder ([facility]) 02/22/2024 Overview Note: 02/22/24- Patient starting counseling at [facility]. Initially was supposed to start taking mood stabilizer but declines medications at this time because of . She reports mood as stable today. No history of SI/HI or hospitalizations. Keara Belle APRN.CNM Encounter for supervision of high risk in first trimester, antepartum 02/22/2024 Overview Note: Care Checklist Vaccines: [] Flu vaccine [] declined [] RSV vaccine 32 0/7 - 36 6/7 (Feb - Jul) [] declined [] COVID vaccine [] declined [] TDaP 27-36 [] declined First trimester: [] Dating US [] 1st tri labs [] Pap smear [] Carrier screening [] declined [] NIPT screening [] declined [] First trimester anatomy scan [] declined [] universal ASA ordered (start 12w-16w) [] declined [] M Power Consult [] not indicated [] declined Second trimester: [] AFP [] declined [] Anatomy scan [] Mode of Delivery - [] Feeding - [] Pump ordered [] Diabetes screen [] CBC, RPR Third trimester (28-30 weeks): [] Consent [] Contraception - [] Transportation Manager Third trimester (36-40 weeks): [] GBS [] Presentation - [] Scheduled [] yes - Hibiclens, pre-op instructions, CBC, TANDS ordered [] no [] HANDP Acanthosis nigricans 09/10/2009 Irregular menses 09/10/2009 Tobacco use disorder 09/10/2009 ALLERGIES No Known Allergies Prior to Admission Medications Prescriptions Last Dose Informant Patient Reported? Taking? acetaminophen (TYLENOL EXTRA STRENGTH) 500 mg tablet Unknown Yes No Sig: Take 500 mg by mouth every 8 hours as needed for pain. aspirin, enteric coated (ECOTRIN LOW STRENGTH) 81 mg EC tablet 05/02/2024 at 0600 No Yes Sig: Take 1 tablet by mouth once daily. folic acid 1 mg tablet 05/01/2024 at 1100 No Yes Sig: Paco (more content not included)... Normal [facility] TYPE + SCREEN PRENATALon ABO A [facility] Comment on above: Order Comment: Speci men Type: BLOOD SPECIMENOrdering Facility: [facility] Address: [address] [place] [address] Performed By: #### T SPN ####[facility] [id number] [place] [address] [place] Rh Nom (Bld) Positive [facility] Comment on above: Order Comment: Speci men Type: BLOOD SPECIMENOrdering Facility: [facility] Address: [address] [place] [address] Performed By: #### T SPN ####[facility] [id number] [place] [address] [place] TYPE AND SCREEN EXPIRATION 05/05/2024 23:59 [facility] Comment on above: Order Comment: Speci men Type: BLOOD SPECIMENOrdering Facility: [facility] Address: [address] [place] [address] Performed By: #### T SPN ####[facility] [id number] [address] STATES OF [facility] Examination level ultrasound on 04-06-2024 Indication Early anatomic survey Advanced maternal age, h/o multiple sclerosis Impression 34 yo at 16w4d presenting for early anatomy scan. notable for recent diagnosis of MS which was made in the setting of new seizures. Low risk cfDNA. MSAFP in process. - Single, live, intrauterine . - biometry is consistent with the established gestational age. - No malformations were visualized on an early anatomic assessment, although some anatomical structures were suboptimally seen as detailed below. - The amniotic fluid volume is normal amount. - The placenta is anterior. - Not all structural malformations can be detected by ultrasound examination. Recommendations - A detailed exam at 20 weeks. - Additional follow up as clinically indicated. Recommend growth scans at approximately 28 and 34 weeks. Maternal Assessment Height 163 cm Height (ft) 5 ft Height (in) 4 in Physical Exam Initial weight (lb) 138 lb Initial BMI 23.69 kg/m Maternal assessment other: 1 Para 0 Method Transabdominal ultrasound examination. View: Suboptimal view: limited by early gestational age Sparks . Number of fetuses: 1 Dating GA by prior assessment 16 w + 4 d JOSE A by prior assessment: 09/16/2024 Ultrasound examination on: 04/05/2024 GA by U/S based upon: AC, BPD, Femur, HC GA by U/S 16 w + 5 d JOSE A by U/S: 09/15/2024 Assigned: based on stated JOSE A, selected on 04/05/2024 Assigned GA 16 w + 4 d Assigned JOSE A: 09/16/2024 General Evaluation Cardiac activity present. FHR 135 bpm. movements: present. Presentation: transverse head left Placenta: Placental site: anterior Umbilical cord: Cord vessels: 3 vessel cord Amniotic fluid: Amount of AF: normal amount Biometry Standard BPD 35.8 mm 17w 0d 68% Hadlock OFD 47.6 mm 16w 3d 69% Nicolaides HC 133.6 mm 16w 4d 52% Anum AC 112.0 mm 17w 0d 66% Hadlock Femur 20.9 mm 16w 2d 39% Anum Humerus 21.9 mm 16w 5d 61% Anum EFW 163 g 16w 3d 45% Hadlock EFW (lb) 0 lb EFW (oz) 6 oz EFW by: Hadlock (HC-AC-FL) Extremities / Bony Struc FL / HC 0.16 25% Hadlock Other Structures FHR 135 bpm Anatomy Cranium: normal Lateral ventricles: suboptimal Choroid plexus: normal Midline falx: suboptimal Cerebellum: suboptimal Cisterna magna: suboptimal Lips: normal Profile: normal Nose: normal 4-chamber view: suboptimal RVOT view: suboptimal LVOT view: normal 3-vessel view: suboptimal 0-nvfnpj-lnnlavt view: suboptimal Heart / Thorax Diaphragm: normal Cord insertion: normal Stomach: normal Kidneys: suboptimal Bladder: suboptimal Cervical spine: normal Thoracic spine: normal Lumbar spine: normal Sacral spine: normal Arms: normal Legs: normal Rt upper arm: normal Rt forearm: normal Rt hand: normal Lt upper arm: normal Lt forearm: normal Lt hand: normal Rt upper leg: normal Rt lower leg: normal Rt foot: normal Lt upper leg: normal Lt lower leg: normal Lt foot: normal sex: female Wants to know sex: yes Maternal Structures Uterus / Cervix Uterus: Visualized Cervical length 30.3 mm Performed By: Hillary Sinha RDMS, RVT Read By: Zoey Hinson MD. MATERNAL MEDICINE [facility] ALPHA FETOPRO MATERNALon AFP, MATERNAL 0.88 MoM Normal [facility] Comment on above: Order Comment: Speci men Type: BLOOD SPECIMENOrdering Facility: [facility] Address: [address] [place] [address] Result Comment: 31.1 2 ng/mL Performed By: #### A FPMAT ####[facility] [id number] [place] DATE OF COLLECTION #1 04/05/24 Normal [facility] Comment on above: Order Comment: Speci men Type: BLOOD SPECIMENOrdering Facility: [facility] Address: [address] [place] [address] Performed By: #### A FPMAT ####[facility] [id number] OF [place] DATE RECEIVED 04/06/24 [facility] Comment on above: Order Comment: Speci men Type: BLOOD SPECIMENOrdering Facility: [facility] Address: [address] [place] [address] Performed By: #### A FPMAT ####[facility] [id number] [place] [address] [place] JOSE A 09/16/24 Normal [facility] Comment on above: Order Comment: Speci men Type: BLOOD SPECIMENOrdering Facility: [facility] Address: [address] [place] [address] Performed By: #### A FPMAT ####[facility] [id number] [place] [address] [place] GESTATION AT DATE OF SAMPLE 16 weeks 4 days (by scan) Normal [facility] Comment on above: Order Comment: Speci men Type: BLOOD SPECIMENOrdering Facility: [facility] Address: [address] [place] [address] Performed By: #### A FPMAT ####[facility] [id number] [place] [address] [place] INSULIN DEPENDENT DIABETES None Normal [facility] Comment on above: Order Comment: Speci men Type: BLOOD SPECIMENOrdering Facility: [facility] Address: [address] [place] [address] Performed By: #### A FPMAT ####[facility] [id number] [place] [address] [place] IVF No Normal [facility] Comment on above: Order Comment: Speci men Type: BLOOD SPECIMENOrdering Facility: [facility] Address: [address] [place] [address] Performed By: #### A FPMAT ####[facility] [id number] [place] [address] [place] MATERNAL AFP COMMENT See comments below Normal [facility] Comment on above: Order Comment: Speci men Type: BLOOD SPECIMENOrdering Facility: [facility] Address: [address] [place] [address] Result Comment: INTE RPRETATION Screening result : Screen negative Risk of NTD : 1 in 7,000 Comment : The interpretation is for NTD only A screen negative result does not exclude the possibility of a neural tube defect, because screening does not detect all affected pregnancies Performed By: #### A FPMAT ####[facility] [id number] [place] [address] [place] MATERNAL AGE AT JOSE A 34 years Normal [facility] Comment on above: Order Comment: Crista rosario Type: BLOOD SPECIMENOrdering Facility: [facility] Address: [address] [place] [address] Performed By: #### A FPMAT ####[facility] [id number] [place] [address] [place] PATIENT'S WEIGHT DAY OF COLLECTION 156 lb. Normal [facility] Comment on above: Order Comment: Crista rosario Type: BLOOD SPECIMENOrdering Facility: [facility] Address: [address] [place] [address] Performed By: #### A FPMAT ####[facility] [id number] [place] [address] [place] INTERP-MATERNAL AFP Negative Normal Screen Negative [facility] Comment on above: Order Comment: Crista rosario Type: BLOOD SPECIMENOrdering Facility: [facility] Address: [address] [place] [address] Performed By: #### A FPMAT ####[facility] [id number] [address] [place] PREVIOUS NTD None Normal [facility] Comment on above: Order Comment: Speci men Type: BLOOD SPECIMENOrdering Facility: [facility] Address: [address] [place] [address] Performed By: #### A FPMAT ####[facility] [id number] [address] [place] RISK OF NTD ;1:7000 Normal [facility] Comment on above: Order Comment: Speci men Type: BLOOD SPECIMENOrdering Facility: [facility] Address: [address] [place] [address] Performed By: #### A FPMAT ####[facility] [id number] [address] [place] SAMPLE #1 [id number] Normal [facility] Comment on above: Order Comment: Speci men Type: BLOOD SPECIMENOrdering Facility: [facility] Address: [address] [place] [address] Performed By: #### A FPMAT ####[facility] [id number] OF [place] STAFF REVIEW (MATERNAL SCREENS) Reviewed by Wilbert Berger MD, Ph.D ([id number]) Normal [facility] Comment on above: Order Comment: Speci men Type: BLOOD SPECIMENOrdering Facility: [facility] Address: [address] [place] [address] Performed By: #### A FPMAT ####[facility] [id number] [address] [place] Examination level ultrasound on 04-05-2024 [facility]iology [facility]24 [place] Telephone (OBGYWM) SARIKA FERREIRA ([id number]) 1990 F Date Time Provider Department 03/21/24 LEILANI CALIXTO During your visit today, we recorded the following information about you: Leilani Calixto APRN.CNM 03/21/2024 3:34 PM Signed Consulted MFM, patient stated she does not have neurology appointment till July. Please notify patient would like sooner appointment due to the fact that she is and plan of care if seizures. Can see MFM after appointment if indicated.Thank you, Leilani Calixto APRN.Rodrick Del Rosario RN 03/21/2024 4:22 PM Signed Pt notified and voiced understanding. States will call neurology office for sooner appt and let us know when that is. Rodrick Hernandez RN Allergies As of Date: 03/21/2024 (No Known Allergies) Date Reviewed: 03/15/2024 Reviewed by: Reece Pittman MA - Fully Assessed Prescriptions as of 03/21/2024 - folic acid 1 mg tablet Take 3 tablets by mouth once daily. - aspirin, enteric coated (ECOTRIN LOW STRENGTH) 81 mg EC tablet Take 1 tablet by mouth once daily. - vit no.124/iron/folic ( VITAMIN ORAL) Take by mouth once daily. 2 Gummies - acetaminophen (TYLENOL EXTRA STRENGTH) 500 mg tablet Take 500 mg by mouth every 8 hours as needed for pain. Problem List As Of Date 03/21/2024 Noted Resolved Acanthosis Nigricans [L83] 09/10/2009 Obesity [E66.9] 09/10/2009 Irregular Menses [N92.6] 09/10/2009 Tobacco Use Disorder [F17.200] 09/10/2009 Vapes nicotine containing substance [Z72.0] 02/22/2024 Marijuana use during [O99.320, F12.90]02/22/2024 Bipolar 1 disorder (HCC) [F31.9] 02/22/2024 Encounter for supervision of high risk pregnanc*02/22/2024 History of seizures [Z87.898] 03/15/2024 Multiple sclerosis (HCC) [G35] 03/15/2024 Encounter Status:Closed by RODRICK HERNANDEZ on 03/21/24 Normal [facility] Chr 21 trisomy Cytogenetics Ql (Bld/Tiss)on 03-19-2024 Cell-free DNA./Cell-free DNA.total Dosage of chromosome-specific cfDNA (cfDNA) [Molar fraction] 23% [facility] Chr 13+18+21+X+Y aneuploidy Dosage of chromosome-specific cfDNA Ql (cfDNA) Negative [facility] Chr 21 trisomy Dosage of chromosome-specific cfDNA Ql (cfDNA) Negative [facility] Chr X and Y aneuploidy risk Sequencing Ql (cfDNA) [Interp] Not detected [facility] Citation Ceferino (Reference lab test) Comment [facility] Comment on above: 1. santino Giron. Marian Med. 2012;14(3):296-305. 2. Ann HERBERT, et al. Prenat Diag. 2013;33(6):591-597. 3. Rafa Mercado, et al. Clin Chem. 2015 Apr;61(4):608-616. 4. Rakesh GRAJEDA, et al. Marian Med. 2011;13(11):913-920. 5. ACOG/SMFM Practice Bulletin No. 226, Mar 2020. Gestational age Estimated from conception date Sparks [facility] GESTATIONALAGE>=[address]W [address] [facility] Laboratory comment Ceferino (Report) Comment [facility] Comment on above: The MaterniT(R) 21 P MALOU laboratory-developed test (LDT) analyzes circulating cell-free DNA from a maternal blood sample. This test is used for screening purposes and not diagnostic. Clinical correlation is recommended. Validation data on twin pregnancies is limited and the ability of this test to detect aneuploidy in higher multiple gestations has not yet been validated. director group sales name Nom (Provider) Comment [facility] Comment on above: This specimen showed an expected representation of chromosome 21, 18 and 13 material. Clinical correlation is suggested. Damion Toth MD , PhD, Director, weendy Limitations of the Test Comment [facility] Comment on above: While the results of these tests are highly reliable, discordant results, including inaccurate sex prediction, may occur due to placental, maternal, or mosaicism or neoplasm; vanishing twin; prior maternal organ transplant; or other causes. These tests are screening tests and not diagnostic; they do not replace the accuracy and precision of diagnosis with CVS or amniocentesis. A patient with a positive test result should be referred for genetic counseling and offered invasive diagnosis for confirmation of test results.[5] The results of this testing, including the benefits and limitations, should be discussed with a qualified healthcare provider. management decisions, including termination of the , should not be based on the results of these tests alone. The healthcare provider is responsible for the use of this information in the management of their patient. Sex chromosomal aneuploidies are not reportable for known multiple gestations. A negative result does not ensure an unaffected nor does it exclude the possibility of other chromosomal abnormalities or defects which are not a part of these tests. An uninformative result may be reported, the causes of which may include, but are not limited to, insufficient sequencing coverage, noise or artifacts in the region, amplification or sequencing bias, or insufficient fraction. These tests are not intended to identify pregnancies at risk for neural tube defects or ventral wall defects. Testing for whole chromosome abnormalities (including sex chromosomes) and for subchromosomal abnormalities could lead to the potential discovery of both and maternal genomic abnormalities that could have major, minor, or no, clinical significance. Evaluating the significance of a positive or a non-reportable result may involve both invasive testing and additional studies on the mother. Such investigations may lead to a diagnosis of maternal chromosomal or subchromosomal abnormalities, which on occasion may be associated with benign or malignant maternal neoplasms. These tests may not accurately identify triploidy, balanced rearrangements, or the precise location of subchromosomal duplications or deletions; these may be detected by diagnosis with CVS or amniocentesis. The ability to report results may be impacted by maternal BMI, maternal weight, maternal systemic lupus erythematosus (SLE) and/or by certain pharmaceutical agents such as low molecular weight heparin (for example: Lovenox(R), Xaparin(R), Clexane(R) and Fragmin(R)). Monosomy X risk Dosage of chromosome-specific cfDNA Ql (Plasma cell-free+WBC DNA) [Interp] Not detected [facility] NEGATIVE PREDICTIVE VALUE Note [facility] Comment on above: The Negative Predict kyrie Value (NPV) for trisomy 21, 18, and 13 is greater than 99%. The NPV for SCA and ESS cannot be calculated as SCA and ESS are only reported when an abnormality is detected. Note Comment [facility] Comment on above: See Notes [place] [employer] is a subsidiary of [employer], using the brand [employer]. This test was developed and its performance characteristics determined by [employer]. It has not been cleared or approved by the Food and Drug Administration. This laboratory is certified under the Clinical Laboratory Improvement Amendments (CLIA) as qualified to perform high complexity clinical laboratory testing and accredited by the [employer] (CAP). If there is future clinical need for adding MaterniT GENOME testing, this specimen will be available until term. [facility] samples will not be retained beyond 60 days. [facility] patients will have to send a new sample for re-sequencing ([facility] Test Code: 938417). PERFORMANCE CHARACTERISTICS Note [facility] Comment on above: ! Sex ! Accuracy: 99.4% ! ! ! ! Region (associated syndrome) ! Est. Sens# ! Est. Spec ! ! ! ! Trisomy 21 (Down Syndrome) ! 99.1% ! 99.9% ! ! ! ! Trisomy 18 (Cruz Syndrome) ! >99.9% ! 99.6% ! ! ! ! Trisomy 13 (Patau Syndrome) ! 91.7% ! 99.7% ! ! ! ! Sex Chromosome Aneuploidies## ! 96.2% ! 99.7% ! ! ! * As reported in [facility] database nstd37 [https://www.ncbi.nlm.nih.gov/dbvar/studies/nstd37/ ] # Estimated Sensitivity. Sensitivity estimated across the observed size distribution of each syndrome [per [employer] database nstd37] and across the range of fractions observed in routine clinical NIPT. Actual sensitivity can also be influenced by other factors such as the size of the event, total sequence counts, amplification bias, or sequence bias. ## Sparks gestation only. Positive Predictive Value N/A [facility] Reference Lab Test Method Comment [facility] Comment on above: See Notes Circulating cell-free DNA was purified from the plasma component of maternal blood. The extracted DNA was then converted into a genomic DNA library for aneuploidy analysis of chromosomes 21, 18, and 13 via next generation sequencing.[1] Optional findings based on the test order include sex chromosome aneuploidy (SCA)[2], and enhanced sequencing series (ESS)[3], which will only be reported on as an additional finding when an abnormality is detected. SCA testing includes information on X and Y representation, while ESS testing includes deletions in selected regions (22q, 15q, 11q, 8q, 5p, 4p, 1p) and trisomy of chromosomes 16 and 22. Sex Dosage of chromosome-specific cfDNA Nom (cfDNA) Comment [facility] Comment on above: Consistent with Fema le Test performance information Ceferino (Unsp spec) Comment [facility] Comment on above: The performance luis acteristics of the MaterniT(R) 21 PLUS laboratory-developed test (LDT) have been determined in a clinical validation study with women at increased risk for chromosomal aneuploidy.[1-4] Trisomy 13 risk Dosage of chromosome-specific cfDNA Ql (cfDNA) [Interp] Negative [facility] Trisomy 18 risk Dosage of chromosome-specific cfDNA Ql (Plasma cell-free+WBC DNA) [Interp] Negative [facility] Performed at: [facility] [address], [place] [id number] Set Up Operator: Damion Edouard, Phone: [phone] [facility] CBC Pnl Bld Autoon MCH (RBC) [Entitic mass] 31.3 pg Normal 26.0-34.0 [facility] Comment on above: Order Comment: Speci men Type: BLOOD SPECIMENOrdering Facility: [facility] Address: [address] [place] [address] Performed By: #### 5 8410-2 ####[facility] [id number] [place] [address] [place] Performed By: #### L [id number] ####[facility] [id number] [place] [address] [place] CBC panel Auto (Bld)on 03-15 Erythrocyte distribution width (RBC) [Ratio] 13.0 % Normal 11.5-15.0 [facility] Comment on above: Order Comment: Speci men Type: BLOOD SPECIMENOrdering Facility: [facility] Address: [address] [place] [address] Performed By: #### 5 8410-2 ####[facility] [id number] [place] [address] [place] Hematocrit (Bld) [Volume fraction] 39.0 % Normal 36.0-46.0 [facility] Comment on above: Order Comment: Speci men Type: BLOOD SPECIMENOrdering Facility: [facility] Address: [address] [place] [address] Performed By: #### 5 8410-2 ####[facility] [id number] [place] [address] [place] Hemoglobin (Bld) [Mass/Vol] 12.8 g/dL Normal 11.5-15.5 [facility] Comment on above: Order Comment: Speci men Type: BLOOD SPECIMENOrdering Facility: [facility] Address: [address] [place] [address] Performed By: #### 5 8410-2 ####[facility] [id number] [place] [address] [place] MCHC (RBC) [Mass/Vol] 32.8 g/dL Normal 30.5-36.0 [facility] Comment on above: Order Comment: Speci men Type: BLOOD SPECIMENOrdering Facility: [facility] Address: [address] [place] [address] Performed By: #### 5 8410-2 ####[facility] [id number] [place] [address] [place] MCV (RBC) [Entitic vol] 95.4 fL Normal 80.0-100.0 [facility] Comment on above: Order Comment: Speci men Type: BLOOD SPECIMENOrdering Facility: [facility] Address: [address] [place] [address] Performed By: #### 5 8410-2 ####[facility] [id number] [place] [address] [place] Nucleated RBC (Bld) [#/Vol] 10*3/uL Normal <0.01 [facility] Comment on above: Order Comment: Speci men Type: BLOOD SPECIMENOrdering Facility: [facility] Address: [address] [place] [address] Performed By: #### 5 8410-2 ####[facility] [id number] [place] [address] [place] Platelet mean volume (Bld) [Entitic vol] 11.0 fL Normal 9.0-12.7 [facility] Comment on above: Order Comment: Speci men Type: BLOOD SPECIMENOrdering Facility: [facility] Address: [address] [place] [address] Performed By: #### 5 8410-2 ####[facility] [id number] [place] [address] [place] Platelets (Bld) [#/Vol] 224 10*3/uL Normal 150-400 [facility] Comment on above: Order Comment: Speci men Type: BLOOD SPECIMENOrdering Facility: [facility] Address: [address] [place] [address] Performed By: #### 5 8410-2 ####[facility] [id number] [place] [address] [place] RBC (Bld) [#/Vol] 4.09 10*6/uL Normal 3.90-5.20 [facility] Comment on above: Order Comment: Speci men Type: BLOOD SPECIMENOrdering Facility: [facility] Address: [address] [place] [address] Performed By: #### 5 8410-2 ####[facility] [id number] [place] [address] [place] WBC (Bld) [#/Vol] 10.63 10*3/uL Normal 3.70-11.00 [facility] Comment on above: Order Comment: Speci men Type: BLOOD SPECIMENOrdering Facility: [facility] Address: [address] [place] [address] Performed By: #### 5 8410-2 ####[facility] [id number] [place] [id number] [place] nuchal translucency me asured by USon 03-15-2024 Indication First trimester anatomic survey Advanced maternal age Impression REMOTE READ The patient is referred for a first trimester anatomy scan including nuchal translucency measurement as clinically indicated. - Single, live, intrauterine . - [place] rump length measurement is consistent with the established gestational age. - A qualitative screen of the nuchal translucency and other anatomic structures was unremarkable on a complete first trimester anatomic assessment. - Not all structural malformations can be detected by ultrasound examination. Recommendations - A standard anatomic survey at 16 weeks can be offered and a detailed exam at 20 weeks is recommended for increased risk. Maternal Assessment Height 163 cm Height (ft) 5 ft Height (in) 4 in Maternal assessment other: 1 Para 0 Method Transabdominal ultrasound examination [place] . Number of fetuses: 1 Dating GA by prior assessment 13 w + 4 d JOSE A by prior assessment: 09/16/2024 Ultrasound examination on: 03/15/2024 GA by U/S based upon: CRL GA by U/S 14 w + 0 d JOSE A by U/S: 09/13/2024 Assigned: based on stated JOSE A, selected on 03/15/2024 Assigned GA 13 w + 4 d Assigned JOSE A: 09/16/2024 General Evaluation Cardiac activity present Placenta: anterior Cord vessels: 3 vessel cord Amniotic fluid: normal amount Biometry Standard FHR 159 bpm CRL 80.2 mm 14w 0d 75% [place] First Trimester Anatomy Calvarium: normal Falx cerebri: normal Choroid plexus: normal Profile: normal Nasal bone: normal Retronasal triangle: normal Maxilla: normal Mandible: normal Nuchal translucency: Unremarkable Situs: normal Cardiac position: normal Cardiac axis: normal 4-chamber view: normal 4-chamber view with color: normal [id number]-wotecmh view: normal Abdominal cord insertion: normal Stomach: normal Kidneys: normal Bladder: normal Color doppler of perivesical umbilical arteries: normal Vertebral alignment: normal Arms: normal Hands: normal Legs: normal Feet: normal Maternal Structures Uterus / Cervix Uterus: Visualized Uterus length 161 mm Uterus width 101 mm Uterus height 77 mm Uterus Vol 651.9 cm Ovaries / Tubes / Adnexa Rt ovary: Not visualized Lt ovary: Not visualized Performed By: Hillary Sinha RDMS, RVT Read By: Trish Brooks M.D. MATERNAL MEDICINE [facility] Radiology Study observation (narrative) [facility] HBV surface Ag Ser Qlon HBV surface Ag Ql (S) Negative Normal Negative [facility] Comment on above: Order Comment: Speci abraham Type: BLOOD SPECIMENOrdering Facility: [facility] Address: [address] [place] [address] Performed By: #### 5 195-3, 32635-2, 62355-7 ####[facility] [id number] [place] [address] [place] HCV Ab Ser Qlon 03-15-2024 HCV Ab Ql (S) Negative Normal Negative [facility] Comment on above: Order Comment: Speci abraham Type: BLOOD SPECIMEN [facility] Address: [address] [place] [address] Result Comment: The result suggests no evidence of active infection with Hepatitis C virus. Should recent infection be suspected, repeat testing may be considered 4-6 weeks after this draw. Performed By: #### 1 6128-1 #### [facility] [id number] [address] [place] [address] [place] HGB ELECTROPHORESIS FOR EVAL (LAB ORDER)on 03-15-2024 Hemoglobin A (Bld) [Mass fraction] 97.3 % Normal 96.2-98.0 [facility] Comment on above: Order Comment: Speci men Type: BLOOD SPECIMEN [facility] Address: [address] [place] [address] Performed By: #### H GBELEV #### [facility] [id number] [address] [place] [address] [place] Hemoglobin A2 (Bld) [Mass fraction] 2.7 % Normal 2.0-3.1 [facility] Comment on above: Order Comment: Abdifatahi abraham Type: BLOOD SPECIMEN [facility] Address: [address] [place] [address] Performed By: #### H GBELEV #### [facility] [id number] [address] [place] [address] [place] Hemoglobin Unsp Elph (Bld) [Mass fraction] No abnormal hemoglobin identified. Normal No abnormal hemoglobin identified. [facility] Comment on above: Order Comment: Speci men Type: BLOOD SPECIMEN [facility] Address: [address] [place] [address] Performed By: #### H GBELEV #### [facility] [id number] [address] [place] [address] [place] HIV 1+2 Ab IA Qlon 4 HIV 1 and 2 Ab IA.rapid Nom (S/P/Bld) Normal [facility] Comment on above: Order Comment: Speci men Type: BLOOD SPECIMENOrdering Facility: [facility] Address: [address] [place] [address] Result Comment: Test not indicated. Performed By: #### 5 195-3, 00246-9, 70794-7 ####[facility] [id number] [place] [address] [place] HIV 1+2 Ab+HIV1 p24 Ag IA Ql Non-Reactive Normal Nonreactive [facility] Comment on above: Order Comment: Speci men Type: BLOOD SPECIMENOrdering Facility: [facility] Address: [address] [place] [address] Performed By: #### 5 195-3, 39030-4, 89405-0 ####[facility] [id number] [place] [address] [place] HIV immunoassay testing algorithm interpretation (S/P/Bld) [Interp] Normal [facility] Comment on above: Order Comment: Speci men Type: BLOOD SPECIMENOrdering Facility: [facility] Address: [address] [place] [address] Result Comment: No e vidence of HIV-1 or HIV-2 infection. Should recent infection be suspected, repeat testing may be considered 2-3 weeks after this draw. [place] Rev. Code 3701.243(E): This information has been disclosed to you from confidential records protected from disclosure by state law. ???You shall make no further disclosure of this information without the specific, written, and informed release of the individual to whom it pertains or as otherwise permitted by state law. A general authorization for the release of medical or other information is not sufficient for the purpose of the release of HIV test results or diagnoses. Performed By: #### 5 195-3, 40796-5, 97092-6 ####[facility] [id number] [address] [place] HbA1c (Bld)on 03-15-2024 Average glucose Estimated from glycated hemoglobin (Bld) [Mass/Vol] 91 mg/dL Normal [facility] Comment on above: Order Comment: Speci men Type: BLOOD SPECIMEN [facility] Address: [address] [place] [address] Result Comment: eAG: (Estimated average glucose) is a calculated value from HgbA1c and is appeals representative of the average blood glucose level in the last 2-3 month period. Performed By: #### 1 6128-1 #### [facility] [id number] [address] [place] [address] OF [facility] HbA1c (Bld) [Mass fraction] 4.8 % Normal 4.3-5.6 [facility] Comment on above: Order Comment: Crista rosario Type: BLOOD SPECIMEN [facility] Address: [address] [place] [address] Result Comment: Amer ican Diabetes Association guidelines indicate that patients with HgbA1c in the range 5.7-6.4% are at increased risk for development of diabetes, and intervention by lifestyle modification may be beneficial. HgbA1c greater or equal to 6.5% is considered diagnostic of diabetes. Performed By: #### 1 6128-1 #### [facility] [id number] [address] [place] [address] [place] [id number] PLUSon 03-15-2024 Cell-free DNA./Cell-free DNA.total Dosage of chromosome-specific cfDNA (cfDNA) [Molar fraction] 23% Normal [facility] Comment on above: Order Comment: Speci men Type: BLOOD SPECIMEN [facility] Address: [address] [place] [address] Performed By: #### 1 6128-1 #### [facility] [id number] [address] [place] [address] [place] Chr 13+18+21+X+Y aneuploidy Dosage of chromosome-specific cfDNA Ql (cfDNA) Negative Normal [facility] Comment on above: Order Comment: Speci men Type: BLOOD SPECIMEN [facility] Address: [address] [place] [address] Performed By: #### 1 6128-1 #### [facility] [id number] [address] [place] [address] [place] Chr 21 trisomy Dosage of chromosome-specific cfDNA Ql (cfDNA) Negative Normal [facility] Comment on above: Order Comment: Speci men Type: BLOOD SPECIMEN [facility] Address: [address] [place] [address] Performed By: #### 1 6128-1 #### [facility] [id number] [address] [place] [address] [place] Chr X and Y aneuploidy risk Sequencing Ql (cfDNA) [Interp] Not detected Normal [facility] Comment on above: Order Comment: Speci men Type: BLOOD SPECIMEN [facility] Address: [address] [place] [address] Result Comment: Not Detected Not Detected Performed By: #### 1 6128-1 #### [facility] [id number] [address] [place] [address] [place] Citation Ceferino (Reference lab test) Comment Normal [facility] Comment on above: Order Comment: Speci men Type: BLOOD SPECIMEN [facility] Address: [address] [place] [address] Result Comment: 1. P odell GRAJEDA, et al. Marian Med. 2012;14(3):296-305. 2. Ann HERBERT et al. Prenat Diag. 2013;33(6):591-597. 3. Rafa C, et al. Clin Chem. 2015 Apr;61(4):608-616. 4. Rakesh GRAJEDA et al. Marian Med. 2011;13(11):913-920. 5. ACOG/SMFM Practice Bulletin No. 226, Mar 2020. Performed By: #### 1 6128-1 #### [facility] [id number] [address] [place] [address] [place] Gestational age Estimated from conception date [place] Normal [facility] Comment on above: Order Comment: Crista rosario Type: BLOOD SPECIMEN [facility] Address: [address] [place] [address] Performed By: #### 1 6128-1 #### [facility] [id number] [address] [place] [address] [place] GESTATIONALAGE AGE > OR = 9W Yes Normal [facility] Comment on above: Order Comment: Crista rosario Type: BLOOD SPECIMEN [facility] Address: [address] [place] [address] Performed By: #### 1 6128-1 #### [facility] [id number] [address] [place] [address] [place] Laboratory comment Ceferino (Report) Comment Normal [facility] Comment on above: Order Comment: Crista rosario Type: BLOOD SPECIMEN [facility] Address: [address] [place] [address] Result Comment: The MaterniT(R) 21 PLUS laboratory-developed test (LDT) analyzes circulating cell-free DNA from a maternal blood sample. This test is used for screening purposes and not diagnostic. Clinical correlation is recommended. Validation data on twin pregnancies is limited and the ability of this test to detect aneuploidy in higher multiple gestations has not yet been validated. Performed By: #### 1 6128-1 #### [facility] [id number] [address] [place] [address] [place] director group sales name Nom (Provider) Comment Normal [facility] Comment on above: Order Comment: Speci men Type: BLOOD SPECIMEN [facility] Address: [address] [place] [address] Result Comment: This specimen showed an expected representation of chromosome 21, 18 and 13 material. Clinical correlation is suggested. Comment Damion Toth MD, PhD, Director, [facility] Performed By: #### 1 6128-1 #### [facility] [id number] [address] [place] [address] [place] LIMITATIONS OF THE TEST Comment Normal [facility] Comment on above: Order Comment: Speci men Type: BLOOD SPECIMEN [facility] Address: [address] [place] [address] Result Comment: Whryne ace the results of these tests are highly reliable, discordant results, including inaccurate sex prediction, may occur due to placental, maternal, or mosaicism or neoplasm; vanishing twin; prior maternal organ transplant; or other causes. These tests are screening tests and not diagnostic; they do not replace the accuracy and precision of diagnosis with CVS or amniocentesis. A patient with a positive test result should be referred for genetic counseling and offered invasive diagnosis for confirmation of test results.[5] The results of this testing, including the benefits and limitations, should be discussed with a qualified healthcare provider. management decisions, including termination of the , should not be based on the results of these tests alone. The healthcare provider is responsible for the use of this information in the management of their patient. Sex chromosomal aneuploidies are not reportable for known multiple gestations. A negative result does not ensure an unaffected nor does it exclude the possibility of other chromosomal abnormalities or defects which are not a part of these tests. An uninformative result may be reported, the causes of which may include, but are not limited to, insufficient sequencing coverage, noise or artifacts in the region, amplification or sequencing bias, or insufficient fraction. These tests are not intended to identify pregnancies at risk for neural tube defects or ventral wall defects. Testing for whole chromosome abnormalities (including sex chromosomes) and for subchromosomal abnormalities could lead to the potential discovery of both and maternal genomic abnormalities that could have major, minor, or no, clinical significance. Evaluating the significance of a positive or a non-reportable result may involve both invasive testing and additional studies on the mother. Such investigations may lead to a diagnosis of maternal chromosomal or subchromosomal abnormalities, which on occasion may be associated with benign or malignant maternal neoplasms. These tests may not accurately identify triploidy, balanced rearrangements, or the precise location of subchromosomal duplications or deletions; these may be detected by diagnosis with CVS or amniocentesis. The ability to report results may be impacted by maternal BMI, maternal weight, maternal systemic lupus erythematosus (SLE) and/or by certain pharmaceutical agents such as low molecular weight heparin (for example: Lovenox(R), Xaparin(R), Clexane(R) and Fragmin(R)). Performed By: #### 1 6128-1 #### [facility] [id number] [address] [place] [address] [place] Monosomy X risk Dosage of chromosome-specific cfDNA Ql (Plasma cell-free+WBC DNA) [Interp] Not detected Normal [facility] Comment on above: Order Comment: Crista rosario Type: BLOOD SPECIMEN [facility] Address: [address] [place] [address] Performed By: #### 1 6128-1 #### [facility] [id number] [address] [place] [address] [place] NEGATIVE PREDICTIVE VALUE Note Normal [facility] Comment on above: Order Comment: Crista rosario Type: BLOOD SPECIMEN [facility] Address: [address] [place] [address] Result Comment: The Negative Predictive Value (NPV) for trisomy 21, 18, and 13 is greater than 99%. The NPV for SCA and ESS cannot be calculated as SCA and ESS are only reported when an abnormality is detected. Performed By: #### 1 6128-1 #### [facility] [id number] [address] [place] [address] NOTE Comment Normal [facility] Comment on above: Order Comment: Crista men Type: BLOOD SPECIMEN [facility] Address: [address] [place] [address] Result Comment: See Notes [place] [employer] is a subsidiary of [employer], using the brand [employer]. This test was developed and its performance characteristics determined by [employer]. It has not been cleared or approved by the Food and Drug Administration. This laboratory is certified under the Clinical Laboratory Improvement Amendments (CLIA) as qualified to perform high complexity clinical laboratory testing and accredited by the [employer] (CAP). If there is future clinical need for adding MaterniT GENOME testing, this specimen will be available until term. [facility] samples will not be retained beyond 60 days. [facility] patients will have to send a new sample for re-sequencing ([facility] Test Code: [id number]). Performed By: #### 1 6128-1 #### [facility] [id number] [address] [place] [address] PERFORMANCE CHARACTERISTICS Note Normal [facility] Comment on above: Order Comment: Crista rosario Type: BLOOD SPECIMEN [facility] Address: [address] [place] [address] Result Comment: ! Sex ! Accuracy: 99.4% ! ! ! ! Region (associated syndrome) ! Est. Sens# ! Est. Spec ! ! ! ! Trisomy 21 (Down Syndrome) ! 99.1% ! 99.9% ! ! ! ! Trisomy 18 (Cruz Syndrome) ! >99.9% ! 99.6% ! ! ! ! Trisomy 13 ([place] Syndrome) ! 91.7% ! 99.7% ! ! ! ! Sex Chromosome Aneuploidies## ! 96.2% ! 99.7% ! ! ! * As reported in ISCA database nstd37 [https://www.ncbi.nlm.nih.gov/dbvar/studies/nstd37/ ] # Estimated Sensitivity. Sensitivity estimated across the observed size distribution of each syndrome [per ISCA database nstd37] and across the range of fractions observed in routine clinical NIPT. Actual sensitivity can also be influenced by other factors such as the size of the event, total sequence counts, amplification bias, or sequence bias. ## Sparks gestation only. Performed By: #### 1 6128-1 #### [facility] [id number] [address] [place] [address] [place] POSITIVE PREDICTIVE VALUE N/A Normal [facility] Comment on above: Order Comment: Speci men Type: BLOOD SPECIMEN [facility] Address: [address] [place] [address] Performed By: #### 1 6128-1 #### [facility] [id number] [address] [place] [address] [place] Reference Lab Test Method Comment Normal [facility] Comment on above: Order Comment: Speci men Type: BLOOD SPECIMEN [facility] Address: [address] [place] [address] Result Comment: See Notes Circulating cell-free DNA was purified from the plasma component of maternal blood. The extracted DNA was then converted into a genomic DNA library for aneuploidy analysis of chromosomes 21, 18, and 13 via next generation sequencing.[1] Optional findings based on the test order include sex chromosome aneuploidy (SCA)[2], and enhanced sequencing series (ESS)[3], which will only be reported on as an additional finding when an abnormality is detected. SCA testing includes information on X and Y representation, while ESS testing includes deletions in selected regions (22q, 15q, 11q, 8q, 5p, 4p, 1p) and trisomy of chromosomes 16 and 22. Performed By: #### 1 6128-1 #### [facility] CLIA [id number] [address] [place] [address] [place] Sex Dosage of chromosome-specific cfDNA Nom (cfDNA) Comment Normal [facility] Comment on above: Order Comment: Speci men Type: BLOOD SPECIMEN Ordering Facility: [facility] Address: [address] [place] [address] Result Comment: Cons istent with Female Performed By: #### 1 6128-1 #### [facility] CLIA [id number] [address] [place] [address] [place] Test performance information Ceferino (Unsp spec) Comment Normal [facility] Comment on above: Order Comment: Crista rosario Type: BLOOD SPECIMEN Ordering Facility: [facility] Address: [address] [place] [address] Result Comment: The performance characteristics of the MaterniT(R) 21 PLUS laboratory-developed test (LDT) have been determined in a clinical validation study with women at increased risk for chromosomal aneuploidy.[1-4] Performed By: #### 1 6128-1 #### [facility] CLIA [id number] [address] [place] [address] [place] Trisomy 13 risk Dosage of chromosome-specific cfDNA Ql (cfDNA) [Interp] Negative Normal [facility] Comment on above: Order Comment: Crista rosario Type: BLOOD SPECIMEN Ordering Facility: [facility] Address: [address] [place] [address] Performed By: #### 1 6128-1 #### [facility] CLIA [id number] [address] [place] [address] [place] Trisomy 18 risk Dosage of chromosome-specific cfDNA Ql (Plasma cell-free+WBC DNA) [Interp] Negative Normal [facility] Comment on above: Order Comment: Crista rosario Type: BLOOD SPECIMEN Ordering Facility: [facility] Address: [address] [place] [address] Performed By: #### 1 6128-1 #### [facility] CLIA [id number] [address] [place] [address] [place] RBC PARAMETERS FOR HB IDon 1 Erythrocyte distribution width (RBC) [Ratio] 13.1 % Normal 11.5-15.0 [facility] Comment on above: Order Comment: Crista rosario Type: BLOOD SPECIMENOrdering Facility: [facility] Address: [address] [place] [address] Performed By: #### L [id number] ####[facility] [id number] [place] [address] [place] Hematocrit (Bld) [Volume fraction] 38.4 % Normal 36.0-46.0 [facility] Comment on above: Order Comment: Speci men Type: BLOOD SPECIMENOrdering Facility: [facility] Address: [address] [place] [address] Performed By: #### L [id number] ####[facility] [id number] [place] [address] [place] Hemoglobin (Bld) [Mass/Vol] 12.7 g/dL Normal 11.5-15.5 [facility] Comment on above: Order Comment: Speci men Type: BLOOD SPECIMENOrdering Facility: [facility] Address: [address] [place] [address] Performed By: #### L [id number] ####[facility] [id number] [place] [address] [place] MCHC (RBC) [Mass/Vol] 33.1 g/dL Normal 30.5-36.0 [facility] Comment on above: Order Comment: Speci men Type: BLOOD SPECIMENOrdering Facility: [facility] Address: [address] [place] [address] Performed By: #### L [id number] ####[facility] [id number] [place] [address] [place] MCV (RBC) [Entitic vol] 94.6 fL Normal 80.0-100.0 [facility] Comment on above: Order Comment: Speci men Type: BLOOD SPECIMENOrdering Facility: [facility] Address: [address] [place] [address] Performed By: #### L [id number] ####[facility] [id number] [place] [address] [place] RBC (Bld) [#/Vol] 4.06 10*6/uL Normal 3.90-5.20 [facility] Comment on above: Order Comment: Speci men Type: BLOOD SPECIMENOrdering Facility: [facility] Address: [address] [place] [address] Performed By: #### L [id number] ####[facility] [id number] [place] [address] [place] RUBELLA IGG ANTIBODYon 03-15 RUBELLA IGG AB, QUAL Negative Abnormal Positive [facility] Comment on above: Order Comment: Speci abraham Type: BLOOD SPECIMEN Ordering Facility: [facility] Address: [address] [place] [address] Result Comment: The result suggests no history of Rubella vaccination or exposure to Rubella virus, however, some individuals with past history of Rubella vaccination may test negative using this test as immunity to Rubella virus wanes over time after vaccination. Please correlate with vaccination history if applicable. Performed By: #### 1 6128-1 #### [facility] CLIA [id number] [address] [place] [address] [place] Reagin and Treponema pallidu m IgG and IgM [Interp]on 03-15-2024 T. pallidum IgG+IgM IA Ql (S) Non-Reactive Normal Nonreactive [facility] Comment on above: Order Comment: Crista rosario Type: BLOOD SPECIMENOrdering Facility: [facility] Address: [address] [place] [address] Performed By: #### 5 195-3, 74667-1, 10105-7 ####[facility] [id number] [place] [address] [place] Reagin+T pallidum IgG+IgM Se rPl-Impon 03-15-2024 Reagin and Treponema pallidum IgG and IgM [Interp] Cannot exclude recent Treponemal infection if specimen collected within 7-10 days after appearance of suspect lesions or 2-3 weeks after an exposure. Clinical correlation is required. Normal [facility] Comment on above: Order Comment: Crista rosario Type: BLOOD SPECIMENOrdering Facility: [facility] Address: [address] [place] [address] Performed By: #### 5 195-3, 24716-8, 32371-7 ####[facility] [id number] [place] [address] [place] TYPE + SCREEN PRENATALon ABO A Normal [facility] Comment on above: Order Comment: Speci men Type: BLOOD SPECIMENOrdering Facility: [facility] Address: [address] [place] [address] Performed By: #### T SPN ####[facility] B[facility] BANKCLIA [id number] [place] [address] [place] Rh Nom (Bld) Positive Normal [facility] Comment on above: Order Comment: Speci men Type: BLOOD SPECIMENOrdering Facility: [facility] Address: [address] [place] [address] Performed By: #### T SPN ####[facility] BLOOD BANKIA [id number] [place] [address] [place] TYPE AND SCREEN EXPIRATION 03/18/2024 23:59 Normal [facility] Comment on above: Order Comment: Speci men Type: BLOOD SPECIMENOrdering Facility: [facility] Address: [address] [place] [address] Performed By: #### T SPN ####[facility] BLOOD BANKCLIA [id number] [place] [address] [place] Bacteria Ur Culton Bacteria identified Cx Nom (U) CULTURE, URINE: No growth (<1,000 CFU/ml) Normal [facility] Comment on above: Performed By: #### 6 30-4 ####[facility] [id number] [place] [address] [place] C. trachomatis+N. gonorrhoea e DNA JO+probe Ql (Unsp spec)on 02-22-2024 C. trachomatis rRNA JO+probe Ql (Unsp spec) Negative Normal Negative for Chlamydia trachomatis by amplificaton [facility] Comment on above: Order Comment: Speci men Type: BLOOD SPECIMEN Order[facility] Address: [address] [place] [address] Performed By: #### 1 6128-1 #### [facility] CLIA [id number] [address] [place] [address] [place] N. gonorrhoeae rRNA JO+probe Ql (Unsp spec) Negative Normal Negative for Neisseria gonorrhoeae by amplification [facility] Comment on above: Order Comment: Speci men Type: BLOOD SPECIMEN Ordering Facility: [facility] Address: [address] [place] [address] Performed By: #### 1 6128-1 #### [facility] CLIA [id number] [address] [place] [address] [place] HIGH RISK HUMAN PAPILLOMA SOO (HPV), PCR FOR DETECTION AND GENOTYPINGon 02-22-2024 HPV 16 Ag Ql (Unsp spec) Not detected Normal Not detected [facility] Comment on above: Order Comment: Speci men Type: FLUID SPECIMENOrdering Facility: [facility] Address: [address] [place] [address] Performed By: #### L [id number], HPVHRT ####[facility] [id number] [place] [address] [place] HPV 18 Ag Ql (Unsp spec) Not detected Normal Not detected [facility] Comment on above: Order Comment: Speci men Type: FLUID SPECIMENOrdering Facility: [facility] Address: [address] [place] [address] Performed By: #### L [id number], HPVHRT ####[facility] [id number] [place] [address] [place] HPV 31+33+35+39+45+51+52+56 +58+59+66+68 DNA JO+probe Ql (Cvx) Not detected Normal Not detected [facility] Comment on above: Order Comment: Speci men Type: FLUID SPECIMENOrdering Facility: [facility] Address: [address] [place] [address] Result Comment: High Risk HPV Other Type includes HPV types 31, 33, 35, 39, 45, 51, 52, 56, 58, 59, 66 and 68. Performed By: #### L [id number], HPVHRT ####[facility] [id number] [place] [address] [place] PAP TESTon 02-22-2024 ADEQUACY Satisfactory for interpretation. Normal [facility] Comment on above: Order Comment: Speci men Type: FLUID SPECIMENOrdering Facility: [facility] Address: [address] [place] [address] Performed By: #### L [id number], HPVHRT ####[facility] [id number] [place] [address] [place] CASE REPORT Normal [facility] Comment on above: Order Comment: Speci men Type: FLUID SPECIMENOrdering Facility: [facility] Address: [address] [place] [address] Result Comment: Gyne cologic Cytology Report Case: [id number] Authorizing Provider: Keara Belle APRN.CNM Collected: 02/22/2024 09:36 AM Ordering Location: OB/Gynecology Received: 02/22/2024 11:44 AM First Screen: Rebolledo, Sasha, CT, ASCP Specimen: Pap Test, ThinPrep, Cervix Performed By: #### L [id number], HPVHRT ####[facility] [id number] [place] [address] [place] CLINICAL HISTORY, CYTOLOGY, TOBACCO SWEEPER (Indicate Weeks) Normal [facility] Comment on above: Order Comment: Speci men Type: FLUID SPECIMENOrdering Facility: [facility] Address: [address] [place] [address] Performed By: #### L [id number], HPVHRT ####[facility] [id number] [place] [address] [place] FINAL PERFORMING LAB Normal [facility] Comment on above: Order Comment: Speci men Type: FLUID SPECIMENOrdering Facility: [facility] Address: [address] [place] [address] Result Comment: Tech nical component, cotton tipper screening performed at [facility], [facility] [address] CLIA# [id number] Diagnostic interpretation performed at [facility], [address] [facility] [address] CLIA# [id number] Catalogue Maker: Charles Hidalgo M.D. Performed By: #### L [id number], HPVHRT ####[facility] [id number] [place] [address] [place] HPV REFLEX Yes HPV Normal [facility] Comment on above: Order Comment: Speci men Type: FLUID SPECIMENOrdering Facility: [facility] Address: [address] [place] [address] Performed By: #### L [id number], HPVHRT ####[facility] [id number] [place] [address] [place] INTERPRETATION, CYTOLOGY, TOBACCO SWEEPER Normal [facility] Comment on above: Order Comment: Speci men Type: FLUID SPECIMENOrdering Facility: [facility] Address: [address] [place] [address] Result Comment: Nega tive for intraepithelial lesion or malignancy. Performed By: #### L [id number], HPVHRT ####[facility] [id number] [place] [address] [place] LMP 10/30/2023 Normal [facility] Comment on above: Order Comment: Speci men Type: FLUID SPECIMENOrdering Facility: [facility] Address: [address] [place] [address] Performed By: #### L [id number], HPVHRT ####[facility] [id number] [address] PAP DISCLAIMER COMMENT The Pap Smear is a screening test for cervical cancer. False negative results occur with all screening tests, emphasizing the need for rescreening at recommended intervals, and clinical correlation. Normal [facility] Comment on above: Order Comment: Speci men Type: FLUID SPECIMENOrdering Facility: [facility] Address: [address] [place] [address] Performed By: #### L [id number], HPVHRT ####[facility] [id number] [address] [place] PAP EQUIPMENT VALIDATION ENGINEER COMMENT This specimen has been analyzed by the ThinPrep Imaging System, an automated imaging and review system, which assists the laboratory in evaluating cells on ThinPrep Pap tests. Following automated imaging, selected marie from every slide are reviewed by a cotton tipper. Normal [facility] Comment on above: Order Comment: Speci men Type: FLUID SPECIMENOrdering Facility: [facility] Address: [address] [place] [address] Performed By: #### L [id number], HPVHRT ####[facility] [id number] [address] [place] Ap 02-19-2024 RODDYN Telephone (SAVANNAH) SARIKA FERREIRA ([id number]) 1990 F Date Time Provider Department 02/19/24 KEARA BELLE During your visit today, we recorded the following information about you: Awa Alexander LPN 02/19/2024 10:37 AM Signed Called patient- not available. Left message to call clinic. Called to do new OB intake questions. LEDA Epperson Trisha, RN 02/19/2024 2:14 PM Signed Patient called back while you were on the phone. She will have her phone on the rest of the afternoon if you're able to call her back. Mariela Merlos RN Allergies As of Date: 02/19/2024 (No Known Allergies) Date Reviewed: 02/19/2024 Reviewed by: Awa Alexander LPN - Fully Assessed Reason for Visit: Appointment [186] Prescriptions as of 02/19/2024 - vit no.124/iron/folic ( VITAMIN ORAL) Take by mouth once daily. 2 Gummies - acetaminophen (TYLENOL EXTRA STRENGTH) 500 mg tablet Take 500 mg by mouth every 8 hours as needed for pain. - desog-et estra/ethin estra(MIRCETTE 0.15 MG-0.02 MG X21/0.01 MGX5 TAB) Take one(1) tablet daily. 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 rapid Ql (Resp) SARS-CoV-2 Antigen (Rapid) SARS-CoV-2 (COVID 19) [facility] Work Phone: Vital Signs Date Time Vital Sign Value Performing Clinician Facility 12-21-2024 13:40-0400 Body height 165.1 cm Ria Fonseca DO Work Phone: [facility] 12-21-2024 13:40-0400 Body mass index (BMI) [Ratio] 28.29 kg/m2 Ria Fonseca DO Work Phone: [facility] 12-21-2024 13:40-0400 Body temperature 98.6 [degF] Ria Fonseca DO Work Phone: [facility] 12-21-2024 13:40-0400 Body weight 77.11 kg Riaerlinda Fonseca DO Work Phone: [facility] 12-21-2024 13:40-0400 Diastolic blood pressure 63 mm[Hg] Riaerlinda Fonseca DO Work Phone: [facility] 12-21-2024 13:40-0400 Heart rate 68 /min Riaerlinda Fonseca DO Work Phone: [facility] 12-21-2024 13:40-0400 Respiratory rate 16 /min Riaerlinda Fonseca DO Work Phone: [facility] 12-21-2024 13:40-0400 SaO2% (BldA) [Mass fraction] 98 % Ria Fonseca DO Work Phone: [facility] 12-21-2024 13:40-0400 Systolic blood pressure 107 mm[Hg] Ria Fonseca DO Work Phone: [facility] 10-20-2024 10:18-0400 Body temperature 98.5 [degF] No Primary Care Physician [facility] 10-20-2024 10:18-0400 Diastolic blood pressure 78 mm[Hg] No Primary Care Physician [facility] 10-20-2024 10:18-0400 Heart rate 69 /min No Primary Care Physician [facility] 10-20-2024 10:18-0400 Respiratory rate 18 /min No Primary Care Physician [facility] 10-20-2024 10:18-0400 SaO2% (BldA) [Mass fraction] 99 % No Primary Care Physician [facility] 10-20-2024 10:18-0400 Systolic blood pressure 89 mm[Hg] No Primary Care Physician [facility] 10-20-2024 06:25-0400 Body height 165.1 cm No Primary Care Physician [facility] 10-20-2024 06:25-0400 Body mass index (BMI) [Ratio] 25.6 kg/m2 No Primary Care Physician [facility] 10-20-2024 06:25-0400 Body weight 69.9 kg No Primary Care Physician [facility] 10-12-2024 14:25-0400 Body mass index (BMI) [Ratio] 26.78 kg/m2 Soraya Novak MD Work Phone: [facility] 10-12-2024 14:25-0400 Body weight 70.76 kg Soraya Novak MD Work Phone: [facility] 10-12-2024 14:25-0400 Diastolic blood pressure 64 mm[Hg] Soraya Novak MD Work Phone: [facility] 10-12-2024 14:25-0400 Systolic blood pressure 112 mm[Hg] Soraya Novak MD Work Phone: [facility] 09-14-2024 13:48-0400 Body mass index (BMI) [Ratio] 29.01 kg/m2 Soraya Novak MD Work Phone: [facility] 09-14-2024 13:48-0400 Body weight 76.66 kg Soraya Novak MD Work Phone: [facility] 09-14-2024 13:48-0400 Diastolic blood pressure 72 mm[Hg] Soraya Novak MD Work Phone: [facility] 09-14-2024 13:48-0400 Systolic blood pressure 132 mm[Hg] Soraya Noavk MD Work Phone: [facility] 09-11-2024 07:36-0400 Body temperature 98 [degF] No Primary Care Physician [facility] 09-11-2024 07:36-0400 Diastolic blood pressure 82 mm[Hg] No Primary Care Physician [facility] 09-11-2024 07:36-0400 Heart rate 72 /min No Primary Care Physician [facility] 09-11-2024 07:36-0400 Respiratory rate 18 /min No Primary Care Physician [facility] 09-11-2024 07:36-0400 SaO2% (BldA) [Mass fraction] 100 % No Primary Care Physician [facility] 09-11-2024 07:36-0400 Systolic blood pressure 124 mm[Hg] No Primary Care Physician [facility] 09-09-2024 07:52-0400 Body height 165.1 cm No Primary Care Physician [facility] 09-09-2024 07:52-0400 Body mass index (BMI) [Ratio] 29.9 kg/m2 No Primary Care Physician [facility] 09-09-2024 07:52-0400 Body weight 81.7 kg No Primary Care Physician [facility] 09-08-2024 14:35-0400 Body mass index (BMI) [Ratio] 30.97 kg/m2 Kenya Philip MD Work Phone: [facility] 09-08-2024 14:35-0400 Body weight 81.83 kg Kenya Philip MD Work Phone: [facility] 09-08-2024 14:35-0400 Diastolic blood pressure 64 mm[Hg] Kenya Philip MD Work Phone: [facility] 09-08-2024 14:35-0400 Systolic blood pressure 110 mm[Hg] Kenya Philip MD Work Phone: [facility] 08-31-2024 15:01-0400 Body mass index (BMI) [Ratio] 30.43 kg/m2 Alexander Galloway MD Work Phone: [facility] 08-31-2024 15:01-0400 Body weight 80.42 kg Alexander Galloway MD Work Phone: [facility] 08-31-2024 15:01-0400 Diastolic blood pressure 73 mm[Hg] Alexander Galloway MD Work Phone: [facility] 08-31-2024 15:01-0400 Systolic blood pressure 133 mm[Hg] Alexander Galloway MD Work Phone: [facility] 08-25-2024 16:32-0400 Body temperature 98.1 [degF] No Primary Care Physician [facility] 08-25-2024 16:32-0400 Diastolic blood pressure 82 mm[Hg] No Primary Care Physician [facility] 08-25-2024 16:32-0400 Heart rate 80 /min No Primary Care Physician [facility] 08-25-2024 16:32-0400 Respiratory rate 16 /min No Primary Care Physician [facility] 08-25-2024 16:32-0400 Systolic blood pressure 130 mm[Hg] No Primary Care Physician [facility] 08-25-2024 16:22-0400 Body height 162.56 cm No Primary Care Physician [facility] 08-25-2024 16:22-0400 Body mass index (BMI) [Ratio] 30.7 kg/m2 No Primary Care Physician [facility] 08-25-2024 16:22-0400 Body weight 81.1 kg No Primary Care Physician [facility] 08-25-2024 14:30-0400 Body mass index (BMI) [Ratio] 30.73 kg/m2 Hola Dueñas MD Work Phone: [facility] 08-25-2024 14:30-0400 Body weight 81.19 kg Hola Dueñas MD Work Phone: [facility] 08-25-2024 14:30-0400 Diastolic blood pressure 76 mm[Hg] Hola Dueñas MD Work Phone: [facility] 08-25-2024 14:30-0400 Systolic blood pressure 127 mm[Hg] Hola Dueñas MD Work Phone: [facility] 08-18-2024 16:18-0500 Body mass index (BMI) [Ratio] 30.38 kg/m2 Alexander Galloway MD Work Phone: [facility] 08-18-2024 16:18-0500 Body weight 80.29 kg Alexander Galloway MD Work Phone: [facility] 08-18-2024 16:18-0500 Diastolic blood pressure 76 mm[Hg] Alexander Galloway MD Work Phone: [facility] 08-18-2024 16:18-0500 Systolic blood pressure 132 mm[Hg] Alexander Galloway MD Work Phone: [facility] 07-28-2024 15:35-0500 Body mass index (BMI) [Ratio] 30 kg/m2 Hola Dueñas MD Work Phone: [facility] 07-28-2024 15:35-0500 Body weight 79.29 kg Hola Dueñas MD Work Phone: [facility] 07-28-2024 15:35-0500 Diastolic blood pressure 60 mm[Hg] Hola Dueñas MD Work Phone: [facility] 07-28-2024 15:35-0500 Systolic blood pressure 112 mm[Hg] Hola Dueñas MD Work Phone: [facility] 07-14-2024 14:38-0500 Body mass index (BMI) [Ratio] 28.84 kg/m2 Melba Sánchez MD Work Phone: [facility] 07-14-2024 14:38-0500 Body weight 76.2 kg Melba Sánchez MD Work Phone: [facility] 07-14-2024 14:38-0500 Diastolic blood pressure 62 mm[Hg] Melba Sánchez MD Work Phone: [facility] 07-14-2024 14:38-0500 Systolic blood pressure 106 mm[Hg] Melba Sánchez MD Work Phone: [facility] 07-08-2024 12:59-0500 Body mass index (BMI) [Ratio] 27.46 kg/m2 Ria Raymundo DO Work Phone: [facility] 07-08-2024 12:59-0500 Body temperature 97.5 [degF] Ria Raymundo DO Work Phone: [facility] 07-08-2024 12:59-0500 Body weight 74.84 kg Ria Raymundo DO Work Phone: [facility] 07-08-2024 12:59-0500 Diastolic blood pressure 64 mm[Hg] Ria Raymundo DO Work Phone: [facility] 07-08-2024 12:59-0500 Heart rate 80 /min Ria Fonseca DO Work Phone: [facility] 07-08-2024 12:59-0500 Systolic blood pressure 115 mm[Hg] Ria Fonseca DO Work Phone: [facility] 06-30-2024 15:12-0500 Body mass index (BMI) [Ratio] 28.84 kg/m2 Keara Alanizts SKILLED LABORER.CNM Work Phone: [facility] 06-30-2024 15:12-0500 Body weight 76.2 kg Keara Belle SKILLED LABORER.CNM Work Phone: [facility] 06-30-2024 15:12-0500 Diastolic blood pressure 62 mm[Hg] Keara Alanizts SKILLED LABORER.CNM Work Phone: [facility] 06-30-2024 15:12-0500 Systolic blood pressure 118 mm[Hg] Keara Belle SKILLED LABORER.CNM Work Phone: [facility] 06-03-2024 14:10-0500 Diastolic blood pressure 68 mm[Hg] No Primary Care Physician [facility] 06-03-2024 14:10-0500 Heart rate 86 /min No Primary Care Physician [facility] 06-03-2024 14:10-0500 Respiratory rate 16 /min No Primary Care Physician [facility] 06-03-2024 14:10-0500 SaO2% (BldA) [Mass fraction] 98 % No Primary Care Physician [facility] 06-03-2024 14:10-0500 Systolic blood pressure 120 mm[Hg] No Primary Care Physician [facility] 06-03-2024 12:10-0500 Body mass index (BMI) [Ratio] 27.5 kg/m2 No Primary Care Physician [facility] 06-03-2024 12:10-0500 Body temperature 97.3 [degF] No Primary Care Physician [facility] 06-03-2024 12:10-0500 Body weight 75 kg No Primary Care Physician [facility] 06-02-2024 10:03-0500 Body mass index (BMI) [Ratio] 28.15 kg/m2 Melba Sánchez MD Work Phone: [facility] 06-02-2024 10:03-0500 Body weight 74.39 kg Melba Sánchez MD Work Phone: [facility] 06-02-2024 10:03-0500 Diastolic blood pressure 56 mm[Hg] Melba Sánchez MD Work Phone: [facility] 06-02-2024 10:03-0500 Systolic blood pressure 98 mm[Hg] Melba Sánchez MD Work Phone: [facility] 05-31-2024 14:31-0500 Body mass index (BMI) [Ratio] 28.49 kg/m2 Melba Sánchez MD Work Phone: [facility] 05-31-2024 14:31-0500 Body weight 75.3 kg Melba Sánchez MD Work Phone: [facility] 05-31-2024 14:31-0500 Diastolic blood pressure 64 mm[Hg] Melba Sánchez MD Work Phone: [facility] 05-31-2024 14:31-0500 Systolic blood pressure 122 mm[Hg] Melba Sánchez MD Work Phone: [facility] 05-04-2024 15:02-0500 Body mass index (BMI) [Ratio] 26.95 kg/m2 Soraya Novak MD Work Phone: [facility] 05-04-2024 15:02-0500 Body weight 71.22 kg Soraya Novak MD Work Phone: [facility] 05-04-2024 15:02-0500 Diastolic blood pressure 56 mm[Hg] Soraya Novak MD Work Phone: [facility] 05-04-2024 15:02-0500 Systolic blood pressure 100 mm[Hg] Soraya Novak MD Work Phone: [facility] 05-02-2024 15:47-0500 Body mass index (BMI) [Ratio] 26.57 kg/m2 Hola Dueñas MD Work Phone: [facility] 05-02-2024 15:47-0500 Body weight 70.22 kg Hola Dueñas MD Work Phone: [facility] 05-02-2024 15:47-0500 Diastolic blood pressure 52 mm[Hg] Hola Dueñas MD Work Phone: [facility] 05-02-2024 15:47-0500 Systolic blood pressure 92 mm[Hg] Hola Dueñas MD Work Phone: [facility] 04-05-2024 15:01-0400 Body mass index (BMI) [Ratio] 26.43 kg/m2 Melba Sánchez MD Work Phone: [facility] 04-05-2024 15:01-0400 Body weight 69.85 kg Melba Sánchez MD Work Phone: [facility] 04-05-2024 15:01-0400 Diastolic blood pressure 60 mm[Hg] Melba Sánchez MD Work Phone: [facility] 04-05-2024 15:01-0400 Systolic blood pressure 98 mm[Hg] Melba Sánchez MD Work Phone: [facility] 04-05-2024 14:01-0400 Body mass index (BMI) [Ratio] 26.71 kg/m2 Zoey Hinson MD Work Phone: [facility] 04-05-2024 14:01-0400 Body weight 70.58 kg Zoey Hinson MD Work Phone: [facility] 04-05-2024 14:01-0400 Diastolic blood pressure 58 mm[Hg] Zoey Hinson MD Work Phone: [facility] 04-05-2024 14:01-0400 Systolic blood pressure 98 mm[Hg] Zoey Hinson MD Work Phone: [facility] 03-15-2024 15:38-0400 Body mass index (BMI) [Ratio] 25.23 kg/m2 Leilani Calixto SKILLED LABORER.CNM Work Phone: [facility] 03-15-2024 15:38-0400 Body weight 66.68 kg Leilani Calixto SKILLED LABORER.CNM Work Phone: [facility] 03-15-2024 15:38-0400 Diastolic blood pressure 66 mm[Hg] Leilani Calixto SKILLED LABORER.CNM Work Phone: [facility] 03-15-2024 15:38-0400 Systolic blood pressure 98 mm[Hg] Leilani Calixto SKILLED LABORER.CNM Work Phone: [facility] 02-22-2024 08:50-0400 Body height 162.6 cm Keara Alanizts SKILLED LABORER.CNM Work Phone: [facility] 02-22-2024 08:50-0400 Body mass index (BMI) [Ratio] 23.69 kg/m2 Keara Plotts SKILLED LABORER.CNM Work Phone: [facility] 02-22-2024 08:50-0400 Body weight 62.6 kg Keara Plotts SKILLED LABORER.CNM Work Phone: [facility] 02-22-2024 08:50-0400 Diastolic blood pressure 50 mm[Hg] Keara Plotts SKILLED LABORER.CNM Work Phone: [facility] 02-22-2024 08:50-0400 Systolic blood pressure 100 mm[Hg] Keara Plotts SKILLED LABORER.CNM Work Phone: [facility] 01-21-2024 08:24-0400 Body height 165.1 cm Ria Fonseca DO Work Phone: [facility] Comment on above: verbal 01-21-2024 08:24-0400 Body mass index (BMI) [Ratio] 22.27 kg/m2 Ria Fonseca DO Work Phone: [facility] 01-21-2024 08:24-0400 Body temperature 98.2 [degF] Ria Fonseca DO Work Phone: [facility] 01-21-2024 08:24-0400 Body weight 60.69 kg Ria Fonseca DO Work Phone: [facility] 01-21-2024 08:24-0400 Diastolic blood pressure 62 mm[Hg] Ria Fonseca DO Work Phone: [facility] 01-21-2024 08:24-0400 Heart rate 80 /min Ria Fonseca DO Work Phone: [facility] 01-21-2024 08:24-0400 Systolic blood pressure 117 mm[Hg] Ria Fonseca DO Work Phone: [facility] 09-14-2023 16:34-0400 Body height 162.56 cm [facility] 09-14-2023 16:34-0400 Body mass index (BMI) [Ratio] 20.2 kg/m2 [facility] 09-14-2023 16:34-0400 Body temperature 98.1 [degF] [facility] 09-14-2023 16:34-0400 Body weight 53.52 kg [facility] 09-14-2023 16:34-0400 Diastolic blood pressure 83 mm[Hg] [facility] 09-14-2023 16:34-0400 Heart rate 73 /min [facility] 09-14-2023 16:34-0400 Respiratory rate 16 /min [facility] 09-14-2023 16:34-0400 SaO2% (BldA) [Mass fraction] 100 % [facility] 09-14-2023 16:34-0400 Systolic blood pressure 146 mm[Hg] [facility] 07-24-2023 16:35-0500 Body temperature 98.01 [degF] Halley Nolasco APRN.CNP Work Phone: [facility] 07-24-2023 16:35-0500 Body weight 60.78 kg Halley Praisler-Wood SKILLED LABORER.VICE PRESIDENT OF ENGINEERING Work Phone: [facility] 07-24-2023 16:35-0500 Diastolic blood pressure 65 mm[Hg] Halley Praisler-Wood SKILLED LABORER.VICE PRESIDENT OF ENGINEERING Work Phone: [facility] 07-24-2023 16:35-0500 Heart rate 90 /min Halley Praisler-Wood SKILLED LABORER.VICE PRESIDENT OF ENGINEERING Work Phone: [facility] 07-24-2023 16:35-0500 Respiratory rate 16 /min Halley Praisler-Wood SKILLED LABORER.VICE PRESIDENT OF ENGINEERING Work Phone: [facility] 07-24-2023 16:35-0500 SaO2% (BldA) [Mass fraction] 98 % Halley Praisler-Wood SKILLED LABORER.VICE PRESIDENT OF ENGINEERING Work Phone: [facility] 07-24-2023 16:35-0500 Systolic blood pressure 113 mm[Hg] Halley Praisler-Wood SKILLED LABORER.VICE PRESIDENT OF ENGINEERING Work Phone: [facility] 02-25-2023 16:37-0400 Body temperature 98.2 [degF] Moustapha Pendlebury SKILLED LABORER.VICE PRESIDENT OF ENGINEERING Work Phone: [facility] 02-25-2023 16:37-0400 Body weight 57.79 kg Moustapha Pendlebury SKILLED LABORER.VICE PRESIDENT OF ENGINEERING Work Phone: [facility] 02-25-2023 16:37-0400 Diastolic blood pressure 88 mm[Hg] Moustapha Pendlebury SKILLED LABORER.VICE PRESIDENT OF ENGINEERING Work Phone: [facility] 02-25-2023 16:37-0400 Heart rate 61 /min Moustapha Pendlebury SKILLED LABORER.VICE PRESIDENT OF ENGINEERING Work Phone: [facility] 02-25-2023 16:37-0400 Respiratory rate 18 /min Moustapha Pendlebury SKILLED LABORER.VICE PRESIDENT OF ENGINEERING Work Phone: [facility] 02-25-2023 16:37-0400 SaO2% (BldA) [Mass fraction] 98 % Moustapha Pendlebury SKILLED LABORER.VICE PRESIDENT OF ENGINEERING Work Phone: [facility] 02-25-2023 16:37-0400 Systolic blood pressure 150 mm[Hg] Moustapha Dejesusteena SKILLED LABORERBorisVICE PRESIDENT OF ENGINEERING Work Phone: [facility] 01-21-2022 18:19-0400 Diastolic blood pressure 70 mm[Hg] [facility] Work Phone: 01-21-2022 18:19-0400 Heart rate 91 /min [facility] Work Phone: 01-21-2022 18:19-0400 Respiratory rate 15 /min [facility] Work Phone: 01-21-2022 18:19-0400 SaO2% (BldA) [Mass fraction] 99 % [facility] Work Phone: 01-21-2022 18:19-0400 Systolic blood pressure 122 mm[Hg] [facility] Work Phone: 01-21-2022 15:58-0400 Body height 165.1 cm [facility] Work Phone: 01-21-2022 15:58-0400 Body mass index (BMI) [Ratio] 27.8 kg/m2 [facility] Work Phone: 01-21-2022 15:58-0400 Body temperature 98.7 [degF] [facility] Work Phone: 01-21-2022 15:58-0400 Body weight 75.9 kg [facility] Work Phone: Encounters Encounter Date Encounter Type Care Provider Facility Start: 02-02-2025 ambulatory Ria Fonseca Facility :[facility] Start: 12-21-2024 End: 12-21-2024 Office outpatient visit 25 minutes Ria Fonseca DO Work Phone: [facility] Comment on above: Multiple sclerosis ( Primary Dx); Right sided weakness Start: 12-21-2024 ambulatory RIA FONSECA Facili ty:[facility] Start: 11-21-2024 ambulatory SELF SELF Facility:[facility] Start: 10-20-2024 End: 10-20-2024 Admission to same day surgery center Dr Soraya Pate MD -S[facility] Day Care Start: 10-20-2024 End: 10-20-2024 ambulatory No Primary Care Physician [facility] Work Phone: Start: 10-12-2024 End: 10-12-2024 Patient encounter procedure Soraya Novak MD Work Phone: OB/Gynecology Comment on above: care and examination (HCC) (Primary Dx); Request for sterilization; Pre-op exam Start: 10-12-2024 End: 10-12-2024 Preprocedural examination done Soraya Novak MD Work Phone: [facility] Start: 10-12-2024 End: 10-12-2024 ambulatory SORAYA NOVAK Facility:[facility] Start: 10-12-2024 Encounter for other preprocedural examination SORAYA NOVAK [facility] Start: 09-26-2024 End: 09-26-2024 Admission to same day surgery center [facility] Provider OB/Gynecology Comment on above: surgery confirmation Start: 09-26-2024 End: 09-26-2024 E-mail encounter from caregiver [facility] Provider OB/Gynecology Start: 09-14-2024 End: 09-14-2024 ambulatory SORAYA NOVAK Facility:[facility] Start: 09-14-2024 End: 09-14-2024 Patient encounter procedure Soraya Novak MD Work Phone: OB/Gynecology Comment on above: Routine f ollow-up (HCC) (Primary Dx); Sterilization consult Start: 09-09-2024 End: 09-09-2024 ambulatory Leilani Calixto APRN.CNM Work Phone: OB/Gynecology Comment on above: Ob Delivery Note Start: 09-09-2024 End: 09-11-2024 Evaluation and management of inpatient Leilani Calixto CNM [facility] Work Phone: Start: 09-08-2024 End: 09-08-2024 ambulatory KENYA PHILIP Facility:[facility] Start: 09-08-2024 End: 09-08-2024 Patient encounter procedure Kenya Philip MD Work Phone: OB/Gynecology Comment on above: 38 weeks gestation o f (Primary Dx); Multiple sclerosis (HCC); Supervision of high risk in third trimester; Advanced maternal age in multigravida, third trimester Start: 09-02-2024 End: 09-02-2024 [facility] Start: 09-02-2024 End: 09-02-2024 Patient encounter procedure [facility] Comment on above: Population Health Na vigation Outreach (Ob peds/) Start: 08-31-2024 End: 08-31-2024 Patient encounter procedure Alexander Galloway MD Work Phone: OB/Gynecology Comment on above: 37 weeks gestation o f (Primary Dx); Multiple sclerosis (HCC); Supervision of high risk in third trimester; Advanced maternal age in multigravida, third trimester Start: 08-31-2024 End: 08-31-2024 ambulatory HOLA DUEÑAS Facility:[facility] Start: 08-29-2024 ambulatory OTHER [facility] Facility:[facility] Start: 08-29-2024 End: 08-29-2024 Refill Leilani Calixto APRN.CNM Work Phone: OB/Gynecology Comment on above: Refill Request Start: 08-25-2024 End: 08-25-2024 Patient encounter procedure Hola Dueñas MD Work Phone: OB/Gynecology Comment on above: High-risk in third trimester (Primary Dx); Multiple sclerosis (HCC); Supervision of high risk in third trimester; 36 weeks gestation of Start: 08-25-2024 End: 08-25-2024 ambulatory No Primary Care Physician [facility] Work Phone: Start: 08-23-2024 End: 08-30-2024 Telephone encounter Kenya Philip MD Work Phone: OB/Gynecology Start: 08-22-2024 End: 10-22-2024 Follow-up encounter Alexander Galloway MD Work Phone: OB/Gynecology Start: 08-19-2024 End: 10-19-2024 Follow-up encounter Hola Dueñas MD Work Phone: OB/Gynecology Start: 08-18-2024 End: 08-18-2024 Patient encounter procedure Whi Tech 1 [employer] [facility] Comment on above: Encounter for ultras ound to check growth (Primary Dx); Tobacco use disorder; Multiple sclerosis (HCC); 35 weeks gestation of Supervision of high risk in third trimester (Primary Dx); High-risk in third trimester; Multiple sclerosis (HCC); Cervical cerclage suture present in third trimester; 35 weeks gestation of Start: 08-18-2024 End: 08-18-2024 ambulatory HOLA DUEÑAS Facility:[facility] Start: 07-29-2024 End: 09-28-2024 Follow-up encounter Keara Belle APRN.CNM Work Phone: OB/Gynecology Start: 07-28-2024 End: 07-28-2024 Patient encounter procedure Hola Dueñas MD Work Phone: OB/Gynecology Comment on above: High-risk in third trimester (Primary Dx); 32 weeks gestation of ; Short cervix affecting ; Tobacco use disorder; Multiple sclerosis (HCC) Supervision of high risk in third trimester; 28 weeks gestation of ; Short cervix affecting ; Cervical cerclage suture present in third trimester; Multiple sclerosis (HCC); AMA (advanced maternal age) multigravida 35+, third trimester Start: 07-28-2024 End: 07-28-2024 ambulatory KEARA BELLE Facility:[facility] Start: 07-25-2024 ambulatory RIA Almanza ty:[facility] Start: 07-14-2024 End: 07-14-2024 ambulatory MELBA SÁNCHEZ Facility:[facility] Start: 07-14-2024 End: 07-14-2024 Patient encounter procedure Melba Sánchez MD Work Phone: OB/Gynecology Comment on above: High-risk in third trimester (Primary Dx); Short cervix affecting ; Cervical cerclage suture present in third trimester; Multiple sclerosis (HCC); AMA (advanced maternal age) multigravida 35+, third trimester; History of seizures; 30 weeks gestation of Start: 07-08-2024 End: 07-08-2024 Office outpatient visit 25 minutes Ria Fonseca DO Work Phone: Neurology [facility] Comment on above: Multiple sclerosis ( Primary Dx); Local-rel idio epi w seiz of loc onset, ntrct, w/o stat epi Start: 07-08-2024 ambulatory SELF SELF Facility:[facility] Start: 06-30-2024 End: 06-30-2024 ambulatory MELBA SÁNCHEZ Facility:[facility] Start: 06-30-2024 End: 06-30-2024 Patient encounter procedure Whi Tech 1 [employer] [facility] Comment on above: Encounter for ultras ound to check growth (Primary Dx); Multiple sclerosis affecting , antepartum (HCC); Multigravida of advanced maternal age in third trimester; 28 weeks gestation of Supervision of high risk in third trimester (Primary Dx); 28 weeks gestation of ; Short cervix affecting ; Cervical cerclage suture present in third trimester; History of seizures; Multiple sclerosis (HCC); AMA (advanced maternal age) multigravida 35+, third trimester; Bipolar 1 disorder (HCC); Vapes nicotine containing substance; Marijuana use during Start: 06-30-2024 End: 06-30-2024 Telephone encounter Keara Belle APRN.CNM Work Phone: OB/Gynecology Comment on above: Results Start: 06-29-2024 ambulatory BEBA FOSTER Facility: [facility] Start: 06-03-2024 End: 06-03-2024 Emergency department patient visit Dr. Arron Ivan DO -Emergency Department Work Phone: Start: 06-02-2024 End: 06-02-2024 Patient encounter procedure Melba Sánchez MD Work Phone: OB/Gynecology Comment on above: Encounter for superv ision of high risk in second trimester, antepartum (Primary Dx); 24 weeks gestation of ; Short cervix affecting ; History of seizures; Multiple sclerosis (HCC); AMA (advanced maternal age) multigravida 35+, second trimester; Screening for diabetes mellitus; Need for influenza vaccination Encounter for ultras ound to check growth (Primary Dx); Primigravida of advanced maternal age in second trimester; Cervical shortening, second trimester; 24 weeks gestation of Start: 06-02-2024 End: 06-02-2024 ambulatory SORAYA NOVAK Facility:[facility] Start: 05-31-2024 End: 05-31-2024 ambulatory JOSE L DOMINGO Facility:[facility] Start: 05-31-2024 End: 05-31-2024 ambulatory MELBA SÁNCHEZ Facility:[facility] Start: 05-31-2024 End: 05-31-2024 Patient encounter procedure Melba Sánchez MD Work Phone: OB/Gynecology Comment on above: 24 weeks gestation o f (Primary Dx); Encounter for supervision of high risk in second trimester, antepartum; Primigravida of advanced maternal age in second trimester; Short cervix affecting Start: 05-23-2024 End: 05-25-2024 ambulatory Keara Belle APRN.CNM Work Phone: OB/Gynecology Comment on above: Medication Start: 05-04-2024 End: 05-04-2024 Patient encounter procedure Soraya Novak MD Work Phone: OB/Gynecology Comment on above: Encounter for superv ision of high risk in second trimester, antepartum (Primary Dx); Primigravida of advanced maternal age in second trimester; Short cervix affecting ; Cervical shortening, second trimester; 20 weeks gestation of Start: 05-04-2024 End: 05-04-2024 ambulatory SORAYA NOVAK Facility:[facility] Start: 05-02-2024 End: 05-03-2024 ambulatory DOUG FICNH Facility:[facility] Start: 05-02-2024 End: 05-02-2024 ambulatory KEARA BELLE Facility:[facility] Start: 05-02-2024 End: 05-02-2024 Patient encounter procedure Hola Dueñas MD Work Phone: OB/Gynecology Comment on above: Encounter for superv ision of high risk in second trimester, antepartum (Primary Dx); 20 weeks gestation of ; Primigravida of advanced maternal age in second trimester; Short cervix affecting Start: 05-02-2024 End: 05-02-2024 Patient encounter procedure Spool [facility]uler [facility] Work Phone: Maternal Medicine Comment on above: Encounter for anatomic survey (Primary Dx); 20 weeks gestation of ; Short cervix affecting ; AMA (advanced maternal age) multigravida 35+, second trimester Start: 05-02-2024 End: 05-02-2024 ambulatory KEARA BELLE Facility:[facility] Start: 04-05-2024 End: 04-05-2024 ambulatory MELBA SÁNCHEZ Facility:[facility] Start: 04-05-2024 End: 04-05-2024 Patient encounter procedure Zoey Hinson MD Work Phone: Maternal Medicine Comment on above: Multiple sclerosis a ffecting , antepartum (HCC) (Primary Dx); History of seizures; Multiple sclerosis (HCC); 16 weeks gestation of ; Advanced maternal age, primigravida, antepartum Start: 04-05-2024 End: 04-05-2024 Patient encounter procedure Melba Sánchez MD Work Phone: OB/Gynecology Comment on above: Primigravida of adva nced maternal age in second trimester (Primary Dx) screening for malformation using ultrasonics (Primary Dx); 16 weeks gestation of ; Multiple sclerosis (HCC); Primigravida of advanced maternal age in second trimester Start: 04-05-2024 End: 04-05-2024 ambulatory LEILANI CALIXTO Facility:[facility] Start: 03-21-2024 End: 04-21-2024 ambulatory Leilani Calixto APRN.CNM Work Phone: OB/Gynecology Start: 03-21-2024 End: 03-21-2024 Telephone encounter Leilani Calixto APRN.CNM Work Phone: OB/Gynecology Start: 03-15-2024 End: 03-15-2024 ambulatory LEILANI CALIXTO Facility:[facility] Start: 03-15-2024 End: 03-15-2024 Patient encounter procedure [employer] [facility] Work Phone: Maternal Medicine Comment on above: Encounter for antena vicki screening for malformation using ultrasound (Primary Dx); 13 weeks gestation of Encounter for superv ision of high risk in first trimester, antepartum (Primary Dx); History of seizures; Multiple sclerosis (HCC); Obesity in ; Vapes nicotine containing substance Start: 02-29-2024 End: 03-01-2024 ambulatory Keara Belle SKILLED LABORER.CNM Work Phone: OB/Gynecology Comment on above: Meds Start: 02-22-2024 End: 02-22-2024 ambulatory KEARA BELLE Facility:[facility] Start: 02-22-2024 End: 02-22-2024 Patient encounter procedure Keara Belle SKILLED LABORER.CNM Work Phone: OB/Gynecology Comment on above: Encounter for prenat al care in first trimester of first (Primary Dx); Screening for cervical cancer; Special screening examination for human papillomavirus (HPV); 10 weeks gestation of ; Vapes nicotine containing substance; Marijuana use during ; Bipolar 1 disorder (HCC); Encounter for supervision of high risk in first trimester, antepartum; with fetus of unknown gestational age Start: 02-19-2024 End: 02-19-2024 Telephone encounter Keara Belle APRN.CNM Work Phone: OB/Gynecology Comment on above: Appointment Start: 01-21-2024 End: 01-21-2024 Office consultation new/estab patient 60 min Ria Fonseca DO Work Phone: Neurology [facility] Comment on above: Multiple sclerosis ( Primary Dx); New onset seizure; Optic neuropathy Start: 01-21-2024 ambulatory PARTHA Paniagua ity:[facility] Start: 09-14-2023 End: 09-14-2023 Patient encounter procedure Leilani Grier SKILLED LABORER.VICE PRESIDENT OF ENGINEERING Work Phone: [facility] Comment on above: Altered mental statu s, unspecified altered mental status type (Primary Dx) Start: 09-14-2023 End: 09-14-2023 Emergency department patient visit [facility] Work Phone: Start: 07-24-2023 End: 07-24-2023 Patient encounter procedure Halley Nolasco SKILLED LABORER.VICE PRESIDENT OF ENGINEERING Work Phone: [facility] Comment on above: Dental infection (Pr imary Dx); Viral sinusitis; Left facial swelling Start: 02-25-2023 End: 02-25-2023 Office outpatient new 20 minutes Moustapha Dejesusteena SKILLED LABORER.VICE PRESIDENT OF ENGINEERING Work Phone: [facility] Comment on above: Dental infection (Pr imary Dx) Start: 01-21-2022 End: 01-21-2022 Emergency department patient visit [facility] Procedures Date Procedure Procedure Detail Performing Clinician Start: 10-20-2024 Laparoscopic salpingectomy No Primary Care Physician Start: 09-09-2024 Methadone measurement, urine No Primary Care Physician Start: 09-09-2024 Serologic test for syphilis No Primary Care Physician Start: 09-08-2024 Urnls dip stick/tabl et rgnt non-auto w/o micrscp Kenya Philip MD Work Phone: Start: 08-31-2024 Urnls dip stick/tabl et rgnt non-auto w/o micrscp Alexander Galloway MD Work Phone: Start: 08-25-2024 Measurement of pH in vaginal fluid specimen using nitrazine yellow for detection of rupture of amniotic membrane No Primary Care Physician Comment on above: Amniotic fluid not p resent indicates No Rupture of FetalMembranes at time of specimen collection. Start: 08-25-2024 Urnls dip stick/tabl et rgnt non-auto w/o micrscp Melba Sánchez MD Work Phone: Start: 08-18-2024 Urnls dip stick/tabl et rgnt non-auto w/o micrscp Alexander Galloway MD Work Phone: Start: 08-18-2024 Us preg uterus after 1st trimest 06/15 gestation Hola Dueñas MD Work Phone: Start: 07-28-2024 Us preg uterus after 1st trimest 1st gestation Keara Belle SKILLED LABORER.CNM Work Phone: Start: 06-30-2024 Us preg uterus after 1st trimest /1st gestation Keara Belle SKILLED LABORER.CNM Work Phone: Start: 06-03-2024 Ultrasonography for antepartum monitoring of fetus No Primary Care Physician Start: 06-03-2024 CT of head without contrast No Primary Care Physician Start: 06-02-2024 Us preg uterus after 1st trimest 06/15 gestation Soraya Novak MD Work Phone: Start: 05-02-2024 Antibody screen JOSE L MOSELEY Comment on above: Order Comment: Speci men Type: BLOOD SPECIMENOrdering Facility: [facility] Address: [address] [place] [address] Performed By: #### T SPN ####[facility] BLOOD BANKCLIA [id number] [address] Start: 05-02-2024 Us preg uterus after 1st trimest 06/15 gestation Keara Belle SKILLED LABORER.CNM Work Phone: Start: 04-05-2024 Us preg uterus after 1st trimest 06/15 gestation Leilani Durga SKILLED LABORER.CNM Work Phone: Start: 03-15-2024 Antibody screen MELBA SÁNCHEZ Comment on above: Order Comment: Speci men Type: BLOOD SPECIMENOrdering Facility: [facility] Address: [address] [place] [address] Performed By: #### T SPN ####CC [facility] BLOOD BANKCLIA [id number] [address] Start: 03-15-2024 Us nuchal crandall slucency 1st gestation Keara Belle SKILLED LABORER.CNM Work Phone: Viral antigen assay Plan of Treatment Date Care Activity Detail Author Start: 10-02-2032 Tetanus vaccination TETANUS [facility] Start: 10-02-2032 Urine microalbumin profile DTaP,Tdap,Td Vaccine (8 - Td or Tdap) [facility] Start: 02-21-2029 Screening for malignant neoplasm of cervix Cervical Cancer Screening [facility] Start: 10-13-2025 End: 10-13-2025 Patient encounter procedure 10/13/2025 1:20 PM EDT Office Visit OB/Gynecology [address] [place] [address] Soraya Prado MD [address] [place] [address] Annual OB/Gynecology Comment on above: Annual Start: 06-13-2025 End: 06-13-2025 Telemedicine consultation with patient 06/13/2025 3:15 PM EST Telemedicine [facility] [address] [place] [address] Beba Mcgowan DO [address] 7[address] Floor [place], [place] [id number] [facility] Start: 02-13-2025 Influenza vaccination INFLUENZA VACCINE (#1) [facility] Start: 01-06-2025 End: 01-06-2025 Patient encounter procedure 01/06/2025 2:45 PM EDT Office Visit Neurology [facility] [address] [id number] Ria Fonseca, DO [address] [place] [id number] Neurology [facility] Start: 12-21-2024 End: 12-21-2025 MR Brain WO and W contrast IV MRI BRAIN WITH AND WITHOUT CONTRAST Imaging Routine Multiple sclerosis Expected: 12/21/2024, Expires: 12/21/2025 [facility] Comment on above: Expected: 12/21/2024, Expires: Start: 12-21-2024 End: 12-21-2025 MR Cervical spine WO and W contrast IV MRI SPINE CERVICAL WITH AND WITHOUT CONTRAST Imaging Routine Multiple sclerosis Expected: 12/21/2024, Expires: 12/21/2025 [facility] Comment on above: Expected: 12/21/2024, Expires: Start: 12-21-2024 End: 12-21-2025 MR Thoracic spine WO and W contrast IV MRI SPINE THORACIC WITH AND WITHOUT CONTRAST Imaging Routine Multiple sclerosis Expected: 12/21/2024, Expires: 12/21/2025 [facility] Comment on above: Expected: 12/21/2024, Expires: Start: 10-20-2024 Patient discharge [facility] Start: 10-20-2024 Procedure discontinued [facility] Start: 10-20-2024 Ambulation without limitation [facility] Start: 10-20-2024 Medical regimen orders management [facility] Start: 10-20-2024 Medication education [facility] Start: 10-20-2024 Taking patient vital signs [facility] Start: 10-20-2024 Vital signs measurements [facility] Start: 10-20-2024 [facility] Start: 10-12-2024 End: 10-12-2024 Patient encounter procedure 10/12/2024 3:40 PM EDT Office Visit OB/Gynecology [address] [place], [place] [address] Soraya Prado MD [address] [place] [address] PP OB/Gynecology Comment on above: PP Start: 10-12-2024 End: 10-12-2024 Patient encounter procedure 10/12/2024 2:30 PM EDT Office Visit OB/Gynecology [address] [place] [address] Soraya Prado MD [address] [place] [address] 6 week & pre-op OB/Gynecology Comment on above: 6 week & pre-op Start: 09-11-2024 Patient discharge [facility] Start: 09-09-2024 Administration of medication [facility] Start: 09-09-2024 Application of ice collar, cap or bag [facility] Start: 09-09-2024 Catheterization of vein [facility] Start: 09-09-2024 Introduction of urinary catheter [facility] Start: 09-09-2024 Measuring intake and output [facility] Start: 09-09-2024 Notification of physician [facility] Start: 09-09-2024 Procedure discontinued [facility] Start: 09-09-2024 Provision of activity privileges [facility] Start: 09-09-2024 Vital signs measurements [facility] Start: 09-09-2024 End: 09-09-2024 [facility] Start: 09-09-2024 Documentation procedure [facility] Start: 09-09-2024 Admission procedure [facility] Start: 09-09-2024 Consultation [facility] Start: 09-08-2024 End: 09-08-2024 Patient encounter procedure 09/08/2024 2:40 PM EDT Routine Office Visit OB/Gynecology [address] [place] [address] Kenya Philip MD [address] [place] [address] OB OB/Gynecology Comment on above: OB Start: 08-31-2024 End: 08-31-2024 Patient encounter procedure OB/Gynecology Comment on above: NST OB Routine Start: 08-29-2024 End: 08-29-2024 Telemedicine consultation with patient 08/29/2024 3:00 PM EDT Telemedicine Neurosurgery [facility] [address] [place] [address] Beba Mcgowan DO [address] [place] [address] Neurosurgery [facility] Start: 08-25-2024 Nonstress test [facility] Start: 08-25-2024 Obstetric monitoring [facility] Start: 08-25-2024 [facility] Start: 08-25-2024 Vital signs measurements [facility] Start: 08-25-2024 End: 08-25-2024 Patient encounter procedure OB/Gynecology Comment on above: OB Routine NST Start: 08-25-2024 Patient discharge [facility] Start: 08-18-2024 End: 08-18-2024 Patient encounter procedure [facility] Comment on above: 36w Growth OB Routine Start: 08-11-2024 End: 08-11-2024 Patient encounter procedure OB/Gynecology Comment on above: OB Routine Start: 07-28-2024 End: 07-28-2024 Patient encounter procedure OB/Gynecology Comment on above: OB Routine growth Start: 07-28-2024 End: 07-28-2025 OBSTETRIC ULTRASOUND WHI OBSTETRIC ULTRASOUND WHI Anc Imaging Routine 32 weeks gestation of High-risk in third trimester Short cervix affecting Tobacco use disorder Multiple sclerosis (HCC) Expected: 07/28/2024, Expires: 07/28/2025 [facility] Work Phone: Comment on above: Expected: 07/28/2024, Expires: Start: 07-25-2024 End: 07-25-2024 Patient encounter procedure [facility] Start: 07-14-2024 End: 07-14-2024 Patient encounter procedure 07/14/2024 3:45 PM EST Routine Office Visit OB/Gynecology [address] [place] [address] Miriam Bautista APRN.VICE PRESIDENT OF ENGINEERING [address] [place] [address] OB Routine OB/Gynecology Comment on above: OB Routine Start: 07-14-2024 End: 07-14-2024 Patient encounter procedure 07/14/2024 2:40 PM EST Routine Office Visit OB/Gynecology [address] [place] [id number] Melba Sánchez MD [address] [place] [address] OB Routine OB/Gynecology Comment on above: OB Routine Start: 06-30-2024 End: 06-30-2024 Patient encounter procedure 06/30/2024 3:15 PM EST Routine Office Visit OB/Gynecology [address] [place] [address] Keara Belle APRN.CNM [address] [place] [address] OB Routine OB/Gynecology Comment on above: OB Routine Start: 06-30-2024 End: 06-30-2024 ambulatory 06/30/2024 3:00 PM EST Results Only [place] [facility] Laboratory [address] [place] [address] Glucose and LABS [facility] Comment on above: Glucose and LABS Start: 06-30-2024 End: 06-30-2025 OBSTETRIC ULTRASOUND WHI OBSTETRIC ULTRASOUND WHI Anc Imaging Routine Supervision of high risk in third trimester 28 weeks gestation of Short cervix affecting Cervical cerclage suture present in third trimester Multiple sclerosis (HCC) AMA (advanced maternal age) multigravida 35+, third trimester Expected: 06/30/2024, Expires: 06/30/2025 [facility] Work Phone: Comment on above: Expected: 06/30/2024, Expires: Start: 06-10-2024 RSV Vaccine (1 - Risk 1-dose series) RSV Vaccine (1 - Risk 1-dose series) [facility] Start: 06-02-2024 End: 09-01-2024 ANEMIA REFLEX PANEL ANEMIA REFLEX PANEL Lab Routine 24 weeks gestation of Encounter for supervision of high risk in second trimester, antepartum Short cervix affecting History of seizures Multiple sclerosis (HCC) AMA (advanced maternal age) multigravida 35+, second trimester Screening for diabetes mellitus Expected: 06/02/2024, Expires: 09/01/2024 [facility] Comment on above: Expected: 06/02/2024, Expires: Start: 06-02-2024 End: 06-02-2025 GESTATIONAL GLUCOSE SCREEN, 1-HOUR, 50 GRAM, NON-FASTING GESTATIONAL GLUCOSE SCREEN, 1-HOUR, 50 GRAM, NON-FASTING Lab Routine 24 weeks gestation of Encounter for supervision of high risk in second trimester, antepartum Short cervix affecting History of seizures Multiple sclerosis (HCC) AMA (advanced maternal age) multigravida 35+, second trimester Screening for diabetes mellitus Expected: 06/02/2024, Expires: 06/02/2025 [facility] Work Phone: Comment on above: Expected: 06/02/2024, Expires: Start: 06-02-2024 End: 06-02-2025 SYPHILIS TREPONEMAL W/REFLEX SYPHILIS TREPONEMAL W/REFLEX Lab Routine 24 weeks gestation of Encounter for supervision of high risk in second trimester, antepartum Short cervix affecting History of seizures Multiple sclerosis (HCC) AMA (advanced maternal age) multigravida 35+, second trimester Screening for diabetes mellitus Expected: 06/02/2024, Expires: 06/02/2025 [facility] Comment on above: Expected: 06/02/2024, Expires: Start: 06-02-2024 End: 06-02-2024 Patient encounter procedure Maternal Medicine Comment on above: growth OB Routine Start: 05-04-2024 End: 05-04-2025 OBSTETRIC ULTRASOUND WHI OBSTETRIC ULTRASOUND WHI Anc Imaging Routine Encounter for supervision of high risk in second trimester, antepartum Primigravida of advanced maternal age in second trimester Cervical shortening, second trimester Expected: 05/04/2024, Expires: 05/04/2025 [facility] Work Phone: Comment on above: Expected: 05/04/2024, Expires: Start: 05-02-2024 End: 05-02-2024 Patient encounter procedure 05/02/2024 3:40 PM EST Routine Office Visit OB/Gynecology [address] [place] [address] Hola Dueñas MD [address] [place] [address] OB OB/Gynecology Comment on above: OB Start: 05-02-2024 End: 05-02-2024 Patient encounter procedure 05/02/2024 2:30 PM EST Routine Office Visit Maternal Medicine [address] [place] [address] Anatomy [facility] Comment on above: Anatomy Start: 04-05-2024 End: 04-05-2024 Patient encounter procedure 04/05/2024 3:40 PM EDT Routine Office Visit OB/Gynecology [address] [place] [address] Melba Sánchez MD [address] [place] [address] OB OB/Gynecology Comment on above: OB Start: 04-05-2024 End: 04-05-2024 Patient encounter procedure 04/05/2024 2:30 PM EDT Routine Office Visit Maternal Medicine [address] [place] [address] Early anatomy/ consult Maternal Medicine Comment on above: Early anatomy/ consult Start: 04-05-2024 End: 07-05-2024 ALPHA FETOPRO MATERNAL [facility] Work Phone: Comment on above: Expected: 04/05/2024, Expires: Start: 03-21-2024 End: 03-21-2024 Patient encounter procedure 03/21/2024 12:50 PM EDT Routine Office Visit OB/Gynecology [address] [place] [address] Kenya Philip MD [address] [place] [address] ob lmp 10/29 OB/Gynecology Comment on above: ob lmp 10/29 Start: 03-15-2024 End: 03-15-2024 Patient encounter procedure Maternal Medicine Comment on above: Nuchal OB Start: 02-22-2024 End: 05-23-2024 CBC panel - Blood by Automated count COMPLETE BLOOD COUNT Lab Routine Encounter for care in first trimester of first Expected: 02/22/2024, Expires: 05/23/2024 [facility] Work Phone: Comment on above: Expected: 02/22/2024, Expires: Start: 02-22-2024 End: 05-23-2024 Hemoglobin A1c in Blood HEMOGLOBIN A1C Lab Routine Encounter for care in first trimester of first Expected: 02/22/2024, Expires: 05/23/2024 [facility] Comment on above: Expected: 02/22/2024, Expires: Start: 02-22-2024 End: 05-23-2024 Hepatitis B virus surface Ag [Presence] in Serum HEPATITIS B SURFACE ANTIGEN Lab Routine Encounter for care in first trimester of first Expected: 02/22/2024, Expires: 05/23/2024 [facility] Comment on above: Expected: 02/22/2024, Expires: Start: 02-22-2024 End: 05-23-2024 Hepatitis C virus Ab [Presence] in Serum HEPATITIS C ANTIBODY IA WITH CONFIRMATION Lab Routine Encounter for care in first trimester of first Expected: 02/22/2024, Expires: 05/23/2024 [facility] Comment on above: Expected: 02/22/2024, Expires: Start: 02-22-2024 End: 05-23-2024 HIV 1+2 Ab [Presence] in Serum or Plasma by Immunoassay HIV 1/2 COMBO WITH REFLEX TO DIFFERENTIATION Lab Routine Encounter for care in first trimester of first Expected: 02/22/2024, Expires: 05/23/2024 [facility] Comment on above: Expected: 02/22/2024, Expires: Start: 02-22-2024 End: 02-21-2025 NUCHAL TRANSLUCENCY WHI NUCHAL TRANSLUCENCY WHI Anc Imaging Routine Encounter for care in first trimester of first Expected: 02/22/2024, Expires: 02/21/2025 [facility] Comment on above: Expected: 02/22/2024, Expires: 5 Start: 02-22-2024 End: 02-21-2025 OBSTETRIC ULTRASOUND WHI OBSTETRIC ULTRASOUND WHI Anc Imaging Routine Encounter for care in first trimester of first Expected: 02/22/2024, Expires: 02/21/2025 [facility] Comment on above: Expected: 02/22/2024, Expires: 5 Start: 02-22-2024 End: 05-23-2024 RUBELLA IGG ANTIBODY RUBELLA IGG ANTIBODY Lab Routine Encounter for care in first trimester of first Expected: 02/22/2024, Expires: 05/23/2024 [facility] Comment on above: Expected: 02/22/2024, Expires: 4 Start: 02-22-2024 End: 05-23-2024 SYPHILIS TOTAL W/REFLEX SYPHILIS TOTAL W/REFLEX Lab Routine Encounter for care in first trimester of first Expected: 02/22/2024, Expires: 05/23/2024 [facility] Comment on above: Expected: 02/22/2024, Expires: 4 Start: 02-22-2024 End: 05-23-2024 TYPE + SCREEN TYPE + SCREEN Blood Bank Routine Encounter for care in first trimester of first Expected: 02/22/2024, Expires: 05/23/2024 [facility] Comment on above: Expected: 02/22/2024, Expires: 4 Start: 02-22-2024 End: 02-22-2024 Patient encounter procedure 02/22/2024 8:45 AM EDT Initial Office Visit OB/Gynecology [address] [place] [address] Keara Belle APRN.[facility] [address] [place] [address] OB/Gynecology Start: 02-14-2024 Covid-19 Vaccine () Covid-19 Vaccine () [facility] Start: 02-14-2024 Covid-19 Vaccine ( season) Covid-19 Vaccine ( season) [facility] Start: 02-14-2024 Influenza vaccination [facility] Start: 01-21-2024 End: 01-20-2025 MR Brain WO and W contrast IV MRI BRAIN WITH AND WITHOUT CONTRAST Imaging Routine New onset seizure Multiple sclerosis Expected: 01/21/2024, Expires: 01/20/2025 [facility] Comment on above: Expected: 01/21/2024, Expires: Start: 01-21-2024 End: 01-20-2025 MR Cervical spine WO and W contrast IV MRI SPINE CERVICAL WITH AND WITHOUT CONTRAST Imaging Routine New onset seizure Multiple sclerosis Expected: 01/21/2024, Expires: 01/20/2025 [facility] Comment on above: Expected: 01/21/2024, Expires: Start: 01-21-2024 End: 01-20-2025 MR Thoracic spine WO and W contrast IV MRI SPINE THORACIC WITH AND WITHOUT CONTRAST Imaging Routine New onset seizure Multiple sclerosis Expected: 01/21/2024, Expires: 01/20/2025 [facility] Comment on above: Expected: 01/21/2024, Expires: Start: 01-21-2024 End: 01-20-2025 Ophthalmic OCT panel [facility] Comment on above: Expected: 01/21/2024, Expires: Start: 06-15-2023 Depression Assessment Depression Assessment [facility] Start: 02-13-2023 Covid-19 Vaccine () Covid-19 Vaccine () [facility] Start: 02-13-2023 Influenza vaccination Influenza Vaccine (#1) [facility] Start: 06-15-2022 Depression Assessment Depression Assessment [facility] Start: 09-11-2019 Urine microalbumin profile DTaP,Tdap,Td Vaccine (7 - Td or Tdap) [facility] Start: 2019 HPV Testing HPV Testing [facility] Start: 2019 Screening for malignant neoplasm of cervix HPV Testing [facility] Start: 06-29-2014 Pap Testing Pap Testing [facility] Start: 06-29-2014 Screening for malignant neoplasm of cervix Pap Testing [facility] Start: 06-29-2012 Screening for malignant neoplasm of cervix Cervical Cancer Screening [facility] Start: 2010 Screening for malignant neoplasm of cervix CERVICAL CANCER SCREENING DISCUSSION [facility] Start: 01-06-2008 Hepatitis B vaccination HEP B VACCINE (1 of 3 - 19+ 3-dose series) [facility] Start: 01-06-2008 Hepatitis B Vaccine (1 of 3 - 19+ 3-dose series) Hepatitis B Vaccine (1 of 3 - 19+ 3-dose series) [facility] Start: 2007 Anxiety Screening Anxiety Screening [facility] Start: 2007 Depression Screening Depression Screening [facility] Start: 2007 Hepatitis C Screening Hepatitis C Screening [facility] Start: 2007 Hepatitis C screening Hepatitis C Screening [facility] Start: 2007 HIV Screening HIV Screening [facility] Start: 2007 HIV screening HIV Screening [facility] Start: 01-06-2004 HIV screening HIV SCREENING DISCUSSION [facility] Start: 1995 Pneumococcal vaccination [facility] Start: 1995 PNEUMOCOCCAL VACCINE SERIES (1 of 2 - PCV) PNEUMOCOCCAL VACCINE SERIES (1 of 2 - PCV) [facility] Start: 1989 Covid-19 Vaccine (#1) Covid-19 Vaccine (#1) [facility] Start: 1989 Hepatitis B Vaccine (1 of 3 - 3-dose series) Hepatitis B Vaccine (1 of 3 - 3-dose series) [facility] Start: 1989 Hepatitis C screening HEPATITIS C VIRUS SCREENING [facility] Bacteria identified in Urine by Culture URINE CULTURE Microbiology Routine Encounter for care in first trimester of first 02/22/2024 9:47 AM EDT [facility] Chlamydia trachomatis+Neisseria gonorrhoeae DNA [Presence] in Unspecified specimen by JO with probe detection GONORRHEA/CHLAMYDIA NAAT Lab Routine Encounter for care in first trimester of first 02/22/2024 9:36 AM EDT [facility] End: 09-16-2024 nonstress test NON-STRESS TEST Procedures Routine 32 weeks gestation of High-risk in third trimester Short cervix affecting Tobacco use disorder Multiple sclerosis (HCC) Once per week for 5 Occurrences starting 07/28/2024 until 09/16/2024 [facility] Comment on above: Once per week for 5 Occurrences starting 07/28/2024 until 09/16/2024 GROUP B STREPTOCOCCU S BY PCR, ROUTINE SCREENING GROUP B STREPTOCOCCUS BY PCR, ROUTINE SCREENING Microbiology Routine High-risk in third trimester Multiple sclerosis (HCC) Cervical cerclage suture present in third trimester Supervision of high risk in third trimester 35 weeks gestation of 08/18/2024 4:47 PM EST [facility] Work Phone: End: 06-07-2024 OBSTETRIC ULTRASOUND WHI OBSTETRIC ULTRASOUND WHI Anc Imaging Routine Obesity in Once per month for 2 Occurrences starting 03/15/2024 until 06/07/2024 [facility] Work Phone: Comment on above: Once per month for 2 Occurrences startin g 03/15/2024 until 06/07/2024 PAP TEST PAP TEST Lab Carlos nina Encounter for care in first trimester of first Screening for cervical cancer Special screening examination for human papillomavirus (HPV) 02/22/2024 9:36 AM EDT [facility] Patient Education [facility] Work Phone: Patient referral [facility] Work Phone: Immunizations Immunization Date Immunization Notes Care Provider [facility] 09-10-2024 measles, mumps and rubella virus vaccine No Primary Care Physician [facility] 06-02-2024 influenza, seasonal, injectable Melba Sánchez MD Work Phone: [facility] 06-02-2024 influenza virus vaccine, unspecified formulation Ria Fonseca DO Work Phone: [facility] 10-02-2022 tetanus toxoid, reduced diphtheria toxoid, and acellular pertussis vaccine, adsorbed [facility] 09-10-2009 tetanus toxoid, reduced diphtheria toxoid, and acellular pertussis vaccine, adsorbed Moustapha Humphreys APRN.CNP Work Phone: [facility] 09-10-2009 tuberculin skin test ; purified protein derivative solution, intradermal Keara Plotts SKILLED LABORER.CN Work Phone: [facility] 02-11-2006 hepatitis B immune globulin [facility] SKILLED LABORER.VICE PRESIDENT OF ENGINEERING Work Phone: [facility] 02-01-2001 hepatitis B immune globulin Moustapha [facility]. [facility] SKILLED LABORER.VICE PRESIDENT OF ENGINEERING Work Phone: [facility] 02-01-2001 measles, mumps and rubella virus vaccine Moustapha Pendlebury SKILLED LABORER.VICE PRESIDENT OF ENGINEERING Work Phone: [facility] 01-10-1994 diphtheria, tetanus toxoids and acellular pertussis vaccine Moustapha Pendlebury SKILLED LABORER.VICE PRESIDENT OF ENGINEERING Work Phone: [facility] 01-10-1994 trivalent poliovirus vaccine, live, oral Moustapha Pendlebury SKILLED LABORER.VICE PRESIDENT OF ENGINEERING Work Phone: [facility] 12-10-1990 diphtheria, tetanus toxoids and acellular pertussis vaccine Moustapha Pendlebury SKILLED LABORER.VICE PRESIDENT OF ENGINEERING Work Phone: [facility] 12-10-1990 measles, mumps and rubella virus vaccine Moustapha Pendlebury SKILLED LABORER.VICE PRESIDENT OF ENGINEERING Work Phone: [facility] 12-10-1990 trivalent poliovirus vaccine, live, oral Moustapha Pendlebury SKILLED LABORER.VICE PRESIDENT OF ENGINEERING Work Phone: [facility] 1989 diphtheria, tetanus toxoids and pertussis vaccine Moustapha Pendlebury SKILLED LABORER.VICE PRESIDENT OF ENGINEERING Work Phone: [facility] 1989 diphtheria, tetanus toxoids and pertussis vaccine Moustapha Pendlebury SKILLED LABORER.VICE PRESIDENT OF ENGINEERING Work Phone: [facility] 1989 trivalent poliovirus vaccine, live, oral Moustapha Pendlebury SKILLED LABORER.VICE PRESIDENT OF ENGINEERING Work Phone: [facility] 1989 trivalent poliovirus vaccine, live, oral Moustapha Pendlebury SKILLED LABORER.VICE PRESIDENT OF ENGINEERING Work Phone: [facility] 1989 diphtheria, tetanus toxoids and pertussis vaccine Moustapha Pendlebury SKILLED LABORER.VICE PRESIDENT OF ENGINEERING Work Phone: [facility] Payers Date Payer Category Payer Medicaid (Managed Care) [employer] [id number] 2024 Medicaid [id number] 2024 Unknown [id number] 2024 Self-pay [id number] 2022 Managed Care (unspecified) [facility] HMO PPO POS [id number] 2021 [employer] BLUE CARD PPO OOS [id number] 2021 Unknown [id number] 2021 Unknown [id number] 2014 Unknown [id number] 1989 Unknown [id number]. 594 1989 Unknown [id number]. 594 1989 Unknown [id number]. 594 1989 Unknown [id number]. 594 1989 Unknown [id number] .[id number]. 594 1989 Unknown [id number] .[id number]. 594 1989 Unknown [id number]. 594 Unknown [id number]. 462 Unknown [id number]. 462 Unknown [id number] .[id number]. 462 Unknown [id number] .[id number]. 462 Unknown [id number] .[id number]. 462 Social History Date Type Detail Facility [facility] Work Phone: Start: 01-21-2022 End: 06-03-2024 Tobacco smoking status NHIS Unknown if ever smoked [facility] Start: 1990 Sex Assigned At Female W [facility] Start: 02-25-2023 End: 10-20-2024 Tobacco smoking status NHIS Smokes tobacco daily [facility] History of tobacco use Cigarette Smoker C [facility] Start: 02-25-2023 End: 12-21-2024 Cigarettes smoked current (pack per day) - Reported 0.5 [facility] Start: 02-25-2023 End: 11-17-2024 Tobacco use and exposure Smokeless tobacco non-user [facility] Start: 02-25-2023 End: 07-24-2023 Alcohol intake Current non-drinker of alcohol (finding) [facility] Start: 02-25-2023 End: 12-21-2024 Tobacco use panel [facility] Start: 1990 Sex Assigned At Not on file C [facility] Start: 02-19-2024 End: 11-17-2024 Tobacco smoking status NHIS Ex-smoker [facility] History of tobacco use Current smoker [facility] Start: 02-19-2024 End: 12-21-2024 Alcoholic beverage intake Ex-drinker (finding) [facility] The thought of maranda ferrara myself has occurred to me Never [facility] Start: 02-19-2024 Education 21 [facility] Start: 11-13-2023 [facility] National Score (1-100), lower number is lower risk 80 [facility] Start: 06-27-2024 Tobacco Comment 2-3/day [facility] Start: 12-27-2023 End: 08-25-2024 Sex Female (finding) [facility] Start: 09-09-2024 Tobacco smoking stat us NHIS Current Light tobacco smoker [facility] Start: 11-17-2024 Tobacco Comment 2-3/day Quit 08/2024 [facility] Start: 08-28-2024 Gender identity Identifies as female gender (finding) [facility] Start: 08-28-2024 Sexual orientation Choose not to disclose [facility] NEGATED: Highlighted row Not [facility] Goals Date Patient Goal Desired Activity /State Functional Status Date Assessment Result Facility 05-31-2024 Are you deaf, or do you have serious difficulty hearing No 05/31/2024 11:33 PM Alondra Lucio, JEAN CARLOS No [facility] 05-31-2024 Are you blind, or do you have serious difficulty seeing, even when wearing glasses No 05/31/2024 11:33 PM Alondra Lucio, JEAN CARLOS No [facility] 05-31-2024 Do you have serious difficulty walking or climbing stairs No 05/31/2024 11:33 PM Alondra Lucio, JEAN CARLOS No [facility] 05-31-2024 Do you have difficul ty dressing or bathing No 05/31/2024 11:33 PM Alondra Lucio, JEAN CARLOS [facility] 05-31-2024 Because of a physica l, mental, or emotional condition, do you have difficulty doing errands alone such as visiting a physician's office or shopping No 05/31/2024 11:33 PM Alondra Lucio, JEAN CARLOS No [facility] Mental Status Date Assessment Result Facility 10-20-2024 Cognitive function Voice/Name [facility] Work Phone: 06-03-2024 Cognitive function Level Of Cons ciousness Awake;Alert;Appropriate;Fol lows Commands [facility] Work Phone: 05-31-2024 Because of a physica l, mental, or emotional condition, do you have serious difficulty concentrating, remembering, or making decisions No 05/31/2024 11:33 PM Alondra Lucio, JEAN CARLOS No [facility] 01-21-2022 Cognitive function Level Of Cons ciousness Awake;Alert;Appropriate;Fol lows Commands [facility] Work Phone: Clinical Notes 02-25-2023 to 12-21-2024 Ria Fonseca DO - 12/21/2024 1:45 PM EDTPatient Instructions Note Date & Type Note Facility 12-21-2024 History of Presen t illness Narrative NEUROIMMUNOLOGY CLINIC FOLLOW UP VISIT Date of visit: December 21, 2024 Patient Name: Sarika Ferreira : 1990 Chief complaint: Follow up, RIS History of Present Illness Sarika Ferreira is a 34 y.o. female with a past medical history of PCOS who follows in [facility] for a diagnosis of RIS To briefly review the clinical history, -In December 2023 she presented to [facility] for seizure like activity, described as confused, oral automatism, then whole upper body stiffness. rEEG normal. MRI brain completed showed multifocal white matter changes concerning for demyelination. CSF analysis with protein 33 and >12 oligoclonal bands, IgG index 2.0 -Established in my clinic in January 2024. Confirmed no clinical relapse and diagnosis of RIS was given. -second time seizure event 06/03/2024, started on Keppra and referred to epilepsy clinic -Became with delivery of baby girl on 09/09/2024 Interval History Sarika Ferreira was last evaluated in the neuroimmunology clinic about 6 months ago on 07/08/2024. Plan at that visit was to follow up after delivery of baby, update surveillance imaging around the same time. Since last evaluated Sarika delivered baby 09/09/2024, She underwent bilateral salpingectomy on 10/20/24. Since last evaluated, Sarika reports her right side feels more sluggish as compared to the left side, picking up pillow is more difficult, feels like right leg is heavier and she will favor the left side when walking. She feels like she first experienced this sensation after delivery. No sensory changes involving that side. She is still She did have another seizure during sleep in November 2024. This event was not witnessed but she woke up with urinary incontinence and mouth/jaw pain. Disease Summary Principal neurologic diagnosis: RIS Year of Symptom onset: 2023 Year of diagnosis: 2023 Disease course at onset: RIS Current disease course: RIS Most recent relapse/active lesion on MRI: Previous DMT: none Current DMT: none CSF: CSF analysis with protein 33 and >12 oligoclonal bands, IgG index 2.0 JCV ab status: Estimated EDSS: Review of Systems Urinary Hesitancy and Retention: none Urinary Urgency and Incontinence: none Bowel Dysfunction: none Medications and Allergies She has no known allergies. Current Outpatient Medications Medication Sig Dispense Refill Acetaminophen (TYLENOL 8 HOUR PO) Take 500 mg by mouth as needed. Aspirin [address] tablet Take 1 tablet by mouth daily. (Patient not taking: Reported on 11/17/2024) levETIRAcetam (Keppra) 500 MG tablet Take 1 tablet by mouth 2 times daily. 60 tablet 11 lurasidone HCl 40 MG tablet take 1 tablet by mouth every evening with a full meal (at least 400 calories) Midazolam (Nayzilam) 5 MG/0.1ML Solution Administer one spray (5 mg dose) into one nostril for a seizure that lasts for 5 minutes. One additional spray (5 mg dose) into the opposite nostril if the seizure continues for an additional 5 minutes. 2 Each 0 MV-Min-Fe Fum-FA-DHA ( 1 PO) Take by mouth daily. No current facility-administered medications for this visit. Vitals Vitals: 12/21/24 1340 BP: 107/63 Pulse: 68 Resp: 16 Temp: 98.6 F (37 C) SpO2: 98% Physical Exam General Physical Exam Eyes: Visual acuity OD: 20/25 OS: 20/30-1 Neurologic Examination Mental status/Cognition: Not formally assessed on today's exam. Patient is alert and able to provide accurate interval history Speech/language: Fluent speech pattern without dysathria Cranial nerves: CN II Normal visual marie, no detectable scotoma CN III,IV, Normal extraocular movements, no evidence for nystamgus CN V Normal facial sensation to light touch CN VII Symmetrical facial activation, no sign of facial weakness CN VIII Hearing is normal to conversational tone CN IX & X Soft palate elevates midline CN XI Shoulder strength 5/5 bilaterally CN XII Tongue protrudes midline Motor: There is no evidence of tremor, including head tremor Mvmt Right Left Comments SA 5- 5 Right shoulder pain EF 5- 5 EE 5- 5 WF 5 5 WE 5 5 FF 5 5 HF 5 5 KF 5 5 KE 5 5 DF 5 5 PF 5 5 Sensation: Light touch Intact/normal in the upper and lower extremities bilaterally Coordination/Complex Motor: -Finger to nose without dysmetria or ataxia -Heel to espinosa without dysmetria or ataxia -There is no evidence of truncal ataxia -Observation of casual gait shows no evidence of spastic or ataxic gait, labored hopping on the right as compared to the left Labs Imaging and Diagnostic studies MRI brain with and without Date: 7/15/24 Location: [facility] Report: MPRESSION: Findings consistent with mild multiple sclerosis 1. Small ovoid demyelinating plaques are present along the margins of the bilateral periventricular white matter extending up into the centrum semiovale, and involving the anterior aspect of the splenium of the corpus callosum. The largest plaque is at the posterior margin of the right corpus callosum splenium/parietal lobe junction measuring 1.13 cm in diameter, see image 14 series 6. MRI cervical spine with and without Date: 12/29/23 Location: [facility] Report: IMPRESSION: 1. Focal moderate degenerative disc disease at C6-C7 with straightening of the normal lordotic curvature. 2. No MR evidence of demyelinating disease (multiple sclerosis). MRI thoracic spine with and without Date: 12/29/23 Location: [facility] Report: IMPRESSION: Normal unenhanced and enhanced MRI examination of the thoracic spine. MRI lumbar spine with and without Date: 12/29/23 Location: [facility] Report: IMPRESSION: Normal enhanced and unenhanced MR examination of the lumbar spine. OCT Date: 01/22/2024 Report: -Good quality scan -No RNFL or GCIPL thickness changes suggestive of acute optic neuritis or history of optic neuritis. -Normal range of RNFL and GCIPL both eyes, with RNFL>87um and GCIPL>70 um, no suggestion of increased risk for poor neurological outcome related to MS. 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 Assessment Sarika Ferreira is a 34 y.o. female currently who follows in the Neuroimmunology Clinic for a diagnosis of radiographic isolated syndrome. Will update MRI brain, cervical, and thoracic spinal imaging in the setting of new onset right sided clumsiness Plan Radiographic isolated syndrome -MRI brain, cervical, and thoracic spine ordered at today's visit -Follow up after completion of imaging, schedule with Clare. If new lesions are present will send to clinical pharmacy to discuss available options in the setting of Epilepsy -Following with epilepsy, maintained on Keppra -Message about November breakthrough seizure sent to epilepsy group I have spent 33 minutes on the date of this encounter preparing to see the patient, obtaining clinical history and reviewing previous history obtained in the chart (if available), performing a medically appropriate examination, ordering medications/tests, referring and communicating with other health care professions, and documenting clinical information in the electronic health record. Ria L Raymundo, DO documented in this encounter [facility] 12-21-2024 Instructions Ria Fonseca DO - 12/21/2024 1:45 PM EDT Thank you for being evaluated in [facility] We will update MRI imaging as soon as able Would recommend to start taking 2,000 international units of vitamin D/day documented in this encounter [facility] 10-20-2024 Consult note Note Date/Time October 20, 2024 8:35am [facility] Medical Records Department [address] [place] [id number] Anesthesia Postop Eval I 10/20/2434 MR#: [id number] Acct: [id number] Name: SARIKA FERREIRA Rep #:[id number] : 1990 34 From: Prabha Munson PCP: Care Physician,No Primary Status :REG [facility] Race: C Location: [place] [address] Anesthesia: Postop Eval I Current Vital Signs Temperature: 98.2 F Pulse Rate: 83 Blood Pressure: 109/66 Respiratory Rate: 16 Pulse Ox: 100 Oxygen Delivery Method: Room Air Assessment Airway patent: Yes Spontaneous unlabored respirations: Yes Mental status: Awake and Calm nausea: No Vomiting: No Anesthesia Complication: No Fluid Hydration Crystalloid volume administer (ml): 900 Total IV fluid infused: 900 Progress Note Anesthesia document: Postop Eval 1 completed: Yes 10/20/24834 <Electronically signed by Prabha Munson > Date _ Prabha Munson Cosignsai Signature: Date CC: ~ Signed [facility] Work Phone: [phone]) 751-239505-08-2025 Discharge summary [facility] Date/Time October 20, 2024 8:17am [facility] Medical Records Department [address] [place] [address] Instructions for Home/Discharge Instructions 10/20/24 0816 MR#: [id number] Acct: [id number] Name: SARIKA FERREIRA Rep #:[id number] : 1990 34 From: Soraya Novak MD PCP: Care Physician,No Primary Status :REG SDC Discharge Instructions Diet Discharge Diet: No restrictions DC O2, CPAP, BIPAP needs Home O2 Discharge instructions: No Dressing / Incision May resume sexual activity in: 2 weeks Lifting Restrictions: 20-25 lbs Dressing / Incision Call your doctor if your incision/area has: Continuous Slow Oozing, Sudden Increased Bleeding, Increased Pain/ Swelling, Increased Redness, Foul Smelling Discharge and Swelling at the incision site Call your doctor if you observe: Fever of 101 or Higher, Inability to urinate, Inability to have a bowel movement, Using more than 1 pad per hour and Uncontrolled pain Additional Dressing/Incision Instructions:: You have skin glue over your incision sites, do not pick off. You may shower and let the soap and water run over the incision sites and dab dry. Follow Up Care Please Follow Up With: Soraya Pate MD When: if you need an appointment please call [phone]- i will call with yourpathology Test Results: Test results from this visit will be discussed in further detail at your follow- up appointment, if applicable. Discharge Plan Admission Attending Provider: Soraya Pate Primary Care Provider: Care Physician,No Primary Instructions Print Language: Macedonian Discharge Orders/Prescriptions Prescriptions: No Action folic acid 1 mg tablet 3 mg PO DAILY metoprolol succinate 25 mg tablet extended release 24 hr 25 mg PO DAILY lurasidone 40 mg tablet 40 mg PO QPM levetiracetam [Keppra] 500 mg tablet 500 mg PO BID PNV cmb#95-ferrous fumarate-FA [] 28 mg iron- 800 mcg tablet 1 tab PO DAILY famotidine 40 mg tablet 40 mg PO BID PRN PRN (Reason: heartburn ) acetaminophen 500 mg Tablet 1,000 mg PO Q6H PRN PRN (Reason: Pain 1-10 Or Fever) Qty: 0 0RF Referrals / Follow Up: Care Physician,No Primary [Primary Care Provider] - Disposition Disposition (needs filled in before D/C Order can be placed): Home, Self Care 10/20/24 0817<Electronically signed by Soraya Pate MD>Soraya Pate MD CC: No Primary Care Physician ~ Signed [facility] Work Phone: 1(285) 899-901905-08-2025 History and physical note Author Soraya Infante [facility] Note Date/Time October 20, 2024 7:18am [facility] Medical Records Department [address] [place] [address] H&P Exam - MANAGER SOCIAL 10/20/24 0717 MR#: [id number] Acct: [id number] Name: SARIKA FERREIRA Rep #:[id number] : 1990 34 From: Soraya Novak MD PCP: Care Physician,No Primary Status :[facility] Location: [place] [address] History and Physical Date of Admission: 10/20/24 H&P??? Signed? Encounter Date:?10/12/2024 Expand All?Collapse AllExpand All by DefaultPre-Op History and Physical?HPI: Thepatient is a 34 year old female presenting for pre-operative visit.She is scheduled for laparoscopic Bilateral salpingectomy, for desires sterilization on10/20/24. Procedure discussed along with risks, benefits and complications. Otheralternatives discussed for management. Consent form signed? Yes. ??PAST MEDICAL HISTORYPAST MEDICAL HISTORYDiagnosisDate?History of seizures??Marijuana use??Multiple sclerosis (HCC)??2023?PCOS (polycystic ovarian syndrome)??Tobacco use disorder? ??PAST SURGICAL HISTORYPAST SURGICAL HISTORYProcedureLateralityDate?TOOTH EXTRACTION?CURRENT MEDICATIONSCurrent Outpatient MedicationsMedicationSigDispenseRefill?famotidine (PEPCID) 40 mg tabletTake 1 tablet by mouth two times a day as needed.60 tablet0?levETIRAcetam (KEPPRA) 500 mg tabletTake 1 tablet by mouth two times a day.???midazolam (NAYZILAM) 5 mg/spray (0.1 mL) nasal sprayAdminister one spray (5 mg dose) into one nostril for a seizure that lasts for 5 minutes. One additional spray (5 mg dose) into the opposite nostril if the seizure continues for an additional 5 minutes.???lurasidone (LATUDA) 40 mg tablettake 1 tablet by mouth every evening with a full meal (atleast 400 calories)???cyclobenzaprine (FLEXERIL) 10 mg tabletTake 1 tablet by mouth three times a day as needed.10 tablet0?simethicone,chewable (MYLICON) 80 mg chewable tabletTake 1 tablet by mouth four times a day as needed.20 tablet0?folic acid 1 mg tabletTake 3 tablets by mouth once daily.[id number]? vit no.124/iron/folic ( VITAMIN ORAL)Take by mouth oncedaily. 2 Gummies???acetaminophen (TYLENOL EXTRA STRENGTH) 500 mg tabletTake 500 mg by mouth every 8 hours as needed for pain.???No current facility-administeredmedications for this visit.??ALLERGIES: Patient has no known allergies.?PERSONALHISTORY: SOCIAL HISTORYSocial History?Tobacco Use?Smoking status:Former??Currentpacks/day:0.50??Average packs/day:0.5 packs/day for 2.0 years (1.0 ttl pk-yrs)??Types:Cigarettes?Smokeless tobacco:NeverVaping Use?Vaping status:Never UsedSubstance Use Topics?Alcohol use:Not Currently?Drug use:Yes??Frequency:7.0 times per week??Types:Marijuana??Comment: 2-3 times daily ?FAMILY HISTORY: FAMILY HISTORYFAMILY HISTORY ProblemRelationAge of Onset?HeadacheMother?? migraine?DiabetesFather??HypertensionFather??No Known ProblemsBrother??No Known ProblemsBrother??EmphysemaMaternal Grandmother??CancerMaternal Grandfather?? unknown?EmphysemaMaternal Grandfather??CancerPaternal Grandmother?? unknown?HeartPaternal Grandmother?? [place]?No Known ProblemsPaternal Grandfather??Ischemic Heart DiseasePaternal Aunt?? [place] x 3?DiabetesPaternal Aunt??DiabetesPaternal Aunt??DiabetesPaternal Uncle???REVIEW OF SYMPTOMS:negative except as noted above PHYSICAL EXAMINATION:?VITALS: Blood pressure 112/64, weight 70.8 kg (156 lb), last menstrual period 10/30/2023, currently .?GENERAL: The patient is well nourished, well hydrated in no acute distress. , The patient is oriented to time, place, and person.NECK: Supple. No lynphadenopathy, normal thyroid, no thyromegalyGENITALIA: Normal external genitalia, Urethral meatus normal, Bladdernontender, normal vagina and normal vaginal tone, normal cervix, normal uterus, size and consistency, normal adnexa without masses or tenderness, and perineum WNLWET PREP: Not indicated?IMPRESSION: 34yo desires sterilization ?PLAN: laparoscopic bilateral salpingectomy ?Pt has been counseled on risks/benefits and alternatives of surgery including but not limited to anesthesia, bleeding, infection, injury to pelvic structures including bowel, bladder, ureters and vessels. Pt wishes to proceed with surgery at this time. ?Discussed again with patient needs neuro clearance- takes Keppra- last seizure in May. Takes nothing for MS at current time but seeing them in October for follow up. Pt will have them fax recommendations for pre op/ post op to office ?Pre and post op instructions reviewed?I have reviewed and updated past medical and surgical history, medications and allergies Soraya Novak MD ?3:10 PM 10/20/24 0717 <Electronically signed by Soraya Pate MD> Cosigner Signature (if applicable): CC: Dr Soraya Pate MD; No Primary Care Physician~ Signed ADDENDUM by Dr Soraya Pate MD on 10/20/24 at 0718 Addendum I have examined the patient and the H&P has been reviewed. There are no clinicalchanges since date of exam. 10/20/24 0718<Electronically signed by Soraya Pate MD> Cosigner Signature (if applicable): cc: Dr Soraya Pate MD; No Primary Care Physician ~* Signed [facility] Work Phone: 1(506) 969-356905-08-2025 Consult note Author Akash Gonzalez [facility] Note Date/Time October 20, 2024 6:49am [facility] Medical Records Department [address] [place] [address] Pre-Anesthesia Evaluation 10/20/24 0639 MR#: [id number] Acct: [id number] Name: SARIKA FERREIRA Rep #:[id number] : 1990 34 From: Akash Gonzalez MD PCP: Care Physician,No Primary Status :REG SDC Y Race: C Location: [place] [address] ASA Classification* ASA Classification ASA Classification: 2 Assessment & Plan Anesthesia* Anesthesia Assessment Anesthesia Assessment: Discussed sedation and/or anesthesia options, risks, benefits, and alternatives with patient/parents/legal guardian/POA. Questions invited. The patient/parents/legal guardian/POA seems to understand and agrees to proceedwith anesthesia plan. Reviewed the physical assessment, medical history, allergy history and patient home medications list prior to surgery/procedure/anesthetic and documented any changes. Performed airway and anesthesia risk assessments. Anesthesia Type Anesthesia Type: General History Source History Obtained from:: Patient and Chart Anesthesia Focused Assessment* Temperature: 97.8 F Pulse Rate: 61 Blood Pressure: 93/54 Respiratory Rate: 20 Pulse Ox: 100 Oxygen Delivery Method: Room Air Airway Assessment Mouth opens: >3 cm Mallampati Score: III Teeth Condition: Missing (Patient has a missing right upper molar. Rest are tight.) Neck Range of motion (ROM): Full ROM (Patient has stiff neck.) Focused Labs Anesthesia Preop lab: CBC WBC 8.9 K/mm3 (4.4-11.0) 10/18/24 16:05 10/18/24 RBC 4.54 M/mm3 (4.2-5.4) 10/18/24 16:05 10/18/24 Hgb 13.5 g/dL (12.0-15.0) 10/18/24 16:05 10/18/24 Hct 41.4 % (37-47) 10/18/24 16:05 10/18/24 Plt Count 275 K/mm3 (150-450) 10/18/24 16:05 10/18/24 CHEMISTRY Potassium 4.4 mmol/L (3.3-5.1) 10/18/24 16:05 10/18/24 Sodium 140 mmol/L (133-145) 10/18/24 16:05 10/18/24 Magnesium 1.9 mg/dL (1.6-2.6) 06/03/24 12:27 06/03/24 Phosphorus 3.2 mg/dL (2.5-4.9) 12/28/23 05:49 12/28/23 BUN 19 mg/dL (4-19) 10/18/24 16:05 10/18/24 Creatinine 0.80 mg/dL (0.70-1.20) 10/18/24 16:05 10/18/24 Glucose 91 mg/dL (70-99) 10/18/24 16:05 10/18/24 POC Glucose 112 mg/dL (74-106) H 12/27/23 13:46 12/27/23 COAG PT 12.1 SECONDS (11.7-14.9) 05/10/20 10:07 Urine Test Negative Negative 10/20/24 06:10 10/20/24 Pre-Assessment Diagnosis/Proposed Procedure Planned Operative Procedure(s): Laparoscopic, bilateral Salpingectomy Anesthesia History Anesthesia History - msws: Anesthesia History - msws Hx Hospitalization Yes: CHILD 09/09/24, 10/14/24 15:21 SEIZURE 12/27/23 AND 06/03/24 Any Problems With Anesthesia No 10/14/24 15:21 Cholinesterase deficiency No 10/14/24 15:21 You/Your Family Experience No 10/14/24 15:21 fever (hyperthermia) with Relationship Recent Exposure to Contagious No 10/20/24 06:25 Disease Does patient have nerve No 10/14/24 15:21 stimulator Patient instructed to have device shut off --Does patient have Pacemaker No 10/20/24 06:25 or ICD? When Was Last Pacemaker Check QUESTION #4 FULL TEXT: You/Your Family Experience fever (hyperthermia) with Anesthesia Last Oral Intake Last Oral intake: Last Oral Intake NPO since 20:00 10/20/24 06:25 Meds taken in AM with sips of No 10/20/24 06:25 water? Meds patient instructed to take am of surgery Any additional information?: Yes Meds taken in AM with sips of water?: Yes Meds patient instructed to take am of surgery: Keppra, folic acid, Pepcid PONV PONV - msws: PONV - msws Female Yes 10/14/24 15:21 HX of Motion Sickness No 10/14/24 15:21 HX of N/V After Surgery No 10/14/24 15:21 Non-Smoker No 10/14/24 15:21 Duration of Surgery greater No 10/14/24 15:21 than 60 minutes Number of Risk Factors 1 10/14/24 15:21 PONV Score Low Risk 10/14/24 15:21 Height & Weight Height & Weight: Anesthesia: Height & Weight Height 5 ft 5 in 10/20/24 06:25 Weight: 69.9 kg 10/20/24 06:25 Body Mass Index (BMI) 25.6 10/20/24 06:25 Respiratory Assessment Respiratory Assessment - msws: Respiratory Tract Infection Hx - msws Hx Respiratory Tract Infection No 10/14/24 15:21 STOP Sleep Apnea STOP Sleep Apnea - msws: STOP Sleep Apnea - msws Hx Hypertension No 10/14/24 15:21 Hx Sleep Apnea No 10/14/24 15:21 CPAP BIPAP Do you snore loudly (louder No 10/14/24 15:21 than talking or can be heard Do you often feel tired/ No 10/14/24 15:21 fatigued/ sleepy during daytime? Has anyone observed you stop No 10/14/24 15:21 breathing during sleep? STOP Results Negative 10/14/24 15:21 QUESTION #5 FULL TEXT : Do you snore loudly (louder than talking or can be heard through closed doors)? Tobacco Use History Tobacco Use History - msws: Tobacco Use History - msws Tobacco Use Smoking Status Light Smoker (<10/day) 10/14/24 15:21 Hx Tobacco Use Yes 10/14/24 15:21 Years Smoking Packs Smoked per Day Smoking Cessation Date was within the last 15 years Hx Smoking Cessation Date Hx Smoking Cessation No 10/14/24 15:21 Counseling Any additional information?: Yes Smoking Status: Current every day smoker (Patient did not smoke today.) Hematologic Medial History Hematologic Hx - msws: Hematologic Medical Hx - testing manager Hx of Blood Transfusion No 10/14/24 15:21 Hx of Transfusion in last 3 No 10/14/24 15:21 Months Date of Last Transfusion (if within last 3 months) Ever experience any problems No 10/14/24 15:21 with transfusion(s)? Specify any problems Hx of Preganancy in last 3 No 10/14/24 15:21 Months Nurse Filling Out Transfusion [facility]LE[facility]MAN 10/14/24 15:21 & Questions: Date: 10/14/24 10/14/24 15:21 Time: 15:23 10/14/24 15:21 Patient unable to answer at this time (ie. confused, unrespo /Reproduction History /Reproductive History - msws: /Reproductive Hx- msws Hx Now No 10/14/24 15:21 Gestational Age (in weeks): EDC: Hx Hx Para Hx Section SAB Yes 10/14/24 15:21 Active Medications Active Medications: Current Medications Generic Name Dose Route Start Last Admin Trade Name Freq PRN Reason Stop Dose Admin Lactated Ringer's 1,000 mls @ 15 mls/hr 10/20/24 06:15 IV .Q48H ROAL PFSH Medical History Wears glasses Seizures Heartburn Gastric reflux Smoker Leg cramps Bipolar disorder Seizures Cervical incompetence Multiple sclerosis Substance abuse Anxiety Kidney stones Smoker Home Medications ?Medication ?Instructions ?Recorded ?Last Taken ?Type folic acid 1 mg tablet 3 mg PO DAILY 05/1610/20/24 History lurasidone 40 mg tablet 40 mg PO QPM bipolar 4 08/24/24 21:00 History 40 mg metoprolol succinate 25 mg 25 mg PO DAILY BP 06/03/24 Unknown History tablet,extended release 24 hr levetiracetam 500 mg tablet 500 mg PO BID seizures 10/20/24 History (Kestevanra) vit no.95-ferrous 1 tab PO DAILY 08/25/24 06:00 History fumarate 28 mg-folic acid 800 mcg 1 TA B tablet () famotidine 40 mg tablet 40 mg PO BID PRN PRN heartbu rn 09/09/24 10/20/24 History acetaminophen 500 mg tablet 1,000 mg (2 x 500 mg) PO Q 6H PRN 09/11/24 Unknown Rx PRN Pain 1-10 Or Fever #0 tabs Allergy/AdvReac Type Severity Reaction Status Date / Time No Known Allergies Allergy Verified 10/14/24 15:19 Family History Mother Diabetes CVA (cerebral vascular accident) Dementia Father Aneurysm Surgical History History of cervical cerclage Social History Smoking Status: Light Smoker (<10/day) Review of Systems (Anesthesia) ROS Narrative System reviewed and no additional complaints, except as documented. 10/20/24 06 <Electronically signed by Akash pierce MD> Date _ Akash Gonzalez MD Cosigner Signature: Date CC: ~ Signed [facility] Work Phone: [phone]) 381-886105-08-2025 Consult note [facility] Medical Records Department [address] [place] [address] Anesthesia Postop Eval I 10/20/2434 MR#: [id number] Acct: [id number] Name: SARIKA FERREIRA Rep #:[id number] : 1990 34 From: Prabha Munson PCP: Care Physician,No Primary Status :REG SDC Y Race: C Location: [place] [address] Anesthesia: Postop Eval I Current Vital Signs Temperature: 98.2 F Pulse Rate: 83 Blood Pressure: 109/66 Respiratory Rate: 16 Pulse Ox: 100 Oxygen Delivery Method: Room Air Assessment Airway patent: Yes Spontaneous unlabored respirations: Yes Mental status: Awake and Calm nausea: No Vomiting: No Anesthesia Complication: No Fluid Hydration Crystalloid volume administer (ml): 900 Total IV fluid infused: 900 Progress Note Anesthesia document: Postop Eval 1 completed: Yes 10/20/24 0835 > Date _ Prabha Floresterer Cosigner Signature: Date CC: ~ Signed [facility]05-08-2025 Procedure note [facility] Medical Records Department [address] [facility] [place] [address] Operative Report 10/20/24821 MR#: [id number] Acct: [id number] Name: SARIKA FERREIRA Rep #:[id number] : 1990 34 From: Soraya Novak MD PCP: Care Physician,No Primary Status :REG [facility] Location: [place] [address] Operative Report (Standard) Operative Information Date of Procedure: 10/20/24 Pre-Operative Diagnosis: desires sterilization Post-Operative Diagnosis: same Surgery/Procedure Performed: laparoscopic bilateral salpingectomy tack welder: Yes Director Of Accreditation: michael nicolas MS3 Tasks completed by rn first assist: Closing, Insert Trochanter and Retracting Type of Anesthesia: General RN Documented Start/Stop Times: Operation Date: 10/20/24 07:30 Case Time Into Pre-Op 10/20/24 06:00 Out of Pre-Op 10/20/24 07:27 Anesthesia Start 10/20/24 07:37 Into Room 10/20/24 07:37 Procedure Start 10/20/24 07:58 Procedure Start Time: 07:58 Procedure Stop Time: 08:16 Select all DRAINS/GRAFTS/IMPLANTS that apply: None Estimated Blood Loss: 25 Fluids Replaced: 900 Specimen collected: Yes Description of specimen(s) removed: bilateral fallopian tubes Description of surgery: After informed consent was obtained patient was taken to the operating room she was placed in supine position she was given anesthesia. She was then placed in the [facility] stirrups and she was prepped and draped in normal sterile fashion. Bladder was drained prior to the start of procedure. At this time attention was turned to the vaginal portion where weighted speculum placed at posterior fornix vagina single-tooth tenaculum was used to gently grasp the internal the cervix. uterus was gentlysounded to approximately 8cm. Uterine manipulator was placed without difficulty. Legs then placed in parallel with the abdomen the tenaculum and the weighted speculum were removed. 2 towel clamps were placed at level of umbilicus. Marcaine was injected infraumbilical and a small incision was made. The 5 mm trocar was placed under direct visualization. CO2 gas was used to insufflate the intra-abdominal cavity. Uponinspection no gross abnormalities appreciated- the uterus tubes and ovaries appeared to be normal. At this time then the LLQ and RLQ ports were placed First Marcaine was injected andsmall incision was made a knife and the 5 mm trocars were placed. At this time then tubes were traced back to the fimbriated ends. Enseal was used to coagulate and ligate along mesosalpinx bilaterally until tubes removed completely. Good hemostasis was appreciated. At this time procedure was deemed complete successful. The gas was desufflated on from the intra-abdominal cavity. The trochars were removed. Skin was closed using 4-0 Monocryl in a subcutaneous fashion. Dermabond glue was placed. Instrument lap and needle counts were correct ?2. The uterine manipulator was removed. Brisk bleeding noted from vagina- this was evaulated and no cervical lesions- No active bleeding from os- noted. Vaginal sweep was performed it was negative. There were no complications anticipated normal postoperative course for this patient. Surgical Findings: normal tubes and ovaries Complications Complications: No Admit VTE Documentation VTE Present on Admission: Yes VTE Mechan Device Prophylaxis: SCD's VTE Pharm Prophylaxis ordered?: No 10/20/24 3655 Cosigner Signature (if applicable): CC: Dr Soraya Pate MD; No Primary Care Physician~ Signed [facility]05-08-2025 Discharge summary [facility] Medical Records Department [address] [place] [address] Instructions for Home/Discharge Instructions 10/20/24 0816 MR#: [id number] Acct: [id number] Name: SARIKA FERREIRA Rep #:[id number] : 1990 34 From: Soraya Novak MD PCP: Care Physician,No Primary Status :REG SD Discharge Instructions Diet Discharge Diet: No restrictions DC O2, CPAP, BIPAP needs Home O2 Discharge instructions: No Dressing / Incision May resume sexual activity in: 2 weeks Lifting Restrictions: 20-25 lbs Dressing / Incision Call your doctor if your incision/area has: Continuous Slow Oozing, Sudden Increased Bleeding, Increased Pain/ Swelling, Increased Redness, Foul Smelling Discharge and Swelling at the incision site Call your doctor if you observe: Fever of 101 or Higher, Inability to urinate, Inability to have a bowel movement, Using more than 1 pad per hour and Uncontrolled pain Additional Dressing/Incision Instructions:: You have skin glue over your incision sites, do not pick off. You may shower and let the soap and water run over the incision sites and dab dry. Follow Up Care Please Follow Up With: Soraya Pate MD When: if you need an appointment please call [phone]- i will call with yourpathology Test Results: Test results from this visit will be discussed in further detail at your follow- up appointment, if applicable. Discharge Plan Admission Attending Provider: Soraya Pate Primary Care Provider: Care Physician,No Primary Instructions Print Language: Macedonian Discharge Orders/Prescriptions Prescriptions: No Action folic acid 1 mg tablet 3 mg PO DAILY metoprolol succinate 25 mg tablet extended release 24 hr 25 mg PO DAILY lurasidone 40 mg tablet 40 mg PO QPM levetiracetam [Keppra] 500 mg tablet 500 mg PO BID PNV cmb#95-ferrous fumarate-FA [] 28 mg iron- 800 mcg tablet 1 tab PO DAILY famotidine 40 mg tablet 40 mg PO BID PRN PRN (Reason: heartburn ) acetaminophen 500 mg Tablet 1,000 mg PO Q6H PRN PRN (Reason: Pain 1-10 Or Fever) Qty: 0 0RF Referrals / Follow Up: Care Physician,No Primary [Primary Care Provider] - Disposition Disposition (needs filled in before D/C Order can be placed): Home, Self Care 10/20/24 0817Soraya Pate MD CC: No Primary Care Physician ~ Signed [facility]05-08-2025 History and physical note [facility] Medical Records Department [address] [place] [address] H&P Exam - MANAGER SOCIAL 10/20/24 0717 MR#: [id number] Acct: [id number] Name: SARIKA FERREIRA Rep #:[id number] : 1990 34 From: Soraya Novak MD PCP: Care Physician,No Primary Status :REG [facility] Location: [place] [address] History and Physical Date of Admission: 10/20/24 H&P??? Signed? Encounter Date:?10/12/2024 Expand All?Collapse AllExpand All by DefaultPre-Op History and Physical?HPI: Thepatient is a 34 year old female presenting for pre-operative visit.She is scheduled for laparoscopic Bilateral salpingectomy, for desires sterilization on10/20/24. Procedure discussed along with risks, benefits and complications. Otheralternatives discussed for management. Consent form signed? Yes. ??PAST MEDICAL HISTORYPAST MEDICAL HISTORYDiagnosisDate?History of seizures??Marijuana use??Multiple sclerosis (HCC)??2023?PCOS (polycystic ovarian syndrome)??Tobacco use disorder? ??PAST SURGICAL HISTORYPAST SURGICAL HIST ORYProcedureLateralityDate?TOOTH EXTRACTION?CURRENT MEDICATIONSCurrent Outpatient MedicationsMedicationSigDispenseRefill?famotidine (PEPCID) 40 mg tabletTake 1 tablet by mouth two times a day as needed.60 tablet0?levETIRAcetam (KEPPRA) 500 mg tabletTake 1 tablet by mouth two times a day.???midazolam (NAYZILAM) 5 mg/spray (0.1 mL) nasal sprayAdminister one spray (5 mg dose) into one nostril for a seizure that lasts for 5 minutes. One additional spray (5 mg dose) into the opposite nostril if the seizure continues for an additional 5 minutes.???lurasidone (LATUDA) 40 mg tablettake 1 tablet by mouth every evening with a full meal (atleast 400 calories)???cyclobenzaprine (FLEXERIL) 10 mg tabl etTake 1 tablet by mouth three times a day as needed.10 tablet0?simethicone,chewable (MYLICON) 80 mg chewable tabletTake 1 tablet by mouth four times a day as needed.20 tablet0?folic acid 1 mg tabletTake 3 tablets by mouth once daily.[id number]? vit no.124/iron/folic ( VITAMIN ORAL)Take by mouth oncedaily. 2 Gummies???acetaminophen (TYLENOL EXTRA STRENGTH) 500 mg tabletTake 500 mg by mouth every 8 hours as needed for pain.???No current facility-administeredmedications for this visit.??ALLERGIES: Patient has no known allergies.?PERSONALHISTORY: SOCIAL HISTORYSocial History?Tobacco Use?Smoking status:Former??Currentpacks/day:0.50??Average packs/day:0.5 packs/day for 2.0 years (1.0 ttl pk-yrs)??Types:Cigarettes?Smokeless tobacco:NeverVaping Use?Vaping status:Never UsedSubstance Use Topics?Alcohol use:Not Currently?Drug use:Yes??Frequency:7.0 times per week??Types:Marijuana??C omment: 2-3 times daily ?FAMILY HISTORY: FAMILY HISTORYFAMILY HISTORY ProblemRelationAge of Onset?HeadacheMother?? migraine?DiabetesFather??HypertensionFather??No Known ProblemsBrother??No Known ProblemsBrother??EmphysemaMaternal Grandmother??CancerMaternal Grandfather?? unknown?EmphysemaMaternal Grandfather??CancerPaternal Grandmother?? unknown?HeartPaternal Grandmother?? [place]?No Known ProblemsPaternal Grandfather??Ischemic Heart DiseasePaternal Aunt?? [place] x 3?DiabetesPaternal Aunt??DiabetesPaternal Aunt??DiabetesPaternal Uncle???REVIEW OF SYMPTOMS:negative except as noted above PHYSICAL EXAMINATION:?VITALS: Blood pressure 112/64, weight 70.8 kg (156 lb), last menstrual period 10/30/2023, curr ently .?GENERAL: The patient is well nourished, well hydrated in no acute distress. , The patient is oriented to time, place, and person.NECK: Supple. No lynphadenopathy, normal thyroid,no thyromegalyGENITALIA: Normal external genitalia, Urethral meatus normal, Bladdernontender, normal vagina and normal vaginal tone, normal cervix, normal uterus, size and consistency, normal adnexa without masses or tenderness, and perineum WNLWET PREP: Not indicated?IMPRESSION: 34yo desires sterilization ?PLAN: laparoscopic bilateral salpingectomy ?Pt has been counseled on risks/benefits and alternatives of surgery including but not limited to anesthesia, bleeding, infection, injury to pelvicstructures including bowel, bladder, ureters and vessels. Pt wishes to proceed with surgery at thistime. ?Discussed again with patient needs neuro clearance- takes Keppra- last seizure in May. Takes nothing for MS at current time but seeing them in October for follow up. Pt will have them fax susan mmendations for pre op/ post op to office ?Pre and post op instructions reviewed?I have reviewed and updated past medical and surgical history, medications and allergies Soraya Novak MD ?3:10 PM 10/20/24 0717 Cosigner Signature (if applicable): CC: Dr Soraya Pate MD; No Primary Care Physician~ Signed ADDENDUM by Dr Soraya Pate MD on 10/20/24 at 0718 Addendum I have examined the patient and the H&P has been reviewed. There are no clinicalchanges since date of exam. 10/20/24 07 Cosigner Signature (if applicable): cc: Dr Soraya Pate MD; No Primary Care Physician ~* Signed [facility]05-08-2025 Consult note [facility] Medical Records Department [address] [place] [address] Pre-Anesthesia Evaluation 10/20/24 0639 MR#: [id number] Acct: [id number] Name: SARIKA FERREIRA Rep #:[id number] : 1990 34 From: Akash Gonzalez MD PCP: Care Physician,No Primary Status :REG SDC Y Race: C Location: [place] [address]-1 ASA Classification* ASA Classification ASA Classification: 2 Assessment & Plan Anesthesia* Anesthesia Assessment Anesthesia Assessment: Discussed sedation and/or anesthesia options, risks, benefits, and alternatives with patient/parents/legal guardian/POA. Questions invited. The patient/parents/legal guardian/POA seems to understand and agrees to proceedwith anesthesia plan. Reviewed the physical assessment, medical history, allergy history and patient home medications list prior to surgery/procedure/anesthetic and documented any changes. Performed airway and anesthesia risk assessments. Anesthesia Type Anesthesia Type: General History Source History Obtained from:: Patient and Chart Anesthesia Focused Assessment* Temperature: 97.8 F Pulse Rate: 61 Blood Pressure: 93/54 Respiratory Rate: 20 Pulse Ox: 100 Oxygen Delivery Method: Room Air Airway Assessment Mouth opens: >3 cm Mallampati Score: III Teeth Condition: Missing (Patient has a missing right upper molar. Rest are tight.) Neck Range of motion (ROM): Full ROM (Patient has stiff neck.) Focused Labs Anesthesia Preop lab: CBC WBC 8.9 K/mm3 (4.4-11.0) 10/18/24 16:05 10/18/24 RBC 4.54 M/mm3 (4.2-5.4) 10/18/24 16:10/18/24 Hgb 13.5 g/dL (12.0-15.0) 10/18/24 16:10/18/24 Hct 41.4 % (37-47) 10/18/24 16:05 10/18/24 Plt Count 275 K/mm3 (150-450) 10/18/24 16:05 10/18/24 CHEMISTRY Potassium 4.4 mmol/L (3.3-5.1) 10/18/24 16:05 10/18/24 Sodium 140 mmol/L (133-145) 10/18/24 16:05 10/18/24 Magnesium 1.9 mg/dL (1.6-2.6) 06/03/24 12:27 06/03/24 Phosphorus 3.2 mg/dL (2.5-4.9) 12/28/23 05:49 12/28/23 BUN 19 mg/dL (4-19) 10/18/24 16:05 10/18/24 Creatinine 0.80 mg/dL (0.70-1.20) 10/18/24 16:05 10/18/24 Glucose 91 mg/dL (70-99) 10/18/24 16:05 10/18/24 POC Glucose 112 mg/dL (74-106) H 12/27/23 13:46 12/27/23 COAG PT 12.1 SECONDS (11.7-14.9) 05/10/20 10:07 Urine Test Negative Negative 10/20/24 06:10 10/20/24 Pre-Assessment Diagnosis/Proposed Procedure Planned Operative Procedure(s): Laparoscopic, bilateral Salpingectomy Anesthesia History Anesthesia History - msws: Anesthesia History - msws Hx Hospitalization Yes: CHILD 09/09/24, 10/14/24 15:21 SEIZURE 12/27/23 AND 06/03/24 Any Problems With Anesthesia No 10/14/24 15:21 Cholinesterase deficiency No 10/14/24 15:21 You/Your Family Experience No 10/14/24 15:21 fever (hyperthermia) with Relationship Recent Exposure to Contagious No 10/20/24 06:25 Disease Does patient have nerve No 10/14/24 15:21 stimulator Patient instructed to have device shut off --Does patient have Pacemaker No 10/20/24 06:25 or ICD? When Was Last Pacemaker Check QUESTION #4 FULL TEXT: You/Your Family Experience fever (hyperthermia) with Anesthesia Last Oral Intake Last Oral intake: Last Oral Intake NPO since 20:00 10/20/24 06:25 Meds taken in AM with sips of No 10/20/24 06:25 water? Meds patient instructed to take am of surgery Any additional information?: Yes Meds taken in AM with sips of water?: Yes Meds patient instructed to take am of surgery: Keppra, folic acid, Pepcid PONV PONV - msws: PONV - msws Female Yes 10/14/24 15:21 HX of Motion Sickness No 10/14/24 15:21 HX of N/V After Surgery No 10/14/24 15:21 Non-Smoker No 10/14/24 15:21 Duration of Surgery greater No 10/14/24 15:21 than 60 minutes Number of Risk Factors 1 10/14/24 15:21 PONV Score Low Risk 10/14/24 15:21 Height & Weight Height & Weight: Anesthesia: Height & Weight Height 5 ft 5 in 10/20/24 06:25 Weight: 69.9 kg 10/20/24 06:25 Body Mass Index (BMI) 25.6 10/20/24 06:25 Respiratory Assessment Respiratory Assessment - msws: Respiratory Tract Infection Hx - msws Hx Respiratory Tract Infection No 10/14/24 15:21 STOP Sleep Apnea STOP Sleep Apnea - msws: STOP Sleep Apnea - msws Hx Hypertension No 10/14/24 15:21 Hx Sleep Apnea No 10/14/24 15:21 CPAP BIPAP Do you snore loudly (louder No 10/14/24 15:21 than talking or can be heard Do you often feel tired/ No 10/14/24 15:21 fatigued/ sleepy during daytime? Has anyone observed you stop No 10/14/24 15:21 breathing during sleep? STOP Results Negative 10/14/24 15:21 QUESTION #5 FULL TEXT : Do you snore loudly (louder than talking or can be heard through closeddoors)? Tobacco Use History Tobacco Use History - msws: Tobacco Use History - msws Tobacco Use Smoking Status Light Smoker (<10/day) 10/14/24 15:21 Hx Tobacco Use Yes 10/14/24 15:21 Years Smoking Packs Smoked per Day Smoking Cessation Date was within the last 15 years Hx Smoking Cessation Date Hx Smoking Cessation No 10/14/24 15:21 Counseling Any additional information?: Yes Smoking Status: Current every day smoker (Patient did not smoke today.) Hematologic Medial History Hematologic Hx - msws: Hematologic Medical Hx - testing manager Hx of Blood Transfusion No 10/14/24 15:21 Hx of Transfusion in last 3 No 10/14/24 15:21 Months Date of Last Transfusion (if within last 3 months) Ever experience any problems No 10/14/24 15:21 with transfusion(s)? Specify any problems Hx of Preganancy in last 3 No 10/14/24 15:21 Months Nurse Filling Out Transfusion [facility] 10/14/24 15:21 & Questions: Date: 10/14/24 10/14/24 15:21 Time: 15:23 10/14/24 15:21 Patient unable to answer at this time (ie. confused, unrespo /Reproduction History /Reproductive History - msws: /Reproductive Hx- msws Hx Now No 10/14/24 15:21 Gestational Age (in weeks): EDC: Hx Hx Para Hx Section SAB Yes 10/14/24 15:21 Active Medications Active Medications: Current Medications Generic Name Dose Route Start Last Admin Trade Name Freq PRN Reason Stop Dose Admin Lactated Ringer's 1,000 mls @ 15 mls/hr 10/20/24 06:15 IV .Q48H ROLA PFSH Medical History Wears glasses Seizures Heartburn Gastric reflux Smoker Leg cramps Bipolar disorder Seizures Cervical incompetence Multiple sclerosis Substance abuse Anxiety Kidney stones Smoker Home Medications ?Medication ?Instructions ?Recorded ?Last Taken ?Type folic acid 1 mg tablet 3 mg PO DAILY 05/1610/20/24 History lurasidone 40 mg tablet 40 mg PO QPM bipolar 4 08/24/24 21:00 History 40 mg metoprolol succinate 25 mg 25 mg PO DAILY BP 06/03/24 Unknown History tablet,extended release 24 hr levetiracetam 500 mg tablet 500 mg PO BID seizures 10/20/24 History (Keppra) vit no.95-ferrous 1 tab PO DAILY 08/25/24 06:00 History fumarate 28 mg-folic acid 800 mcg 1 TA B tablet () famotidine 40 mg tablet 40 mg PO BID PRN PRN heartbu rn 09/09/24 10/20/24 History acetaminophen 500 mg tablet 1,000 mg (2 x 500 mg) PO Q 6H PRN 09/11/24 Unknown Rx PRN Pain 1-10 Or Fever #0 tabs Allergy/AdvReac Type Severity Reaction Status Date / Time No Known Allergies Allergy Verified 10/14/24 15:19 Family History Mother Diabetes CVA (cerebral vascular accident) Dementia Father Aneurysm Surgical History History of cervical cerclage Social History Smoking Status: Light Smoker (<10/day) Review of Systems (Anesthesia) ROS Narrative System reviewed and no additional complaints, except as documented. 10/20/24 0649 stan TOLEDO> Date _ Akash Gonzalez MD Cosigner Signature: Date CC: ~ Signed [facility]04-30-2025 History and physical note* Soraya Prado MD - 10/12/2024 3:07 PM EDT Pre-Op History and Physical HPI: The patient is a 34 year old female presenting for pre-operative visit. She is scheduled for laparoscopic Bilateral salpingectomy, for desires sterilization on 10/20/24. Procedure discussed along with risks, benefits and complications. Other alternatives discussed for management. Consent form signed? Yes. PAST MEDICAL HISTORY Diagnosis Date History of seizures Marijuana use Multiple sclerosis (HCC) 2023 PCOS (polycystic ovarian syndrome) Tobacco use disorder PAST SURGICAL HISTORY Procedure Laterality Date TOOTH EXTRACTION Current Outpatient Medications Medication Sig Dispense Refill famotidine (PEPCID) 40 mg tablet Take 1 tablet by mouth two times a day as needed. 60 tablet 0 levETIRAcetam (KEPPRA) 500 mg tablet Take 1 tablet by mouth two times a day. midazolam (NAYZILAM) 5 mg/spray (0.1 mL) nasal spray Administer one spray (5 mg dose) into one nostril for a seizure that lasts for 5 minutes. One additional spray (5 mg dose) into the opposite nostril if the seizure continues for an additional 5 minutes. lurasidone (LATUDA) 40 mg tablet take 1 tablet by mouth every evening with a full meal (atleast 400calories) cyclobenzaprine (FLEXERIL) 10 mg tablet Take 1 tablet by mouth three times a day as needed. 10 tablet 0 simethicone, chewable (MYLICON) 80 mg chewable tablet Take 1 tablet by mouth four times a day as needed. 20 tablet 0 folic acid 1 mg tablet Take 3 tablets by mouth once daily. 90 tablet 4 vit no.124/iron/folic ( VITAMIN ORAL) Take by mouth once daily. 2 Gummies acetaminophen (TYLENOL EXTRA STRENGTH) 500 mg tablet Take 500 mg by mouth every 8 hours as needed for pain. No current facility-administered medications for this visit. ALLERGIES: Patient has no known allergies. PERSONAL HISTORY: Social History Tobacco Use Smoking status: Former Current packs/day: 0.50 Average packs/day: 0.5 packs/day for 2.0 years (1.0 ttl pk-yrs) Types: Cigarettes Smokeless tobacco: Never Vaping Use Vaping status: Never Used Substance Use Topics Alcohol use: Not Currently Drug use: Yes Frequency: 7.0 times per week Types: Marijuana Comment: 2-3 times daily FAMILY HISTORY: FAMILY HISTORY Problem Relation Age of Onset Headache Mother migraine Diabetes Father Hypertension Father No Known Problems Brother No Known Problems Brother Emphysema Maternal Grandmother Cancer Maternal Grandfather unknown Emphysema Maternal Grandfather Cancer Paternal Grandmother unknown Heart Paternal Grandmother [place] No Known Problems Paternal Grandfather Ischemic Heart Disease Paternal Aunt [place] x 3 Diabetes Paternal Aunt Diabetes Paternal Aunt Diabetes Paternal Uncle REVIEW OF SYMPTOMS: negative except as noted above PHYSICAL EXAMINATION: VITALS: Blood pressure 112/64, weight 70.8 kg (156 lb), last menstrual period 10/30/2023, currentlybreastfeeding. GENERAL: The patient is well nourished, well hydrated in no acute distress. , The patient is oriented to time, place, and person. NECK: Supple. No lynphadenopathy, normal thyroid, no thyromegaly GENITALIA: Normal external genitalia, Urethral meatus normal, Bladder nontender, normal vagina and normal vaginal tone, normal cervix, normal uterus, size and consistency, normal adnexa without masses or tenderness, and perineum WNL WET PREP: Not indicated IMPRESSION: 34yo desires sterilization PLAN: laparoscopic bilateral salpingectomy Pt has been counseled on risks/benefits and alternatives of surgery including but not limited to anesthesia, bleeding, infection, injury to pelvic structures including bowel, bladder, ureters and vessels. Pt wishes to proceed with surgery at this time. Discussed again with patient needs neuro clearance- takes Keppra- last seizure in May. Takes nothing for MS at current time but seeing them in October for follow up. Pt will have them fax recommendations for pre op/ post op to office Pre and post op instructions reviewed I have reviewed and updated past medical and surgical history, medications and allergies Soraya Novak MD [facility]04-30-2025 History and physical note* Soraya Prado MD - 10/12/2024 3:07 PM EDT Pre-Op History and Physical HPI: The patient is a 34 year old female presenting for pre-operative visit. She is scheduled for laparoscopic Bilateral salpingectomy, for desires sterilization on 10/20/24. Procedure discussed along with risks, benefits and complications. Other alternatives discussed for management. Consent form signed? Yes. PAST MEDICAL HISTORY Diagnosis Date History of seizures Marijuana use Multiple sclerosis (HCC) 2023 PCOS (polycystic ovarian syndrome) Tobacco use disorder PAST SURGICAL HISTORY Procedure Laterality Date TOOTH EXTRACTION Current Outpatient Medications Medication Sig Dispense Refill famotidine (PEPCID) 40 mg tablet Take 1 tablet by mouth two times a day as needed. 60 tablet 0 levETIRAcetam (KEPPRA) 500 mg tablet Take 1 tablet by mouth two times a day. midazolam (NAYZILAM) 5 mg/spray (0.1 mL) nasal spray Administer one spray (5 mg dose) into one nostril for a seizure that lasts for 5 minutes. One additional spray (5 mg dose) into the opposite nostril if the seizure continues for an additional 5 minutes. lurasidone (LATUDA) 40 mg tablet take 1 tablet by mouth every evening with a full meal (atleast 400calories) cyclobenzaprine (FLEXERIL) 10 mg tablet Take 1 tablet by mouth three times a day as needed. 10 tablet 0 simethicone, chewable (MYLICON) 80 mg chewable tablet Take 1 tablet by mouth four times a day as needed. 20 tablet 0 folic acid 1 mg tablet Take 3 tablets by mouth once daily. 90 tablet 4 vit no.124/iron/folic ( VITAMIN ORAL) Take by mouth once daily. 2 Gummies acetaminophen (TYLENOL EXTRA STRENGTH) 500 mg tablet Take 500 mg by mouth every 8 hours as needed for pain. No current facility-administered medications for this visit. ALLERGIES: Patient has no known allergies. PERSONAL HISTORY: Social History Tobacco Use Smoking status: Former Current packs/day: 0.50 Average packs/day: 0.5 packs/day for 2.0 years (1.0 ttl pk-yrs) Types: Cigarettes Smokeless tobacco: Never Vaping Use Vaping status: Never Used Substance Use Topics Alcohol use: Not Currently Drug use: Yes Frequency: 7.0 times per week Types: Marijuana Comment: 2-3 times daily FAMILY HISTORY: FAMILY HISTORY Problem Relation Age of Onset Headache Mother migraine Diabetes Father Hypertension Father No Known Problems Brother No Known Problems Brother Emphysema Maternal Grandmother Cancer Maternal Grandfather unknown Emphysema Maternal Grandfather Cancer Paternal Grandmother unknown Heart Paternal Grandmother [place] No Known Problems Paternal Grandfather Ischemic Heart Disease Paternal Aunt [place] x 3 Diabetes Paternal Aunt Diabetes Paternal Aunt Diabetes Paternal Uncle REVIEW OF SYMPTOMS: negative except as noted above PHYSICAL EXAMINATION: VITALS: Blood pressure 112/64, weight 70.8 kg (156 lb), last menstrual period 10/30/2023, currentlybreastfeeding. GENERAL: The patient is well nourished, well hydrated in no acute distress. , The patient is oriented to time, place, and person. NECK: Supple. No lynphadenopathy, normal thyroid, no thyromegaly GENITALIA: Normal external genitalia, Urethral meatus normal, Bladder nontender, normal vagina and normal vaginal tone, normal cervix, normal uterus, size and consistency, normal adnexa without masses or tenderness, and perineum WNL WET PREP: Not indicated IMPRESSION: 34yo desires sterilization PLAN: laparoscopic bilateral salpingectomy Pt has been counseled on risks/benefits and alternatives of surgery including but not limited to anesthesia, bleeding, infection, injury to pelvic structures including bowel, bladder, ureters and vessels. Pt wishes to proceed with surgery at this time. Discussed again with patient needs neuro clearance- takes Torsten- last seizure in May. Takes nothing for MS at current time but seeing them in October for follow up. Pt will have them fax recommendations for pre op/ post op to office Pre and post op instructions reviewed I have reviewed and updated past medical and surgical history, medications and allergies Soraya Novak MD [facility] NoteHNO ID: [id number] Author: SORAYA PRADO MD Service: ? Author Type: Physician Type: Progress Notes Filed: 10/12/2024 15:10 Note Text: VISIT September Lamar Ferreira is a 34 year old year old here for visit. Delivery Summary: 09/09/24 F-Aeris ROS/ Recovery: Feeding: Breast feeding problems: None Menses since delivery: none Menstrual pattern prior to : Irregular periods [place] since delivery: Not resumed Depression: denies symptoms of depression. OB Depression and Anxiety Screening- This Encounter Over the past 2 weeks have you felt down, depressed, or hopeless? Negative Over the past two weeks, have you felt little interest or pleasure in doing things?? Negative Feeling nervous, anxious or on edge 0-Not at all Not being able to stop or control worrying 0-Not al all Anxiety Pre-Screening Total (If >/= 3 additional questions will be reviewed) 0 Emotional support: Yes Bowel symptoms: Negative for abdominal discomfort, blood in stools or black stools and change in bowel habits Abdomen: N/A Bladder symptoms: No dysuria, gross hematuria, urinary frequency, urinary urgency, or incontinence Other issues: None Last Pap: 2023 normal HPV: negative PAST MEDICAL HISTORY Diagnosis Date History of seizures Marijuana use Multiple sclerosis (HCC) 2023 PCOS (polycystic ovarian syndrome) Tobacco use disorder PAST SURGICAL HISTORY Procedure Laterality Date TOOTH EXTRACTION FAMILY HISTORY Problem Relation Age of Onset Headache Mother migraine Diabetes Father Hypertension Father No Known Problems Brother No Known Problems Brother Emphysema Maternal Grandmother Cancer Maternal Grandfather unknown Emphysema Maternal Grandfather Cancer Paternal Grandmother unknown Heart Paternal Grandmother [place] No Known Problems Paternal Grandfather Ischemic Heart Disease Paternal Aunt [place] x 3 Diabetes Paternal Aunt Diabetes Paternal Aunt Diabetes Paternal Uncle Social History Tobacco Use Smoking status: Former Current packs/day: 0.50 Average packs/day: 0.5 packs/day for 2.0 years (1.0 ttl pk-yrs) Types: Cigarettes Smokeless tobacco: Never Vaping Use Vaping status: Never Used Substance Use Topics Alcohol use: Not Currently Drug use: Yes Frequency: 7.0 times per week Types: Marijuana Comment: 2-3 times daily PHYSICAL EXAMINATION: SENSITIVE EXAM: The sensitive examination was discussed with the Patient or Patient's Authorized Electromedical Equipment Repairer. As applicable, any other physician, advance practice provider, medical student, or other health professional student that will be observing or involved in the sensitive examination for educational or training purposes was discussed with the Patient or Authorized Electromedical Equipment Repairer. The Patient or Authorized Electromedical Equipment Repairer has agreed to proceed with the sensitive examination. (Sensitive examination includes inspection and/or palpation of the breasts, pelvis, prostate and anorectal regions). BP 112/64 Wt 156 lb (70.8kg) LMP 10/30/2023 GENERAL: pleasant, female in no apparent distress HEENT: Normocephalic, atraumatic, mucus membranes moist, and no lesions NECK: Supple, full range of motion, no adenopathy, and thyroid normal DERMATOLOGY: Normal, without lesions, non-icteric, and non-hirsute BREAST: soft, non-tender, symmetric, no dominant mass, normal nipple-areolar complex, no lymphadenopathy, and milky discharge CHEST: Normal inspiratory effort ABDOMEN: soft, non-tender, and no masses. INCISION: N/A PELVIC: external genitalia normal, normal Bartholin's glands, urethra, [place]'s glands, no vulvar lesions, no cervical lesions, good vaginal support, physiologic discharge present, normal appearing perineal body and perianal region BIMANUAL: uterus normal size, shape and consistency, no adnexal masses, and non-tender NEURO: alert and oriented x3,exam grossly non-focal EXTREMITIES: normal ASSESSMENT AND PLAN: 34 year old status post with normal course. Contraception plan: tubal ligation Follow up: RTC for annual exams and [facility] of Present illness Narrative* Soraya Prado MD - 10/12/2024 2:19 PM EDT VISIT September Lamar Ferreira is a 34 year old year old here for visit. Delivery Summary: 09/09/24 F-Aeris ROS/ Recovery: Feeding: Breast feeding problems: None Menses since delivery: none Menstrual pattern prior to : Irregular periods [place] since delivery: Not resumed Depression: denies symptoms of depression. OB Depression and Anxiety Screening- This Encounter Over the past 2 weeks have you felt down, depressed, or hopeless? Negative Over the past two weeks, have you felt little interest or pleasure in doing things? Negative Feeling nervous, anxious or on edge 0-Not at all Not being able to stop or control worrying 0-Not al all Anxiety Pre-Screening Total (If >/= 3 additional questions will be reviewed) 0 Emotional support: Yes Bowel symptoms: Negative for abdominal discomfort, blood in stools or black stools and change in bowel habits Abdomen: N/A Bladder symptoms: No dysuria, gross hematuria, urinary frequency, urinary urgency, or incontinence Other issues: None Last Pap: 2023 normal HPV: negative PAST MEDICAL HISTORY Diagnosis Date History of seizures Marijuana use Multiple sclerosis (HCC) 2023 PCOS (polycystic ovarian syndrome) Tobacco use disorder PAST SURGICAL HISTORY Procedure Laterality Date TOOTH EXTRACTION FAMILY HISTORY Problem Relation Age of Onset Headache Mother migraine Diabetes Father Hypertension Father No Known Problems Brother No Known Problems Brother Emphysema Maternal Grandmother Cancer Maternal Grandfather unknown Emphysema Maternal Grandfather Cancer Paternal Grandmother unknown Heart Paternal Grandmother [place] No Known Problems Paternal Grandfather Ischemic Heart Disease Paternal Aunt [place] x 3 Diabetes Paternal Aunt Diabetes Paternal Aunt Diabetes Paternal Uncle Social History Tobacco Use Smoking status: Former Current packs/day: 0.50 Average packs/day: 0.5 packs/day for 2.0 years (1.0 ttl pk-yrs) Types: Cigarettes Smokeless tobacco: Never Vaping Use Vaping status: Never Used Substance Use Topics Alcohol use: Not Currently Drug use: Yes Frequency: 7.0 times per week Types: Marijuana Comment: 2-3 times daily PHYSICAL EXAMINATION: SENSITIVE EXAM: The sensitive examination was discussed with the Patient or Patient's Authorized Electromedical Equipment Repairer. As applicable, any other physician, advance practice provider, medical student, or other health professional student that will be observing or involved in the sensitive examination for educational or training purposes was discussed with the Patient or Authorized Electromedical Equipment Repairer. The Patient or Authorized Electromedical Equipment Repairer has agreed to proceed with the sensitive examination. (Sensitive examination includes inspection and/or palpation of the breasts, pelvis, prostate and anorectal regions). BP 112/64 Wt 156 lb (70.8kg) LMP 10/30/2023 GENERAL: pleasant, female in no apparent distress HEENT: Normocephalic, atraumatic, mucus membranes moist, and no lesions NECK: Supple, full range of motion, no adenopathy, and thyroid normal DERMATOLOGY: Normal, without lesions, non-icteric, and non-hirsute BREAST: soft, non-tender, symmetric, no dominant mass, normal nipple-areolar complex, no lymphadenopathy, and milky discharge CHEST: Normal inspiratory effort ABDOMEN: soft, non-tender, and no masses. INCISION: N/A PELVIC: external genitalia normal, normal Bartholin's glands, urethra, [place]'s glands, no vulvar lesions, no cervical lesions, good vaginal support, physiologic discharge present, normal appearing perineal body and perianal region BIMANUAL: uterus normal size, shape and consistency, no adnexal masses, and non-tender NEURO: alert and oriented x3,exam grossly non-focal EXTREMITIES: normal ASSESSMENT AND PLAN: 34 year old status post with normal course. Contraception plan: tubal ligation Follow up: RTC for annual exams and PRN Soraya Pate MD [facility] NoteHNO ID: [id number] Author: SORAYA PRADO MD Service: ? Author Type: Physician Type: Progress Notes Filed: 09/14/2024 14:36 Note Text: EARLY VISIT September Lamar Ferreira is a 34 year old here for 1 week visit. Delivery Summary: 09/09/24 F-Aeris ROS: General: Denies any fever or chills Hypertension Screening: Headache? Yes. Was it successfully treated with Tylenol? yes Visual Changes? No Epigastric Pain? No Increased Swelling? No Taking any BP medications at home? No If applicable, monitoring BP at home? (If Yes, include results) NA Mood: normal Depression: denies symptoms of depression. OB Depression and Anxiety Screening- This Encounter (since 09/13/2024) Over the past 2 weeks have you felt down, depressed, or hopeless? Negative Over the past two weeks, have you felt little interest or pleasure in doing things?? Negative Feeling nervous, anxious or on edge 0-Not at all Not being able to stop or control worrying 0-Not al all Anxiety Pre-Screening Total (If >/= 3 additional questions will be reviewed) 0 Feeding: Breast feeding problems: None Bladder: No dysuria, gross hematuria, urinary frequency, urinary urgency, or incontinence Bowel symptoms: Negative for abdominal discomfort, blood in stools or black stools and change in bowel habits Abdomen: N/A Bleeding: moderate Bottom and Perineum: Hemorrhoids Sleep: no sleep concerns, feels rested [place] since delivery: Not resumed Emotional support: Yes Exercise: N/A Other issues: None SENSITIVE EXAM: The sensitive examination was discussed with the Patient or Patient's Authorized Electromedical Equipment Repairer. As applicable, any other physician, advance practice provider, medical student, or other health professional student that will be observing or involved in the sensitive examination for educational or training purposes was discussed with the Patient or Authorized Electromedical Equipment Repairer. The Patient or Authorized Electromedical Equipment Repairer has agreed to proceed with the sensitive examination. (Sensitive examination includes inspection and/or palpation of the breasts, pelvis, prostate and anorectal regions). PHYSICAL EXAMINATION: BP 132/72 Wt 76.7 kg (169 lb) LMP 10/30/2023 (Within Weeks) Yes BMI 29.01 kg/m? General: pleasant,female in no apparent distress, AANDO x 3. Skin warm and intact. Breast: Deferred Abdomen: Deferred /Incision: N/A Pelvic: Deferred Bimanual: Deferred ASSESSMENT AND PLAN: 34 year old status post with normal course. Contraception plan: tubal ligation. Reinforced 6-week pelvic rest. Encouraged condom usage should patient deviate. Education: resources provided - see MA/RN note Title 19 signed today, pt requesting Salpingectomy. Will need Neuro clearance. OR booking sheet filled out. Risks/benefits reviewed. I spent a total of 20 minutes on the date of the service which included preparing to see the patient, [id number] patient care, completing clinical documentation, obtaining and/or reviewing separately obtained history, performing a medically appropriate examination, counseling and educating the patient/family/caregiver, and ordering medications, tests, or procedures. Follow up: Return to Clinic for 6 week visit and as needed Soraya Pate [facility]04-02-2025 History of Present illness Narrative* Soraya Prado MD - 09/14/2024 1:46 PM EDT EARLY VISIT Sarika Lamar Ferreira is a 34 year old here for 1 week visit. Delivery Summary: 09/09/24 F-Aeris ROS: General: Denies any fever or chills Hypertension Screening: Headache? Yes. Was it successfully treated with Tylenol? yes Visual Changes? No Epigastric Pain? No Increased Swelling? No Taking any BP medications at home? No If applicable, monitoring BP at home? (If Yes, include results) NA Mood: normal Depression: denies symptoms of depression. OB Depression and Anxiety Screening- This Encounter (since 09/13/2024) Over the past 2 weeks have you felt down, depressed, or hopeless? Negative Over the past two weeks, have you felt little interest or pleasure in doing things? Negative Feeling nervous, anxious or on edge 0-Not at all Not being able to stop or control worrying 0-Not al all Anxiety Pre-Screening Total (If >/= 3 additional questions will be reviewed) 0 Feeding: Breast feeding problems: None Bladder: No dysuria, gross hematuria, urinary frequency, urinary urgency, or incontinence Bowel symptoms: Negative for abdominal discomfort, blood in stools or black stools and change in bowel habits Abdomen: N/A Bleeding: moderate Bottom and Perineum: Hemorrhoids Sleep: no sleep concerns, feels rested [place] since delivery: Not resumed Emotional support: Yes Exercise: N/A Other issues: None SENSITIVE EXAM: The sensitive examination was discussed with the Patient or Patient's Authorized Electromedical Equipment Repairer. As applicable, any other physician, advance practice provider, medical student, or other health professional student that will be observing or involved in the sensitive examination for educational or training purposes was discussed with the Patient or Authorized Electromedical Equipment Repairer. The Patient or Authorized Electromedical Equipment Repairer has agreed to proceed with the sensitive examination. (Sensitive examination includes inspection and/or palpation of the breasts, pelvis, prostate and anorectal regions). PHYSICAL EXAMINATION: BP 132/72 Wt 76.7 kg (169 lb) LMP 10/30/2023 (Within Weeks) Yes BMI 29.01 kg/m General: pleasant,female in no apparent distress, A&O x 3. Skin warm and intact. Breast: Deferred Abdomen: Deferred /Incision: N/A Pelvic: Deferred Bimanual: Deferred ASSESSMENT AND PLAN: 34 year old status post with normal course. Contraception plan: tubal ligation. Reinforced 6-week pelvic rest. Encouraged condom usage should patient deviate. Education: resources provided - see MA/RN note Title 19 signed today, pt requesting Salpingectomy. Will need Neuro clearance. OR booking sheet filled out. Risks/benefits reviewed. I spent a total of 20 minutes on the date of the service which included preparing to see the patient, [id number] patient care, completing clinical documentation, obtaining and/or reviewing separately obtained history, performing a medically appropriate examination, counseling and educating the pat ient/family/caregiver, and ordering medications, tests, or procedures. Follow up: Return to Clinic for 6 week visit and as needed Soraya Pate MD [facility] Progress note [facility] Medical Records Department [address] [place] [address] Progress Note - OBGYN 09/11/24 1039 MR#: [id number] Acct: [id number] Name: SARIKA FERREIRA Rep #:[id number] : 1990 34 From: Melba Sánchez MD PCP: Care Physician,No Primary Status :ADM IN Location: [id number] Subjective Subjective Denies complaints Objective Data Objective Data Vital Signs: Vital Signs Temp Pulse Resp BP Pulse Ox O2 Del Method 98.0 F 72 18 124/82 H 100 Room Air 09/11/24 07:36 09/11/24 07:36 09/11/24 07:36 09/11/24 07:36 09/11/24 07:36 09/11/24 07:36 Oxygen Delivery Method Room Air Weight: 180 lb 1.883 oz Body Mass Index (BMI) 29.9 Intake & Output: Intake and Output for Last 24 Hours 09/09/24 09/10/24 09/11/24 23:59 23:59 23:59 Intake Total 1874.77 / 1874.77 Output Total 600 / 600 Balance 1274.77 / 1274.77 Lab / Micro Data 09/10/24 04:50 Physical Exam Const alert, oriented x3 and no apparent distress HEENT normocephalic GI soft to palpation, non-tender and non-distended GI Narrative: fundus firm, mid & below umbilicus Extremity normal to inspection and no calf tenderness Assessment & Plan (1) Vaginal delivery: PLAN: Plan D/c home 09/11/24 1046 Cosigner Signature (if applicable): CC: ~ Signed [facility]03-29-2025 Progress note Author Leilani Calixto [facility] Note Date/Time September 10, 2024 4:4 4am [facility] Medical Records Department [address] [place] [address] Progress Note - OBGYN 09/10/24 0443 MR#: [id number] Acct: [id number] Name: SARIKA FERREIRA Rep #:[id number] : 1990 34 From: Leilani CORRALES PCP: Care Physician,No Primary Status :ADM IN Location: [place] [address] Subjective Subjective Doing well per patient and nursing staff. Ambulating and taking PO without difficulty. Voiding and passing flatus. Pain controlled. , services for assistance. Denies headache, visual changes, chest pain, shortness of breath, leg pain or increased bleeding. Lochia normal. Objective Data Objective Data Vital Signs: Vital Signs Temp Pulse Resp BP Pulse Ox O2 Del Method 98.4 F 77 16 121/86 H 16 Room Air 09/10/24 00:03 09/10/24 00:03 09/10/24 00:03 09/10/24 00:03 09/10/24 00:03 09/10/24 00:03 Oxygen Delivery Method Room Air Weight: 180 lb 1.883 oz Body Mass Index (BMI) 29.9 Intake & Output: Intake and Output for Last 24 Hours 09/08/24 09/09/24 09/10/24 23:59 23:59 23:59 Intake Total 1874.77 / 1874.77 Output Total 600 / 600 Balance 1274.77 / 1274.77 Lab / Micro Data 09/09/24 07:35 Labs: Laboratory Results - last 24 hr 09/09/24 07:35: WBC 13.3 H, RBC 3.81 L, Hgb 11.9 L, Hct 34.1 L, MCV 89.5, MCH 31.2, MCHC 34.9, RDW Std Deviation 42.9, RDW Coeff of John 13.0, Plt Count 247, MPV 10.9, Immature Gran % (Auto) 1.000 H, Neut % (Auto) 74.3 H, Lymph % (Auto) 15.8 L, [place] % (Auto) 6.9, Eos % (Auto) 1.6, Baso % (Auto) 0.4, Absolute Neuts (auto) 9.9 H, Absolute Lymphs (auto) 2.10, Nucleated RBC % 0, Syphilis Total Ab Nonreactive, Blood Type A POSITIVE, Antibody Screen NEGATIVE 09/09/24 09:00: Urine Opiates Screen Cancelled 09/09/24 09:00: Urine Opiates Screen NEGATIVE, U Buprenorphine Qual NEGATIVE, UrOxycodone Screen NEGATIVE, Urine Methadone Screen Cancelled 09/09/24 09:00: Urine Methadone Screen NEGATIVE, Urine Fentanyl Screen NEGATIVE,Ur Barbiturates Screen Cancelled 09/09/24 09:00: Ur Barbiturates Screen NEGATIVE, Ur Phencyclidine Scrn Cancelled 09/09/24 09:00: Ur Phencyclidine Scrn NEGATIVE, Ur Amphetamines Screen Cancelled 09/09/24 09:00: Ur Amphetamines Screen NEGATIVE, MDMA (Ecstasy) Screen Cancelled, U Benzodiazepines Scrn Cancelled 09/09/24 09:00: U Benzodiazepines Scrn NEGATIVE, Urine Cocaine Screen Cancelled 09/09/24 09:00: Urine Cocaine Screen NEGATIVE, U Cannabinoids Screen Cancelled 09/09/24 09:00: U Cannabinoids Screen PRESUMPTIVE POSITIVE, Ur Drug Screen Comment Cancelled ROS Constitutional Constitutional: Reports systems reviewed and no addt'l complaints, except as documented; Denies headache(s) Eyes Eyes: Denies acute decrease in peripheral vision, blurry vision or change in vision ENT HEENT: Reports systems reviewed and no addt'l complaints, except as documented Cardiovascular Cardiovascular: Denies chest pain or dizziness Respiratory/Chest Respiratory/Chest: Denies cough, dyspnea, dyspnea on exertion, shortness of breath at rest or shortness of breath with exertion Gastrointestinal Gastrointestinal: Denies abdominal pain, diarrhea, nausea or vomiting Genitourinary Genitourinary: Denies abdominal discomfort Musculoskeletal Musculoskeletal: Denies limited range of motion Integumentary Integumentary: Reports systems reviewed and no addt'l complaints, except as documented Neurologic Neurologic: Reports systems reviewed and no addt'l complaints, except as documented Psychiatric Psychiatric: Reports systems reviewed and no addt'l complaints, except as documented Endocrine Endocrinology: Reports systems reviewed and no addt'l complaints, except as documented Hematologic/Lymphatic Hematologic/Lymphatic: Reports systems reviewed and no addt'l complaints, exceptas documented Allergic/Immunologic Allergic/Immunologic: Reports systems reviewed and no addt'l complaints, except as documented Physical Exam Const alert and oriented x3 General Appearance: cooperative Orientation / Consciousness: awake, oriented to person, oriented to place and oriented to time Exam Limitations: no limitations HEENT normocephalic Head and Scalp: normal to inspection, normocephalic and atraumatic Face and Sinus: normal facial exam Eyes General Eye: normal appearance of both eyes Neck full ROM Chest Chest: symmetrical chest wall rise Resp normal respiratory effort and normal air movement Auscultation: clear to auscultation bilaterally Cardio regular rate, regular rhythm, S1 normal heart sound, S2 normal heart sound, no murmurs, no rub, no gallops and no clicks GI normal to inspection, nondistended, normoactive bowel sounds and non-tender GI Narrative: fundus firm 2 below U appearance of the vagina normal Bladder / Kidney Exam: no CVA tenderness Back/Spine normal ROM Extremity normal to inspection and full ROM Skin no rashes or lesions noted Neuro oriented x3, CN's II-XII intact bilaterally and moves all extremities Sensorium / Orientation: awake, alert and oriented to person Motor Exam: clonus absent Deep Tendon Reflexes: Rt Patellar (L4): 2+ and Lt Patellar (L4): 2+ Assessment & Plan (1) Vaginal delivery: (2) Second degree perineal laceration: (3) Bipolar disorder: COMMENT: Shameka PLAN: Plan 1) Routine PPD#1 2) Vitals stable 3) I&O 4) Pain management 5) services PRN 6) Planning D/C home tomorrow 09/10/24443 <Electronically signed by Leilani Calixto CNM> Cosigner Signature (if applicable): CC: ~ Signed [facility] Work Phone: [phone] [phone] Progress note [facility] Medical Records Department [address] [place] [address] Progress Note - OBGYN 09/10/24442 MR#: [id number] Acct: [id number] Name: SARIKA FERREIRA Rep #:[id number] : 1990 34 From: Leilani CORRALES PCP: Care Physician,No Primary Status :ADM IN Location: [place] [id number] Subjective Subjective Doing well per patient and nursing staff. Ambulating and taking PO without difficulty. Voiding and passing flatus. Pain controlled. , services for assistance. Denies headache, visual changes, chest pain, shortness of breath, leg pain or increased bleeding. Lochia normal. Objective Data Objective Data Vital Signs: Vital Signs Temp Pulse Resp BP Pulse Ox O2 Del Method 98.4 F 77 16 121/86 H 16 Room Air 09/10/24 00:03 09/10/24 00:03 09/10/24 00:03 09/10/24 00:03 09/10/24 00:03 09/10/24 00:03 Oxygen Delivery Method Room Air Weight: 180 lb 1.883 oz Body Mass Index (BMI) 29.9 Intake & Output: Intake and Output for Last 24 Hours 09/08/24 09/09/24 09/10/24 23:59 23:59 23:59 Intake Total 1874.77 / 1874.77 Output Total 600 / 600 Balance 1274.77 / 1274.77 Lab / Micro Data 09/09/24 07:35 Labs: Laboratory Results - last 24 hr 09/09/24 07:35: WBC 13.3 H, RBC 3.81 L, Hgb 11.9 L, Hct 34.1 L, MCV 89.5, MCH 31.2, MCHC 34.9, RDW Std Deviation 42.9, RDW Coeff of John 13.0, Plt Count 247, MPV 10.9, Immature Gran % (Auto) 1.000 H, Neut % (Auto) 74.3 H, Lymph % (Auto) 15.8 L, [place] % (Auto) 6.9, Eos % (Auto) 1.6, Baso % (Auto) 0.4,Absolute Neuts (auto) 9.9 H, Absolute Lymphs (auto) 2.10, Nucleated RBC % 0, Syphilis Total Ab Nonreactive, Blood Type A POSITIVE, Antibody Screen NEGATIVE 09/09/24 09:00: Urine Opiates Screen Cancelled 09/09/24 09:00: Urine Opiates Screen NEGATIVE, U Buprenorphine Qual NEGATIVE, UrOxycodone Screen NEGATIVE, Urine Methadone Screen Cancelled 09/09/24 09:00: Urine Methadone Screen NEGATIVE, Urine Fentanyl Screen NEGATIVE,Ur Barbiturates Screen Cancelled 09/09/24 09:00: Ur Barbiturates Screen NEGATIVE, Ur Phencyclidine Scrn Cancelled 09/09/24 09:00: Ur Phencyclidine Scrn NEGATIVE, Ur Amphetamines Screen Cancelled 09/09/24 09:00: Ur Amphetamines Screen NEGATIVE, MDMA (Ecstasy) Screen Cancelled, U BenzodiazepinesScrn Cancelled 09/09/24 09:00: U Benzodiazepines Scrn NEGATIVE, Urine Cocaine Screen Cancelled 09/09/24 09:00: Urine Cocaine Screen NEGATIVE, U Cannabinoids Screen Cancelled 09/09/24 09:00: U Cannabinoids Screen PRESUMPTIVE POSITIVE, Ur Drug Screen Comment Cancelled ROS Constitutional Constitutional: Reports systems reviewed and no addt'l complaints, except as documented; Denies headache(s) Eyes Eyes: Denies acute decrease in peripheral vision, blurry vision or change in vision ENT HEENT: Reports systems reviewed and no addt'l complaints, except as documented Cardiovascular Cardiovascular: Denies chest pain or dizziness Respiratory/Chest Respiratory/Chest: Denies cough, dyspnea, dyspnea on exertion, shortness of breath at rest or shortness of breath with exertion Gastrointestinal Gastrointestinal: Denies abdominal pain, diarrhea, nausea or vomiting Genitourinary Genitourinary: Denies abdominal discomfort Musculoskeletal Musculoskeletal: Denies limited range of motion Integumentary Integumentary: Reports systems reviewed and no addt'l complaints, except as documented Neurologic Neurologic: Reports systems reviewed and no addt'l complaints, except as documented Psychiatric Psychiatric: Reports systems reviewed and no addt'l complaints, except as documented Endocrine Endocrinology: Reports systems reviewed and no addt'l complaints, except as documented Hematologic/Lymphatic Hematologic/Lymphatic: Reports systems reviewed and no addt'l complaints, exceptas documented Allergic/Immunologic Allergic/Immunologic: Reports systems reviewed and no addt'l complaints, except as documented Physical Exam Const alert and oriented x3 General Appearance: cooperative Orientation / Consciousness: awake, oriented to person, oriented to place and oriented to time Exam Limitations: no limitations HEENT normocephalic Head and Scalp: normal to inspection, normocephalic and atraumatic Face and Sinus: normal facial exam Eyes General Eye: normal appearance of both eyes Neck full ROM Chest Chest: symmetrical chest wall rise Resp normal respiratory effort and normal air movement Auscultation: clear to auscultation bilaterally Cardio regular rate, regular rhythm, S1 normal heart sound, S2 normal heart sound, no murmurs, no rub, no gallops and no clicks GI normal to inspection, nondistended, normoactive bowel sounds and non-tender GI Narrative: fundus firm 2 below U appearance of the vagina normal Bladder / Kidney Exam: no CVA tenderness Back/Spine normal ROM Extremity normal to inspection and full ROM Skin no rashes or lesions noted Neuro oriented x3, CN's II-XII intact bilaterally and moves all extremities Sensorium / Orientation: awake, alert and oriented to person Motor Exam: clonus absent Deep Tendon Reflexes: Rt Patellar (L4): 2+ and Lt Patellar (L4): 2+ Assessment & Plan (1) Vaginal delivery: (2) Second degree perineal laceration: (3) Bipolar disorder: COMMENT: Shameka PLAN: Plan 1) Routine PPD#1 2) Vitals stable 3) I&O 4) Pain management 5) services PRN 6) Planning D/C home tomorrow 09/10/24 0444 Cosigner Signature (if applicable): CC: ~ Signed [facility]03-28-2025 NoteHNO ID: [id number] Author: KENYA REESE RN Service: ? Author Type: Registered Nurse Type: Progress Notes Filed: 09/09/2024 14:20 Note Text: Patient delivered via at [facility] on 09/09/24 per Leilani Calixto CNM . See OB Outcome note. [facility] History and physical note Author Leilani Calixto [facility] Note Date/Time September 09, 2024 12: 11pm [facility] Medical Records Department [address] [place] [address] H&P Exam - MANAGER SOCIAL 09/09/24 0842 MR#: [id number] Acct: [id number] Name: SARIKA FERREIRA Rep #:[id number] : 1990 34 From: Leilani CORRALES PCP: Care Physician,No Primary Status :ADM IN Location: [id number] [facility] - General General Date of Admission: 09/09/24 HPI Narrative SARIKA FERREIRA, is a 34 F who presents for elective induction of labor. at 39 weeks. In office for visit and cervix 4cm dilated. Maternal Data Information JOSE A Calculator Estimated Delivery Date Method Current WG Current Estimate 09/16/24 Manual 39w 0d PFSH PFSH Medical History Seizures Cervical incompetence Multiple sclerosis Substance abuse Anxiety Kidney stones Smoker Home Medications ?Medication ?Instructions ?Recorded ?Last Taken ?Type folic acid 1 mg tablet 3 mg PO DAILY 05/1608/25/24 12:00 History 3 mg lurasidone 40 mg tablet 40 mg PO QPM bipolar 4 08/24/24 21:00 History 40 mg metoprolol succinate 25 mg 25 mg PO DAILY BP 06/03/24 Unknown History tablet,extended release 24 hr Held on 09/09/24. Instructions: MD Ordered aspirin 81 mg tablet,delayed 81 mg PO DAILY 08/25/24 08/25/24 06:00 History release (Celina Low Dose Aspirin) 81 mg levetiracetam 500 mg tablet 500 mg PO BID seizures 08/25/24 06:00 History (Keppra) 500 mg vit no.95-ferrous 1 tab PO DAILY 08/25/24 06:00 History fumarate 28 mg-folic acid 800 mcg 1 TA B tablet () famotidine 40 mg tablet 40 mg PO BID PRN PRN heartbu rn 09/09/24 Unknown History Allergy/AdvReac Type Severity Reaction Status Date / Time No Known Allergies Allergy Verified 09/09/24 07:47 Family History Mother Diabetes CVA (cerebral vascular accident) Dementia Father Aneurysm Social History Smoking Status: Light Smoker (<10/day) History Elective abortions Hx Para 0 Spontaneous abortions Hx # Term Pregnancies Ectopic pregnancies Hx # Pregnancies Multiple births # of living children NST FHR Rate Baby A Baseline: 125 Variability:: Moderate Accelerations:: 15 x 15 Decelerations:: None FHR Category:: Category I Uterine Activity:: Irregular ROS Constitutional Constitutional: Reports systems reviewed and no addt'l complaints, except as documented; Denies headache(s) Eyes Eyes: Denies acute decrease in peripheral vision, blurry vision or change in vision ENT HEENT: Reports systems reviewed and no addt'l complaints, except as documented Cardiovascular Cardiovascular: Denies chest pain or dizziness Respiratory/Chest Respiratory/Chest: Denies cough, dyspnea, dyspnea on exertion, shortness of breath at rest or shortness of breath with exertion Gastrointestinal Gastrointestinal: Denies abdominal pain, diarrhea, nausea or vomiting Genitourinary Genitourinary: Denies abdominal discomfort Musculoskeletal Musculoskeletal: Denies limited range of motion Integumentary Integumentary: Reports systems reviewed and no addt'l complaints, except as documented Neurologic Neurologic: Reports systems reviewed and no addt'l complaints, except as documented Psychiatric Psychiatric: Reports systems reviewed and no addt'l complaints, except as documented Endocrine Endocrinology: Reports systems reviewed and no addt'l complaints, except as documented Hematologic/Lymphatic Hematologic/Lymphatic: Reports systems reviewed and no addt'l complaints, exceptas documented Allergic/Immunologic Allergic/Immunologic: Reports systems reviewed and no addt'l complaints, except as documented Vital Signs Vital Signs Vital Signs: 09/09/24 07:22 09/09/24 07:22 09/09/24 07:22 Temperature Temperature Source Temporal Pulse Rate 80 Respiratory Rate Blood Pressure 130/85 H BP Systolic 130 BP Diastolic 85 09/09/24 07:22 09/09/24 07:22 Temperature 98.2 F Temperature Source Pulse Rate Respiratory Rate 16 Blood Pressure BP Systolic BP Diastolic Weight Weight: 180 lb 1.883 oz Body Mass Index (BMI) 29.9 Physical Exam Const alert and oriented x3 General Appearance: cooperative Orientation / Consciousness: awake, oriented to person, oriented to place and oriented to time Exam Limitations: no limitations HEENT normocephalic Head and Scalp: normal to inspection, normocephalic and atraumatic Face and Sinus: normal facial exam Eyes General Eye: normal appearance of both eyes Neck full ROM Chest Chest: symmetrical chest wall rise Resp normal respiratory effort and normal air movement Auscultation: clear to auscultation bilaterally Cardio regular rate, regular rhythm, S1 normal heart sound, S2 normal heart sound, no murmurs, no rub, no gallops and no clicks GI normal to inspection, nondistended, normoactive bowel sounds and non-tender appearance of the vagina normal Bladder / Kidney Exam: no CVA tenderness Manual OB Exam: estimated gestational size appropriate, presentation cephalic, dilated 4cm, effaced 90, station -1 and other AROM small amount of clear fluid Back/Spine normal ROM Extremity normal to inspection and full ROM Skin no rashes or lesions noted Neuro oriented x3, CN's II-XII intact bilaterally and moves all extremities Sensorium / Orientation: awake, alert and oriented to person Motor Exam: clonus absent Deep Tendon Reflexes: Rt Patellar (L4): 2+ and Lt Patellar (L4): 2+ Labs Labs Labs: Blood Type A POSITIVE Antibody Screen NEGATIVE Hct 34.1 % (37-47) L Hgb 11.9 g/dL (12.0-15.0) L Obstetrics Ultrasound Syphilis Total Ab Nonreactive (Nonreactive) Hep Bs Antigen Non-Reactive (Nonreactive) Hepatitis C Antibody Non-Reactive (Nonreactive) Miscellaneous Test GBS positive RPR negative GC/CT negative Rubella HepC negative HBsAG negative A positive Assessment & Plan (1) Elective induction of labor planned: (2) Anxiety: (3) Smoker: (4) Substance abuse: COMMENT: marijuana (5) Multiple sclerosis: COMMENT: diagnosis in December (6) Seizures: COMMENT: first seizure in December last seizure 06/04/24 (7) Cervical incompetence: COMMENT: cerclage removed on 08/19/24 (8) Current every day nicotine vaping: (9) Bipolar disorder: COMMENT: [place] PLAN: Plan 1) Admit to labor and delivery 2) Routine labs 3) Continuous EFM 4) Pain management upon request 5) Dr.James taylor physician and notified of patient status, above assessment, and plan. 09/09/24 1211 <Electronically signed by Leilani Calixto CNM> Cosigner Signature (if applicable): CC: DEWAYNE Calixto; No Primary Care Physician~ Signed [facility] Work Phone: 1([phone]) 313-435003-28-2025 History of Present illness Narrative* Kenya Reese, JEAN CARLOS - 09/09/2024 2:11 PM EDT Patient delivered via at [facility] on 09/09/24 per Leilani Calixto CNM . See OB Outcome note. Kenya Reese RN [facility] note [facility] Medical Records Department [address] [place] [address] OB Vaginal Delivery 09/09/24 1318 MR#: [id number] Acct: [id number] Name: SARIKA FERREIRA Rep #:[id number] : 1990 34 From: Leilani CORRALES PCP: Care Physician,No Primary Status :ADM IN Location: [id number] Assessment & Plan (1) Vaginal delivery: (2) Second degree perineal laceration: (3) Uterine atony: COMMENT: Methergine given, EBL 600ml Maternal Data Information JOSE A Calculator Estimated Delivery Date Method Current WG Current Estimate 09/16/24 Manual 39w 0d Vaginal Delivery Maternal Presentation Maternal Presentation: Elective Induction Type of Induction: Pitocin and Amniotomy Vaginal Delivery Information Procedure Performed: Spontaneous Vaginal Delivery Surgeon/Practitioner: Leilani Calixto Date of Procedure: 09/09/24 Pre-Procedure Diagnosis: Elective IOL Post-Procedure Diagnosis: , second degree perineal laceration Type of anesthesia: Epidural Estimated Blood Loss: 600ml Time of Delivery: 12:47 Findings Description of procedure: Progressed to complete with urge to push. Epidural for pain management but not effective. of viable female infant over second degree perineal laceration. APGARS 8,9 respectively. Infant head delivered with body immediately forthcoming. Placed on maternal abdomen, strong cry. Mouth and nares wiped for secretions. Pitocin started for active 3rd stage management. Cord doubly clampedand cut by family after pulsations ceased, delayed cord clamping. Placenta delivered intact via mtz, 3 vessel cord intact. Perineum inspected and revealed second degree perineal laceration. Repaired with 3.0 vicryl rapide and lidocaine/epidural. Fundus firm and hemostasis achieved. Vaginal sweep completedbyme, sponge and instrument count correct. Uterus boggy and started slow streamof bleeding, Methergine for uterine atony. EBL 600ml. Mom and baby stable. Family bonding well. Dr. Sánchez notified of delivery. Presentation: Vertex and MIKE Amniotic Membrane Rupture Type: Artificial Amniotic Fluid Description: Clear Placenta Disposition: [facility] Specimen collected: No Cord Vessel Description: 3 Vessels Cord Entanglement: None Infant A Gender: Female (1 minute): 8 (5 minute): 9 Delayed Cord Clamping: Yes Interior Design Consultant tack welder: No Post Vaginal Deli Medications given after delivery: IV Pitocin Episiotomy Description: None Laceration: Perineal Extension/lac and 2nd degree Complication Complications: No 09/09/24 1323 Cosigner Signature (if applicable): CC: DEWAYNE Calixto; No Primary Care Physician~ Signed [facility]03-28-2025 History and physical note [facility] Medical Records Department [address] [facility] [place] [address] H&P Exam - MANAGER SOCIAL 09/09/24 0842 MR#: [id number] Acct: [id number] Name: SARIKA FERREIRA Rep #:[id number] : 1990 34 From: Leilani CORRALES PCP: Care Physician,No Primary Status :ADM IN Location: [id number] HPI - General General Date of Admission: 09/09/24 HPI Narrative SARIKA FERREIRA is a 34 F who presents for elective induction of labor. at 39 weeks. In office forvisit and cervix 4cm dilated. Maternal Data Information JOSE A Calculator Estimated Delivery Date Method Current WG Current Estimate 09/16/24 Manual 39w 0d PFSH PFSH Medical History Seizures Cervical incompetence Multiple sclerosis Substance abuse Anxiety Kidney stones Smoker Home Medications ?Medication ?Instructions ?Recorded ?Last Taken ?Type folic acid 1 mg tablet 3 mg PO DAILY 05/1608/25/24 12:00 History 3 mg lurasidone 40 mg tablet 40 mg PO QPM bipolar 4 08/24/24 21:00 History 40 mg metoprolol succinate 25 mg 25 mg PO DAILY BP 06/03/24 Unknown History tablet,extended release 24 hr Held on 09/09/24. Instructions: MD Ordered aspirin 81 mg tablet,delayed 81 mg PO DAILY 08/25/24 08/25/24 06:00 History release (Celina Low Dose Aspirin) 81 mg levetiracetam 500 mg tablet 500 mg PO BID seizures 08/25/24 06:00 History (Keppra) 500 mg vit no.95-ferrous 1 tab PO DAILY 08/25/24 06:00 History fumarate 28 mg-folic acid 800 mcg 1 TA B tablet () famotidine 40 mg tablet 40 mg PO BID PRN PRN heartbu rn 09/09/24 Unknown History Allergy/AdvReac Type Severity Reaction Status Date / Time No Known Allergies Allergy Verified 09/09/24 07:47 Family History Mother Diabetes CVA (cerebral vascular accident) Dementia Father Aneurysm Social History Smoking Status: Light Smoker (<10/day) History Elective abortions Hx Para 0 Spontaneous abortions Hx # Term Pregnancies Ectopic pregnancies Hx # Pregnancies Multiple births # of living children NST FHR Rate Baby A Baseline: 125 Variability:: Moderate Accelerations:: 15 x 15 Decelerations:: None FHR Category:: Category I Uterine Activity:: Irregular ROS Constitutional Constitutional: Reports systems reviewed and no addt'l complaints, except as documented; Denies headache(s) Eyes Eyes: Denies acute decrease in peripheral vision, blurry vision or change in vision ENT HEENT: Reports systems reviewed and no addt'l complaints, except as documented Cardiovascular Cardiovascular: Denies chest pain or dizziness Respiratory/Chest Respiratory/Chest: Denies cough, dyspnea, dyspnea on exertion, shortness of breath at rest or shortness of breath with exertion Gastrointestinal Gastrointestinal: Denies abdominal pain, diarrhea, nausea or vomiting Genitourinary Genitourinary: Denies abdominal discomfort Musculoskeletal Musculoskeletal: Denies limited range of motion Integumentary Integumentary: Reports systems reviewed and no addt'l complaints, except as documented Neurologic Neurologic: Reports systems reviewed and no addt'l complaints, except as documented Psychiatric Psychiatric: Reports systems reviewed and no addt'l complaints, except as documented Endocrine Endocrinology: Reports systems reviewed and no addt'l complaints, except as documented Hematologic/Lymphatic Hematologic/Lymphatic: Reports systems reviewed and no addt'l complaints, exceptas documented Allergic/Immunologic Allergic/Immunologic: Reports systems reviewed and no addt'l complaints, except as documented Vital Signs Vital Signs Vital Signs: 09/09/24 07:22 09/09/24 07:22 09/09/24 07:22 Temperature Temperature Source Temporal Pulse Rate 80 Respiratory Rate Blood Pressure 130/85 H BP Systolic 130 BP Diastolic 85 09/09/24 07:22 09/09/24 07:22 Temperature 98.2 F Temperature Source Pulse Rate Respiratory Rate 16 Blood Pressure BP Systolic BP Diastolic Weight Weight: 180 lb 1.883 oz Body Mass Index (BMI) 29.9 Physical Exam Const alert and oriented x3 General Appearance: cooperative Orientation / Consciousness: awake, oriented to person, oriented to place and oriented to time Exam Limitations: no limitations HEENT normocephalic Head and Scalp: normal to inspection, normocephalic and atraumatic Face and Sinus: normal facial exam Eyes General Eye: normal appearance of both eyes Neck full ROM Chest Chest: symmetrical chest wall rise Resp normal respiratory effort and normal air movement Auscultation: clear to auscultation bilaterally Cardio regular rate, regular rhythm, S1 normal heart sound, S2 normal heart sound, no murmurs, no rub, no gallops and no clicks GI normal to inspection, nondistended, normoactive bowel sounds and non-tender appearance of the vagina normal Bladder / Kidney Exam: no CVA tenderness Manual OB Exam: estimated gestational size appropriate, presentation cephalic, dilated 4cm, effaced 90, station -1 and other AROM small amount of clear fluid Back/Spine normal ROM Extremity normal to inspection and full ROM Skin no rashes or lesions noted Neuro oriented x3, CN's II-XII intact bilaterally and moves all extremities Sensorium / Orientation: awake, alert and oriented to person Motor Exam: clonus absent Deep Tendon Reflexes: Rt Patellar (L4): 2+ and Lt Patellar (L4): 2+ Labs Labs Labs: Blood Type A POSITIVE Antibody Screen NEGATIVE Hct 34.1 % (37-47) L Hgb 11.9 g/dL (12.0-15.0) L Obstetrics Ultrasound Syphilis Total Ab Nonreactive (Nonreactive) Hep Bs Antigen Non-Reactive (Nonreactive) Hepatitis C Antibody Non-Reactive (Nonreactive) Miscellaneous Test GBS positive RPR negative GC/CT negative Rubella HepC negative HBsAG negative A positive Assessment & Plan (1) Elective induction of labor planned: (2) Anxiety: (3) Smoker: (4) Substance abuse: COMMENT: marijuana (5) Multiple sclerosis: COMMENT: diagnosis in December (6) Seizures: COMMENT: first seizure in December last seizure 06/04/24 (7) Cervical incompetence: COMMENT: cerclage removed on 08/19/24 (8) Current every day nicotine vaping: (9) Bipolar disorder: COMMENT: [place] PLAN: Plan 1) Admit to labor and delivery 2) Routine labs 3) Continuous EFM 4) Pain management upon request 5) Dr.James taylor physician and notified of patient status, above assessment, and plan. 09/09/24 1211 Cosigner Signature (if applicable): CC: DEWAYNE Calixto; No Primary Care Physician~ Signed [facility]03-27-2025 Progress note* Quick Notes - Kenya Philip MD - 09/08/2024 3:06 PM EDT S: Sarika Ferreira is a 34 year old female who presents at 09/16/2024, by Ultrasound for a routine visit. Denies headache, visual changes, chest pain, shortness of breath, vaginal bleeding, leakage of fluid, or dysuria. Feeling well, no complaints. Good movement, No contractions O: See flow sheet Gen: No apparent distress Abd: Gravid, nontender IOL tomorrow ASSESSMENT/PLAN: 1. 38 weeks gestation of - ICD9: V22.2, ICD10: Z3A.38 (primary diagnosis) - URINE OB DIP B/O 2. Multiple sclerosis (HCC) - ICD9: 340, ICD10: G35 - URINE OB DIP B/O 3. Supervision of high risk in third trimester - ICD9: V23.9, ICD10: O09.93 - URINE OB DIP B/O 4. Advanced maternal age in multigravida, third trimester - ICD9: 659.63, ICD10: O09.523 - URINE OB DIP B/O Kenya Philip MD [facility]03-27-2025 Miscellaneous Notes* Quick Notes - Kneya Philip MD - 09/08/2024 3:06 PM EDT S: Sarika Ferreira is a 34 year old female who presents at 09/16/2024, by Ultrasound for a routine visit. Denies headache, visual changes, chest pain, shortness of breath, vaginal bleeding, leakage of fluid, or dysuria. Feeling well, no complaints. Good movement, No contractions O: See flow sheet Gen: No apparent distress Abd: Gravid, nontender IOL tomorrow ASSESSMENT/PLAN: 1. 38 weeks gestation of - ICD9: V22.2, ICD10: Z3A.38 (primary diagnosis) - URINE OB DIP B/O 2. Multiple sclerosis (HCC) - ICD9: 340, ICD10: G35 - URINE OB DIP B/O 3. Supervision of high risk in third trimester - ICD9: V23.9, ICD10: O09.93 - URINE OB DIP B/O 4. Advanced maternal age in multigravida, third trimester - ICD9: 659.63, ICD10: O09.523 - URINE OB DIP B/O Kenya Philip MD documented [facility] encounter[facility] Instructions* Patient Instructions* Elva Moore MA - 09/08/2024 2:30 PM EDT SEQUENTIAL SCREENINGS The [facility] offers sequential screenings for women who are interested in screenings for chromosomal abnormalities and certain defects during a . The sequential screen combinesultrasound and blood tests to determine the risk of chromosomal abnormalities, including Down's Syndrome (Trisomy 21) and Trisomy 18, as well as open neural tube defects including spina bifida. Ultrasound examination is performed between 11 weeks and 13 weeks gestational age. Blood tests are drawn after the ultrasound and again later in the between 15 and 21 weeks gestational age. Please let your physician know if you are interested in this testing. It will require an appointment withour endoscopic technician. This is not an ultrasound performed by a physician in our office during a routine visit. SIGNS AND SYMPTOMS OF LABOR 1. Contractions every 10 minutes or more often 2. Clear, pink, or brownish fluid (water) leaking from vagina 3. Feeling that baby is pushing down, pressure 4. Low, dull backache 5. Cramps that feel like a period 6. Cramps with or without diarrhea If you notice any of the above symptoms, contact our office at [phone] and ask to speak with anurse. After hours, you can call doctors registry at [phone] OR call [facility] at [phone] ask to have the doctor publicity consultant paged. If you consider this an emergency, dial [phone] or go to your nearest emergency department. NEED HELP? Are you dealing with a violent or abusive relationship? Are you a victim of rape or sexual assult? Call [facility] ([place]) 24 hour Crisis Hotline: 692.771.8174 or 018-352-0777. MANUAL Your Guide to a Healthy manual is now on-line. Visit [email or web address] to download your free copy documented in this encounterWood [facility] Hospital03-[facility]25 NoteHNO ID: [id number] Author: TRUDY NORTON, ? Service: ? 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 Did not leave message Need to add maternity nurse My chart sent Reason for Outreach Medicaid OB/Peds Care Gaps due: N/A Patient Contacted: Unable or unnecessary to reach patient: Unable to reach patient Unable to leave message MyChart message sent Navigation Signature: Trudy Norton Population Health Navigator September 02, 2024 8:05 [facility]03-21-2025 History of Present illness Narrative* Trudy Norton - 09/02/2024 8:03 AM EDT POPULATION HEALTH NAVIGATION OUTREACH Action/FYI Placed call the individual who ansered sait patient not available. Did not leave message Need to add maternity nurse My chart sent Reason for Outreach Medicaid OB/Peds Care Gaps due: N/A Patient Contacted: Unable or unnecessary to reach patient: Unable to reach patient Unable to leave message MyChart message sent Navigation Signature: Trudy Norton Population Health Navigator September 02, 2024 8:05 AM documented in this encounterWood [facility] Hospital03-[facility]25 NotePatient Outreach (NETNAV) SARIKA FERREIRA ([id number]) 1990 F Date Time Provider Department 09/02/24 TRUDY NORTON NETTRE During your visit today, we recorded the following information about you: Trudy Norton 09/05/2024 7:40 AM Addendum POPULATION HEALTH NAVIGATION OUTREACH Action/FYI Placed call the individual who answered said patient not available. Did not leave message Need to add maternity nurse My chart sent Reason for Outreach Medicaid OB/Peds Care Gaps due: N/A Patient Contacted: Unable or unnecessary to reach patient: Unable to reach patient Unable to leave message MyChart message sent Navigation Signature: Trudy Norton Population Health Navigator September 02, 2024 8:05 AM Allergies As of Date: 09/02/2024 (No Known Allergies) Date Reviewed: 08/31/2024 Reviewed by: Alexander Galloway MD - Fully Assessed Reason for Visit: Population Health Navigation Outreach [3910] [facility]: Ob peds Prescriptions as of 09/05/2024 - famotidine (PEPCID) 40 mg tablet Take 1 tablet by mouth two times a day as needed. - levETIRAcetam (KEPPRA) 500 mg tablet Take 1 tablet by mouth two times a day. - midazolam (NAYZILAM) 5 mg/spray (0.1 mL) nasal spray Administer one spray (5 mg dose) into one nostril for a seizure that lasts for 5 minutes. One additional spray (5 mg dose) into the opposite nostril if the seizure continues for an additional 5 minutes. - lurasidone (LATUDA) 40 mg tablet take 1 tablet by mouth every evening with a full meal (atleast 400 calories) - cyclobenzaprine (FLEXERIL) 10 mg tablet Take 1 tablet by mouth three times a day as needed. - simethicone, chewable (MYLICON) 80 mg chewable tablet Take 1 tablet by mouth four times a day as needed. - folic acid 1 mg tablet Take 3 tablets by mouth once daily. - aspirin, enteric coated (ECOTRIN LOW STRENGTH) 81 mg EC tablet Take 1 tablet by mouth once daily. - vit no.124/iron/folic ( VITAMIN ORAL) Take by mouth once daily. 2 Gummies - acetaminophen (TYLENOL EXTRA STRENGTH) 500 mg tablet Take 500 mg by mouth every 8 hours as needed for pain. Problem List As Of Date 09/02/2024 Noted Resolved Acanthosis Nigricans [L83] 09/10/2009 Obesity [E66.9] 09/10/2009 04/05/2024 Irregular menses [N92.6] 09/10/2009 06/02/2024 Vapes nicotine containing substance [Z72.0] 02/22/2024 Marijuana use during [O99.320, F12.90]02/22/2024 Bipolar 1 disorder (HCC) [F31.9] 02/22/2024 History of seizures [Z87.898] 03/15/2024 Multiple sclerosis affecting , antepar*03/15/2024 Short cervix affecting [O26.879] 05/02/2024 Short cervix during in second trimest*05/02/2024 Abdominal pain affecting [O26.899, R1*06/01/2024 Cervical cerclage suture present in second trim*06/01/2024 24 weeks gestation of [Z3A.24] 06/01/2024 Advanced maternal age in multigravida, third tr*08/31/2024 Supervision of high risk in third tri*08/31/2024 Encounter Status:Closed by TRUDY NORTON on 09/02/24[facility] 08-31-2024 NoteHNO ID: [id number] Author: ALEXANDER GALLOWAY MD Service: ? Author Type: Physician Type: Progress Notes Filed: 08/31/2024 16:48 Note Text: NST SUMMARY PROVIDER ASSESSMENT AND INTERPRETATION Sarika Ferreira is a 34 year old female, , who is at 37w5d with an JOSE A of 09/16/2024, by Ultrasound dating method. Indications for NST: AMA and Other: maternal MS Baseline: 145 Variability: Moderate Accelerations: Present 15 X 15 Decelerations: None Contractions: TOCO: Irregular Interpretation: Reactive SIGNATURE: Alexander Galloway [facility]03-19-2025 History of Present illness Narrative* Alexander Galloway MD - 08/31/2024 4:45 PM EDT NST SUMMARY PROVIDER ASSESSMENT AND INTERPRETATION Sarika Ferreira is a 34 year old female, , who is at 37w5d with an JOSE A of 09/16/2024, by Ultrasound dating method. Indications for NST: AMA and Other: maternal MS Baseline: 145 Variability: Moderate Accelerations: Present 15 X 15 Decelerations: None Contractions: TOCO: Irregular Interpretation: Reactive SIGNATURE: Alexander Galloway MD documented in this encounterWood County Hospital03-19-2025 Progress note* Quick Notes - Alexander Galloway MD - 08/31/2024 4:35 PM EDT RR- VB No. LOF No. CTXS No. Movement: present. Other c/o: No. Medication list reviewed. SENSITIVE EXAM: The sensitive examination was discussed with the Patient or Patient's Authorized Electromedical Equipment Repairer. As applicable, any other physician, advance practice provider, medical student, or other health professional student that will be observing or involved in the sensitive examination for educational or training purposes was discussed with the Patient or Authorized Electromedical Equipment Repairer. The Patient or Authorized Electromedical Equipment Repairer has agreed to proceed with the sensitive examination. (Sensitive examination includes inspection and/or palpation of the breasts, pelvis, prostate and anorectal regions). Physical Exam See Flow Sheet Abd: soft, nontender, gravid Ext: edema: Trace A/P 37w5d Estimated Date of Delivery: 09/16/24 Cervix /-1, BBOW, engaged Assessment & Plan 37 weeks gestation of Orders: URINE OB DIP B/O Multiple sclerosis (HCC) Orders: URINE OB DIP B/O Supervision of high risk in third trimester declines membrane sweep today would like 39 week induction next week if not delivered kick counts NST reactive today Orders: URINE OB DIP B/O Alexander Galloway M.D. [facility]03-19-2025 Miscellaneous Notes* Quick Notes - Alexadner Galloway MD - 08/31/2024 4:35 PM EDT RR- VB No. LOF No. CTXS No. Movement: present. Other c/o: No. Medication list reviewed. SENSITIVE EXAM: The sensitive examination was discussed with the Patient or Patient's Authorized Electromedical Equipment Repairer. As applicable, any other physician, advance practice provider, medical student, or other health professional student that will be observing or involved in the sensitive examination for educational or training purposes was discussed with the Patient or Authorized Electromedical Equipment Repairer. The Patient or Authorized Electromedical Equipment Repairer has agreed to proceed with the sensitive examination. (Sensitive examination includes inspection and/or palpation of the breasts, pelvis, prostate and anorectal regions). Physical Exam See Flow Sheet Abd: soft, nontender, gravid Ext: edema: Trace A/P 37w5d Estimated Date of Delivery: 09/16/24 Cervix /-1, BBOW, engaged Assessment & Plan 37 weeks gestation of Orders: URINE OB DIP B/O Multiple sclerosis (HCC) Orders: URINE OB DIP B/O Supervision of high risk in third trimester declines membrane sweep today would like 39 week induction next week if not delivered kick counts NST reactive today Orders: URINE OB DIP B/O Alexander Galloway M.D. documented in this encounterWood County Hospital03-19-2025 Instructions* Patient Instructions* Elva Moore, JODI - 08/31/2024 2:48 PM EDT SEQUENTIAL SCREENINGS The [facility] offers sequential screenings for women who are interested in screenings for chromosomal abnormalities and certain defects during a . The sequential screen combinesultrasound and blood tests to determine the risk of chromosomal abnormalities, including Down's Syndrome (Trisomy 21) and Trisomy 18, as well as open neural tube defects including spina bifida. Ultrasound examination is performed between 11 weeks and 13 weeks gestational age. Blood tests are drawn after the ultrasound and again later in the between 15 and 21 weeks gestational age. Please let your physician know if you are interested in this testing. It will require an appointment withour endoscopic technician. This is not an ultrasound performed by a physician in our office during a routine visit. SIGNS AND SYMPTOMS OF LABOR 1. Contractions every 10 minutes or more often 2. Clear, pink, or brownish fluid (water) leaking from vagina 3. Feeling that baby is pushing down, pressure 4. Low, dull backache 5. Cramps that feel like a period 6. Cramps with or without diarrhea If you notice any of the above symptoms, contact our office at [phone] and ask to speak with anurse. After hours, you can call doctors registry at [phone] OR call [facility] at [phone] ask to have the doctor publicity consultant paged. If you consider this an emergency, dial [phone] or go to your nearest emergency department. NEED HELP? Are you dealing with a violent or abusive relationship? Are you a victim of rape or sexual assult? Call [facility] ([place]) 24 hour Crisis Hotline: 423.669.3707 or 449-464-3604. MANUAL Your Guide to a Healthy manual is now on-line. Visit [email or web address] to download your free copy documented in this encounterWood County Hospital03-13-2025 Evaluation note* Diagnosis Onset Date Resolution Status Admit Date Non-reactive NST (non-stress test) acute August 25, 2024 4:00pm Anxiety acute September 09 7:09am Bipolar disorder acute September 092024 7:09am Cervical incompetence acute [facility] 2024 7:09am Current every day nicotine vaping acute September 09, 2024 7:09am Elective induction of labor planned acute September 09, 2024 7:09am Multiple sclerosis acute September 09, 2024 7:09am Second degree perineal laceration acute September 09, 2024 7:09am Seizures acute September 09 7:09am Smoker acute September 09 7:09am Substance abuse acute August 7:09am Uterine atony acute September 09, 2024 7:09am Vaginal delivery acute September 092024 7:09am [facility] Work Phone: [phone] 241-130103-13-2025 Evaluation note* Diagnosis Onset Date Resolution Status Admit Date Non-reactive NST (non-stress test) acute August 25, 2024 4:00pm Cervical incompetence resolved Aug 7:09am Current every day nicotine vaping resolved September 09, 2024 7:09am Elective induction of labor planned resolved September 09, 2024 7:09am Second degree perineal laceration resolved September 09, 2024 7:09am Substance abuse resolved August 7:09am Uterine atony resolved September 09, 2024 7:09am Vaginal delivery resolved September 092024 7:09am Anxiety inactive September 09 7:09am Bipolar disorder inactive September 092024 7:09am Multiple sclerosis inactive September 09, 2024 7:09am Seizures inactive September 09 7:09am Smoker inactive September 09 7:09am [facility] Work Phone: 1(413) 347-137803-13-2025 NoteHNO ID: [id number] Author: HOLA DUEÑAS MD Service: ? Author Type: Physician Type: Progress Notes Filed: 08/25/2024 17:19 Note Text: NST SUMMARY PROVIDER ASSESSMENT AND INTERPRETATION Sarika Ferreira is a 34 year old female, , who is at 36w6d with an JOSE A of 09/16/2024, by Ultrasound dating method. Indications for NST: AMA Baseline: 150 Variability: Moderate Accelerations: Absent Decelerations: Small variable Contractions: TOCO: Irregular Interpretation: Non-Reactive SIGNATURE: [facility] History of Present illness Narrative* Hola Dueñas MD - 08/25/2024 5:16 PM EDT NST SUMMARY PROVIDER ASSESSMENT AND INTERPRETATION Sarika Ferreira is a 34 year old female, , who is at 36w6d with an JOSE A of 09/16/2024, by Ultrasound dating method. Indications for NST: AMA Baseline: 150 Variability: Moderate Accelerations: Absent Decelerations: Small variable Contractions: TOCO: Irregular Interpretation: Non-Reactive SIGNATURE: Hola Dueñas DO documented in this encounterWood County Hospital03-13-2025 Progress note* Quick Notes - Hola Deuñas MD - 08/25/2024 3:43 PM EDT SW- Pt doing well. No ctx, vb. Has felt wet for last few days since cerclage was removed. No gushes of fluid or constant leaking. Good FM PE: Gen- NAD, well appearing Abd- Soft, gravid, NT SSE- Cervix visually 2-3 cm and thin, no pooling of fluid, +nitrazine, negative fern TAUS performed and only one pocket of fluid noted in RUQ with MVP of 7 See flowsheet A/p 36 wk gestation with non reactive NST and possible LOF - Sent to L&D for further management per provider publicity consultant Dr. Sánchez. Discussed patient and office visit with Dr. Sánchez and L&D notified Hola Dueñas DO [facility]03-13-2025 Miscellaneous Notes* Quick Notes - Hola Dueñas MD - 08/25/2024 3:43 PM EDT SW- Pt doing well. No ctx, vb. Has felt wet for last few days since cerclage was removed. No gushes of fluid or constant leaking. Good FM PE: Gen- NAD, well appearing Abd- Soft, gravid, NT SSE- Cervix visually 2-3 cm and thin, no pooling of fluid, +nitrazine, negative fern TAUS performed and only one pocket of fluid noted in RUQ with MVP of 7 See flowsheet A/p 36 wk gestation with non reactive NST and possible LOF - Sent to L&D for further management per provider publicity consultant Dr. Sánchez. Discussed patient and office visit with Dr. Sánchez and L&D notified Hola Dueñas DO documented in this encounterWood County Hospital03-13-2025 Instructions* Patient Instructions* Debbie Poole MA - 08/25/2024 2:34 PM EDT SEQUENTIAL SCREENINGS The [facility] offers sequential screenings for women who are interested in screenings for chromosomal abnormalities and certain defects during a . The sequential screen combinesultrasound and blood tests to determine the risk of chromosomal abnormalities, including Down's Syndrome (Trisomy 21) and Trisomy 18, as well as open neural tube defects including spina bifida. Ultrasound examination is performed between 11 weeks and 13 weeks gestational age. Blood tests are drawn after the ultrasound and again later in the between 15 and 21 weeks gestational age. Please let your physician know if you are interested in this testing. It will require an appointment withour endoscopic technician. This is not an ultrasound performed by a physician in our office during a routine visit. SIGNS AND SYMPTOMS OF LABOR 1. Contractions every 10 minutes or more often 2. Clear, pink, or brownish fluid (water) leaking from vagina 3. Feeling that baby is pushing down, pressure 4. Low, dull backache 5. Cramps that feel like a period 6. Cramps with or without diarrhea If you notice any of the above symptoms, contact our office at [phone] and ask to speak with anurse. After hours, you can call doctors registry at [phone] OR call [facility] at [phone] ask to have the doctor publicity consultant paged. If you consider this an emergency, dial 9-1-1 or go to your nearest emergency department. NEED HELP? Are you dealing with a violent or abusive relationship? Are you a victim of rape or sexual assult? Call [facility] ([place]) 24 hour Crisis Hotline: 821.732.2647 or 246-998-5456. MANUAL Your Guide to a Healthy manual is now on-line. Visit [email or web address] to download your free copy documented in this encounterWood County Hospital03-11-2025 Telephone encounter Note * Telephone Encounter - Rodrick Hernandez RN - 08/23/2024 11:59 AM EDT 36w4d Pt calling because she feels she lost her mucous plug. Pad was brownish/red streaks. Denies vaginalbleeding/Denies LOF. Pt states she has pain 4/10 in upper abdomen intermittently and describes as tightening. Advised torest and continue to stay hydrated. Pt advised to continue to monitor at this time and to call the office when: Contractions q10 minutes or more , LOF, decreased movement & advised Pt to go to ER if she develops severe abdominal pain/vaginal bleeding. Pt voiced understanding and denies additional questions/concerns. Next OBappt 08/25/24. Rodrick Hernandez RN [facility]03-11-2025 Miscellaneous Notes* Telephone Encounter - Rodrick Hernandez RN - 08/23/2024 11:59 AM EDT 36w4d Pt calling because she feels she lost her mucous plug. Pad was brownish/red streaks. Denies vaginalbleeding/Denies LOF. Pt states she has pain 4/10 in upper abdomen intermittently and describes as tightening. Advised torest and continue to stay hydrated. Pt advised to continue to monitor at this time and to call the office when: Contractions q10 minutes or more , LOF, decreased movement & advised Pt to go to ER if she develops severe abdominal pain/vaginal bleeding. Pt voiced understanding and denies additional questions/concerns. Next OBappt 08/25/24. Rodrick Hernandez RN documented in this encounterWood County Hospital03-06-2025 NoteHNO ID: [id number] Author: ALEXANDER GALLOWAY MD Service: ? Author Type: Physician Type: Progress Notes Filed: 08/18/2024 17:20 Note Text: Sarika Ferreira is a 34 year old female who presents today for a cerclage removal UNIVERSAL PROTOCOL / SAFETY CHECKLIST Procedure to be Performed: cerclage removal Sign In: A Moment of CARE was completed. Appropriate PPE (Personal Protective Equipment) worn by all providers involved with the procedure. Special equipment not required. Patient/Surrogate Stated/Verified: Patient name, Date of , Relevant allergies, and The intended procedure Time Out: Relevant labs, photos, and/or imaging studies are not applicable. Intended patient and procedure match the source document(s) (e.g. consent, HANDP, associated studies [imaging, pathology]) are not applicable. Consent obtained and matches the intended procedure. Yes. Correct side/site is not applicable. Medications required for this procedure are not applicable. Fire risk assessed and is not applicable. Implants: are not applicable. Sign Out: Specimens not collected. All instruments, equipment, possible retained foreign bodies are accounted for. Yes. The post-procedure plan of care has been communicated to the patient or surrogate. PROCEDURE NOTE: Speculum placed in vagina Cervix is visualized. A Rita was used to grasp the suture and put tension on it until the knot was fully identified. Long scissors were then used to snip 1 end of the suture and the entire suture easily removed from the cervix. ASSESSMENT: High risk at 35-6/7 weeks with cerclage. Risk benefits and alternatives to cerclage removal reviewed with the patient, her questions were answered to her satisfaction she desired to have this removed. We decided to remove it today after I discussed the case with maternal- medicine. PLAN: Reviewed labor precautions with patient. Alexander Galloway [facility]03-06-2025 History of Present illness Narrative* Alexander Galloway MD - 08/18/2024 4:38 PM EST Sarika Ferreira is a 34 year old female who presents today for a cerclage removal UNIVERSAL PROTOCOL / SAFETY CHECKLIST Procedure to be Performed: cerclage removal Sign In: A Moment of CARE was completed. Appropriate PPE (Personal Protective Equipment) worn by all providers involved with the procedure. Special equipment not required. Patient/Surrogate Stated/Verified: Patient name, Date of , Relevant allergies, and The intended procedure Time Out: Relevant labs, photos, and/or imaging studies are not applicable. Intended patient and procedure match the source document(s) (e.g. consent, H&P, associated studies [imaging, pathology]) are not applicable. Consent obtained and matches the intended procedure. Yes. Correct side/site is not applicable. Medications required for this procedure are not applicable. Fire risk assessed and is not applicable. Implants: are not applicable. Sign Out: Specimens not collected. All instruments, equipment, possible retained foreign bodies are accounted for. Yes. The post-procedure plan of care has been communicated to the patient or surrogate. PROCEDURE NOTE: Speculum placed in vagina Cervix is visualized. A Rita was used to grasp the suture and put tension on it until the knot was fully identified. Long scissors were then used to snip 1 end of the suture and the entire suture easily removed from the cervix. ASSESSMENT: High risk at 35-6/7 weeks with cerclage. Risk benefits and alternatives to cerclage removal reviewed with the patient, her questions were answered to her satisfaction she desired to have this removed. We decided to remove it today after I discussed the case with maternal-fetalmedicine. PLAN: Reviewed labor precautions with patient. Alexander Galloway MD [facility] Progress note* Quick Notes - Alexander Galloway MD - 08/18/2024 4:34 PM EST RR- VB No. LOF No. CTXS irreg. Movement: present. Other c/o: increased LE edema, some heartburn, uses milk to help Medication list reviewed. SENSITIVE EXAM: The sensitive examination was discussed with the Patient or Patient's Authorized Electromedical Equipment Repairer. As applicable, any other physician, advance practice provider, medical student, or other health professional student that will be observing or involved in the sensitive examination for educational or training purposes was discussed with the Patient or Authorized Electromedical Equipment Repairer. The Patient or Authorized Electromedical Equipment Repairer has agreed to proceed with the sensitive examination. (Sensitive examination includes inspection and/or palpation of the breasts, pelvis, prostate and anorectal regions). Physical Exam See Flow Sheet Abd: soft, nontender, gravid Ext: edema: 2+, symetrical: Yes, DTRS: 2+, clonus: Absent A/P 35w6d Estimated Date of Delivery: 09/16/24 Assessment & Plan High-risk in third trimester Orders: URINE OB DIP B/O GROUP B STREPTOCOCCUS BY PCR, ROUTINE SCREENING Multiple sclerosis (HCC) Orders: URINE OB DIP B/O GROUP B STREPTOCOCCUS BY PCR, ROUTINE SCREENING Cervical cerclage suture present in third trimester Orders: URINE OB DIP B/O GROUP B STREPTOCOCCUS BY PCR, ROUTINE SCREENING Supervision of high risk in third trimester Orders: URINE OB DIP B/O GROUP B STREPTOCOCCUS BY PCR, ROUTINE SCREENING 35 weeks gestation of Orders: URINE OB DIP B/O GROUP B STREPTOCOCCUS BY PCR, ROUTINE SCREENING Cerclage removed today, see progress note. D/w her PTL precautions. F/u in 1 week or prn. D/w her preeclampsia signs/symptoms. D/w her symptomatic measures for edema. BPP 8/8 today. NST next week w/ OB visit. Alexander Galloway M.D. [facility]03-06-[facility]25 Miscellaneous Notes* Quick Notes - Alexander Galloway MD - 08/18/2024 4:34 PM EST RR- VB No. LOF No. CTXS irreg. Movement: present. Other c/o: increased LE edema, some heartburn, uses milk to help Medication list reviewed. SENSITIVE EXAM: The sensitive examination was discussed with the Patient or Patient's Authorized Electromedical Equipment Repairer. As applicable, any other physician, advance practice provider, medical student, or other health professional student that will be observing or involved in the sensitive examination for educational or training purposes was discussed with the Patient or Authorized Electromedical Equipment Repairer. The Patient or Authorized Electromedical Equipment Repairer has agreed to proceed with the sensitive examination. (Sensitive examination includes inspection and/or palpation of the breasts, pelvis, prostate and anorectal regions). Physical Exam See Flow Sheet Abd: soft, nontender, gravid Ext: edema: 2+, symetrical: Yes, DTRS: 2+, clonus: Absent A/P 35w6d Estimated Date of Delivery: 09/16/24 Assessment & Plan High-risk in third trimester Orders: URINE OB DIP B/O GROUP B STREPTOCOCCUS BY PCR, ROUTINE SCREENING Multiple sclerosis (HCC) Orders: URINE OB DIP B/O GROUP B STREPTOCOCCUS BY PCR, ROUTINE SCREENING Cervical cerclage suture present in third trimester Orders: URINE OB DIP B/O GROUP B STREPTOCOCCUS BY PCR, ROUTINE SCREENING Supervision of high risk in third trimester Orders: URINE OB DIP B/O GROUP B STREPTOCOCCUS BY PCR, ROUTINE SCREENING 35 weeks gestation of Orders: URINE OB DIP B/O GROUP B STREPTOCOCCUS BY PCR, ROUTINE SCREENING Cerclage removed today, see progress note. D/w her PTL precautions. F/u in 1 week or prn. D/w her preeclampsia signs/symptoms. D/w her symptomatic measures for edema. BPP 8/8 today. NST next week w/ OB visit. Alexander Galloway M.D. documented [facility] Note Indication Evaluation of growth, Evaluation of well-being. Advanced maternal age, Cervical cerclage, multiple sclerosis, history of seizures Impression REMOTE READ - Single, live, intrauterine . - The biometry is consistent with the assigned gestational dating. - The EFW is 2356 g, at the 12%. AC is at the 24%. - The amniotic fluid volume is normal amount with an MVP of 6.4 cm and an BROOK of 21.2 cm. - The placenta is anterior, fundal. - BPP 01/20. - No malformations visualized on a limited survey as detailed below. Recommendations Growth in one month Maternal Assessment Height 163 cm Height (ft) 5 ft Height (in) 4 in Physical Exam Initial weight (lb) 138 lb Initial BMI 23.69 kg/m Maternal assessment other: 1 Para 0 Method Transabdominal ultrasound examination [place] . Number of fetuses: 1 Dating GA by prior assessment 35 w + 6 d JOSE A by prior assessment: 09/16/2024 Ultrasound examination on: 08/18/2024 GA by U/S based upon: AC, BPD, Femur, HC GA by U/S 34 w + 1 d JOSE A by U/S: 09/28/2024 Assigned: based on stated JOSE A, selected on 08/18/2024 Assigned GA 35 w + 6 d Assigned JOSE A: 09/16/2024 General Evaluation Cardiac activity present. FHR 138 bpm. movements: present. Presentation: cephalic Placenta: Placental site: anterior, fundal Umbilical cord: Cord vessels: 3 vessel cord Amniotic fluid: Amount of AF: normal amount. MVP 6.4 cm. BROOK 21.2 cm. Q1 5.7 cm, Q2 5.9 cm, Q3 6.4 cm, Q4 3.2 cm Biophysical Profile 2: breathing movements 2: Gross body movements 2: tone 2: Amniotic fluid volume 01/20 Biophysical profile score Growth Overview Exam date GA BPD (mm) HC (mm) AC (mm) FL (mm) HL (mm) EFW (g) 04/05/2024 16w 4d 35.8 68% 133.6 52% 112 66% 20.9 39% 21.9 61% 163 45% 05/02/2024 20w 3d 49.2 68% 184.3 61% 150.5 39% 32.8 57% 30.7 40% 347 39% 06/02/2024 24w 6d 65.9 92% 239.8 74% 199.3 32% 40.9 13% 685 21% 06/30/2024 28w 6d 76.9 91% 276.5 67% 240.3 27% 50.4 9% 1191 18% 07/28/2024 32w 6d 81.7 42% 297.9 34% 280.4 28% 58.9 10% 1841 15% 08/18/2024 35w 6d 87 36% 313.3 24% 306.6 24% 63.4 4% 2356 12% Biometry Standard BPD 87.0 mm 35w 1d 36% Hadlock OFD 108.3 mm 32w 3d 15% Nicolaides HC 313.3 mm 34w 1d 24% Anum AC 306.6 mm 34w 4d 24% Hadlock Femur 63.4 mm 32w 4d 4% Anum EFW 2,356 g 33w 6d 12% Hadlock EFW (lb) 5 lb EFW (oz) 3 oz EFW by: Hadlock (HC-AC-FL) Extended Mold Burner 6.9 mm Extremities / Bony Struc FL / HC 0.20 Other Structures FHR 138 bpm Anatomy Lateral ventricles: normal Cavum septi pellucidi: normal Cerebellum: normal Cisterna magna: normal 4-chamber view: normal RVOT view: normal LVOT view: normal 3-vessel view: normal Heart / Thorax Situs: situs solitus (normal) Diaphragm: normal Stomach: normal Kidneys: normal Bladder: normal sex: female Wants to know sex: yes Performed By: Hillary Sinha RDMS, RVT Read By: Trish Brooks M.D.MATERNAL [id number] Instructions* Patient Instructions* Chad Sanabria MA - 08/18/2024 3:43 PM EST SEQUENTIAL SCREENINGS [facility] offers sequential screenings for women who are interested in screenings for chromosomal abnormalities and certain defects during a . The sequential screen combinesultrasound and blood tests to determine the risk of chromosomal abnormalities, including Down's Syndrome (Trisomy 21) and Trisomy 18, as well as open neural tube defects including spina bifida. Ultrasound examination is performed between 11 weeks and 13 weeks gestational age. Blood tests are drawn after the ultrasound and again later in the between 15 and 21 weeks gestational age. Please let your physician know if you are interested in this testing. It will require an appointment withour endoscopic technician. This is not an ultrasound performed by a physician in our office during a routine visit. SIGNS AND SYMPTOMS OF LABOR 1. Contractions every 10 minutes or more often 2. Clear, pink, or brownish fluid (water) leaking from vagina 3. Feeling that baby is pushing down, pressure 4. Low, dull backache 5. Cramps that feel like a period 6. Cramps with or without diarrhea If you notice any of the above symptoms, contact our office at [phone] and ask to speak with anurse. After hours, you can call doctors registry at [phone] OR call [facility] at [phone] ask to have the doctor publicity consultant paged. If you consider this an emergency, dial [phone] or go to your nearest emergency department. NEED HELP? Are you dealing with a violent or abusive relationship? Are you a victim of rape or sexual assult? Call [facility] ([place]) 24 hour Crisis Hotline: 985.663.2227 or 372-790-1105. MANUAL Your Guide to a Healthy manual is now on-line. Visit [email or web address] to download your free copy documented in this encounter[facility]02-[facility] Note Indication Evaluation of growth Advanced maternal age, Cervical cerclage, multiple sclerosis, history of seizures Impression REMOTE READ - Single, live, intrauterine . - The biometry is consistent with the assigned gestational dating. - The EFW is 1841 g, at the 15%. AC is at the 28%. - The amniotic fluid volume is normal amount with an MVP of 6.3 cm and an BROOK of 18.5 cm. - The placenta is anterior, fundal. - No malformations visualized on a limited survey as detailed below. Recommendations Growth in one month Maternal Assessment Height 163 cm Height (ft) 5 ft Height (in) 4 in Physical Exam Initial weight (lb) 138 lb Initial BMI 23.69 kg/m Maternal assessment other: 1 Para 0 Method Transabdominal ultrasound examination [place] . Number of fetuses: 1 Dating GA by prior assessment 32 w + 6 d JOSE A by prior assessment: 09/16/2024 Ultrasound examination on: 07/28/2024 GA by U/S based upon: AC, BPD, Femur, HC GA by U/S 32 w + 0 d JOSE A by U/S: 09/22/2024 Assigned: based on stated JOSE A, selected on 06/30/2024 Assigned GA 32 w + 6 d Assigned JOSE A: 09/16/2024 General Evaluation Cardiac activity present. FHR 133 bpm. movements: present. Presentation: cephalic Placenta: Placental site: anterior, fundal Umbilical cord: Cord vessels: 3 vessel cord Amniotic fluid: Amount of AF: normal amount. MVP 6.3 cm. BROOK 18.5 cm. Q1 1.7 cm, Q2 6.2 cm, Q3 6.3 cm, Q4 4.3 cm Growth Overview Exam date GA BPD (mm) HC (mm) AC (mm) FL (mm) HL (mm) EFW (g) 04/05/2024 16w 4d 35.8 68% 133.6 52% 112 66% 20.9 39% 21.9 61% 163 45% 05/02/2024 20w 3d 49.2 68% 184.3 61% 150.5 39% 32.8 57% 30.7 40% 347 39% 06/02/2024 24w 6d 65.9 92% 239.8 74% 199.3 32% 40.9 13% 685 21% 06/30/2024 28w 6d 76.9 91% 276.5 67% 240.3 27% 50.4 9% 1191 18% 07/28/2024 32w 6d 81.7 42% 297.9 34% 280.4 28% 58.9 10% 1841 15% Biometry Standard BPD 81.7 mm 32w 6d 42% Hadlock OFD 103.4 mm 30w 3d 18% Nicolaides HC 297.9 mm 32w 1d 34% Anum AC 280.4 mm 32w 1d 28% Hadlock Femur 58.9 mm 30w 5d 10% Anum EFW 1,841 g 31w 3d 15% Hadlock EFW (lb) 4 lb EFW (oz) 1 oz EFW by: Hadlock (HC-AC-FL) Extended Mold Burner 6.4 mm Extremities / Bony Struc FL / HC 0.20 Other Structures FHR 133 bpm Anatomy Lateral ventricles: normal Cavum septi pellucidi: normal Cerebellum: normal Cisterna magna: normal 4-chamber view: normal RVOT view: normal LVOT view: normal 3-vessel view: normal Heart / Thorax Situs: situs solitus (normal) Diaphragm: normal Stomach: normal Kidneys: normal Bladder: normal sex: female Wants to know sex: yes Performed By: Hillary Sinha RDMS, RVT Read By: Trish Brooks M.D.MATERNAL [id number] Progress note* Quick Notes - Hola Dueñas MD - 07/28/2024 3:48 PM EST SW- No ctx, pain, vb, lof. Good FM. Some low back pain. PE: Gen- NAD, well appearing Abd- Soft, gravid, NT See flowsheet A/p 32 wk gestation - Growth US today and final report pending. Ordered for repeat growth US in 4 weeks - Discussed PTL precautions and reasons to call - High risk : Ordered weekly NST's at 36 weeks - RTO 2 wks Hola Dueñas DO [facility] Miscellaneous Notes* Quick Notes - Hola Dueñas MD - 07/28/2024 3:48 PM EST SW- No ctx, pain, vb, lof. Good FM. Some low back pain. PE: Gen- NAD, well appearing Abd- Soft, gravid, NT See flowsheet A/p 32 wk gestation - Growth US today and final report pending. Ordered for repeat growth US in 4 weeks - Discussed PTL precautions and reasons to call - High risk : Ordered weekly NST's at 36 weeks - RTO 2 wks Hola Dueñas DO documented in this encounterWood [facility]02-[facility] Instructions* Patient Instructions* Elva Moore MA - 07/28/2024 3:15 PM EST SEQUENTIAL SCREENINGS [facility] offers sequential screenings for women who are interested in screenings for chromosomal abnormalities and certain defects during a . The sequential screen combinesultrasound and blood tests to determine the risk of chromosomal abnormalities, including Down's Syndrome (Trisomy 21) and Trisomy 18, as well as open neural tube defects including spina bifida. Ultrasound examination is performed between 11 weeks and 13 weeks gestational age. Blood tests are drawn after the ultrasound and again later in the between 15 and 21 weeks gestational age. Please let your physician know if you are interested in this testing. It will require an appointment withour endoscopic technician. This is not an ultrasound performed by a physician in our office during a routine visit. SIGNS AND SYMPTOMS OF LABOR 1. Contractions every 10 minutes or more often 2. Clear, pink, or brownish fluid (water) leaking from vagina 3. Feeling that baby is pushing down, pressure 4. Low, dull backache 5. Cramps that feel like a period 6. Cramps with or without diarrhea If you notice any of the above symptoms, contact our office at [phone] and ask to speak with anurse. After hours, you can call doctors registry at [phone] OR call [facility] at [phone] ask to have the doctor publicity consultant paged. If you consider this an emergency, dial 91-2 or go to your nearest emergency department. NEED HELP? Are you dealing with a violent or abusive relationship? Are you a victim of rape or sexual assult? Call [facility] [place] ([place]) 24 hour Crisis Hotline: 486.717.5317 or 038-295-6213. MANUAL Your Guide to a Healthy manual is now on-line. Visit [email or web address] to download your free copy documented in this encounterWood [facility]01-30-[facility] Progress note* Quick Notes - Melba Sánchez MD - 07/14/2024 2:43 PM EST KJ - VB No. LOF No. CTXS No. Movement: present. Other c/o: No. Medication list reviewed. Physical Exam See Flow Sheet Gen: no accute distress, well appearing Abd: soft, nontender, gravid A/P 30w6d Estimated Date of Delivery: 09/16/24 MS & seizure disorder - growth US in scheduled Cervical incompetence - cerclage in place PTL precautions reviewed, Kick counts reviewed. Melba Sánchez MD [facility] Miscellaneous Notes* Quick Notes - Melba Sánchez MD - 07/14/2024 2:43 PM EST KJ - VB No. LOF No. CTXS No. Movement: present. Other c/o: No. Medication list reviewed. Physical Exam See Flow Sheet Gen: no accute distress, well appearing Abd: soft, nontender, gravid A/P 30w6d Estimated Date of Delivery: 09/16/24 MS & seizure disorder - growth US in scheduled Cervical incompetence - cerclage in place PTL precautions reviewed, Kick counts reviewed. Melba Sánchez MD documented in this encounterWood [facility]01-30-[facility]25 Instructions* Patient Instructions* Debbie Poole MA - 07/14/2024 2:37 PM EST SEQUENTIAL SCREENINGS [facility] offers sequential screenings for women who are interested in screenings for chromosomal abnormalities and certain defects during a . The sequential screen combinesultrasound and blood tests to determine the risk of chromosomal abnormalities, including Down's Syndrome (Trisomy 21) and Trisomy 18, as well as open neural tube defects including spina bifida. Ultrasound examination is performed between 11 weeks and 13 weeks gestational age. Blood tests are drawn after the ultrasound and again later in the between 15 and 21 weeks gestational age. Please let your physician know if you are interested in this testing. It will require an appointment withour endoscopic technician. This is not an ultrasound performed by a physician in our office during a routine visit. SIGNS AND SYMPTOMS OF LABOR 1. Contractions every 10 minutes or more often 2. Clear, pink, or brownish fluid (water) leaking from vagina 3. Feeling that baby is pushing down, pressure 4. Low, dull backache 5. Cramps that feel like a period 6. Cramps with or without diarrhea If you notice any of the above symptoms, contact our office at [phone] and ask to speak with anurse. After hours, you can call doctors registry at [phone] OR call [facility] at [phone] ask to have the doctor publicity consultant paged. If you consider this an emergency, dial 6-2-4 or go to your nearest emergency department. NEED HELP? Are you dealing with a violent or abusive relationship? Are you a victim of rape or sexual assult? Call [facility] ([place]) 24 hour Crisis Hotline: 414.913.3786 or 811-436-8821. MANUAL Your Guide to a Healthy manual is now on-line. Visit [email or web address] to download your free copy documented in this encounterWood [facility] Hospital01-24-[facility]25 History of Present illness Narrative* Ria Fonseca DO - 07/08/2024 1:15 PM EST NEUROIMMUNOLOGY CLINIC FOLLOW UP VISIT Date of visit: July 07, 2024 Patient Name: Sarika Ferreira : 1990 Chief complaint: Follow up, RIS History of Present Illness Sarika Ferreira is a 34 y.o. female with a past medical history of PCOS who follows in [facility] for a diagnosis of RIS To briefly review the clinical history, -In December 2023 she presented to [facility] for seizure like activity, described as confused, oral automatism, then whole upper body stiffness. rEEG normal. MRI brain completed showed multifocalwhite matter changes concerning for demyelination. CSF analysis with protein 33 and >12 oligoclonal bands, IgG index 2.0 -Established in my clinic in January 2024. Confirmed no clinical relapse and diagnosis of RIS was given. -second time seizure event 06/03/2024, started on Keppra and referred to epilepsy clinic Interval History Sarika Ferreira was last evaluated in the neuroimmunology clinic about 5 months ago on 01/21/2024 for first time seizure. Since last evaluated, she experienced second time seizure event. I referred her to our and epilepsy clinic for longitudinal monitoring during her . Sarika has been experiencing numbness involving bilateral arms which will wake her up in the middle of the night. Starts in the top of shoulder and into mid arm described as pins and needles sensationas if they are asleep. 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 Current Outpatient Medications Medication Sig Dispense Refill Acetaminophen (TYLENOL 8 HOUR PO) Take 500 mg by mouth as needed. (Patient not taking: Reported on 06/27/2024) Aspirin [address] tablet Take 1 tablet by mouth daily. Folic acid 1 MG tablet Take 3 tablets by mouth daily. levETIRAcetam (Keppra) 500 MG tablet Take 1 tablet by mouth 2 times daily. 60 tablet 5 lurasidone HCl 40 MG tablet take 1 tablet by mouth every evening with a full meal (at least 400 calories) Midazolam (Nayzilam) 5 MG/0.1ML Solution Administer one spray (5 mg dose) into one nostril for a seizure that lasts for 5 minutes. One additional spray (5 mg dose) into the opposite nostril if the seizure continues for an additional 5 minutes. 2 Each 0 MV-Min-Fe Fum-FA-DHA ( 1 PO) Take by mouth daily. No current facility-administered medications for this visit. Vitals Vitals: 07/08/24 1259 BP: 115/64 Pulse: 80 Temp: 97.5 F (36.4 C) Physical Exam General Physical Exam Eyes: Visual acuity OD: 20/40 OS: 20/30-2 Neurologic Examination Mental status/Cognition: Not formally assessed on today's exam. Patient is alert and able to provide accurate interval history Speech/language: Fluent speech pattern without dysathria Cranial nerves: CN II Normal visual marie, no detectable scotoma CN III,IV, Normal extraocular movements, no evidence for nystamgus CN V Normal facial sensation to light touch CN VII Symmetrical facial activation, no sign of facial weakness CN VIII Hearing is normal to conversational tone CN IX & X Soft palate elevates midline CN XI Shoulder strength 5/5 bilaterally CN XII Tongue protrudes midline Motor: There is no evidence of tremor, including head tremor Mvmt Right Left Comments SA 5 5 EF 5 5 EE 5 5 WF 5 5 WE 5 5 FF 5 5 HF 5 5 KF 5 5 KE 5 5 DF 5 5 PF 5 5 Sensation: Light touch Intact/normal in the upper and lower extremities bilaterally Coordination/Complex Motor: -Finger to nose without dysmetria or ataxia -Heel to espinosa without dysmetria or ataxia -There is no evidence of truncal ataxia -Observation of casual gait shows no evidence of spastic or ataxic gait Labs Imaging and Diagnostic studies MRI brain with and without Date: 12/28/23 Location: [facility] Report: MPRESSION: Findings consistent with mild multiple sclerosis 1. Small ovoid demyelinating plaques are present along the margins of the bilateral periventricular white matter extending up into the centrum semiovale, and involving the anterior aspect of the splenium of the corpus callosum. The largest plaque is at the posterior margin of the right corpus callosum splenium/parietal lobe junction measuring 1.13 cm in diameter, see image 14 series 6. MRI cervical spine with and without Date: 12/29/23 Location: [facility] Report: IMPRESSION: 1. Focal moderate degenerative disc disease at C6-C7 with straightening of the normal lordotic curvature. 2. No MR evidence of demyelinating disease (multiple sclerosis). MRI thoracic spine with and without Date: 12/29/23 Location: [facility] Report: IMPRESSION: Normal unenhanced and enhanced MRI examination of the thoracic spine. MRI lumbar spine with and without Date: 12/29/23 Location: [facility] Report: IMPRESSION: Normal enhanced and unenhanced MR examination of the lumbar spine. OCT Date: 01/22/2024 Report: -Good quality scan -No RNFL or GCIPL thickness changes suggestive of acute optic neuritis or history of optic neuritis. 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 Assessment Sarika Ferreira is a 34 y.o. female currently who follows [facility] the [facility] for a diagnosis of radiographic isolated syndrome. Plan Radiographic isolated syndrome -Neurologic examination stable, will obtain MRI brain, cervical, and thoracic spine after delivery () Epilepsy -Following with epilepsy, maintained on Keppra Work restrictions and return to work date September is unable to return to work until 6 months after last seizure (December 02 2024) due to seizureprecautions (unable to drive a car, operate machinery, limb ladders/work at height elevation). [facility] Tele[facility] encounter Note* Telephone Encounter - Mariela Merlos RN - 06/30/2024 4:45 PM EST u/s scheduled. Mariela Merlos RN [facility]01-16-2025 Miscellaneous Notes* Telephone Encounter - Mariela Merlos RN - 06/30/2024 4:45 PM EST u/s scheduled. Mariela Merlos RN * Telephone Encounter - Mariela Merlos RN - 06/30/2024 4:34 PM EST Please file order so patient can schedule next u/s appt. Mariela Merlos RN * Telephone Encounter - Mariela Merlos RN - 06/30/2024 4:34 PM EST ----- Message from Keara Belle APRN.CNM sent at 06/30/2024 4:25 PM EST ----- Growth US reviewed. EFW 18%, AC 27%, BROOK 19. Follow up growth in 4 weeks. Keara Belle APRN.CNM [facility] Telephone encounter Note * Telephone Encounter - Mariela Merlos RN - 06/30/2024 4:34 PM EST Please file order so patient can schedule next u/s appt. Mariela Merlos RN [facility]01-16-2025 Telephone encounter Note* Telephone Encounter - Mariela Merlos RN - 06/30/2024 4:34 PM EST ----- Message from Keara Belle APRN.CNM sent at 06/30/2024 4:25 PM EST ----- Growth US reviewed. EFW 18%, AC 27%, BROOK 19. Follow up growth in 4 weeks. Keara Belle APRN.CNM [facility]01-16-2025 Progress note* Quick Notes - Keara Belle APRN.CNM - 06/30/2024 3:55 PM EST S: Sarika Ferreira is a 34 year old female who presents at 28 weeks gestation for a routine visit. Growth US completed. EFW 18%, BROOK 19. Patient completed GCT. Patient started on KEPPRA last month due to having a seizure on 06/02/24. She is being managed by neurologist Ria Fonseca at [facility].Returns for visit next week. Positive movements. Denies any cramps or contractions. Cerclage in place. Denies headache, visual changes, chest pain, shortness of breath, vaginal bleeding, leakage of fluid, or dysuria. Feels mood is up and down. Has follow up appointment with [facility] for possible psych medication adjustment. O: See flow sheet Gen: No apparent distress Abd: Gravid, non tender ASSESSMENT/PLAN: 1. Supervision of high risk in third trimester 2. 28 weeks gestation of 3. Short cervix affecting 4. Cervical cerclage suture present in third trimester 5. History of seizures 6. Multiple sclerosis (HCC) 7. AMA (advanced maternal age) multigravida 35+, third trimester 8. Bipolar 1 disorder 9. Marijuana use in 10. Tobacco use in - Cessation encouraged for nicotine and marijuana use - patient using daily - Continue vitamin/ ASA daily - Continue KEPPRA 500 mg PO BID - Continue Latuda 40 mg PO Daily- keep upcoming appointment to discuss increase - 1 hour GCT, CBC, and RPR today - Rh positive- A+ - TDAP declines - LARC form reviewed and signed. Patient declines- may want IUD after 6 weeks pp - plan form discussed and given to patient. Patient desires epidural and - Encouraged childbirth education classes - Patient desires to deliver at [facility] - PTL precautions and kick counts reviewed - Repeat routine growth US - RTO- 2 weeks Keara Belle APRN.CNM [facility]01-16-2025 Miscellaneous Notes* Quick Notes - Keara Belle APRN.CNM - 06/30/2024 3:55 PM EST S: Sarika Ferreira is a 34 year old female who presents at 28 weeks gestation for a routine visit. Growth US completed. EFW 18%, BROOK 19. Patient completed GCT. Patient started on KEPPRA last month due to having a seizure on 06/02/24. She is being managed by neurologist Ria Fonseca at [facility].Returns for visit next week. Positive movements. Denies any cramps or contractions. Cerclage in place. Denies headache, visual changes, chest pain, shortness of breath, vaginal bleeding, leakage of fluid, or dysuria. Feels mood is up and down. [facility]. O: See flow sheet Gen: No apparent distress Abd: Gravid, non tender ASSESSMENT/PLAN: 1. Supervision of high risk in third trimester 2. 28 weeks gestation of 3. Short cervix affecting 4. Cervical cerclage suture present in third trimester 5. History of seizures 6. Multiple sclerosis (HCC) 7. AMA (advanced maternal age) multigravida 35+, third trimester 8. Bipolar 1 disorder 9. Marijuana use in 10. Tobacco use in - Cessation encouraged for nicotine and marijuana use - patient using daily - Continue vitamin/ ASA daily - Continue KEPPRA 500 mg PO BID - Continue Latuda 40 mg PO Daily- keep upcoming appointment to discuss increase - 1 hour GCT, CBC, and RPR today - Rh positive- A+ - TDAP declines - LARC form reviewed and signed. Patient declines- may want IUD after 6 weeks pp - plan form discussed and given to patient. Patient desires epidural and - Encouraged childbirth education classes - Patient desires to deliver at [facility] - PTL precautions and kick counts reviewed - Repeat routine growth US - RTO- 2 weeks Keara Belle APRN.CNM documented in this encounterWood [facility]01-[facility] Note Indication Evaluation of growth Advanced maternal age, Cervical cerclage, multiple sclerosis, history of seizures Impression - Single, live, intrauterine . - The biometry is consistent with the assigned gestational dating. - The EFW is 1191 g, at the 18%. AC is at the 27%. - The amniotic fluid volume is normal amount with an MVP of 5.4 cm and an BROOK of 19.6 cm. - The placenta is anterior, fundal. - No malformations visualized on a limited survey as detailed below. REMOTE READ Recommendations Growth in four weeks Maternal Assessment Height 163 cm Height (ft) 5 ft Height (in) 4 in Physical Exam Initial weight (lb) 138 lb Initial BMI 23.69 kg/m Maternal assessment other: 1 Para 0 Method Transabdominal ultrasound examination [place] . Number of fetuses: 1 Dating GA by prior assessment 28 w + 6 d JOSE A by prior assessment: 09/16/2024 Ultrasound examination on: 06/30/2024 GA by U/S based upon: AC, BPD, Femur, HC GA by U/S 29 w + 0 d JOSE A by U/S: 09/15/2024 Assigned: based on stated JOSE A, selected on 06/30/2024 Assigned GA 28 w + 6 d Assigned JOSE A: 09/16/2024 General Evaluation Cardiac activity present. FHR 141 bpm. movements: present. Presentation: cephalic Placenta: Placental site: anterior, fundal Umbilical cord: Cord vessels: 3 vessel cord Amniotic fluid: Amount of AF: normal amount. MVP 5.4 cm. BROOK 19.6 cm. Q1 3.9 cm, Q2 5.2 cm, Q3 5.4 cm, Q4 5.2 cm Growth Overview Exam date GA BPD (mm) HC (mm) AC (mm) FL (mm) HL (mm) EFW (g) 04/05/2024 16w 4d 35.8 68% 133.6 52% 112 66% 20.9 39% 21.9 61% 163 45% 05/02/2024 20w 3d 49.2 68% 184.3 61% 150.5 39% 32.8 57% 30.7 40% 347 39% 06/02/2024 24w 6d 65.9 92% 239.8 74% 199.3 32% 40.9 13% 685 21% 06/30/2024 28w 6d 76.9 91% 276.5 67% 240.3 27% 50.4 9% 1191 18% Biometry Standard BPD 76.9 mm 30w 6d 91% Hadlock OFD 95.8 mm 28w 2d 47% Nicolaides HC 276.5 mm 29w 4d 67% Anum AC 240.3 mm 28w 2d 27% Hadlock Femur 50.4 mm 27w 1d 9% Anum EFW 1,191 g 27w 6d 18% Hadlock EFW (lb) 2 lb EFW (oz) 10 oz EFW by: Hadlock (HC-AC-FL) Extended Mold Burner 8.1 mm Extremities / Bony Struc FL / HC 0.18 Other Structures FHR 141 bpm Anatomy Lateral ventricles: normal Cavum septi pellucidi: normal Cerebellum: normal Cisterna magna: normal 4-chamber view: normal RVOT view: normal LVOT view: normal 3-vessel view: normal Heart / Thorax Situs: situs solitus (normal) Diaphragm: normal Stomach: normal Kidneys: normal Bladder: normal sex: female Wants to know sex: yes Performed By: Hillary Sinha RDMS, RVT Read By: Trish Brooks, M.D.MATERNAL [id number] Instructions* Patient Instructions* Debbie Poole MA - 06/30/2024 2:47 PM EST SEQUENTIAL SCREENINGS [facility] offers sequential screenings for women who are interested in screenings for chromosomal abnormalities and certain defects during a . The sequential screen combinesultrasound and blood tests to determine the risk of chromosomal abnormalities, including Down's Syndrome (Trisomy 21) and Trisomy 18, as well as open neural tube defects including spina bifida. Ultrasound examination is performed between 11 weeks and 13 weeks gestational age. Blood tests are drawn after the ultrasound and again later in the between 15 and 21 weeks gestational age. Please let your physician know if you are interested in this testing. It will require an appointment withour endoscopic technician. This is not an ultrasound performed by a physician in our office during a routine visit. SIGNS AND SYMPTOMS OF LABOR 1. Contractions every 10 minutes or more often 2. Clear, pink, or brownish fluid (water) leaking from vagina 3. Feeling that baby is pushing down, pressure 4. Low, dull backache 5. Cramps that feel like a period 6. Cramps with or without diarrhea If you notice any of the above symptoms, contact our office at [phone] and ask to speak with anurse. After hours, you can call doctors registry at [phone] OR call [facility] at [phone] ask to have the doctor publicity consultant paged. If you consider this an emergency, dial 9-1- or go to your nearest emergency department. NEED HELP? Are you dealing with a violent or abusive relationship? Are you a victim of rape or sexual assult? Call [facility] ([place]) 24 hour Crisis Hotline: 727.928.6756 or 068-444-5061. MANUAL Your Guide to a Healthy manual is now on-line. Visit [email or web address] to download your free copy documented in this encounterWood County Hospital12-19-2024 Progress note* Result Encounter Note - Alexander Galloway MD - 06/02/2024 3:57 PM EST Anatomy ultrasound reviewed. No abnormalities identified. Follow up as clinically indicated. Pleaseplace copy in ob chart. Alexander Galloway MD [facility] Work Phone: [phone] 443-762412-19-2024 Miscellaneous Notes* Result Encounter Note - Alexander Galloway MD - 06/02/2024 3:57 PM EST Anatomy ultrasound reviewed. No abnormalities identified. Follow up as clinically indicated. Pleaseplace copy in ob chart. Alexander Galloway MD documented in this encounterWood County Hospital12-19-2024 Note Indication Evaluation of growth Advanced maternal age, multiple sclerosis Impression REMOTE READ - Single, live, intrauterine . - The biometry is consistent with the assigned gestational dating. - The EFW is 685 g, at the 21%. AC is at the 32%. - The amniotic fluid volume is normal amount with an MVP of 6 cm and an BROOK of 21.4 cm. - The placenta is anterior, fundal. - No malformations visualized on a limited survey as detailed below. Recommendations Growth in four weeks Maternal Assessment Height 163 cm Height (ft) 5 ft Height (in) 4 in Physical Exam Initial weight (lb) 138 lb Initial BMI 23.69 kg/m Maternal assessment other: 1 Para 0 Method Transabdominal ultrasound examination [place] . Number of fetuses: 1 Dating GA by prior assessment 24 w + 6 d JOSE A by prior assessment: 09/16/2024 Ultrasound examination on: 06/02/2024 GA by U/S based upon: AC, BPD, Femur, HC GA by U/S 25 w + 1 d JOSE A by U/S: 09/14/2024 Assigned: based on stated JOSE A, selected on 06/02/2024 Assigned GA 24 w + 6 d Assigned JOSE A: 09/16/2024 General Evaluation Cardiac activity present. FHR 157 bpm. movements: present. Presentation: cephalic Placenta: Placental site: anterior, fundal Umbilical cord: Cord vessels: 3 vessel cord Amniotic fluid: Amount of AF: normal amount. MVP 6.0 cm. BROOK 21.4 cm. Q1 5.4 cm, Q2 6.0 cm, Q3 4.5 cm, Q4 5.4 cm Growth Overview Exam date GA BPD (mm) HC (mm) AC (mm) FL (mm) HL (mm) EFW (g) 04/05/2024 16w 4d 35.8 68% 133.6 52% 112 66% 20.9 39% 21.9 61% 163 45% 05/02/2024 20w 3d 49.2 68% 184.3 61% 150.5 39% 32.8 57% 30.7 40% 347 39% 06/02/2024 24w 6d 65.9 92% 239.8 74% 199.3 32% 40.9 13% 685 21% Biometry Standard BPD 65.9 mm 26w 4d 92% Hadlock OFD 83.5 mm 25w 1d 75% Nicolaides HC 239.8 mm 25w 5d 74% Anum AC 199.3 mm 24w 4d 32% Hadlock Femur 40.9 mm 23w 3d 13% Anum EFW 685 g 24w 1d 21% Hadlock EFW (lb) 1 lb EFW (oz) 8 oz EFW by: Hadlock (HC-AC-FL) Extended Mold Burner 6.5 mm Extremities / Bony Struc FL / HC 0.17 Other Structures FHR 157 bpm Anatomy Lateral ventricles: normal Cavum septi pellucidi: normal Cerebellum: normal Cisterna magna: normal 4-chamber view: normal RVOT view: normal LVOT view: normal 3-vessel view: normal Heart / Thorax Situs: situs solitus (normal) Diaphragm: normal Stomach: normal Kidneys: normal Bladder: normal sex: female Wants to know sex: yes Performed By: Hillary Sinha RDMS, RVT Read By: Trish Brooks M.D.MATERNAL [id number] Miscellaneous Notes* Quick Notes - Melba Sánchez MD - 06/02/2024 10:43 AM EST KJ - VB No. LOF No. CTXS No. Movement: present. Other c/o: Yes: Other: She is still having some abdominal pain but it has decreased. Medication list reviewed. Physical Exam See Flow Sheet Gen: no accute distress, well appearing A/P 24w6d Estimated Date of Delivery: 09/16/24 Growth US today Labs: 28 week labs ordered Cervical incompetence - cerclage in place Musculoskeletal pain - continue meds and call if worsens Flu vaccine today PTL precautions reviewed. Melba Sánchez MD documented in this encounterWood [facility] Hospital12-19-2024 Progress note* Quick Notes - Melba Sánchez MD - 06/02/2024 10:43 AM EST KJ - VB No. LOF No. CTXS No. Movement: present. Other c/o: Yes: Other: She is still having some abdominal pain but it has decreased. Medication list reviewed. Physical Exam See Flow Sheet Gen: no accute distress, well appearing A/P 24w6d Estimated Date of Delivery: 09/16/24 Growth US today Labs: 28 week labs ordered Cervical incompetence - cerclage in place Musculoskeletal pain - continue meds and call if worsens Flu vaccine today PTL precautions reviewed. Melba Sánchez MD [facility]12-19-2024 Instructions* Patient Instructions* Debbie Poole MA - 06/02/2024 10:05 AM EST SEQUENTIAL SCREENINGS [facility] offers sequential screenings for women who are interested in screenings for chromosomal abnormalities and certain defects during a . The sequential screen combinesultrasound and blood tests to determine the risk of chromosomal abnormalities, including Down's Syndrome (Trisomy 21) and Trisomy 18, as well as open neural tube defects including spina bifida. Ultrasound examination is performed between 11 weeks and 13 weeks gestational age. Blood tests are drawn after the ultrasound and again later in the between 15 and 21 weeks gestational age. Please let your physician know if you are interested in this testing. It will require an appointment withour endoscopic technician. This is not an ultrasound performed by a physician in our office during a routine visit. SIGNS AND SYMPTOMS OF LABOR 1. Contractions every 10 minutes or more often 2. Clear, pink, or brownish fluid (water) leaking from vagina 3. Feeling that baby is pushing down, pressure 4. Low, dull backache 5. Cramps that feel like a period 6. Cramps with or without diarrhea If you notice any of the above symptoms, contact our office at [phone] and ask to speak with anurse. After hours, you can call doctors registry at [phone] OR call [facility] at [phone] ask to have the doctor publicity consultant paged. If you consider this an emergency, dial 9-7 or go to your nearest emergency department. NEED HELP? Are you dealing with a violent or abusive relationship? Are you a victim of rape or sexual assult? Call [facility] ([place]) 24 hour Crisis Hotline: 948.969.4047 or 265-136-9719. MANUAL Your Guide to a Healthy manual is now on-line. Visit [email or web address] to download your free copy documented in this encounterWood County Hospital12-17-2024 NoteHNO ID: [id number] Author: KARLY BOWSER MD Service: Obstetrics Author Type: Resident Type: Progress Notes Filed: 05/31/2024 23:36 Note Text: OBSTETRICS PROGRESS NOTE Patient reporting pain improved with flexaril and gas pain. Tolerating Po intake. US results remain in process. Discussed with US department with continued delay expected. Patient amenable to discharge home and will call back with results. Confirmed working phone number. Reviewed return precautions Karly Bowser MD 11:35 [facility]12-17-2024 NoteHNO ID: [id number] Author: RUFINA ROMERO MD Service: Obstetrics Author Type: Physician Type: Procedures Filed: 06/01/2024 04:49 Note Text: OBSTETRICS NST SUMMARY SERVICE DATE: May 31, 2024 The patient is a 34 year old female, , who is at 24w4d with an JOSE A of 09/16/2024, by Ultrasound dating method. NST OBJECTIVE FINDINGS PER NURSE: Start Time: 1854 (05/31/241935 : Alondra Steven RN) Complete Time: 1935 (05/31/241935 : Alondra Steven RN) Indications: Other: Comment (abd pain) (05/31/241935 : Alondra Steven RN) Patient Reason For: NST Explanation: Procedure Explained;Monitor Explained;Verbalizes Understanding (05/31/241935 : Alondra Steven RN) Acoustic Stimulator: No (05/31/241935 : Alondra Steven RN) Interventions: MONITORING/ASSESSMENT: Baseline: 150 bpm (05/31/241935 : Alondra Steven RN) Variability: Moderate (6-25 bpm) (05/31/241935 : Alondra Steven RN) Accelerations: Present (05/31/241935 : Alondra Steven RN) Decelerations: Decelerations: (!) Variable (05/31/241935 : Alondra Steven RN) Contractions: Not present (05/31/241935 : Alondra Steven RN) Frequency: Above information forwarded to (05/31/241935 : Alondra Steven RN) for final review and interpretation. SIGNATURE: Alondra Steven RN PATIENT NAME: Sarika Ferreira DATE: May 31, 2024 TIME: 8:32 PM PROVIDER INTERPRETATION: appropriate for gestational age SIGNATURE: Rufina Romero MD DATE: June 01, 2024 TIME: 4:49 [facility]12-17-2024 Progress note* Quick Notes - Melba Sánchez MD - 05/31/2024 3:13 PM EST KJ - Patient seen urgently for left sided abdominal pain. VB No. LOF No. CTXS No. Movement: present. Other c/o: No. Medication list reviewed. Physical Exam See Flow Sheet Gen: no accute distress, well appearing Abd: soft, gravid, mild diffuse tenderness A/P 24w4d Estimated Date of Delivery: 09/16/24 Patient advised to proceed to [place] triage DAVID for further evaluation. Discussed with Dr.Hopkins Melba Sánchez MD [facility]12-17-2024 Miscellaneous Notes* Quick Notes - Melba Sánchez MD - 05/31/2024 3:13 PM EST KJ - Patient seen urgently for left sided abdominal pain. VB No. LOF No. CTXS No. Movement: present. Other c/o: No. Medication list reviewed. Physical Exam See Flow Sheet Gen: no accute distress, well appearing Abd: soft, gravid, mild diffuse tenderness A/P 24w4d Estimated Date of Delivery: 09/16/24 Patient advised to proceed to [place] triage DAVID for further evaluation. Discussed with Dr.Hopkins Melba Sánchez MD documented in this encounterWood County Hospital12-17-2024 Instructions* Patient Instructions* Elva Moore MA - 05/31/2024 2:27 PM EST SEQUENTIAL SCREENINGS [facility] offers sequential screenings for women who are interested in screenings for chromosomal abnormalities and certain defects during a . The sequential screen combinesultrasound and blood tests to determine the risk of chromosomal abnormalities, including Down's Syndrome (Trisomy 21) and Trisomy 18, as well as open neural tube defects including spina bifida. Ultrasound examination is performed between 11 weeks and 13 weeks gestational age. Blood tests are drawn after the ultrasound and again later in the between 15 and 21 weeks gestational age. Please let your physician know if you are interested in this testing. It will require an appointment withour endoscopic technician. This is not an ultrasound performed by a physician in our office during a routine visit. SIGNS AND SYMPTOMS OF LABOR 1. Contractions every 10 minutes or more often 2. Clear, pink, or brownish fluid (water) leaking from vagina 3. Feeling that baby is pushing down, pressure 4. Low, dull backache 5. Cramps that feel like a period 6. Cramps with or without diarrhea If you notice any of the above symptoms, contact our office at [phone] and ask to speak with anurse. After hours, you can call doctors registry at [phone] OR call [facility] at [phone] ask to have the doctor publicity consultant paged. If you consider this an emergency, dial or go to your nearest emergency department. NEED HELP? Are you dealing with a violent or abusive relationship? Are you a victim of rape or sexual assult? Call [facility] ([place]) 24 hour Crisis Hotline: 417.772.4724 or 828-434-4194. MANUAL Your Guide to a Healthy manual is now on-line. Visit [email or web address] to download your free copy documented in this encounterWood County Hospital12-11-2024 Telephone encounter Note * Telephone Encounter - Hillary Blanco RN - 05/25/2024 2:22 PM EST Patient notified and voiced understanding. Hillary Blanco RN [facility]12-11-2024 Miscellaneous Notes* Telephone Encounter - Hillary Blanco RN - 05/25/2024 2:22 PM EST Patient notified and voiced understanding. Hillary Blanco RN * Telephone Encounter - Keara Belle APRN.CNM - 05/25/2024 1:48 PM EST Patient should not take medication until seen by OB at visit to discuss. Keara Belle APRN.CNM * Telephone Encounter - Hillary Blanco RN - 05/25/2024 12:24 PM EST Patient [facility] Patient has not started the medication yet. Patient has an upcoming appointment on 06/02. Her last BP in the office was 100/56. Hillary Blanco RN * Telephone Encounter - Hola Dueñas MD - 05/23/2024 3:51 PM EST Chart reviewed. Can we get more information on who is recommending Metoprolol? And what for? If started for HTN typically not the first line beta brooke. Has appointment next week and can discuss then as well * Telephone Encounter - Mariela Merlos RN - 05/23/2024 3:24 PM EST 23w3d Another [place] [employer] message regarding the cerclage was previously sent too. Mariela Merlos RN documented in this encounterWood County Hospital12-11-2024 Telephone encounter Note * Telephone Encounter - Keara Belle APRN.CNM - 05/25/2024 1:48 PM EST Patient should not take medication until seen by OB at visit to discuss. Keara Belle APRN.CNM [facility]12-11-2024 Telephone encounter Note* Telephone Encounter - Hillary Blnaco RN - 05/25/2024 12:24 PM EST Patient was [facility] Met[facility] 25 [facility] Patient has not started the medication yet. Patient has an upcoming appointment on 06/02. Her last BP in the office was 100/56. Hillary Blanco RN [facility]12-09-2024 Telephone encounter Note* Telephone Encounter - Hola Dueñas MD - 05/23/2024 3:51 PM EST Chart reviewed. Can we get more information on who is recommending Metoprolol? And what for? If started for HTN typically not the first line beta brooke. Has appointment next week and can discuss then as well [facility]12-09-2024 Telephone encounter Note* Telephone Encounter - Mariela Merlos RN - 05/23/2024 3:24 PM EST 23w3d Another [place] [employer] message regarding the cerclage was previously sent too. Mariela Merlos RN [facility]11-20-2024 Progress note* Quick Notes - Soraya Prado MD - 05/04/2024 4:17 PM EST DM-Pt doing well c/p cerclage placement. Has some minor cramping. No fluid leaking, no bleeding. Ptreports occasional FM. Physical Exam: Gen: female in no apparent distress Abd: soft, Gravid. Non tender to palpation. See flow sheet @ 20.5 weeks Assessment & Plan Encounter for supervision of high risk in second trimester, antepartum Orders: OBSTETRIC ULTRASOUND WHI; Future Primigravida of advanced maternal age in second trimester Orders: OBSTETRIC ULTRASOUND WHI; Future 20 weeks gestation of Cervical shortening, second trimester Orders: OBSTETRIC ULTRASOUND WHI; Future - Growth us 24 weeks (message sent to [facility] to make sure nothing sooner was needed) - pelvic rest reviewed - follow up as scheduled. Soraya Pate MD [facility]11-20-2024 Miscellaneous Notes* Quick Notes - Soraya Prado MD - 05/04/2024 4:17 PM EST DM-Pt doing well c/p cerclage placement. Has some minor cramping. No fluid leaking, no bleeding. Ptreports occasional FM. Physical Exam: Gen: female in no apparent distress Abd: soft, Gravid. Non tender to palpation. See flow sheet @ 20.5 weeks Assessment & Plan Encounter for supervision of high risk in second trimester, antepartum Orders: OBSTETRIC ULTRASOUND WHI; Future Primigravida of advanced maternal age in second trimester Orders: OBSTETRIC ULTRASOUND WHI; Future 20 weeks gestation of Cervical shortening, second trimester Orders: OBSTETRIC ULTRASOUND WHI; Future - Growth us 24 weeks (message sent to [facility] to make sure nothing sooner was needed) - pelvic rest reviewed - follow up as scheduled. Soraya Pate MD [facility] Instructions* Patient Instructions* Kassie Craft MA - 05/04/2024 3:02 PM EST SEQUENTIAL SCREENINGS [facility] offers sequential screenings for women who are interested in screenings for chromosomal abnormalities and certain defects during a . The sequential screen combinesultrasound and blood tests to determine the risk of chromosomal abnormalities, including Down's Syndrome (Trisomy 21) and Trisomy 18, as well as open neural tube defects including spina bifida. Ultrasound examination is performed between 11 weeks and 13 weeks gestational age. Blood tests are drawn after the ultrasound and again later in the between 15 and 21 weeks gestational age. Please let your physician know if you are interested in this testing. It will require an appointment withour endoscopic technician. This is not an ultrasound performed by a physician in our office during a routine visit. SIGNS AND SYMPTOMS OF LABOR 1. Contractions every 10 minutes or more often 2. Clear, pink, or brownish fluid (water) leaking from vagina 3. Feeling that baby is pushing down, pressure 4. Low, dull backache 5. Cramps that feel like a period 6. Cramps with or without diarrhea If you notice any of the above symptoms, contact our office at [phone] and ask to speak with anurse. After hours, you can call doctors registry at [phone] OR call [facility] at [phone] ask to have the doctor publicity consultant paged. If you consider this an emergency, dial or go to your nearest emergency department. NEED HELP? Are you dealing with a violent or abusive relationship? Are you a victim of rape or sexual assult? Call [facility] ([place]) 24 hour Crisis Hotline: 433.900.2332 or 241-883-0908. MANUAL Your Guide to a Healthy manual is now on-line. Visit [email or web address] to download your free copy documented in this encounterWood [facility] Hospital11-19-2024 NoteHNO ID: [id number] Author: ?, ?, ? Service: ? Author Type: ? Type: Plan of Care Filed: 05/04/2024 10:37 Note Text: PHARMACY BEDSIDE DELIVERY SERVICE Patient Name: Sarika Ferreira The marked outpatient medications were filled at [facility] pharmacy and picked up at the pharmacy by BOYFRIEND, YAHIR AMEZQUITA. Medication List START taking these medications indomethacin 25 mg capsule Commonly known as: INDOCIN Take 1 capsule by mouth three times a day with meals for 1 day. CONTINUE taking these medications aspirin, enteric coated 81 mg EC tablet Commonly known as: ECOTRIN LOW STRENGTH Take 1 tablet by mouth once daily. folic acid 1 mg tablet Take 3 tablets by mouth once daily. lurasidone 20 mg tablet Commonly known as: LATUDA VITAMIN ORAL TYLENOL EXTRA STRENGTH 500 mg tablet Generic drug: acetaminophen You might also be taking other medications not listed above. If you have questions about any of your other medications, talk to the person who prescribed them or your Primary Care Provider. 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 Reason for block: procedure for pain Staffing Resident: Dallin Starr DO Performed by: resident Preparation Sterility Preparation: hand hygiene performed prior to procedure, sterile gloves, drapes, and procedure tray, surgical cap used, mask used, sterile drape used during line insertion, skin prep agent completely dried prior to procedure Site Prep: Duraprep Procedure Details Patient position: sitting Ultrasound Guided: No Patient monitoring: Pulse OX, EKG and NIBP Approach: midline Injection technique: OBDULIA saline Region: lumbar Estimated Interspace: 3-4 Number of Attempts: 1 Needle and Epidural Catheter Needle type: Tuohy Needle gauge: 17G Needle length: 3.5 in Needle insertion depth: 5.5 cm Catheter Catheter type: end hole Catheter size: 19 G Catheter at skin depth: 15 cmTest Dose Response: negative Assessment Sensory level: T10 Beginning Pain Score: 0/10 Pain Score After Treatment: 0/10 Events: tolerated well without discomfort SIGNATURE: Dallin Starr DO PATIENT NAME: September Hanna DATE: May 03, 2024 TIME: 10:59 AM CSN: [id number] Progress note* Quick Notes - Hola Dueñas MD - 05/02/2024 5:41 PM EST SW- Pt doing well. No cramping or pain. Denies vb, lof. Some flutters. PE: Gen- NAD, well appearing, comfortable See flowsheet A/p 20 wk gestation - Discussed shortened cervix with funneling on ultrasound today. Final report pending. Questions answered. [facility] recommends admission at [place] today for possible cerclage tomorrow, and patient agreeable to going to [facility] after appointment Hola Dueñas DO [facility]11-18-2024 Miscellaneous Notes* Quick Notes - Hola Dueñas MD - 05/02/2024 5:41 PM EST SW- Pt doing well. No cramping or pain. Denies vb, lof. Some flutters. PE: Gen- NAD, well appearing, comfortable See flowsheet A/p 20 wk gestation - Discussed shortened cervix with funneling on ultrasound today. Final report pending. Questions answered. [facility] recommends admission at [place] today for possible cerclage tomorrow, and patient agreeable to going to [place] after appointment Hola Dueñas DO documented in this encounterWood [facility] Hospital11-18-2024 Instructions* Patient Instructions* Elva Moore MA - 05/02/2024 3:23 PM EST SEQUENTIAL SCREENINGS [facility] offers sequential screenings for women who are interested in screenings for chromosomal abnormalities and certain defects during a . The sequential screen combinesultrasound and blood tests to determine the risk of chromosomal abnormalities, including Down's Syndrome (Trisomy 21) and Trisomy 18, as well as open neural tube defects including spina bifida. Ultrasound examination is performed between 11 weeks and 13 weeks gestational age. Blood tests are drawn after the ultrasound and again later in the between 15 and 21 weeks gestational age. Please let your physician know if you are interested in this testing. It will require an appointment withour endoscopic technician. This is not an ultrasound performed by a physician in our office during a routine visit. SIGNS AND SYMPTOMS OF LABOR 1. Contractions every 10 minutes or more often 2. Clear, pink, or brownish fluid (water) leaking from vagina 3. Feeling that baby is pushing down, pressure 4. Low, dull backache 5. Cramps that feel like a period 6. Cramps with or without diarrhea If you notice any of the above symptoms, contact our office at [phone] and ask to speak with anurse. After hours, you can call doctors registry at [phone] OR call [facility] at [phone] ask to have the doctor publicity consultant paged. If you consider this an emergency, dial [phone]--1 or go to your nearest emergency department. NEED HELP? Are you dealing with a violent or abusive relationship? Are you a victim of rape or sexual assult? Call [facility] ([place]) 24 hour Crisis Hotline: 381.950.1787 or 441-480-6962. MANUAL Your Guide to a Healthy manual is now on-line. Visit [email or web address] to download your free copy documented in this encounterWood [facility] Hospital10-22-2024 Progress note* Quick Notes - Melba Sánchez MD - 04/05/2024 3:48 PM EDT KJ - VB No. LOF No. CTXS No. Movement: absent. Other c/o: No. Medication list reviewed. Physical Exam See Flow Sheet Gen: no accute distress, well appearing A/P 16w4d Estimated Date of Delivery: 09/16/24 Early Anatomy US with AFP today Multiple sclerosis & AMA - MFM consult today - await report Melba Sánchez MD [facility]10-22-2024 Miscellaneous Notes* Quick Notes - Melba Sánchez MD - 04/05/2024 3:48 PM EDT KJ - VB No. LOF No. CTXS No. Movement: absent. Other c/o: No. Medication list reviewed. Physical Exam See Flow Sheet Gen: no accute distress, well appearing A/P 16w4d Estimated Date of Delivery: 09/16/24 Early Anatomy US with AFP today Multiple sclerosis & AMA - MFM consult today - await report Melba Sánchez MD documented in this encounterWood [facility] Hospital10-22-2024 Instructions* Patient Instructions* Christen Spear MA - 04/05/2024 3:01 PM EDT SEQUENTIAL SCREENINGS [facility] offers sequential screenings for women who are interested in screenings for chromosomal abnormalities and certain defects during a . The sequential screen combinesultrasound and blood tests to determine the risk of chromosomal abnormalities, including Down's Syndrome (Trisomy 21) and Trisomy 18, as well as open neural tube defects including spina bifida. Ultrasound examination is performed between 11 weeks and 13 weeks gestational age. Blood tests are drawn after the ultrasound and again later in the between 15 and 21 weeks gestational age. Please let your physician know if you are interested in this testing. It will require an appointment withour endoscopic technician. This is not an ultrasound performed by a physician in our office during a routine visit. SIGNS AND SYMPTOMS OF LABOR 1. Contractions every 10 minutes or more often 2. Clear, pink, or brownish fluid (water) leaking from vagina 3. Feeling that baby is pushing down, pressure 4. Low, dull backache 5. Cramps that feel like a period 6. Cramps with or without diarrhea If you notice any of the above symptoms, contact our office at [phone] and ask to speak with anurse. After hours, you can call doctors registry at [phone] OR call [facility] at [phone] ask to have the doctor publicity consultant paged. If you consider this an emergency, dial [phone] or go to your nearest emergency department. NEED HELP? Are you dealing with a violent or abusive relationship? Are you a victim of rape or sexual assult? Call [facility] ([place]) 24 hour Crisis Hotline: 280.797.1949 or 218-499-9415. MANUAL Your Guide to a Healthy manual is now on-line. Visit [email or web address] to download your free copy documented in this encounterWood County Hospital10-22-2024 NoteHNO ID: [id number] Author: ZOEY HINSON MD Service: ? Author Type: Physician Type: Progress Notes Filed: 04/09/2024 23:48 Note Text: Space Operations Officer [facility] OUTPATIENT VISIT DATE April 05, 2024 OUTPATIENT VISIT TYPE CONSULT REFERRING PROVIDER: Leilani Calixto APRN.CNM Recommendations from today's consultation will be conveyed through the electronic medical record. 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 September describes that this past summer (December 2023) she was admitted at [facility] after having an initial witnessed seizure at home. She had no prior significant medical history. She underwent MRI which demonstrated multifocal white matter lesion burden including cerebellar, periventricular findings and a normal EEG. Spine imaging was unremarkable. She established neurology care at [facility] and is planned for repeat MRI brain, cervical, and thoracic spine in 6 months. She was also recommended to start vitamin D supplementation. She is currently without any symptoms related to MS including weakness, motor difficulties, sensory neuropathies, or vision changes. She has had no recurrent seizures or seizure-like episodes. Her relevant histories have been updated and are reviewed below: Obstetric History: G1 - Current Gynecologic History: Non-contributory Past Medical History: PAST MEDICAL HISTORY Diagnosis Date Marijuana use Multiple sclerosis (HCC) PCOS (polycystic ovarian syndrome) Tobacco use disorder Past Surgical History: PAST SURGICAL HISTORY Procedure Laterality Date TOOTH EXTRACTION Medications: Current Outpatient Medications on File Prior to Visit Medication Sig lurasidone (LATUDA) 20 mg tablet Take 1 tablet by mouth every evening with a full meal (atleast 400 calories) folic acid 1 mg tablet Take 3 tablets by mouth once daily. aspirin, enteric coated (ECOTRIN LOW STRENGTH) 81 mg EC tablet Take 1 tablet by mouth once daily. vit no.124/iron/folic ( VITAMIN ORAL) Take by mouth once daily. 2 Gummies acetaminophen (TYLENOL EXTRA STRENGTH) 500 mg tablet Take 500 mg by mouth every 8 hours as needed for pain. No current facility-administered medications on file prior to visit. Allergies: ALLERGIES No Known Allergies Social History: Social History Tobacco Use Smoking status: Former Current packs/day: 0.50 Average packs/day: 0.5 packs/day for 2.0 years (1.0 ttl pk-yrs) Types: Cigarettes Smokeless tobacco: Never Vaping Use Vaping status: Never Used Substance Use Topics Alcohol use: Not Currently Drug use: Yes Frequency: 7.0 times per week Types: Marijuana Comment: 2-3 times daily Family History: FAMILY HISTORY Problem Relation Age of Onset Headache Mother migraine Diabetes Father Hypertension Father No Known Problems Brother No Known Problems Brother Emphysema Maternal Grandmother Cancer Maternal Grandfather unknown Emphysema Maternal Grandfather Cancer Paternal Grandmother unknown Heart Paternal Grandmother [place] No Known Problems Paternal Grandfather Ischemic Heart Disease Paternal Aunt [place] x 3 Diabetes Paternal Aunt Diabetes Paternal Aunt Diabetes Paternal Uncle Review of Systems: Negative other than as noted above. Physical Exam: Height Weight BMI 155 lb 9.6 oz (70.6 kg) 0 Pulse BP Resp O2 Sat Temp Pain 98/58 Gen: Well-appearing, no acute distress CV/Resp: Non-labored breathing on room air Abd: Gravid, non-tender Ext: Moving spontaneously, no significant edema b/l FHTs: + on US Assessment and Plan: 34 year old at 16w4d presenting for MFM consultation due to recent diagnosis of radiographic isolated syndrome (pre-MS). We reviewed the implications and approach to management of MS in . We reviewed that is associated with a decrease in MS diease activity and that the period is associated with an increased risk of MS activity. We reviewed that overall, women with MS have favorable obstetric outcomes. In general routine obstetric care is indicated with route of delivery and obstetric anesthesia determined by routine obstetric indications. Given the association of autoimmune diseases with growth restriction, third trimester growth assessment is recommended. For women with severe or highly active MS, the benefit of MS treatment may outweigh the theoretic risks to the fetus, though this does not appear to be the case for her. We reviewed that relapses/disease flares can be treated with corticosteroids or IVIG as indicated, and that imaging (MRI) can b (more content not included)...[facility]10-22-2024 History of Present illness Narrative* Zoey Hinson MD - 04/05/2024 2:28 PM EDT Images from the original note were not included. [facility] [employer] [facility] OUTPATIENT VISIT DATE April 05, 2024 OUTPATIENT VISIT TYPE CONSULT REFERRING PROVIDER: Leilani Calixto APRN.CNEdmond Recommendations from today's consultation will be conveyed through the electronic medical record. 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 September describes that this past summer (December 2023) she was admitted at [facility] after havingan initial witnessed seizure at home. She had no prior significant medical history. She underwent MRI which demonstrated multifocal white matter lesion burden including cerebellar, periventricular findings and a normal EEG. Spine imaging was unremarkable. She established neurology care at [facility] and is planned for repeat MRI brain, cervical, and thoracic spine in 6 months. She was also recommended to start vitamin D supplementation. She is currently without any symptoms related to MS including weakness, motor difficulties, sensoryneuropathies, or vision changes. She has had no recurrent seizures or seizure-like episodes. Her relevant histories have been updated and are reviewed below: Obstetric History: G1 - Current Gynecologic History: Non-contributory Past Medical History: PAST MEDICAL HISTORY Diagnosis Date Marijuana use Multiple sclerosis (HCC) PCOS (polycystic ovarian syndrome) Tobacco use disorder Past Surgical History: PAST SURGICAL HISTORY Procedure Laterality Date TOOTH EXTRACTION Medications: Current Outpatient Medications on File Prior to Visit Medication Sig lurasidone (LATUDA) 20 mg tablet Take 1 tablet by mouth every evening with a full meal (atleast 400calories) folic acid 1 mg tablet Take 3 tablets by mouth once daily. aspirin, enteric coated (ECOTRIN LOW STRENGTH) 81 mg EC tablet Take 1 tablet by mouth once daily. vit no.124/iron/folic ( VITAMIN ORAL) Take by mouth once daily. 2 Gummies acetaminophen (TYLENOL EXTRA STRENGTH) 500 mg tablet Take 500 mg by mouth every 8 hours as needed for pain. No current facility-administered medications on file prior to visit. Allergies: ALLERGIES No Known Allergies Social History: Social History Tobacco Use Smoking status: Former Current packs/day: 0.50 Average packs/day: 0.5 packs/day for 2.0 years (1.0 ttl pk-yrs) Types: Cigarettes Smokeless tobacco: Never Vaping Use Vaping status: Never Used Substance Use Topics Alcohol use: Not Currently Drug use: Yes Frequency: 7.0 times per week Types: Marijuana Comment: 2-3 times daily Family History: FAMILY HISTORY Problem Relation Age of Onset Headache Mother migraine Diabetes Father Hypertension Father No Known Problems Brother No Known Problems Brother Emphysema Maternal Grandmother Cancer Maternal Grandfather unknown Emphysema Maternal Grandfather Cancer Paternal Grandmother unknown Heart Paternal Grandmother [place] No Known Problems Paternal Grandfather Ischemic Heart Disease Paternal Aunt [place] x 3 Diabetes Paternal Aunt Diabetes Paternal Aunt Diabetes Paternal Uncle Review of Systems: Negative other than as noted above. Physical Exam: Height Weight BMI 155 lb 9.6 oz (70.6 kg) 0 Pulse BP Resp O2 Sat Temp Pain 98/58 Gen: Well-appearing, no acute distress CV/Resp: Non-labored breathing on room air Abd: Gravid, non-tender Ext: Moving spontaneously, no significant edema b/l FHTs: + on US Assessment and Plan: 34 year old at 16w4d presenting for MFM consultation due to recent diagnosis of radiographic isolated syndrome (pre-MS). We reviewed the implications and approach to management of MS in . We reviewed that is associated with a decrease in MS diease activity and that the period is associated with an increased risk of MS activity. We reviewed that overall, women with MS have favorable obstetric outcomes. In general routine obstetric care is indicated with route of delivery and obstetric anesthesia determined by routine obstetric indications. Given the association of autoimmune diseases with growth restriction, third trimester growth assessment is recommended. For women with severe or highly active MS, the benefit of MS treatment may outweigh the theoretic risks to the fetus, though this does not appear to be the case for her. We reviewed that relapses/disease flares can be treated with corticosteroids or IVIG as indicated, and that imaging (MRI) can be obtained safely during . We also discussed and reviewed that studies of have demonstrated a protective effect of against relapses (particularly exclusive , though maybe confounded by disease activity and decisions for ). We also discussed that an OB anesthesia consult will be helpful in the 3rd trimester for delivery planning after she has her follow up brain and spine imaging. Summary of Recommendations: -Follow up with neurology as planned and for repeat brain/spine imaging -Detailed anatomy at 20 weeks, growth scans in the 3rd trimester at approximately 28 and 34 weeks -Anesthesia consult in the 3rd trimester after repeat imaging -Close surveillance for evidence of disease flares in the period -Otherwise routine care Thank you for allowing us to participate in the care of this patient. Please do not hesitate to contact our office with any questions or concerns. I spent a total of 60 minutes on the date of the service which included preparing to see the patient, [id number] patient care, completing clinical documentation, obtaining and/or reviewing separately obtained history, performing a medically appropriate examination, and counseling and educating the patient/family/caregiver. SIGNATURE: Zoey Hinson MD PATIENT NAME: Sarika Lamar Ferreira DATE: April 05, 2024 TIME: 2:28 PM documented in this encounterWood [facility] Hospital10-07-2024 Telephone encounter Note * Telephone Encounter - Rodrick Hernandez RN - 03/21/2024 4:21 PM EDT Pt notified and voiced understanding. States will call neurology office for sooner appt and let us know when that is. Rodrick Hernandez RN [facility]10-07-2024 Miscellaneous Notes* Telephone Encounter - Rodrick Hernandez RN - 03/21/2024 4:21 PM EDT Pt notified and voiced understanding. States will call neurology office for sooner appt and let us know when that is. Rodrick Hernandez RN * Telephone Encounter - Leilani Calixto APRN.CNM - 03/21/2024 3:34 PM EDT Consulted [facility], patient stated she does not have neurology appointment till July. Please notify patient would like sooner appointment due to the fact that she is and plan of care if seizures. Can see M after appointment if indicated.Thank you, Leilani Calixto APRN.CNM documented in this encounterWood County Hospital10-07-2024 Telephone encounter Note * Telephone Encounter - Leilani Calixto APRN.CNM - 03/21/2024 3:34 PM EDT Consulted M, patient stated she does not have neurology appointment till July. Please notify patient would like sooner appointment due to the fact that she is and plan of care if seizures. Can see MFM after appointment if indicated.Thank you, Leilani Calixto APRN.CNM [facility]10-07-2024 NoteHNO ID: [id number] Author: LEILANI CALIXTO APRN.CNM Service: ? Author Type: Tandem Mill Sticker Type: Progress Notes Filed: 04/21/2024 03:02 Note Text:[facility]10-07-2024 History of Present illness Narrative* Leilani Calixto APRN.CNM - 03/21/2024 3:30 PM EDT documented [facility]10-[facility] Instructions* Patient Instructions* Leilani Calixto APRN.CNM - 03/21/2024 3:02 PM EDT Folic acid to be increased due to seizures To take vitamin along with 3mg of folic acid daily. documented in this encounter[facility]10-[facility]24 NotePatient Outreach (OBGYWM) SARIKA FERREIRA ([id number]) 1990 F Date Time Provider Department 03/21/24 LEILANI CALIXTO OBROSHAN During your visit today, we recorded the following information about you: Leilani Calixto APRN.CNM 04/21/2024 3:02 AM Signed Allergies As of Date: 03/21/2024 (No Known Allergies) Date Reviewed: 03/15/2024 Reviewed by: Reece Pittman MA - Fully Assessed Prescriptions as of 04/21/2024 - lurasidone (LATUDA) 20 mg tablet Take 1 tablet by mouth every evening with a full meal (atleast 400 calories) - folic acid 1 mg tablet Take 3 tablets by mouth once daily. - aspirin, enteric coated (ECOTRIN LOW STRENGTH) 81 mg EC tablet Take 1 tablet by mouth once daily. - vit no.124/iron/folic ( VITAMIN ORAL) Take by mouth once daily. 2 Gummies - acetaminophen (TYLENOL EXTRA STRENGTH) 500 mg tablet Take 500 mg by mouth every 8 hours as needed for pain. Problem List As Of Date 03/21/2024 Noted Resolved Acanthosis Nigricans [L83] 09/10/2009 Obesity [E66.9] 09/10/2009 Irregular Menses [N92.6] 09/10/2009 Tobacco Use Disorder [F17.200] 09/10/2009 Vapes nicotine containing substance [Z72.0] 02/22/2024 Marijuana use during [O99.320, F12.90]02/22/2024 Bipolar 1 disorder (HCC) [F31.9] 02/22/2024 Encounter for supervision of high risk pregnanc*02/22/2024 History of seizures [Z87.898] 03/15/2024 Multiple sclerosis (HCC) [G35] 03/15/2024 Encounter Status:Closed by ESCOBAR SMITHUSER on 04/21/24[facility] 03-15-2024 Progress note* Quick Notes - Leilani Calixto APRN.CNM - 03/15/2024 3:56 PM EDT NASIR-S: Sarika Ferreira is a 34 year old female who presents at 14w3d with JOSE A:09/16/2024, by Ultrasound for a routine visit. Denies headache, visual changes, chest pain, shortness of breath, vaginal bleeding, leakage of fluid, or dysuria. Feeling well, no complaints. O: See flow sheet Gen: No apparent distress Abd: Gravid, nontender ASSESSMENT/PLAN: 1. Encounter for supervision of high risk in first trimester, antepartum - [id number] PLUS - HEMOGLOBIN EVALUATION CASCADE - OBSTETRIC ULTRASOUND WHI - CONSULT TO MATERNAL MEDI 2. History of seizures - ICD9: V13.89, ICD10: Z87.898 - OBSTETRIC ULTRASOUND WHI - CONSULT TO MATERNAL MEDI 3. Multiple sclerosis (HCC) - ICD9: 340, ICD10: G35 - OBSTETRIC ULTRASOUND WHI - CONSULT TO MATERNAL MEDI 4. Obesity in - ICD9: 649.10, ICD10: O99.210 - OBSTETRIC ULTRASOUND WHI 5. Vapes nicotine containing substance - ICD9: 305.1, ICD10: Z72.0 -Reviewed recommendation for cessation - PTL precautions reviewed and when to call - RTO in 4 weeks Leilani Calixto APRN.CNM [facility]10-01-2024 Miscellaneous Notes* Quick Notes - Leilani Calixto APRN.CNM - 03/15/2024 3:56 PM EDT NASIR-S: Sarika Ferreira is a 34 year old female who presents at 14w3d with JOSE A:09/16/2024, by Ultrasound for a routine visit. Denies headache, visual changes, chest pain, shortness of breath, vaginal bleeding, leakage of fluid, or dysuria. Feeling well, no complaints. O: See flow sheet Gen: No apparent distress Abd: Gravid, nontender ASSESSMENT/PLAN: 1. Encounter for supervision of high risk in first trimester, antepartum - [id number] PLUS - HEMOGLOBIN EVALUATION CASCADE - OBSTETRIC ULTRASOUND WHI - CONSULT TO MATERNAL MEDI 2. History of seizures - ICD9: V13.89, ICD10: Z87.898 - OBSTETRIC ULTRASOUND WHI - CONSULT TO MATERNAL MEDI 3. Multiple sclerosis (HCC) - ICD9: 340, ICD10: G35 - OBSTETRIC ULTRASOUND WHI - CONSULT TO MATERNAL MEDI 4. Obesity in - ICD9: 649.10, ICD10: O99.210 - OBSTETRIC ULTRASOUND WHI 5. Vapes nicotine containing substance - ICD9: 305.1, ICD10: Z72.0 -Reviewed recommendation for cessation - PTL precautions reviewed and when to call - RTO in 4 weeks Leilani Calixto APRN.CNM documented in this encounterWood [facility]09-16-2024 Telephone encounter Note * Telephone Encounter - Rodrick Hernandez RN - 02/29/2024 4:54 PM EDT 11w3d See Pt's mychart message and address in CP absence please. Rodrick Hernandez RN [facility]09-16-[facility] Miscellaneous Notes* Telephone Encounter - Rodrick Hernandez RN - 02/29/2024 4:54 PM EDT 11w3d See Pt's mychart message and address in CP absence please. Rodrick Hernandez RN documented in this encounterWood [facility] Hospital09-09-2024 Note* Addendum Note - Kelly Jeronimo LPN - 02/22/2024 2:20 PM EDTAddended by: KELLY JERONIMO on: 02/22/2024 02:20 PM Modules accepted: Orders [facility]09-09-20[facility] Miscellaneous Notes* Addendum Note - Kelly Jeronimo LPN - 02/22/2024 2:20 PM EDTAddended by: KELLY JERONIMO on: 02/22/2024 02:20 PM Modules accepted: Orders * Quick Notes - Keara Belle APRN.CNM - 02/22/2024 12:38 PM EDT Patient seen for NOB. See progress note. Keara Belle APRN.CNM documented in this encounterWood [facility] Hospital09-09-2024 Progress note* Quick Notes - Keara Belle APRN.CNM - 02/22/2024 12:38 PM EDT Patient seen for NOB. See progress note. Keara Belle APRN.CNM [facility]09-09-[facility] Instructions* Patient Instructions* Christen Spear MA - 02/22/2024 8:48 AM EDT Please select the following link to access the [facility] Your Guide to a Healthy . [email or web address] documented in this encounterWood County Hospital09-06-2024 NoteHNO ID: [id number] Author: KEARA BELLE APRN.CNM Service: ? Author Type: Tandem Mill Sticker Type: Progress Notes Filed: 02/22/2024 12:46 Note Text: Investments Manager offered: Patient declines. INITIAL OB ASSESSMENT HPI: Sarika is a 34 year old White here to establish Obstetrical Care. Patient's last menstrual period was 10/30/2023 (within weeks). from OB Dating Form. was unplanned but accepted Complaints: No OB History T0 L0 SAB0 IAB0 Ectopic0 Multiple0 Live Births0 Previous history: Prior : never History of 4th degree laceration: No History of shoulder dystocia: No History of Hypertensive disorders including pre-eclampsia or gestational hypertension: No History of gestational diabetes: No Patient's Risk Screening for delivery: Have you had a prior sparks between 20w and 36w6d? No How many pregnancies have you had before? 0 Did you have a previous baby with a GBS Infection? No Please select all that apply for any prior : N/A MEDICAL/PSYCHOSOCIAL HISTORY: History of hemorrhage or bleeding concerns: No Thyroid Disease: No History of chronic hypertension: No History of pre-existing diabetes: No No results found for: ABORHD BMI 23.69 kg/(m2) Last Pap: 07/06/2009 History of abnormal pap: No Prior treatment for cervical dysplasia: none. Last HPV: History of STDs: None Partner History of STDs: None Did you have a partner with Herpes? No Tobacco use: Yes E-Cigarette/Vaping Use: Yes Caffeine use: Yes, 20 oz cup of soda Drug use: Yes Alcohol use: No Multivitamin with Folic acid: Yes Would refuse blood transfusion if medically necessary: No Social Needs: How often does this describe you? I don't have enough money to pay my bills: Never Within the past 12 months, have you worried that your food would run out before you had money to buy more? Never In the past 12 months, has lack of reliable transportation kept you from going to medical appointments or work, or from getting things needed for daily living? Never In the past 12 months, have you had any concerns about having a place to live, or about the condition or quality of your housing? Never Would you like more information on any of the following (please check all that apply)? Not interested Social History: Do you have any history of depression, anxiety, PTSD, or other mood problems? No Do you have a history of abuse or trauma that may impact your experience? No Are you currently employed? Yes Depression/Anxiety Screening: denies, admits to symptoms of depression. OB Depression and Anxiety Screening- This Encounter (since 02/21/2024) None Genetic Screening: Partner present: Yes Patient verbalized knowledge of partner family health history: Yes Do you or your partner have any personal or family history of defects not previously discussed: No Do you have history of a complicated by anomaly, genetic condition, or demise: No Low Dose ASA Screening: Screening for low dose aspirin use for the prevention of pre-eclampsia: High risk factors: None Moderate risk ractors: Age 35 years or older OB Risk Screening: Completed, no positive findings documented. Marital Status:Single Partner: Name: Yahir Amezquita Age: 36 Occupation: [employer] Gender: Male PAST MEDICAL HISTORY No date: Marijuana use No date: Multiple sclerosis (HCC) No date: PCOS (polycystic ovarian syndrome) No date: Tobacco use disorder PAST SURGICAL HISTORY No date: NONE No date: TOOTH EXTRACTION Current Outpatient Medications Medication Sig Dispense Refill vit no.124/iron/folic ( VITAMIN ORAL) Take by mouth once daily. 2 Gummies acetaminophen (TYLENOL EXTRA STRENGTH) 500 mg tablet Take 500 mg by mouth every 8 hours as needed for pain. desog-et estra/ethin estra(MIRCETTE 0.15 MG-0.02 MG X21/0.01 MGX5 TAB) Take one(1) tablet daily. (Patient not taking: Reported on 02/25/2023) 28 3 No current facility-administered medications for this visit. Allergies As of Date: 02/22/2024 (No Known Allergies) Fully Assessed 02/22/2024 Does patient have penicillin allergy: No REVIEW OF SYSTEMS: GENERAL: Negative for: Fever or Chills and Positive for: Fatigue HEENT: Negative for: Headache, Impaired Vision, Ringing in Ears, Nosebleeds and histrory of headaches NECK: Negative for: Swelling, Pain, Stiffness RESPIRATORY: Negative for: Cough, Shortness of breath, Wheezing- asthma- vaping trying to decrease Marijuana- daily - 15 years GASTROINTESTINAL: Negative for: Heartburn, Constipation, Diarrhea, Blood in stool, Vomiting MUSCULOSKELETAL: Negative for: Muscle or joint pain, stiffness, Joint swelling NEUROLOGIC/PSYCHIATRIC: Negative for: Weakness, Paralysis, Numbness, Tingling, Tremor, Anxiety, Depression, Memory loss SKIN: Negative for: Rash, Itching GENITOURINARY: Negat (more content not included)...[facility] 02-19-2024 History of Present illness Narrative* Keara Belle APRN.DEWAYNE - 02/19/2024 2:32 PM EDT Investments Manager offered: Patient declines. INITIAL OB ASSESSMENT HPI: Sarika is a 34 year old White here to establish Obstetrical Care. Patient's last menstrual period was 10/30/2023 (within weeks). from OB Dating Form. was unplanned but accepted Complaints: No OB History T0 L0 SAB0 IAB0 Ectopic0 Multiple0 Live Births0 Previous history: Prior : never History of 4th degree laceration: No History of shoulder dystocia: No History of Hypertensive disorders including pre-eclampsia or gestational hypertension: No History of gestational diabetes: No Patient's Risk Screening for delivery: Have you had a prior sparks between 20w and 36w6d? No How many pregnancies have you had before? 0 Did you have a previous baby with a GBS Infection? No Please select all that apply for any prior : N/A MEDICAL/PSYCHOSOCIAL HISTORY: History of hemorrhage or bleeding concerns: No Thyroid Disease: No History of chronic hypertension: No History of pre-existing diabetes: No No results found for: ABORHD BMI 23.69 kg/(m^2) Last Pap: 07/06/2009 History of abnormal pap: No Prior treatment for cervical dysplasia: none. Last HPV: History of STDs: None Partner History of STDs: None Did you have a partner with Herpes? No Tobacco use: Yes E-Cigarette/Vaping Use: Yes Caffeine use: Yes, 20 oz cup of soda Drug use: Yes Alcohol use: No Multivitamin with Folic acid: Yes Would refuse blood transfusion if medically necessary: No Social Needs: How often does this describe you? I don't have enough money to pay my bills: Never Within the past 12 months, have you worried that your food would run out before you had money to buy more? Never In the past 12 months, has lack of reliable transportation kept you from going to medical appointments or work, or from getting things needed for daily living? Never In the past 12 months, have you had any concerns about having a place to live, or about the condition or quality of your housing? Never Would you like more information on any of the following (please check all that apply)? Not interested Social History: Do you have any history of depression, anxiety, PTSD, or other mood problems? No Do you have a history of abuse or trauma that may impact your experience? No Are you currently employed? Yes Depression/Anxiety Screening: denies, admits to symptoms of depression. OB Depression and Anxiety Screening- This Encounter (since 02/21/2024) None Genetic Screening: Partner present: Yes Patient verbalized knowledge of partner family health history: Yes Do you or your partner have any personal or family history of defects not previously discussed: No Do you have history of a complicated by anomaly, genetic condition, or demise: No Low Dose ASA Screening: Screening for low dose aspirin use for the prevention of pre-eclampsia: High risk factors: None Moderate risk ractors: Age 35 years or older OB Risk Screening: Completed, no positive findings documented. 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 2 Gummies acetaminophen (TYLENOL EXTRA STRENGTH) 500 mg tablet Take 500 mg by mouth every 8 hours as needed for pain. desog-et estra/ethin estra(MIRCETTE 0.15 MG-0.02 MG X21/0.01 MGX5 TAB) Take one(1) tablet daily. (Patient not taking: Reported on 02/25/2023) 28 3 No current facility-administered medications for this visit. Allergies As of Date: 02/22/2024 (No Known Allergies) Fully Assessed 02/22/2024 Does patient have penicillin allergy: No REVIEW OF SYSTEMS: GENERAL: Negative for: Fever or Chills and Positive for: Fatigue HEENT: Negative for: Headache, Impaired Vision, Ringing in Ears, Nosebleeds and histrory of headaches NECK: Negative for: Swelling, Pain, Stiffness RESPIRATORY: Negative for: Cough, Shortness of breath, Wheezing- asthma- vaping trying to decrease Marijuana- daily - 15 years GASTROINTESTINAL: Negative for: Heartburn, Constipation, Diarrhea, Blood in stool, Vomiting MUSCULOSKELETAL: Negative for: Muscle or joint pain, stiffness, Joint swelling NEUROLOGIC/PSYCHIATRIC: Negative for: Weakness, Paralysis, Numbness, Tingling, Tremor, Anxiety, Depression, Memory loss SKIN: Negative for: Rash, Itching GENITOURINARY: Negative for: vaginal itching, vaginal discharge, hematuria or dysuria PHYSICAL EXAM: BP 100/50 Ht 5' 4 (1.63m) Wt 138 lb (62.6kg) LMP 10/30/2023 BMI 23.68 kg/(m^2). GENERAL: pleasant in no apparent distress DERMATOLOGY: Normal and without lesions NECK: Supple and full range of motion CHEST: Normal inspiratory effort BREAST: deferred ABDOMEN: soft, non-tender, and no masses NEURO: alert and oriented x3,exam grossly non-focal PELVIS: External genitalia normal without lesions. Perineal body intact. Clinical Pelvimetry: Pelvimetry clinically assessed as adequate Limited OB ultrasound exam: single intrauterine , positive cardiac activity, and crown-rump length 10 w 4 days ASSESSMENT/PLAN: 1. Encounter for care in first trimester of first - ICD9: V22.0, ICD10: Z34.01 (primary diagnosis) 2. Screening for cervical cancer - ICD9: V76.2, ICD10: Z12.4 3. Special screening examination for human papillomavirus (HPV) - ICD9: V73.81, ICD10: Z11.51 4. 10 weeks gestation of - ICD9: V22.2, ICD10: Z3A.10 5. Vapes nicotine containing substance - ICD9: 305.1, ICD10: Z72.0 6. Marijuana use during - ICD9: 648.40, 305.20, ICD10: O99.320, F12.90 7. Bipolar 1 disorder (HCC) - ICD9: 296.7, ICD10: F31.9 PLAN: 1) Patient oriented to practice. Patient given new OB orientation folder. Discussed nutrition, folic acid supplementation, dietary guidelines, exercise, smoking, alcohol, caffeine, and drug use. Discussed gestational weight gain guidelines. Discussed routine OB labs including STD/HIV. Discussed how to access Your guide to a health and the Certified Forklift Operator. Reviewed midwifery and rn cardiac rehab services that are available. 2) Screening: Hemoglobin A1C: declined Baby Aspirin: The patient has been counseled about the potential benefits of low dose aspirin in and our recommendation that this be offered to all patients, regardless of whether they meet the high risk criteria specified above. She Accepts Aneuploidy Screening: Discussed aneuploidy screening, nuchal translucency/first trimester early anatomy ultrasound and NIPT. The risks/benefits and limitations of NIPT/aneuploidy screening were reviewed including the potential for false negative and false positive results. The availability of genetic counseling was reviewed. Information on aneuploidy screening was provided. The patient is uncertain. She will call back if she wants to proceed with screening. Pt aware of timing. Myriad Carrier Screening: Discussed myriad carrier screening. We discussed the availability of professional-society guided carrier screening and reviewed the conditions screened and limitations of screening. The availability of genetic counseling was reviewed. Information on carrier screening was provided. The patient Declines 3) Patient offered option of Virtual Visits. Patient unsure. May consider in future. Follow up in 2 weeks for NT US and labs Keara Belle APRN.CNM documented in this encounter[facility]09-[facility] Telephone encounter Note * Telephone Encounter - Mariela Merlos RN - 02/19/2024 2:14 PM EDT Patient called back while you were on the phone. She will have her phone on the rest of the afternoon if you're able to call her back. Mariela Merlos RN [facility]09-06-2024 Miscellaneous Notes* Telephone Encounter - Mariela Merlos RN - 02/19/2024 2:14 PM EDT Patient called back while you were on the phone. She will have her phone on the rest of the afternoon if you're able to call her back. Mariela Merlos RN * Telephone Encounter - Awa Alexander LPN - 02/19/2024 10:36 AM EDT Called patient- not available. Left message to call clinic. Called to do new OB intake questions. Awa Alexander LPN documented in this encounterWood [facility] Hospital09-06-2024 Telephone encounter Note * Telephone Encounter - Awa Alexander LPN - 02/19/2024 10:36 AM EDT Called patient- not available. Left message to call clinic. Called to do new OB intake questions. Awa Alexander LPN [facility] NoteTable formatting from the original result was not included. Procedure date: 01/22/2024. Right Eye Quality was good. Left Eye Quality was good. Notes Maker/Model: [employer] OCT OPTIC NERVE SCAN REPORT OD 01/21/24 RNFL avg mcm = SS= Pattern 85 10 WNL GCIPL avg mcm = SS= Pattern 82 10 WNL OS 01/21/24 RNFL avg mcm = SS = Pattern 85 10 WNL GCIPL avg mcm = SS = Pattern 84 10 WNL : -Good quality scan -No RNFL or GCIPL thickness changes suggestive of acute optic neuritis or history of optic neuritis. 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 NOTE: Be aware that patient's cooperation, small pupils and underlying ocular conditions such as cataract, optic disc anomaly, glaucoma, retinal disorders could affect the quality of scan and measurements, which could cause false positive findings RECOMMENDATION: If has not establish care with ophthalmology/neuro-ophthalmology, establish care for fdc monitoring might benefit patient' care Follow up scan in 6-12 months with OCT optic nerve [facility] History of Present illness Narrative* Ria Fonseca DO - 01/21/2024 8:15 AM EDT I saw and personally examined the patient today with the resident/fellow. I discussed the findings and therapeutic plan with the resident/fellow. I agree with the history, physical examination, and medical decisions as outlined. This is a 34 year old female who presents as a new patient referral from Partha Oliveros DO for abnormal MRI imaging. To briefly review her clinical history, she presented to [facility] after first time seizure,described as symptoms of confusion, oral automatisms, upper body tension. She underwent MRI imagingwhich showed multifocal white matter lesion burden including cerebellar, periventricular findings without pathologic enhancement. Normal cervical and thoracic spinal imaging. CSF analysis completed 12/29/2023 showed IgG index 2.0, >12 oligoclonal bands, normal cytology. [facility], normal SHEA (46). Routine EEG normal. 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 Michelle plan to monitor closely, repeating MRI brain, cervical, and thoracic spinal imaging in 6 months. We will obtain baseline OCT today, and follow with annual scans. In regards to treatment of RIS available data is conflicting. There is some evidence for early initiation of disease modifying therapy (Tecfidera and Aubagio). On the other hand, we should consider that patient could be exposed to life long immunosuppression that may not be needed( in the most recent RIS cohort at 10 years out from diagnosis only 50% progressed to RRMS/PPMS). This was discussed with the patient, along with offerof clinical pharmacy referral for further discussion. Patient defers medication discussion at this time, with preference for monitoring. Discussed nicotine cessation, Sarika is ready to quit nicotine. Do not recommend to take Chantix given recent seizure. In regards to seizure, discussed driving restrictions (no driving until 6 months seizure free). Seizure precautions Ria Fonseca DO * John Garcia - 01/21/2024 8:15 AM EDT Ophthalmic imaging performed - OU/bilateral procedure OCT Quality Check list Scan Quality greater than 7? Yes If not, why? Patient compliance, opacity in the eye, dry eyes, etc. Reason: Clear fundus image? Yes If not, why? Patient compliance, opacity in the eye, dilated pupil, dry eyes, etc. Reason: Fundus image in focus? Yes If not, why? Patient compliance, opacity in the eye, dilated pupil, dry eyes, etc. -Machine error, does the focus need adjusted? Reason: Any artifacts affecting scan? No If so, why? Patient compliance, opacity in the eye, dilated pupil, dry eyes, etc. Reason: Centered scan on mac/nerve? Yes If not, why? Patient compliance, opacity in the eye, dilated pupil, dry eyes, etc. Reason: Able to identify (diffusion furnace operator and machine) layers of retina (nerve fiber layer)? Yes If not, why? See above. Reason: Patient tolerated procedure well with No complaints. Images were pushed to IHIS and ROUTED TO provider for resulting. John Garcia MA documented in this encounterOS[facility] Instructions* Patient Instructions* Ria Fonseca DO - 01/21/2024 8:15 AM EDT We reviewed the MRI imaging of your brain,cervical, and thoracic spinal cord. The MRI of your brainis showing changes that look like multiple sclerosis. 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 In 6 months, we will repeat MRI brain, cervical, and thoracic spinal imaging at [facility] I would recommend to start 1,000 -2,000 international units of vitamin D/day documented in this encounterOSU [facility]04-[facility] History of Present illness Narrative* Leilani Grier APRN.VICE PRESIDENT OF ENGINEERING - 09/14/2023 7:17 PM EDT Requested to triage patient by PSS staff Presents with complaints of numbness and weakness in hands and legs. +confusion In a haze Accompanied by significant other. States they were at the ED, but the wait was long. Discussed with patient that the altered cognitive state would require a head CT Referred back to [facility] History of Present illness Narrative* Halley Nolasco APRN.VICE PRESIDENT OF ENGINEERING - 07/24/2023 4:53 PM EST Images from the original note were not included. Subjective Dental Problem Associated symptoms include congestion and coughing. Pertinent negatives include no chills, fever, myalgias, rash or sore throat. Sinus Problem Associated symptoms include congestion and coughing. Pertinent negatives include no chills, fever, myalgias, rash or sore throat. Sarika Ferreira is a 33 year old female who presents with left upper tooth pain and jaw swelling for the past 3 days. She has a dentist appointment in August. She has also had some recent nasal congestion and cough. She denies fever. She has taken tylenol and ibuprofen for pain at home. Denies headaches, ear pain, dizziness. Review of Systems Constitutional: Negative for chills and fever. HENT: Positive for congestion. Negative for ear pain and sore throat. See HPI Respiratory: Positive for cough. Cardiovascular: Negative. Musculoskeletal: Negative for myalgias. Skin: Negative for itching and rash. BP 113/65 Pulse 90 Temp 36.7 C (98 F) Resp 16 Wt 60.8 kg (134 lb) LMP 06/23/2023 (Approximate) SpO2 98% PAST MEDICAL HISTORY Diagnosis Date NEGATIVE MEDICAL HISTORY PAST SURGICAL HISTORY Procedure Laterality Date NONE ALLERGIES Patient has no known allergies. MEDICATIONS amoxicillin-clavulanate potassium (AUGMENTIN) 875-125 mg per tablet Take 1 tablet by mouth two times a day for 10 days. desog-et estra/ethin estra(MIRCETTE 0.15 MG-0.02 MG X21/0.01 MGX5 TAB) Take one(1) tablet daily. (Patient not taking: Reported on 02/25/2023) FAMILY HISTORY Problem Relation Age of Onset Diabetes Father Cancer Maternal Grandfather unknown Cancer Paternal Grandmother unknown Hypertension Father Ischemic Heart Disease Paternal Aunt OH x 3 Heart Paternal Grandmother [place] Headache Mother migraine Emphysema Maternal Grandmother Emphysema Maternal Grandfather Diabetes Paternal Aunt Diabetes Paternal Aunt Diabetes Paternal Uncle Social History Tobacco Use Smoking status: Every Day Packs/day: 0.50 Years: 2.00 Additional pack years: 0.00 Total pack years: 1.00 Types: Cigarettes Smokeless tobacco: Never Substance Use Topics Alcohol use: No Drug use: No Objective Physical Exam Vitals and nursing note reviewed. Constitutional: Appearance: Normal appearance. HENT: Head: Right Ear: Tympanic membrane, ear canal and external ear normal. Left Ear: Tympanic membrane, ear canal and external ear normal. Nose: Nose normal. Mouth/Throat: Lips: [place]. Mouth: Mucous membranes are moist. Pharynx: Uvula midline. No oropharyngeal exudate or posterior oropharyngeal erythema. Cardiovascular: Rate and Rhythm: Normal rate and regular rhythm. Heart sounds: Normal heart sounds. Pulmonary: Effort: Pulmonary effort is normal. No respiratory distress. Breath sounds: Normal breath sounds. No wheezing or rales. Musculoskeletal: Cervical back: Neck supple. Lymphadenopathy: Cervical: No cervical adenopathy. Skin: General: Skin is warm and dry. Findings: No erythema or rash. Neurological: Mental Status: She is alert. ASSESSMENT/PLAN: 1. Dental infection - ICD9: 522.4, ICD10: K04.7 (primary diagnosis) - AMOXICILLIN 875 MG-POTASSIUM CLAVULANATE 125 MG TABLET 2. Viral sinusitis - ICD9: 473.9, 079.99, ICD10: J32.9, B97.89 - Discussed viral etiology and rationale for treatment. - Symptomatic treatment with prn analgesia - Supportive care with fluids and rest 3. Left facial swelling - ICD9: 784.2, ICD10: R22.0 - cool compresses 2-3 times daily. - Follow-up with your PCP in 3-5 days if symptoms have not improved or sooner if symptoms worsen - Discussed red flags and need for immediate medical evaluation if any occur. - Discussed supportive care treatment with fluids, rest and analgesia. - Discussed expected course of illness Halley Nolasco APRN.VICE PRESIDENT OF ENGINEERING [facility] Instructions* Patient Instructions* Halley Nolasco APRN.VICE PRESIDENT OF ENGINEERING - 07/24/2023 4:52 PM EST ASSESSMENT/PLAN: 1. Dental infection - ICD9: 522.4, ICD10: K04.7 (primary diagnosis) - AMOXICILLIN 875 MG-POTASSIUM CLAVULANATE 125 MG TABLET 2. Viral sinusitis - ICD9: 473.9, 079.99, ICD10: J32.9, B97.89 - Discussed viral etiology and rationale for treatment. - Symptomatic treatment with prn analgesia - Supportive care with fluids and rest 3. Left facial swelling - ICD9: 784.2, ICD10: R22.0 - cool compresses 2-3 times daily. - Follow-up with your PCP in 3-5 days if symptoms have not improved or sooner if symptoms worsen - Discussed red flags and need for immediate medical evaluation if any occur. - Discussed supportive care treatment with fluids, rest and analgesia. - Discussed expected course of illness Halley Nolasco APRN.VICE PRESIDENT OF ENGINEERING TOOTHACHE: Your exam shows that your toothache is probably due to tooth decay and infection. Poor dental care is the main cause of this problem. Swelling and redness around a painful tooth often means you have a dental abscess. Pain medicine and antibiotics can help reduce symptoms, but you will need to see a dentist within the next few days to have your problem properly treated. Fillings or root canal work may be needed tosave your tooth. If the problem is severe, your tooth may need to be pulled. Please return here right away if you have a fever over 101F, can t swallow, or develop severe swelling. [facility] History of Present illness Narrative* Moustapha Humphreys APRN.RODDY - 02/25/2023 4:40 PM EDT Images from the original note were not included. Subjective HPI Nontoxic-appearing female presents urgent care chief complaint dental pain. Duration of symptoms 1 day. Associated symptoms left upper dental pain as well as mild swelling and. Has used OTC medications does help. Denies history of dental pains recently. No recent antibiotic use. No trauma. Denies any trismus floor mouth difficulty handling secretions difficulty with range of motion of neck. Denies any fever body aches chills productive cough chest pain shortness of breath pleuritic pain hemoptysis nausea vomiting abdominal pain change in bowel or bladder habits. Past medical history prescription medication use and allergies reviewed. .Patient presents with: Dental Problem: L upper tooth infection, swelling x1 day PAST MEDICAL HISTORY Diagnosis Date NEGATIVE MEDICAL HISTORY PAST SURGICAL HISTORY Procedure Laterality Date NONE ALLERGIES Patient has no known allergies. MEDICATIONS desog-et estra/ethin estra(MIRCETTE 0.15 MG-0.02 MG X21/0.01 MGX5 TAB) Take one(1) tablet daily. (Patient not taking: Reported on 02/25/2023) FAMILY HISTORY Problem Relation Age of Onset Diabetes Father Cancer Maternal Grandfather unknown Cancer Paternal Grandmother unknown Hypertension Father Ischemic Heart Disease Paternal Aunt [place] x 3 Heart Paternal Grandmother [place] Headache Mother migraine Emphysema Maternal Grandmother Emphysema Maternal Grandfather Diabetes Paternal Aunt Diabetes Paternal Aunt Diabetes Paternal Uncle Social History Tobacco Use Smoking status: Every Day Packs/day: 0.50 Years: 2.00 Additional pack years: 0.00 Total pack years: 1.00 Types: Cigarettes Smokeless tobacco: Never Substance Use Topics Alcohol use: No Drug use: No BP 150/88 Pulse 61 Temp 36.8 C (98.2 F) Resp 18 Wt 57.8 kg (127 lb 6.4 oz) LMP 09/08/2009 SpO2 98% Review of Systems Constitutional: Negative for chills, fever and malaise/fatigue. HENT: Negative for congestion, ear discharge, ear pain, sinus pain and sore throat. Eyes: Negative for blurred vision, pain, discharge and redness. Respiratory: Negative for cough, hemoptysis, sputum production, shortness of breath, wheezing and stridor. Cardiovascular: Negative for chest pain. Gastrointestinal: Negative for abdominal pain, diarrhea, nausea and vomiting. Musculoskeletal: Negative for myalgias. Skin: Negative for itching and rash. Neurological: Negative for dizziness and headaches. Objective Physical Exam Constitutional: General: She is not in acute distress. Appearance: She is not toxic-appearing. HENT: Head: Normocephalic. Jaw: No trismus, tenderness, swelling or pain on movement. Nose: Nose normal. Mouth/Throat: Lips: [place]. Mouth: Mucous membranes are moist. Dentition: Abnormal dentition. Dental tenderness and dental caries present. No gingival swelling ordental abscesses. Pharynx: Oropharynx is clear. Uvula midline. No pharyngeal swelling, oropharyngeal exudate, posterior oropharyngeal erythema or uvula swelling. Comments: Dental decay noted on tooth 15. No abscess. Eyes: Pupils: Pupils are equal, round, and reactive to light. Cardiovascular: Rate and Rhythm: Normal rate. Pulmonary: Effort: Pulmonary effort is normal. No respiratory distress. Breath sounds: No wheezing, rhonchi or rales. Abdominal: Tenderness: There is no abdominal tenderness. Musculoskeletal: Cervical back: Normal range of motion. Skin: General: Skin is warm and dry. Neurological: General: No focal deficit present. Mental Status: She is alert. ASSESSMENT/PLAN: 1. Dental infection - ICD9: 522.4, ICD10: K04.7 - AMOXICILLIN 875 MG TABLET Diagnosed with dental infection. Placed on amoxicillin. No evidence of deep space infection or neckinfection. Red flags proper elevation discussed. Follow- up with dentist 3 to 5 days reevaluation. Patient was educated on supportive therapies. Patient will follow up with primary care provider 7 to 10 days BP recheck. Patient was instructed to immediately proceed to emergency room for any new, worsening, or symptoms lasting longer than anticipated. The patient's clinical presentation is otherwise unremarkable at this time. Based on exam and clinical finding, the patient is stable for discharge. Plan of care was discussed with patient. Patient verbalizes understanding and agrees to plan of care. This note was generated using [employer] software. It may contain errors in wording, punctuation, orspelling. Moustapha Humphreys APRN.VICE PRESIDENT OF ENGINEERING [facility] noteNo assessment information availableWKindred Hospital [facility] Work Phone: Evaluation note* Diagnosis Dental infection- Primary Acute apical periodontitis of pulpal origin [facility]* Diagnosis Dental infection- Primary Acute apical periodontitis of pulpal origin Viral sinusitis Unspecified sinusitis (chronic) Left facial swelling Swelling, mass, or lump in head and neck documented in this encounter [facility] note* Diagnosis Altered mental status, unspecified altered mental status type- Primary documented in this encounter [facility]* Diagnosis Multiple sclerosis- Primary New onset seizure Other convulsions Optic neuropathy Other optic neuritis [facility] Encounter for care in first trimester of first - Primary Screening for cervical cancer Screening for malignant neoplasm of the cervix Special screening examination for human papillomavirus (HPV) 10 weeks gestation of state, incidental Vapes nicotine containing substance Marijuana use during Bipolar 1 disorder (HCC) Bipolar I disorder, most recent episode (or current) unspecified Encounter for supervision of high risk in first trimester, antepartum with fetus of unknown gestational age documented in this [facility]* Diagnosis Encounter for screening for malformation using ultrasound- Primary 13 weeks gestation of state, incidental [facility]* Diagnosis Encounter for supervision of high risk in first trimester, antepartum- Primary History of seizures Personal history of other disorders of nervous system and sense organs Multiple sclerosis (HCC) Multiple sclerosis Obesity in Obesity complicating , childbirth, or the puerperium, unspecified as to episode of care or not applicable Vapes nicotine containing substance [facility]* Diagnosis Primigravida of advanced maternal age in second trimester- Primary documented [facility]* Diagnosis screening for malformation using ultrasonics- Primary Encounter for routine screening for malformation using ultrasonics 16 weeks gestation of state, incidental Multiple sclerosis (HCC) Multiple sclerosis Primigravida of advanced maternal age in second trimester [facility]* Diagnosis Multiple sclerosis affecting , antepartum (HCC)- Primary History of seizures Personal history of other disorders of nervous system and sense organs Multiple sclerosis (HCC) Multiple sclerosis 16 weeks gestation of state, incidental Advanced maternal age, primigravida, antepartum Elderly primigravida, antepartum [facility]* Diagnosis Encounter for anatomic survey- Primary 20 weeks gestation of state, incidental Short cervix affecting Cervical shortening, unspecified as to episode of care or not applicable AMA (advanced maternal age) multigravida 35+, second trimester documented [facility]* Diagnosis Encounter for supervision of high risk in second trimester, antepartum- Primary 20 weeks gestation of state, incidental Primigravida of advanced maternal age in second trimester Short cervix affecting Cervical shortening, unspecified as to episode of care or not applicable documented in this [facility]* Diagnosis Short cervix during in second trimester- Primary Vapes nicotine containing substance Marijuana use during Bipolar 1 disorder (HCC) Bipolar I disorder, most recent episode (or current) unspecified Encounter for supervision of high risk in first trimester, antepartum History of seizures Personal history of other disorders of nervous system and sense organs Multiple sclerosis affecting , antepartum (HCC) Encounter for supervision of high risk in second trimester, antepartum- Primary Primigravida of advanced maternal age in second trimester Short cervix affecting Cervical shortening, unspecified as to episode of care or not applicable Cervical shortening, second trimester 20 weeks gestation of state, incidental [facility]* Diagnosis Short cervix during in second trimester- Primary Vapes nicotine containing substance Marijuana use during Bipolar 1 disorder (HCC) Bipolar I disorder, most recent episode (or current) unspecified Encounter for supervision of high risk in first trimester, antepartum History of seizures Personal history of other disorders of nervous system and sense organs Multiple sclerosis affecting , antepartum (HCC) 24 weeks gestation of - Primary state, incidental Encounter for supervision of high risk in second trimester, antepartum Primigravida of advanced maternal age in second trimester Short cervix affecting Cervical shortening, unspecified as to episode of care or not applicable [facility]* Diagnosis Short cervix during in second trimester- Primary Vapes nicotine containing substance Marijuana use during Bipolar 1 disorder (HCC) Bipolar I disorder, most recent episode (or current) unspecified Encounter for supervision of high risk in first trimester, antepartum History of seizures Personal history of other disorders of nervous system and sense organs Multiple sclerosis affecting , antepartum ([facility]) Encounter for supervision of high risk in second trimester, antepartum- Primary 24 weeks gestation of state, incidental Short cervix affecting Cervical shortening, unspecified as to episode of care or not applicable History of seizures Personal history of other disorders of nervous system and sense organs Multiple sclerosis (HCC) Multiple sclerosis AMA (advanced maternal age) multigravida 35+, second trimester Screening for diabetes mellitus Need for influenza vaccination Need for prophylactic vaccination and inoculation against influenza [facility]* Diagnosis Short cervix during in second trimester- Primary Vapes nicotine containing substance Marijuana use during Bipolar 1 disorder (HCC) Bipolar I disorder, most recent episode (or current) unspecified Encounter for supervision of high risk in first trimester, antepartum History of seizures Personal history of other disorders of nervous system and sense organs Multiple sclerosis affecting , antepartum ([facility]) Encounter for ultrasound to check growth- Primary Encounter for routine screening for malformation using ultrasonics Primigravida of advanced maternal age in second trimester Cervical shortening, second trimester 24 weeks gestation of state, incidental documented [facility]* Diagnosis Short cervix during in second trimester- Primary Vapes nicotine containing substance Marijuana use during Bipolar 1 disorder (HCC) Bipolar I disorder, most recent episode (or current) unspecified Encounter for supervision of high risk in first trimester, antepartum History of seizures Personal history of other disorders of nervous system and sense organs Multiple sclerosis affecting , antepartum ([facility]) Encounter for ultrasound to check growth- Primary Encounter for routine screening for malformation using ultrasonics Multiple sclerosis affecting , antepartum ([facility]) Multigravida of advanced maternal age in third trimester 28 weeks gestation of state, incidental [facility]* Diagnosis Short cervix during in second trimester- Primary Encounter for supervision of high risk in first trimester, antepartum Multiple sclerosis affecting , antepartum ([facility]) Supervision of high risk in third trimester- Primary Unspecified high-risk 28 weeks gestation of state, incidental Short cervix affecting Cervical shortening, unspecified as to episode of care or not applicable Cervical cerclage suture present in third trimester History of seizures Personal history of other disorders of nervous system and sense organs Multiple sclerosis ([facility]) Multiple sclerosis AMA (advanced maternal age) multigravida 35+, third trimester Bipolar 1 disorder ([facility]) Bipolar I disorder, most recent episode (or current) unspecified Vapes nicotine containing substance Marijuana use during documented in [facility]* Diagnosis Short cervix during in second trimester- Primary Encounter for supervision of high risk in first trimester, antepartum Multiple sclerosis affecting , antepartum ([facility]) Supervision of high risk in third trimester- Primary Unspecified high-risk 28 weeks gestation of state, incidental Short cervix affecting Cervical shortening, unspecified as to episode of care or not applicable Cervical cerclage suture present in third trimester Multiple sclerosis ([facility]) Multiple sclerosis AMA (advanced maternal age) multigravida 35+, third trimester documented in [facility]* Diagnosis Short cervix during in second trimester- Primary Encounter for supervision of high risk in first trimester, antepartum Multiple sclerosis affecting , antepartum ([facility]) High-risk in third trimester- Primary Short cervix affecting Cervical shortening, unspecified as to episode of care or not applicable Cervical cerclage suture present in third trimester Multiple sclerosis ([facility]) Multiple sclerosis AMA (advanced maternal age) multigravida 35+, third trimester History of seizures Personal history of other disorders of nervous system and sense organs 30 weeks gestation of state, incidental [facility] Diagnosis Multiple sclerosis- Primary Local-rel idio epi w seiz of loc onset, ntrct, w/o stat epi [facility]* Diagnosis Short cervix during in second trimester- Primary Multiple sclerosis affecting , antepartum (HCC) High-risk in third trimester- Primary 32 weeks gestation of state, incidental Short cervix affecting Cervical shortening, unspecified as to episode of care or not applicable Tobacco use disorder Multiple sclerosis ([facility]) Multiple sclerosis [facility]* Diagnosis Short cervix during in second trimester- Primary Multiple sclerosis affecting , antepartum ([facility]) Supervision of high risk in third trimester Unspecified high-risk 28 weeks gestation of state, incidental Short cervix affecting Cervical shortening, unspecified as to episode of care or not applicable Cervical cerclage suture present in third trimester Multiple sclerosis ([facility]) Multiple sclerosis AMA (advanced maternal age) multigravida 35+, third trimester [facility]* Diagnosis Short cervix during in second trimester- Primary Multiple sclerosis affecting , antepartum ([facility]) Encounter for ultrasound to check growth- Primary Encounter for routine screening for malformation using ultrasonics Tobacco use disorder Multiple sclerosis ([facility]) Multiple sclerosis 35 weeks gestation of state, incidental [facility]* Diagnosis Short cervix during in second trimester- Primary Multiple sclerosis affecting , antepartum ([facility]) Supervision of high risk in third trimester- Primary Unspecified high-risk High-risk in third trimester Multiple sclerosis ([facility]) Multiple sclerosis Cervical cerclage suture present in third trimester 35 weeks gestation of state, incidental [facility]* Diagnosis Short cervix during in second trimester- Primary Multiple sclerosis affecting , antepartum (HCC) High-risk in third trimester- Primary Multiple sclerosis ([facility]) Multiple sclerosis Supervision of high risk in third trimester Unspecified high-risk 36 weeks gestation of state, incidental [facility]* Diagnosis Short cervix during in second trimester- Primary Multiple sclerosis affecting , antepartum ([facility]) 37 weeks gestation of - Primary state, incidental Multiple sclerosis ([facility]) Multiple sclerosis Supervision of high risk in third trimester Unspecified high-risk Advanced maternal age in multigravida, third trimester * Assessment & Plan Note - Alexander Galloway MD - 08/31/2024 4:47 PM EDT Associated Problem(s): Supervision of high risk in third trimester declines membrane sweep today would like 39 week induction next week if not delivered kick counts NST reactive today Orders: URINE OB DIP B/O documented in this encounter [facility] note* Diagnosis Short cervix during in second trimester- Primary Multiple sclerosis affecting , antepartum (HCC) 37 weeks gestation of - Primary state, incidental Multiple sclerosis (HCC) Multiple sclerosis Supervision of high risk in third trimester Unspecified high-risk Advanced maternal age in multigravida, third trimester 38 weeks gestation of - Primary state, incidental Multiple sclerosis (HCC) Multiple sclerosis Supervision of high risk in third trimester Unspecified high-risk Advanced maternal age in multigravida, third trimester documented in this encounter [facility] note* Diagnosis Short cervix during in second trimester (HCC)- Primary Multiple sclerosis affecting , antepartum (HCC) 37 weeks gestation of (HCC)- Primary state, incidental Multiple sclerosis (HCC) Multiple sclerosis Supervision of high risk in third trimester (HCC) Unspecified high-risk Advanced maternal age in multigravida, third trimester (HCC) Routine follow-up ([facility])- Primary Routine follow-up Sterilization consult Other general counseling and advice for contraceptive management [facility] Diagnosis Multiple sclerosis affecting , antepartum (HCC) care and examination ([facility])- Primary Routine follow-up Request for sterilization Pre-op exam Preoperative examination, unspecified documented in this encounter [facility] note* Diagnosis Multiple sclerosis- Primary Right sided weakness Muscle weakness (generalized) [facility]ba [facility] Note Date/Time September 11, 2024 10: 46am [facility] Medical Records Department [facility] [place] [address] Progress Note - OBGYN 09/11/24 1039 MR#: [id number] Acct: [id number] Name: SARIKA FERREIRA Rep #:[id number] : 1990 34 From: Melba Sánchez MD PCP: Care Physician,No Primary Status :ADM IN Location: [id number] Subjective Subjective Denies complaints Objective Data Objective Data Vital Signs: Vital Signs Temp Pulse Resp BP Pulse Ox O2 Del Method 98.0 F 72 18 124/82 H 100 Room Air 09/11/24 07:36 09/11/24 07:36 09/11/24 07:36 09/11/24 07:36 09/11/24 07:36 09/11/24 07:36 Oxygen Delivery Method Room Air Weight: 180 lb 1.883 oz Body Mass Index (BMI) 29.9 Intake & Output: Intake and Output for Last 24 Hours 09/09/24 09/10/24 09/11/24 23:59 23:59 23:59 Intake Total 1874.77 / 1874.77 Output Total 600 / 600 Balance 1274.77 / 1274.77 Lab / Micro Data 09/10/24 04:50 Physical Exam Const alert, oriented x3 and no apparent distress HEENT normocephalic GI soft to palpation, non-tender and non-distended GI Narrative: fundus firm, mid & below umbilicus Extremity normal to inspection and no calf tenderness Assessment & Plan (1) Vaginal delivery: PLAN: Plan D/c home 09/11/24 1046 <Electronically signed by Melba Sánchez MD> Cosigner Signature (if applicable): CC: ~ Signed [facility] Work Phone: Reason for referral (narrative)* Diagnostic Procedure Only (Routine) - Pending Review Specialty Diagnoses / Procedures Referred By Contlida t Referred To Contact [facility] Diagnoses Encounter for care in first trimester of first Procedures NUCHAL TRANSLUCENCY WHI US NUCHAL TRANSLUCENCY 1ST GESTATION Keara Belle APRN.DEWAYNE [address] [place] [address] [facility] [address] [place] [id number] Referral ID Status Reason Start Date Expiration Date Visits Requested Visits Authorized [id number] Pending Review Auto-Generat ed Referral 02/22/2024 02/21/2025 1 1 * Diagnostic Procedure Only (Routine) - Pending Review Specialty Diagnoses / Procedures Referred By Radhaac t Referred To Contact [facility] Diagnoses Encounter for care in first trimester of first Procedures OBSTETRIC ULTRASOUND WHI US PREG UTERUS AFTER 1ST TRIMEST GESTATION Keara Belle APRN.CNM [address] [place] [place] [address] [facility] [place] [address] Referral ID Status Reason Start Date Expiration Date Visits Requested Visits Authorized [id number] Pending Review Auto-Generat ed Referral 02/22/2024 02/21/2025 1 1 [facility] for referral (narrative)* Diagnostic Procedure Only (Routine) - Open Specialty Diagnoses / Procedures Referred By Radhaac t Referred To Contact [facility] Diagnoses Obesity in Procedures OBSTETRIC ULTRASOUND WHI US PREG UTERUS AFTER 1ST TRIMEST GESTATION Leilani Calixto APRN.CNM [address] [place] [address] [facility] [address] [place] [address] Referral ID Status Reason Start Date Expiration Date V isits Requested Visits Authorized [id number] Open Auto-Generate d Referral 03/15/2024 03/15/2025 2 1 * Consult, Test, Treat (Routine) - Authorized Specialty Diagnoses / Procedures Referred By Contac t Referred To Contact Diagnoses Encounter for supervision of high risk in first trimester, antepartum History of seizures Multiple sclerosis (HCC) Procedures CONSULT TO MATERNAL MEDI OFFICE/OUTPATIENT NEW HIGH MDM 60 MINUTES Leilani Calixto APRN.CNM [address] [place] [place] [address] Referral ID Status Reason Start Date Expiration Date Visits Requested Visits Authorized [id number] Authorized PCP Requested Referral Auto-Generate d Referral 03/15/2024 03/15/2025 1 1 [facility] for referral (narrative)* Diagnostic Procedure Only (Routine) - Pending Review Specialty Diagnoses / Procedures Referred By Contac t Referred To Contact [facility] Diagnoses Encounter for supervision of high risk in second trimester, antepartum Primigravida of advanced maternal age in second trimester Cervical shortening, second trimester Procedures OBSTETRIC ULTRASOUND WHI US PREG UTERUS AFTER 1ST TRIMEST GESTATION Soraya Prado MD [address] [place] [address] [facility] [place] [address] Referral ID Status Reason Start Date Expiration Date Visits Requested Visits Authorized [id number] Pending Review Auto-Generat ed Referral 05/04/2025 1 1 [facility] for referral (narrative)* Diagnostic Procedure Only (Routine) - Pending Review Specialty Diagnoses / Procedures Referred By Contac t Referred To Contact [facility] Diagnoses Supervision of high risk in third trimester 28 weeks gestation of Short cervix affecting Cervical cerclage suture present in third trimester Multiple sclerosis (HCC) AMA (advanced maternal age) multigravida 35+, third trimester Procedures OBSTETRIC ULTRASOUND WHI US PREG UTERUS AFTER 1ST TRIMEST GESTATION Keara Belle APRN.CNM [address] [place] [place] [address] [facility] [address] [address] Referral ID Status Reason Start Date Expiration Date Visits Requested Visits Authorized [id number] Pending Review Auto-Generat ed Referral 06/30/2024 06/30/2025 1 1 [facility] for referral (narrative)No reason for referral [facility] Work Phone: Chief Complaint and Reason for Visit Chief Complaint H/A Chief Complaint UPPER BODY FEELS FUN [place] Chief Complaint Admit Date SEIZURE June 03, 2024 12:09pm EXTENDED MONITORING. August 25, 2024 4: 00pm Chief Complaint Admit Date SEIZURE June 03, 2024 12:09pm EXTENDED MONITORING. August 25, 2024 4: 00pm VAGINAL DELIVERY September 09, 2024 7:0 9am Reason for Visit Admit Date Non-reactive NST (non-stress test) August 25, 2024 4:00pm Anxiety September 09, 2024 7:0 9am Bipolar disorder September 09, 2024 7:0 9am Cervical incompetence September 09, 2024 7 :09am Current every day nicotine vaping September 09, 2024 7:09am Elective induction of labor planned Tamir h 2024 7:09am Multiple sclerosis September 09, 2024 7:0 9am Second degree perineal laceration September 09, 2024 7:09am Seizures September 09, 2024 7:0 9am Smoker September 09, 2024 7:0 9am Substance abuse September 09, 2024 7:0 9am Uterine atony September 09, 2024 7:0 9am Vaginal delivery September 09, 2024 7:0 9am Chief Complaint Admit Date EXTENDED MONITORING. August 25, 2024 4: 00pm VAGINAL DELIVERY September 09, 2024 7:0 9am Laparoscopic, bilateral Salpingectomy Ma y 2024 5:43am Reason for Visit Admit Date Non-reactive NST (non-stress test) August 25, 2024 4:00pm Cervical incompetence September 09, 2024 7 :09am Current every day nicotine vaping September 09, 2024 7:09am Elective induction of labor planned Tamir h 2024 7:09am Second degree perineal laceration September 09, 2024 7:09am Substance abuse September 09, 2024 7:0 9am Uterine atony September 09, 2024 7:0 9am Vaginal delivery September 09, 2024 7:0 9am Anxiety September 09, 2024 7:0 9am Bipolar disorder September 09, 2024 7:0 9am Multiple sclerosis September 09, 2024 7:0 9am Seizures September 09, 2024 7:0 9am Smoker September 09, 2024 7:0 9am Advance Directives No Advanced Directives Records Found Advance Directive Response Recorded Date/ Time Living Will No January 21, 2022 5:44pm Power of [employer] No January 21 5:44pm Advance Directive Response Recorded Date/ Time Living Will No October 02, 2022 12:02pm Power of [employer] No October 02 12:02pm Advance Directive Response Recorded Date/ Time Living Will No June 03 024 1:29pm Power of [employer] No June 03, 2024 1:29pm Advance Directive Response Recorded Date/ Time Living Will No June 03 024 1:29pm Do you have a Healthcare Power of [employer]? No June 03, 2024 1:29pm Living Will No September 09, 2024 7:52am Do you have a Healthcare Power of [employer]? No September 09, 2024 7:52am Advance Directive Response Recorded Date/ Time Do you have a Healthcare Power of [employer]? No October 14, 2024 3:21pm Living Will No September 09, 2024 7:52am Do you have a Healthcare Power of [employer]? No September 09, 2024 7:52am Reason for Referral Specialty Diagnoses / Procedures Referred By Contac t Referred To Contact Diagnoses New onset seizure Multiple sclerosis Procedures MRI SPINE THORACIC WITH AND WITHOUT CONTRAST CHG MRI SPINAL CANAL THORACIC W/O & W/CONTR Ria Mchugh, DO [address] [place] [address] Referral ID Status Reason Start Date Expiration Date V isits Requested Visits Authorized [id number] New Request 01/21/2024 02/14/2025 1 1 Specialty Diagnoses / Procedures Referred By Contac t Referred To Contact Diagnoses New onset seizure Multiple sclerosis Procedures MRI SPINE CERVICAL WITH AND WITHOUT CONTRAST CHG MRI SPINAL CANAL CERVICAL W/O & W/CONTR MATRL Raymundo, Ria L, DO [address] [place] [address] Referral ID Status Reason Start Date Expiration Date V isits Requested Visits Authorized [id number] New Request 01/21/2024 02/14/2025 1 1 Specialty Diagnoses / Procedures Referred By Contac t Referred To Contact Diagnoses New onset seizure Multiple sclerosis Procedures MRI BRAIN WITH AND WITHOUT CONTRAST CHG MRI BRAIN BRAIN STEM W/O W/CONTRAST MATERIAL RaymundoRia Zehra, DO [address] [place] [address] Referral ID Status Reason Start Date Expiration Date V isits Requested Visits Authorized [id number] New Request 01/21/2024 02/14/2025 1 1 Summary Purpose Family History No Family History Records Found Relationship Condition Age at Onset Recorded Date/T terrence mother Diabetes mellitus Unknown Cerebrovascular accident (CVA) Unknown Dementia Unknown father Aneurysm Unknown Additional Source Comments Goals (unrecognized section and content) Goals may be documented in a n alternate sectionGoals may be documented in an alternate sectionGoals may be documented in an alternate section Source Comments (unrecognize d section and content) In the event this informatio n is protected by the Federal Confidentiality of Alcohol and Drug Abuse Patient Records regulations: The Federal rules restrict any use of the information to criminally investigate or prosecute any alcohol or drug abuse patient.[facility] the event this information is protected by the Federal Confidentiality of Alcohol and Drug Abuse Patient Records regulations: The Federal rules restrict any use of the information to criminally investigate or prosecute any alcohol or drug abuse patient.[facility]In the event this information is protected by the Federal Confidentiality of Alcohol and Drug Abuse Patient Records regulations: The Federal rules restrict any use of the information to criminally investigate or prosecute any alcohol or drug abuse patient.[facility]In the event this information is protected by the Federal Confidentiality of Alcohol and Drug Abuse Patient Records regulations: The Federal rules restrict any use of the information to criminally investigate or prosecute any alcohol or drug abuse patient.[facility] HospitalIn the event this information is protected by the Federal Confidentiality of Alcohol and Drug Abuse Patient Records regulations: The Federal rules restrict any use of the information to criminally investigate or prosecute any alcohol or drug abuse patient.[facility] HospitalIn the event this information is protected by the Federal Confidentiality of Alcohol and Drug Abuse Patient Records regulations: The Federal rules restrict any use of the information to criminally investigate or prosecute any alcohol or drug abuse patient.[facility] HospitalIn the event this information is protected by the Federal Confidentiality of Alcohol and Drug Abuse Patient Records regulations: The Federal rules restrict any use of the information to criminally investigate or prosecute any alcohol or drug abuse patient.[facility] HospitalIn the event this information is protected by the Federal Confidentiality of Alcohol and Drug Abuse Patient Records regulations: The Federal rules restrict any use of the information to criminally investigate or prosecute any alcohol or drug abuse patient.[facility] HospitalIn the event this information is protected by the Federal Confidentiality of Alcohol and Drug Abuse Patient Records regulations: The Federal rules restrict any use of the information to criminally investigate or prosecute any alcohol or drug abuse patient.[facility] HospitalIn the event this information is protected by the Federal Confidentiality of Alcohol and Drug Abuse Patient Records regulations: The Federal rules restrict any use of the information to criminally investigate or prosecute any alcohol or drug abuse patient.[facility] HospitalIn the event this information is protected by the Federal Confidentiality of Alcohol and Drug Abuse Patient Records regulations: The Federal rules restrict any use of the information to criminally investigate or prosecute any alcohol or drug abuse patient.[facility] HospitalIn the event this information is protected by the Federal Confidentiality of Alcohol and Drug Abuse Patient Records regulations: The Federal rules restrict any use of the information to criminally investigate or prosecute any alcohol or drug abuse patient.[facility] HospitalIn the event this information is protected by the Federal Confidentiality of Alcohol and Drug Abuse Patient Records regulations: The Federal rules restrict any use of the information to criminally investigate or prosecute any alcohol or drug abuse patient.[facility] HospitalIn the event this information is protected by the Federal Confidentiality of Alcohol and Drug Abuse Patient Records regulations: The Federal rules restrict any use of the information to criminally investigate or prosecute any alcohol or drug abuse patient.[facility] HospitalIn the event this information is protected by the Federal Confidentiality of Alcohol and Drug Abuse Patient Records regulations: The Federal rules restrict any use of the information to criminally investigate or prosecute any alcohol or drug abuse patient.[facility] HospitalIn the event this information is protected by the Federal Confidentiality of Alcohol and Drug Abuse Patient Records regulations: The Federal rules restrict any use of the information to criminally investigate or prosecute any alcohol or drug abuse patient.[facility] HospitalIn the event this information is protected by the Federal Confidentiality of Alcohol and Drug Abuse Patient Records regulations: The Federal rules restrict any use of the information to criminally investigate or prosecute any alcohol or drug abuse patient.[facility] HospitalIn the event this information is protected by the Federal Confidentiality of Alcohol and Drug Abuse Patient Records regulations: The Federal rules restrict any use of the information to criminally investigate or prosecute any alcohol or drug abuse patient.[facility] HospitalIn the event this information is protected by the Federal Confidentiality of Alcohol and Drug Abuse Patient Records regulations: The Federal rules restrict any use of the information to criminally investigate or prosecute any alcohol or drug abuse patient.[facility] HospitalIn the event this information is protected by the Federal Confidentiality of Alcohol and Drug Abuse Patient Records regulations: The Federal rules restrict any use of the information to criminally investigate or prosecute any alcohol or drug abuse patient.[facility] HospitalIn the event this information is protected by the Federal Confidentiality of Alcohol and Drug Abuse Patient Records regulations: The Federal rules restrict any use of the information to criminally investigate or prosecute any alcohol or drug abuse patient.[facility] HospitalIn the event this information is protected by the Federal Confidentiality of Alcohol and Drug Abuse Patient Records regulations: The Federal rules restrict any use of the information to criminally investigate or prosecute any alcohol or drug abuse patient.[facility] HospitalIn the event this information is protected by the Federal Confidentiality of Alcohol and Drug Abuse Patient Records regulations: The Federal rules restrict any use of the information to criminally investigate or prosecute any alcohol or drug abuse patient.[facility] HospitalIn the event this information is protected by the Federal Confidentiality of Alcohol and Drug Abuse Patient Records regulations: The Federal rules restrict any use of the information to criminally investigate or prosecute any alcohol or drug abuse patient.[facility] HospitalIn the event this information is protected by the Federal Confidentiality of Alcohol and Drug Abuse Patient Records regulations: The Federal rules restrict any use of the information to criminally investigate or prosecute any alcohol or drug abuse patient.[facility] HospitalIn the event this information is protected by the Federal Confidentiality of Alcohol and Drug Abuse Patient Records regulations: The Federal rules restrict any use of the information to criminally investigate or prosecute any alcohol or drug abuse patient.[facility] HospitalIn the event this information is protected by the Federal Confidentiality of Alcohol and Drug Abuse Patient Records regulations: The Federal rules restrict any use of the information to criminally investigate or prosecute any alcohol or drug abuse patient.[facility] HospitalIn the event this information is protected by the Federal Confidentiality of Alcohol and Drug Abuse Patient Records regulations: The Federal rules restrict any use of the information to criminally investigate or prosecute any alcohol or drug abuse patient.[facility] HospitalIn the event this information is protected by the Federal Confidentiality of Alcohol and Drug Abuse Patient Records regulations: The Federal rules restrict any use of the information to criminally investigate or prosecute any alcohol or drug abuse patient.[facility] HospitalIn the event this information is protected by the Federal Confidentiality of Alcohol and Drug Abuse Patient Records regulations: The Federal rules restrict any use of the information to criminally investigate or prosecute any alcohol or drug abuse patient.[facility] HospitalIn the event this information is protected by the Federal Confidentiality of Alcohol and Drug Abuse Patient Records regulations: The Federal rules restrict any use of the information to criminally investigate or prosecute any alcohol or drug abuse patient.[facility] HospitalIn the event this information is protected by the Federal Confidentiality of Alcohol and Drug Abuse Patient Records regulations: The Federal rules restrict any use of the information to criminally investigate or prosecute any alcohol or drug abuse patient.[facility] HospitalIn the event this information is protected by the Federal Confidentiality of Alcohol and Drug Abuse Patient Records regulations: The Federal rules restrict any use of the information to criminally investigate or prosecute any alcohol or drug abuse patient.[facility] HospitalIn the event this information is protected by the Federal Confidentiality of Alcohol and Drug Abuse Patient Records regulations: The Federal rules restrict any use of the information to criminally investigate or prosecute any alcohol or drug abuse patient.[facility] HospitalIn the event this information is protected by the Federal Confidentiality of Alcohol and Drug Abuse Patient Records regulations: The Federal rules restrict any use of the information to criminally investigate or prosecute any alcohol or drug abuse patient.[facility] HospitalIn the event this information is protected by the Federal Confidentiality of Alcohol and Drug Abuse Patient Records regulations: The Federal rules restrict any use of the information to criminally investigate or prosecute any alcohol or drug abuse patient.[facility] HospitalIn the event this information is protected by the Federal Confidentiality of Alcohol and Drug Abuse Patient Records regulations: The Federal rules restrict any use of the information to criminally investigate or prosecute any alcohol or drug abuse patient.[facility] HospitalIn the event this information is protected by the Federal Confidentiality of Alcohol and Drug Abuse Patient Records regulations: The Federal rules restrict any use of the information to criminally investigate or prosecute any alcohol or drug abuse patient.[facility] HospitalIn the event this information is protected by the Federal Confidentiality of Alcohol and Drug Abuse Patient Records regulations: The Federal rules restrict any use of the information to criminally investigate or prosecute any alcohol or drug abuse patient.[facility] HospitalIn the event this information is protected by the Federal Confidentiality of Alcohol and Drug Abuse Patient Records regulations: The Federal rules restrict any use of the information to criminally investigate or prosecute any alcohol or drug abuse patient.[facility] HospitalIn the event this information is protected by the Federal Confidentiality of Alcohol and Drug Abuse Patient Records regulations: The Federal rules restrict any use of the information to criminally investigate or prosecute any alcohol or drug abuse patient.[facility] Reason for Visit (unrecogniz ed section and content) Reason Comments Dental Problem L upper tooth infect ion, swelling x1 day Reason Comments Dental Problem Possible dental prob maxwell on Left upper side of mouth, Face swelling and warm x 3 days Sinus Problem Nasal and chest elizabeth estion x 1 week Reason Comments New Patient Specialty Diagnoses / Procedures Referred By Aida hicks Referred To Contact Neurology Diagnoses New onset seizure Partha Oliveros, DO [address] [address] [facility] [address] [place] [address] Referral ID Status Reason Start Date Expiration Date V isits Requested Visits Authorized [id number] New Request 01/02/2024 01/26/2025 1 1 Reason Comments Appointment Reason Comments Initial OB Visit Reason Comments US Specialty Diagnoses / Procedures Referred By Aida hicks Referred To Contact [facility] Diagnoses Encounter for care in first trimester of first Procedures NUCHAL TRANSLUCENCY WHI US NUCHAL TRANSLUCENCY 1ST GESTATION Keara Belle APRN.CNM [address] [place] [address] [facility] [address] [place] [address] Referral ID Status Reason Start Date Expiration Date V isits Requested Visits Authorized [id number] Closed Auto-Generate d Referral 03/02/2024 06/14/2024 1 1 Reason Onset Date Comments Care 04/05/2024 Specialty Diagnoses / Procedures Referred By Aida hicks Referred To Contact [facility] Diagnoses Obesity in Procedures OBSTETRIC ULTRASOUND WHI US PREG UTERUS AFTER 1ST TRIMEST GESTATION Leilani Calixto APRN.CNM [address] [place] [address] [address] Referral ID Status Reason Start Date Expiration Date Visits Requested Visits Authorized [id number] Authorized Auto-Generat ed Referral 03/22/2024 06/14/2024 2 2 Specialty Diagnoses / Procedures Referred By Contac t Referred To Contact Diagnoses Encounter for supervision of high risk in first trimester, antepartum History of seizures Multiple sclerosis (HCC) Procedures CONSULT TO MATERNAL MEDI OFFICE/OUTPATIENT [facility] 60 MINUTES Leilani Calixto APRN.CNM [address] [place] [place] [address] Referral ID Status Reason Start Date Expiration Date V isits Requested Visits Authorized [id number] Closed PCP Requested Referral Auto-Generated Referral 03/15/2024 03/15/2025 1 1 Specialty Diagnoses / Procedures Referred By Contac t Referred To Contact [facility] Diagnoses Encounter for care in first trimester of first Procedures OBSTETRIC ULTRASOUND WHI US PREG UTERUS AFTER 1ST TRIMEST GESTATION Keara Belle APRN.M [address] [place] [address] [address] Referral ID Status Reason Start Date Expiration Date V isits Requested Visits Authorized [id number] Closed Auto-Generate d Referral 05/02/2024 06/14/2024 1 1 Reason Onset Date Comments Care 05/02/2024 Reason Onset Date Comments Care 05/04/2024 Reason Onset Date Comments Care 05/31/2024 Reason Onset Date Comments Care 06/02/2024 Immunizations 06/02/2024 Flu vaccination Specialty Diagnoses / Procedures Referred By Contac t Referred To Contact [facility] Diagnoses Encounter for supervision of high risk in second trimester, antepartum Primigravida of advanced maternal age in second trimester Cervical shortening, second trimester Procedures OBSTETRIC ULTRASOUND WHI US PREG UTERUS AFTER 1ST TRIMEST GESTATION Soraya Prado MD [address] [place] [address] [address] Referral ID Status Reason Start Date Expiration Date V isits Requested Visits Authorized [id number] Closed Auto-Generate d Referral 05/18/2024 06/14/2024 1 1 Specialty Diagnoses / Procedures Referred By Aida t Referred To Contact [facility] Diagnoses Marijuana use during Bipolar 1 disorder (HCC) Encounter for supervision of high risk in first trimester, antepartum Procedures OBSTETRIC ULTRASOUND WHI US PREG UTERUS AFTER 1ST TRIMEST GESTATION Keara Belle APRN.[facility] [address] [place] [address] [address] Referral ID Status Reason Start Date Expiration Date V isits Requested Visits Authorized [id number] Closed Auto-Generate d Referral 06/23/2024 06/14/2025 1 1 Reason Onset Date Comments Care 06/30/2024 Reason Comments Results Reason Onset Date Comments Care 07/14/2024 Reason Comments Follow-up Reason Onset Date Comments Care 07/28/2024 Specialty Diagnoses / Procedures Referred By Aida hicks Referred To Contact [facility] Diagnoses Supervision of high risk in third trimester 28 weeks gestation of Short cervix affecting Cervical cerclage suture present in third trimester Multiple sclerosis (HCC) AMA (advanced maternal age) multigravida 35+, third trimester Procedures OBSTETRIC ULTRASOUND WHI US PREG UTERUS AFTER 1ST TRIMEST GESTATION Keara Belle APRN.NAYELI [address] [place] [address] Phone: tel: fax: [address] [address] Referral ID Status Reason Start Date Expiration Date Visits Requested Visits Authorized [id number] Authorized Auto-Generat ed Referral 07/11/2024 06/14/2025 10 10 Specialty Diagnoses / Procedures Referred By Aida t Referred To Contact [facility] Diagnoses 32 weeks gestation of High-risk in third trimester Short cervix affecting Tobacco use disorder Multiple sclerosis (HCC) Procedures OBSTETRIC ULTRASOUND WHI US PREG UTERUS AFTER 1ST TRIMEST 1 GESTATION Hola Dueñas MD [address] [place] [address] Phone: tel: fax: [facility] [address] [place] [address] Referral ID Status Reason Start Date Expiration Date V isits Requested Visits Authorized [id number] Closed Auto-Generate d Referral 08/05/2024 06/14/2025 1 1 Reason Onset Date Comments Care 08/18/2024 Reason Onset Date Comments Care 08/25/2024 Reason Comments Refill Request Reason Onset Date Comments Care 08/31/2024 Reason Onset Date Comments Population Health Navigation Outreach 09/02/2024 Ob peds Reason Onset Date Comments Care 09/08/2024 Reason Comments Ob Delivery Note Reason Comments Multiple Sclerosis Pt reports right maria alejandra e of upper and lower extremities have weakened. . Pt report having a seizure November 2024. Care Teams (unrecognized sec tion and content) Team Status: Active Member Role Status Dates No Primary Care Physician Family Provider Active No Primary Care Physician Primary Care Provider Active Team Status: Inactive Member Role Status Dates No Primary Care Physician Primary Care Provider Active Ed Physician Provider Emergency Provider Active Radarman Relationship Specialty Start Date End Date So Arias [address] [place] [id number] PCP - General 01/21/24 Radarman Relationship Specialty Start Date [facility] [address] [place] [id number] PCP - General 01/21/24 Team Status: Inactive Member Role Status Dates No Primary Care Physician Primary Care Provider Active Start: June 03, 2024 End: June 03, 2024 Dr. Arron Ivan DO Attending Provider Active Start: June 03, 2024 End: June 03, 2024 Dr. Arron Ivan DO Emergency Provider Active Start: June 03, 2024 End: June 03, 2024 Team Status: Inactive Member Role Status Dates No Primary Care Physician Primary Care Provider Active Start: August 25, 2024 End: August 25, 2024 Dr. Melba Sánchez MD Attending Provider Active Start: August 25, 2024 End: August 25, 2024 Dr. Melba Sánchez MD Referring Provider Active Start: August 25, 2024 End: August 25, 2024 Team Status: Active Member Role Status Dates No Primary Care Physician Primary Care Provider Active Team Status: Inactive Member Role Status Dates No Primary Care Physician Primary Care Provider Active Start: September 09, 2024 End: September 11, 2024 Leilani Calixto CNM Admit Provider Active Start: September 09, 2024 End: September 11, 2024 Leilani Calixto CNM Attending Provider Active St art: September 09, 2024 End: September 11, 2024 Leilani Calixto CNM Referring Provider Active St art: September 09, 2024 End: September 11, 2024 Team Status: Inactive Member Role Status Dates No Primary Care Physician Primary Care Provider Active Start: October 20, 2024 End: October 20, 2024 Dr. Soraya Pate MD Attending Provider Ac tive Start: October 20, 2024 End: October 20, 2024 Dr. Soraya Pate MD Referring Provider Ac tive Start: October 20, 2024 End: October 20, 2024 Radarman Relationship Specialty Start Date End Date So Arias PCP - General 01/21/24 INFORMATION SOURCE (unrecogn ized section and content) DATE CREATED AUTHOR 06/04/2024 [facility] DATE CREATED AUTHOR AUTHOR'S ORGANIZ ATION 11/13/2024 [facility] DATE CREATED AUTHOR AUTHOR'S ORGANIZ ATION 01/03/2025 [facility] DATE CREATED AUTHOR AUTHOR'S ORGANIZ ATION 01/31/2025 [facility] FOR RECORDS PERTAINING TO PATIENTS WHO ARE OR HAVE BEEN ENROLLED IN A CHEMICAL DEPENDENCY/SUBSTANCEABUSE PROGRAM, SOME INFORMATION MAY BE OMITTED. This clinical summary was aggregated from multiple sources. Caution should be exercised in using it in the provision of clinical care. This summary normalizes information from multiple sources, and as a consequence, information in this document may materially change the coding, format and clinical context of patient data. In addition, data may be omitted in some cases. CLINICAL DECISIONS SHOULD BE BASED ON THE PRIMARY CLINICAL RECORDS. [facility]. provides no warranty or guarantee of the accuracy or completeness of information in this document.
== END | disposition home or self-care (01) ==
LOC: OPMRI 06:55
PROVIDERS: PCP Nurse Practitioner Family; Referring Provider Psychiatry & Neurology Neurology; Visit Provider Psychiatry & Neurology Neurology
DX: G35 Multiple sclerosis (principal); R29.898 Other symptoms and signs involving the musculoskeletal system
CPT/HCPCS: 70553; 72156; 72157; A9575